=== PATIENT | male | born 1940 | race Caucasian/White ===

== ENCOUNTER 2020-04-07 10:44 | Outpatient (REF) | payer MEDICARE, OTHER, SELFPAY ==
--- NOTE | 2020-04-07 | US_ITS ---
EXAMINATION: US RETROPERITONEAL LIMITED (RENAL ONLY) CLINICAL INFORMATION: Renal stones. COMPARISON: Previous renal ultrasound most recent January 2019 TECHNIQUE: Grayscale and color imaging of the kidneys FINDINGS: RIGHT KIDNEY: 10.3 x 6.5 x 6.1 cm (SAG x AP x TRV). The kidney is normal in size, contour, and echogenicity. Renal cortical thickness is normal. There is a 2.3 x 2.3 x 2.4 cm slightly complex cyst in the midpole with single small thin septation. No calculi or mass. No hydronephrosis. LEFT KIDNEY: 10.3 x 5.8 x 6.5 cm (SAG x AP x TRV). The kidney is normal in size, contour, and echogenicity. Renal cortical thickness is normal. There are multiple cysts. The largest measures 2.4 x 2.7 x 2.4 cm in the lower pole. There are 2 left renal stones. The largest measures 5 x 7 x 8 mm in the lower pole. There is a smaller 3 mm stone in the midpole. There is no hydronephrosis or renal mass. US/US renal BI IMPRESSION: Left renal stones. Bilateral renal cysts.
== END 2020-04-07 10:45 | disposition home or self-care (01) ==
LOC: HO.HMGCX 10:44
PROVIDERS: Visit Provider Urology
DX: N20.0 Calculus of kidney (principal)
CPT/HCPCS: 76775

== ENCOUNTER → 2020-06-04 13:42 | Outpatient (BNVA) | payer MEDICARE, OTHER, SELFPAY | PROVIDERS: PCP Internal Medicine; Visit Provider Urology | DX: Z13.89 Encounter for screening for other disorder (principal) | CPT/HCPCS: Q3014 ==

== ENCOUNTER 2020-06-25 06:58 | Day surgery (SDC) | payer MEDICARE, OTHER, SELFPAY ==
--- NOTE | 2020-06-24 11:01 | HO.ANESPROP2 ---
Documented by User: Pippa Yecenia 06/24/20 11:03 HPI - Anesthesia Eval Consult details Narrative: 80yo M for L ESWL Last ESWL 06/2017 with [facility] Active Problems Active Problems: All Active Problems (Updated 06/04/20 @ 14:02 by Gómez Ca MD) Left renal stone (Acute) Impaired glucose tolerance (Acute) Anxiety (Acute) BPH (benign prostatic hyperplasia) (Acute) Hypercholesterolemia (Acute) GERD (gastroesophageal reflux disease) (Acute) Asthma (Acute) Past Medical History Medical History Asthma BPH (benign prostatic hyperplasia) Cataract, left eye Esophageal stricture GERD (gastroesophageal reflux disease) Glaucoma Hypercholesterolemia Left renal stone Sciatic nerve pain Vitamin D deficiency Family History Family History Father Stroke Mother No problems noted. Surgical History Surgical History History of blepharoplasty History of cholecystectomy History of inguinal hernia repair History of lithotripsy History of tonsillectomy Social History Social History Smoking Status: Never smoker Use of substances other than those prescribed or required for medical reasons: No Advance Directives: No Advance Directives Information Provided: Yes Recently lost weight without trying: No Meds Allergies Allergy/AdvReac Type Severity Reaction Status Date / Time Penicillins [PENICILLINS] Allergy Intermediate RASH Verified 06/25/20 07:43 Home Medications Medication Instructions Recorded Confirmed Last Taken Type albuterol sulfate 90 mcg/actuation 2 puff INHALATION Q4-6H PRN 04/23/20 06/25/20 06/25/20 06:00 History aerosol inhaler dorzolamide 22.3 mg-timolol 6.8 1 drp OPHTHALMIC (EYE) BID 04/23/20 06/19/20 Unknown History mg/mL eye drops latanoprost 0.005 % eye drops 1 drp OPHTHALMIC (EYE) QPM 04/23/20 06/19/20 Unknown History omeprazole 20 mg capsule,delayed 20 mg PO DAILY 04/23/20 06/19/20 Unknown History release fluticasone furoate [Arnuity 1 puff PO DAILY 06/19/20 06/19/20 Unknown History Ellipta] pyridoxine (vitamin B6) 1 tab PO DAILY 06/19/20 06/19/20 Unknown History Exam Exam Date and Time: June 24, 2020 1101 Assessment and Plan Assessment Anesthesia Assessment: Chart Reviewed Documented by User: Atiya Ravi 06/25/20 08:09 [facility] Past Medical History Medical History Asthma BPH (benign prostatic hyperplasia) Cataract, left eye Esophageal stricture GERD (gastroesophageal reflux disease) Glaucoma Hypercholesterolemia Left renal stone Sciatic nerve pain Vitamin D deficiency Family History Family History Father Stroke Mother No problems noted. Surgical History Surgical History History of blepharoplasty History of cholecystectomy History of inguinal hernia repair History of lithotripsy History of tonsillectomy Social History Social History Smoking Status: Never smoker Use of substances other than those prescribed or required for medical reasons: No Advance Directives: No Advance Directives Information Provided: Yes Recently lost weight without trying: No Meds Allergies Allergy/AdvReac Type Severity Reaction Status Date / Time Penicillins [PENICILLINS] Allergy Intermediate RASH Verified 06/25/20 07:43 Home Medications Medication Instructions Recorded Confirmed Last Taken Type albuterol sulfate 90 mcg/actuation 2 puff INHALATION Q4-6H PRN 04/23/20 06/25/20 06/25/20 06:00 History aerosol inhaler dorzolamide 22.3 mg-timolol 6.8 1 drp OPHTHALMIC (EYE) BID 04/23/20 06/19/20 Unknown History mg/mL eye drops latanoprost 0.005 % eye drops 1 drp OPHTHALMIC (EYE) QPM 04/23/20 06/19/20 Unknown History omeprazole 20 mg capsule,delayed 20 mg PO DAILY 04/23/20 06/19/20 Unknown History release fluticasone furoate [Arnuity 1 puff PO DAILY 06/19/20 06/19/20 Unknown History Ellipta] pyridoxine (vitamin B6) 1 tab PO DAILY 06/19/20 06/19/20 Unknown History Exam Airway Mallampati Class: II TM Dist: >3cm Neck ROM: Full Assessment and Plan Assessment Anesthesia Assessment: Anesthesia Plan Discussed and Chart Reviewed Final Anesthetic Review NPO: Yes ASA Class: II Final Preanesthetic Review: No Changes in Pt Med Stat, Meds/Allgs Chart Reviewed, Consent Obtained/Reviewed and Anes Risks/Benef Reviewed Patient Risk: Low Procedure Risk: Low Assessment/Block/Sedation in SS: Assess/Block/Sedation-SS Anesthetic Plan Anesthetic Plan: MAC: Disposition: Standard PACU
--- NOTE | ~2020-06-25 | XR_ITS ---
EXAMINATION: XR ABDOMEN KUB CLINICAL INDICATION: Nephrolithiasis COMPARISON: Ultrasound 04/07/2020 TECHNIQUE: AP view of the abdomen. FINDINGS: 0.7 cm calcification overlying the lower pole of the left kidney. No additional calcifications are seen. Nonobstructive bowel gas pattern. Mild to moderate colonic stool burden. Degenerative changes of the spine. XR/XR KUB IMPRESSION: 0.7 cm calcification overlying the lower pole of the left kidney.
[2020-06-25 07:26] VITALS: BMI 24.3
[2020-06-25 07:30] VITALS: BP 125/68; PULSE 82; RESP 16; TEMP 36.5; O2SAT 95
[2020-06-25] MEDS: Lactated Ringers 1,000 ML 100 ML IVCONT (07:44)
--- NOTE | 2020-06-25 09:27 | MHC.SHP ---
Pre-Procedural Eval Section A The patient is an INPATIENT: No Changes since office visit: No Cold of Flu in the past 2 weeks, No New Medical Problems, No Changes in Medication and No Patient answered all questions Section B Chief Complaint: Calculus of Kidney Allergies: Allergies Allergy/AdvReac Type Severity Reaction Status Date / Time Penicillins [PENICILLINS] Allergy Intermediate RASH Verified 06/25/20 07:43 Plan Diagnosis/Plan: Unchanged (Left ESWL) I have reviewed the history and physical and performed a pertinent physical examination on my patient. No changes have occurred unless specified.
--- NOTE | 2020-06-25 09:36 | W.PM.OPN ---
Operative Note Operative Note Date of Service: 06/25/20 Narrative: PreOperative Diagnosis: Left Renal stones Post Operative Diagnosis: Left Renal stones Procedure: Left ESWL Surgeon: Dr Góemz Ca Anesthesia: mac/sedation Indications for procedure: They understand ESWL may be a staged procedure and subsequent intervention may be required based on imaging after ESWL. They also understand there is a risk of bleeding, infection, damage to adjacent organs. Left 7mm lower pole stone with cyst Procedure: After informed consent was verified the patient was brought to the operating room and placed in a supine position. Anesthesia was performed per protocol. Safety pause time-out was performed. Imaging was in the room and laterality confirmed. ESWL was performed. The 1st 500 shocks were performed at 60 hertz. These were performed with increasing power. Once maximum power was reached the rate was increased to 180 hertz. A total of 2500 shocks were given. Fluoroscopy showed stone disintegration. They tolerated procedure well and was transferred to the recovery area upon completion.
[2020-06-25 10:05] VITALS: BP 108/61; PULSE 78; RESP 16; TEMP 36.6; O2SAT 97
[2020-06-25] MEDS: Phenazopyridine HCL 100 MG TABLET PO (10:19)
[2020-06-25 10:20] VITALS: BP 114/65; PULSE 82; RESP 18; O2SAT 97
== END 2020-06-25 13:00 | disposition home or self-care (01) ==
PROVIDERS: PCP Internal Medicine; Visit Provider Urology
PROC: (CPT 50590; principal; 2020-06-25 08:30)
DX: N20.0 Calculus of kidney (principal); N28.1 Cyst of kidney, acquired; N40.0 Benign prostatic hyperplasia without lower urinary tract symptoms; Z87.442 Personal history of urinary calculi; J45.909 Unspecified asthma, uncomplicated; Z79.899 Other long term (current) drug therapy; Z88.0 Allergy status to penicillin; Z90.49 Acquired absence of other specified parts of digestive tract
CPT/HCPCS: 50590; 74018; J1885; J2405; J3010

== ENCOUNTER 2020-06-30 09:57 | Outpatient (REF) | payer MEDICARE, OTHER, SELFPAY ==
--- NOTE | ~2020-06-30 | US_ITS ---
EXAMINATION: US RETROPERITONEAL LIMITED (RENAL ONLY) CLINICAL INFORMATION: Calculus of kidney. COMPARISON: X-ray abdomen KUB 06/25/2020. Renal ultrasound 04/07/2020 and 01/22/2019. CT abdomen and pelvis 10/04/2011. TECHNIQUE: Real-time imaging of the kidneys. FINDINGS: RIGHT KIDNEY: 11.8 x 6.3 x 6.1 cm (SAG x AP x TRV). The kidney is normal in size, contour, and echogenicity. Renal cortical thickness is normal. There is a 2.3 x 2.2 x 2.3 cm minimally complex cyst in the midpole with single thin septation. No renal calculi, mass or hydronephrosis. LEFT KIDNEY: 10.8 x 6.0 x 5.2 cm (SAG x AP x TRV). The kidney is normal in size, contour, and echogenicity. Renal cortical thickness is normal. There are 3 simple cysts in the mid and lower pole, largest measuring 2.8 x 2.3 x 2.7 cm. There are 3 left renal stones measuring 9 x 7 x 5 mm in the lower pole, 4 x 4 by 2 mm in the midpole and 3 mm in the upper pole. No renal mass or hydronephrosis. US/US renal BI IMPRESSION: Left renal stones. Bilateral renal cysts.
== END 2020-06-30 09:58 | disposition home or self-care (01) ==
LOC: HO.HMGCX 09:57
PROVIDERS: Visit Provider Urology
DX: N20.0 Calculus of kidney (principal)
CPT/HCPCS: 76775

== ENCOUNTER → 2020-07-18 09:45 | Outpatient (BNVA) | payer MEDICARE, OTHER, SELFPAY | PROVIDERS: PCP Internal Medicine; Visit Provider Urology | DX: N20.0 Calculus of kidney (principal) | CPT/HCPCS: Q3014 ==

== ENCOUNTER 2020-10-30 11:38 | Outpatient (REF) | payer MEDICARE, OTHER, SELFPAY ==
--- NOTE | ~2020-10-30 | XR_ITS ---
EXAMINATION: XR HIP, RIGHT CLINICAL INFORMATION: Right hip pain. COMPARISON: None TECHNIQUE: Two views of the right hip. FINDINGS: No acute fracture or dislocation. No significant joint space narrowing. Tiny acetabular marginal osteophytes with minimal subchondral cystic change. No abnormal soft tissue calcification. XR/XR hip RT min 2V IMPRESSION: Minimal right hip arthrosis.
[2020-10-30 12:35] LABS: MANUAL DIFF FLAG NO
[2020-10-30 12:43] LABS: Basophils Absolute Auto 0.1 X10*3/uL (0.0-0.2); Basophils Percent Auto 0.9 % (0-2); Eosinophils Absolute Auto 0.5 X10*3/uL (0.0-0.4); Eosinophils Percent Auto 6.2 % (0-4); Hematocrit 41.9 % (42-52); Hemoglobin 13.7 g/dl (14.0-18.0); Imm Gran Abs Auto 0.02 X10*3/uL (0.00-0.03); Imm Gran Pct Auto 0.3 % (0.0-0.4); Lymphocytes Absolute Auto 1.9 X10*3/uL (1.2-4.9); Lymphocytes Percent Auto 24.1 % (20-40); Mean Corpuscular HGB Conc 32.7 g/dl (31.0-36.0); Mean Corpuscular Hemoglobin 30.7 pg (27.0-33.0); Mean Corpuscular Volume 93.9 fL (80-98); Mean Platelet Volume 9.7 fL (9.4-12.4); Monocytes Absolute Auto 0.7 X10*3/uL (0.1-1.2); Monocytes Percent Auto 8.8 % (2-11); Neutrophils Absolute Auto 4.7 X10*3/uL (2.0-8.3); Neutrophils Percent Auto 59.7 % (45-73); Platelet Count 257 X10*3/uL (160-400); Red Blood Count 4.46 X10*6/uL (4.60-5.80); Red Cell Distribution Width 12.8 % (11.0-16.0); White Blood Count 7.8 X10*3/uL (4.8-10.8)
[2020-10-30 13:12] LABS: Alanine Aminotransferase 65 U/L (0-40); Albumin Level 4.1 g/dL (3.5-5.0); Alkaline Phosphatase 95 U/L (39-117); Anion Gap 11 (12-20); Aspartate Amino Transferase 59 U/L (5-37); Bilirubin Total 0.8 mg/dL (0.0-1.0); Blood Urea Nitrogen 18 mg/dL (9-16); Calcium 9.4 mg/dL (8.4-10.2); Carbon Dioxide 25 mmol/L (22-29); Chloride 111 mmol/L (96-108); Cholesterol 154 mg/dL; Estimated Glomerular Filt Rate > 60; Glucose Random 98 mg/dL (60-115); HDL Cholesterol 44 mg/dL; LDL Cholesterol Calculated 95 mg/dl; Potassium 3.9 mmol/L (3.3-5.1); Sodium 143 mmol/L (135-145); Triglycerides 77 mg/dL
[2020-10-30 13:33] LABS: Estimated Average Glucose 117 mg/dL; Hemoglobin A1c % 5.7 %
[2020-10-30 13:36] LABS: Free T4 (Free Thyroxine) 0.98 ng/dL (0.71-1.85); Thyroid Stimulating Hormone 1.67 uIU/mL (0.32-4.0)
[2020-10-30 15:43] LABS: Folate 5.1 ng/mL (> or = 4.0); Vitamin B12 392 pg/mL (200-900)
== END 2020-10-30 11:39 | disposition home or self-care (01) ==
LOC: HO.XRAY 11:38
PROVIDERS: Absent Provider Internal Medicine; PCP Internal Medicine; Visit Provider Nurse Practitioner Family
DX: E78.00 Pure hypercholesterolemia, unspecified (principal); F41.9 Anxiety disorder, unspecified; M25.551 Pain in right hip
CPT/HCPCS: 36415; 73502; 80053; 80061; 82607; 82746; 83036; 84439; 84443; 85025

== ENCOUNTER 2020-11-16 11:00 | Inpatient (IN) | payer MEDICARE, OTHER, SELFPAY ==
--- NOTE | ~2020-11-16 | MR_ITS ---
EXAMINATION: MR ABDOMEN WITHOUT CONTRAST CLINICAL INFORMATION: Obstructive jaundice. COMPARISON: Previous CT of the abdomen and pelvis and abdominal ultrasound 11/16/2020. TECHNIQUE: MR abdomen is performed without gadolinium contrast. 3-D MRCP sequences were also performed. FINDINGS: LUNG BASES: The visualized lung bases are unremarkable. LIVER, GALLBLADDER, AND BILIARY TREE: The liver is normal in size, shape and signal. No focal liver lesion is seen. There is intrahepatic and extrahepatic biliary duct dilatation. The common bile duct is dilated down to the head of the pancreas and measures up to 1.8 cm. There is a round filling defect seen in the distal common bile duct at the ampulla questionable for a distal common bile duct stone. This measures 5 mm, and is best seen MRCP image 12 series 9. The gallbladder has been removed. PANCREAS: Unremarkable. The main pancreatic duct is normal. SPLEEN: Unremarkable ADRENAL GLANDS: Unremarkable KIDNEYS AND URETERS: The kidneys are normal in size and shape. There are multiple bilateral renal cysts. The largest measures 2.5 cm in the lower pole of the left kidney. No hydronephrosis. No perinephric stranding. GASTROINTESTINAL TRACT: There is diverticulosis of the colon. There is an esophageal hernia. No bowel obstruction. No ascites or fluid collection. ABDOMINAL WALL: No significant hernia is appreciated. LYMPH NODES: No lymphadenopathy. VASCULAR: Unremarkable. OSSEOUS STRUCTURES: Marrow signal normal. There are degenerative changes of the spine and mild scoliosis. MR/MR MRCP IMPRESSION: Dilated intrahepatic and extrahepatic bile ducts. The common bile duct is dilated down to the ampulla and there is question of a 5 mm distal common bile duct. Bilateral renal cysts. Diverticulosis. Esophageal hernia.
--- NOTE | ~2020-11-16 | US_ITS ---
EXAMINATION: US ABDOMEN LIMITED CLINICAL INFORMATION: Elevated LFTs. COMPARISON: CT scan of same day TECHNIQUE: Real-time imaging of the right upper quadrant abdominal viscera. FINDINGS: PANCREAS: Unremarkable. No pancreatic mass or peripancreatic inflammatory change. LIVER: There is intrahepatic bile duct dilatation seen. No focal masses noted. GALLBLADDER: Status post cholecystectomy. COMMON BILE DUCT: Dilated to approximately 1.5 cm in diameter. RIGHT KIDNEY: Normal. No hydronephrosis. No renal calculi or focal solid parenchymal lesions. The kidney measures 11.3 cm in maximum dimension. There is a 2.3 cm mid pole cyst present. FREE FLUID: None. US/US abdomen limited IMPRESSION: Intrahepatic bile duct dilatation with dilated common bile duct.
--- NOTE | ~2020-11-16 | CT_ITS ---
EXAMINATION: CT ABDOMEN AND PELVIS WITHOUT CONTRAST CLINICAL INFORMATION: Kidney stones COMPARISON: October 04, 2011 TECHNIQUE: Multidetector volumetric imaging was performed from the superior aspect of the liver through the pubic symphysis. Sagittal and coronal reformatted images were obtained on the technologist's workstation. This CT examination was performed using dose optimization techniques as appropriate, variously including the following: *Automated exposure control *Adjustment of mA and/or kV according to patient size (this includes techniques or standardized protocols for targeted exams where dose is matched to indication/reason for exam; i.e. extremities or head) *Use of iterative reconstruction technique DLP: 377.01 mGy-cm FINDINGS: LUNG BASES: There is a 6 mm subpleural noncalcified nodule seen within the left lower lobe on image 51 of 649. This was present and is stable compared to study of October 04, 2011. No pleural or pericardial effusion. LIVER, GALLBLADDER, AND BILIARY TREE: There is intrahepatic bile duct dilatation present as well as dilatation of the common hepatic and common bile duct . The common hepatic duct measures greater than 2 cm in diameter with the common bile duct measuring 2 cm in diameter. No radiopaque filling defect is appreciated. Status post cholecystectomy. PANCREAS: No definite pancreatic mass is appreciated. No pancreatic ductal dilatation is seen. SPLEEN: Unremarkable. ADRENAL GLANDS: Unremarkable. KIDNEYS AND URETERS: Bilateral renal cysts are present. No hydronephrosis or hydroureter. No renal collecting system or ureteral calculi seen. There is a calcification seen involving the peripheral cortex lower pole of the left kidney which may be posttraumatic or post inflammatory. BLADDER: Unremarkable. Large prostate impression. GASTROINTESTINAL TRACT: No free air or free fluid is appreciated. There is a moderate size hiatal hernia seen. No dilated loops of large or small bowel. There is sigmoid diverticulosis without evidence of acute diverticulitis. The appendix appears unremarkable. No pericolonic inflammatory change. ABDOMINAL WALL: There is a fat-containing left inguinal hernia present. LYMPH NODES: No lymphadenopathy seen. VASCULAR: Aortoiliac calcified plaque is seen. There is ectasia of the right and left common iliac arteries to approximately 1.6 cm in diameter. PELVIC VISCERA: Enlarged prostate gland measuring approximately 5.4 x 5.9 x 5.9 cm in size. OSSEOUS STRUCTURES: No suspicious destructive bony lesions identified. There is multilevel degenerative disc disease and facet arthropathy and sacroiliac joint degenerative change. CT/CT abdomen pelvis wo con IMPRESSION: Intrahepatic and extrahepatic biliary ductal dilatation to the level of the ampulla of Vater without radiopaque filling defect. Possible stricture or malignancy not excluded. No evidence of obstructive uropathy. Bilateral renal cysts. Enlarged prostate gland.
--- NOTE | ~2020-11-16 | FL_ITS ---
EXAMINATION: Intraoperative fluoroscopy CLINICAL INFORMATION: ERCP COMPARISON: MRCP same day TECHNIQUE: Intraoperative fluoroscopy was provided for use by Dr. Duran. A total of 8 images were saved to PACS. A radiologist was not present during imaging. Today's dictation is only for administrative purposes to document intraoperative fluoroscopic usage. TOTAL FLUOROSCOPIC TIME: 4.1 minutes FL/FL guidance in OR FINDINGS~\^^ Intraoperative fluoroscopy provided for use by Dr. Duran. Please see operative note for detailed findings.
[2020-11-16 11:03] VITALS: BP 121/68; PULSE 83; RESP 18; TEMP 36.7; O2SAT 99; BMI 22.8
--- NOTE | 2020-11-16 11:18 | ED_ITS ---
HPI - Abdominal Pain General Chief Complaint: Abdominal Pain Stated Complaint: abd pain Time Seen by Provider: 11/16/20 11:14 Source: patient Mode of arrival: ambulatory Limitations: no limitations History of Present Illness HPI narrative: THIS IS AN 80 YEARS OLD MALE PRESENTED TO THE ED WITH CHIEF COMPLAINT OF ABDOMINAL PAIN NAUSEA VOMITING FOR ABOUT 4 DAYS, HE ALSO STATES HE MAY HAVE A UTI MD elicited complaint: abdominal pain Pertinent past history: none Onset (ago): day(s) (3) Pain Consistency: constant Location: diffuse Quality: cramping Radiation: none Migration to: no migration Associated symptoms: nausea and vomiting Related Data Home Medications Medication Instructions Recorded Confirmed dorzolamide 22.3 mg-timolol 6.8 1 drp OPHTHALMIC (EYE) BID 04/23/20 11/16/20 mg/mL eye drops latanoprost 0.005 % eye drops 1 drp OPHTHALMIC (EYE) QPM 04/23/20 11/16/20 omeprazole 20 mg capsule,delayed 20 mg PO DAILY 04/23/20 11/16/20 release pyridoxine (vitamin B6) 100 mg 1 tab PO DAILY 06/19/20 11/16/20 tablet fluticasone furoate 100 1 puff PO DAILY 11/16/20 11/16/20 mcg-vilanterol 25 mcg/dose inhalation powder (Breo Ellipta) Previous Rx's Medication Instructions Recorded simvastatin 40 mg tablet 40 mg PO BEDTIME #90 tab 03/07/20 tadalafil 10 mg tablet (Cialis) 10 mg PO DAILY PRN #30 tab 06/05/20 Allergies Allergy/AdvReac Type Severity Reaction Status Date / Time Penicillins [PENICILLINS] Allergy Intermediate RASH Verified 11/16/20 11:02 Review of Systems Review of Systems Yes all other systems are reviewed and are negative Constitutional: Reports no additional constitutional complaints Cardiovascular: Denies chest pain, Denies chest pain at rest and Denies chest pain with activity Respiratory: Reports no additional respiratory complaints Gastrointestinal: Reports nausea and Reports vomiting Physical Exam Vital Signs: Vital Signs: Last Vital Signs Temp 98.2 F 11/16/20 15:10 Pulse 84 11/16/20 15:10 Resp 16 11/16/20 15:10 BP 122/79 11/16/20 15:10 Pulse Ox 99 11/16/20 11:25 Body Mass Index 22.8 Const: General: cooperative, alert, awake and Physically active HENMT: Head: Yes normal to inspection Neck: Neck: Yes normal visual inspection, Yes full ROM and Yes no lymphadenopathy Thyroid: Thyroid normal Chest: Chest palpation & inspection: normal inspection of the chest Resp: Effort & Inspection: normal respiratory effort Auscultation: clear to auscultation bilaterally Cardio: Jugular venous distension: no JVD Rate: regular rate GI: Inspection: Yes normal to inspection Palpation (GI): Soft to palpation, not firm, nontender, no guarding and not rigid Skin: General skin exam: no rashes or lesions noted, elasticity normal and turgor normal Rashes: no rashes Extrem: General: Yes normal to inspection, Yes full ROM and Yes capillary refill normal Course Reevaluation(s) Reevaluation #1: Labs showed elevated LFT , ultrasound the CT showed dilated intra and extra hepatic bile duct. I spoke with GINA Powell will admit cover with AB,npo after mid night for possible ERCP MDM - Abdominal Pain Lab Data Result diagrams: 11/16/20 11:24 11/16/20 11:24 Labs: Lab Results 11/16/20 11/16/20 11/16/20 Range/Units 11:24 11:24 11:24 WBC 9.4 (4.8-10.8) X10*3/uL RBC 4.79 (4.60-5.80) X10*6/uL Hgb 14.8 (14.0-18.0) g/dl Hct 45.1 (42-52) % MCV 94.2 (80-98) fL MCH 30.9 (27.0-33.0) pg MCHC 32.8 (31.0-36.0) g/dl RDW 12.9 (11.0-16.0) % Plt Count 285 (160-400) X10*3/uL MPV 9.4 (9.4-12.4) fL Immature Gran % (Auto) 0.4 (0.0-0.4) % Neut % (Auto) 64.1 (45-73) % Lymph % (Auto) 16.6 L (20-40) % Jennings % (Auto) 14.2 H (2-11) % Eos % (Auto) 4.0 (0-4) % Baso % (Auto) 0.7 (0-2) % Lymph # (Auto) 1.6 (1.2-4.9) X10*3/uL Jennings # (Auto) 1.3 H (0.1-1.2) X10*3/uL Eos # (Auto) 0.4 (0.0-0.4) X10*3/uL Baso # (Auto) 0.1 (0.0-0.2) X10*3/uL Abs Immat Gran (auto) 0.04 H (0.00-0.03) X10*3/uL Absolute Neuts (auto) 6.0 (2.0-8.3) X10*3/uL Absolute Nucleated RBC 0.000 (0.0-0.012) X10*3/uL Nucleated RBC % (auto) 0.0 (0.0-0.2) /100WBC Sodium 138 (135-145) mmol/L Potassium 4.5 (3.3-5.1) mmol/L Chloride 104 (96-108) mmol/L Carbon Dioxide 23 (22-29) mmol/L Anion Gap 16 (12-20) BUN 17 H (9-16) mg/dL Creatinine 1.07 (0.5-1.4) mg/dL Estim Creat Clear Calc 54.7 Estimated GFR > 60 Random Glucose 109 (60-115) mg/dL Calcium 9.4 (8.4-10.2) mg/dL Total Bilirubin 3.4 H (0.0-1.0) mg/dL Direct Bilirubin 1.6 H (0.0-0.5) mg/dL AST 280 H (5-37) U/L ALT 432 H (0-40) U/L Alkaline Phosphatase 431 H D (39-117) U/L C-Reactive Protein 2.84 H (< or = 0.50) mg/dL Total Protein 7.5 (6.5-8.0) g/dL Albumin 3.9 (3.5-5.0) g/dL Lipase 43 (8-78) U/L Urine Color Cancelled Urine Appearance Cancelled Urine pH Cancelled Ur Specific [place] Cancelled Urine Protein Cancelled Urine Glucose (UA) Cancelled Urine Ketones Cancelled Urine Blood Cancelled Urine Nitrite Cancelled Ur Leukocyte Esterase Cancelled Urine RBC (0) /HPF Urine WBC (0-4) /HPF Ur Squamous Epith Cells /LPF Urine Bacteria /LPF Urine Mucus /LPF 11/16/20 Range/Units 11:24 WBC (4.8-10.8) X10*3/uL RBC (4.60-5.80) X10*6/uL Hgb (14.0-18.0) g/dl Hct (42-52) % MCV (80-98) fL MCH (27.0-33.0) pg MCHC (31.0-36.0) g/dl RDW (11.0-16.0) % Plt Count (160-400) X10*3/uL MPV (9.4-12.4) fL Immature Gran % (Auto) (0.0-0.4) % Neut % (Auto) (45-73) % Lymph % (Auto) (20-40) % [place] % (Auto) (2-11) % Eos % (Auto) (0-4) % Baso % (Auto) (0-2) % Lymph # (Auto) (1.2-4.9) X10*3/uL [place] # (Auto) (0.1-1.2) X10*3/uL Eos # (Auto) (0.0-0.4) X10*3/uL Baso # (Auto) (0.0-0.2) X10*3/uL Abs Immat Gran (auto) (0.00-0.03) X10*3/uL Absolute Neuts (auto) (2.0-8.3) X10*3/uL Absolute Nucleated RBC (0.0-0.012) X10*3/uL Nucleated RBC % (auto) (0.0-0.2) /100WBC Sodium (135-145) mmol/L Potassium (3.3-5.1) mmol/L Chloride (96-108) mmol/L Carbon Dioxide (22-29) mmol/L Anion Gap (12-20) BUN (9-16) mg/dL Creatinine (0.5-1.4) mg/dL Estim Creat Clear Calc Estimated GFR Random Glucose (60-115) mg/dL Calcium (8.4-10.2) mg/dL Total Bilirubin (0.0-1.0) mg/dL Direct Bilirubin (0.0-0.5) mg/dL AST (5-37) U/L ALT (0-40) U/L Alkaline Phosphatase (39-117) U/L C-Reactive Protein (< or = 0.50) mg/dL Total Protein (6.5-8.0) g/dL Albumin (3.5-5.0) g/dL Lipase (8-78) U/L Urine Color ORANGE Urine Appearance CLEAR Urine pH 5.5 Ur Specific [place] 1.025 Urine Protein 1+ H Urine Glucose (UA) 100 H Urine Ketones SEE NOTE Urine Blood TRACE Urine Nitrite SEE NOTE Ur Leukocyte Esterase NEG Urine RBC 0 (0) /HPF Urine WBC 0-2 (0-4) /HPF Ur Squamous Epith Cells TRACE /LPF Urine Bacteria NONE /LPF Urine Mucus 1+ /LPF Imaging Data CT scan - abdomen: Radiologist's impression: GASTROINTESTINAL TRACT: No free air or free fluid is appreciated. There is a moderate size hiatal hernia seen. No dilated loops of large or small bowel. There is sigmoid diverticulosis without evidence of acute diverticulitis. The appendix appears unremarkable. No pericolonic inflammatory change.? ABDOMINAL WALL: There is a fat-containing left inguinal hernia present. ? LYMPH NODES: No lymphadenopathy seen. VASCULAR: Aortoiliac calcified plaque is seen. There is ectasia of the right and left common iliac arteries to approximately 1.6 cm in diameter. PELVIC VISCERA: Enlarged prostate gland measuring approximately 5.4 x 5.9 x 5.9 cm in size.? OSSEOUS STRUCTURES: No suspicious destructive bony lesions identified. There is multilevel degenerative disc disease and facet arthropathy and sacroiliac joint degenerative change.? CT/CT abdomen pelvis wo con IMPRESSION: Intrahepatic and extrahepatic biliary ductal dilatation to the level of the ampulla of Vater without radiopaque filling defect. Possible stricture or malignancy not excluded. ? No evidence of obstructive uropathy. ? Bilateral renal cysts. ? Enlarged prostate gland. Discharge Plan Discharge Clinical Impression: Abdominal pain in male, Elevated LFTs Prescriptions: No Action simvastatin 40 mg tablet 40 mg PO BEDTIME Qty: 90 RF: 2 tadalafil [Cialis] 10 mg tablet 10 mg PO DAILY PRN (Reason: sexual activity) Qty: 30 RF: 5 pyridoxine (vitamin B6) 100 mg tablet 1 tab PO DAILY RF: 0 Breo Ellipta 100-25 mcg/dose blister with device 1 puff PO DAILY RF: 0 dorzolamide-timolol 22.3-6.8 mg/mL drops 1 drp ophthalmic (eye) BID RF: 0 latanoprost 0.005 % drops 1 drp ophthalmic (eye) QPM RF: 0 omeprazole 20 mg capsule,delayed release(DR/EC) 20 mg PO DAILY RF: 0 PMFSH Past Medical History Attestation statement: The following information was validated with the patient. Medical History Asthma BPH (benign prostatic hyperplasia) Cataract, left eye Esophageal stricture GERD (gastroesophageal reflux disease) Glaucoma Hypercholesterolemia Left renal stone Sciatic nerve pain Screening for diabetes mellitus Vitamin D deficiency Surgical History History of blepharoplasty History of cataract surgery History of cholecystectomy History of inguinal hernia repair History of lithotripsy History of tonsillectomy Family History Family History Father Stroke Mother No problems noted. Social History Social History Alcohol intake: current Alcohol intake frequency: does not drink Patient Tobacco Use Status: Never used Tobacco Use of substances other than those prescribed or required for medical reasons: No Advance Directives: Yes Advance Directives Information Provided: Yes Advance Directives on File: No
[2020-11-16 11:25] VITALS: BP 127/66; PULSE 79; RESP 16; O2SAT 99
[2020-11-16 11:28] LABS: MANUAL DIFF FLAG NO
[2020-11-16] MEDS: ondansetron HCL 4 MG/2 ML VIAL IVPUSH (11:28)
[2020-11-16] MEDS: 0.9 % Sodium Chloride 1,000 ML 999 ML IVCONT (11:28)
[2020-11-16 11:34] LABS: Basophils Absolute Auto 0.1 X10*3/uL (0.0-0.2); Basophils Percent Auto 0.7 % (0-2); Eosinophils Absolute Auto 0.4 X10*3/uL (0.0-0.4); Hematocrit 45.1 % (42-52); Hemoglobin 14.8 g/dl (14.0-18.0); Imm Gran Abs Auto 0.04 X10*3/uL (0.00-0.03); Imm Gran Pct Auto 0.4 % (0.0-0.4); Lymphocytes Absolute Auto 1.6 X10*3/uL (1.2-4.9); Lymphocytes Percent Auto 16.6 % (20-40); Mean Corpuscular HGB Conc 32.8 g/dl (31.0-36.0); Mean Corpuscular Hemoglobin 30.9 pg (27.0-33.0); Mean Corpuscular Volume 94.2 fL (80-98); Mean Platelet Volume 9.4 fL (9.4-12.4); Monocytes Absolute Auto 1.3 X10*3/uL (0.1-1.2); Monocytes Percent Auto 14.2 % (2-11); Neutrophils Percent Auto 64.1 % (45-73); Platelet Count 285 X10*3/uL (160-400); Red Blood Count 4.79 X10*6/uL (4.60-5.80); Red Cell Distribution Width 12.9 % (11.0-16.0); White Blood Count 9.4 X10*3/uL (4.8-10.8)
[2020-11-16 11:51] LABS: Alanine Aminotransferase 432 U/L (0-40); Albumin Level 3.9 g/dL (3.5-5.0); Alkaline Phosphatase 431 U/L (39-117); Anion Gap 16 (12-20); Aspartate Amino Transferase 280 U/L (5-37); Bilirubin Total 3.4 mg/dL (0.0-1.0); Blood Urea Nitrogen 17 mg/dL (9-16); Calcium 9.4 mg/dL (8.4-10.2); Carbon Dioxide 23 mmol/L (22-29); Chloride 104 mmol/L (96-108); Creatinine Clr Calc Pharmacy 54.7; Estimated Glomerular Filt Rate > 60; Glucose Random 109 mg/dL (60-115); Lipase 43 U/L (8-78); Potassium 4.5 mmol/L (3.3-5.1); Sodium 138 mmol/L (135-145); Total Protein 7.5 g/dL (6.5-8.0)
[2020-11-16 11:57] LABS: Appearance Urine CLEAR; Color Urine ORANGE; Glucose Urine UA 100 MG/DL (NEG); Leukocyte Esterase Urine NEG (NEG); PH 5.5 (5.0-8.0); Specific Gravity - Urine 1.025 (1.005-1.025); Urine Blood TRACE (NEG); Urine Protein 1+ MG/DL (NEG-TRACE)
[2020-11-16 11:58] LABS: UACC Culture Trigger NO
[2020-11-16 12:01] LABS: RBC Urine 0 /HPF (0); Squamous Epithelial Cell Urine TRACE /LPF; WBC Urine 0-2 /HPF (0-4)
[2020-11-16 12:02] LABS: Mucus Urine 1+ /LPF
[2020-11-16] MEDS: levoFLOXacin/D5W 500 MG/100 ML PIGGYBACK 100 MG IV (14:32)
[2020-11-16 15:10] VITALS: BP 122/79; PULSE 84; RESP 16; TEMP 36.8
[2020-11-16 15:32] LABS: Bilirubin Direct 1.6 mg/dL (0.0-0.5); C Reactive Protein 2.84 mg/dL (< or = 0.50)
--- NOTE | 2020-11-16 15:57 | PM.IMHP ---
History of Present Illness Date of Service: 11/16/20 Chief Complaint: abdominal pain, nausea, and vomiting Professor Hi is an 80 yo male with history of GERD and cholelithiasis status post cholecystectomy who presents with a 3-day history of right upper quadrant pain associated with nausea and 1 episode of nonbloody, nonbilious emesis. He hasn't eaten anything due to the nausea. He denies fever, chills, night sweats, or weight loss. No diarrhea or hematochezia. He presented to the ED with normal vital signs and normal WBC count. Transminases were elevated with ALT 432 and AST 280; total bilirubin was 3.4, of which 1.[address] scan showed intrahepatic and extrahepatic biliary ductal dilatation to the level of the ampulla of Vater without radiopaque filling defect, concerning for stricture or malignancy. Ultrasound showed Intrahepatic bile duct dilatation with dilated common bile duct to 1.5 cm. GI was consulted and ERCP is planned for tomorrow. The patient was given levofloxacin and metronidazole, plus a liter of normal saline. Review of Systems Review of Systems: Yes all other systems are reviewed and are negative [facility] Medical History Asthma BPH (benign prostatic hyperplasia) Cataract, left eye Esophageal stricture GERD (gastroesophageal reflux disease) Glaucoma Hypercholesterolemia Left renal stone Sciatic nerve pain Screening for diabetes mellitus Vitamin D deficiency Family History Father Stroke Mother No problems noted. Surgical History History of blepharoplasty History of cataract surgery History of cholecystectomy History of inguinal hernia repair History of lithotripsy History of tonsillectomy Social History Alcohol intake: current Alcohol intake frequency: does not drink Patient Tobacco Use Status: Never used Tobacco Use of substances other than those prescribed or required for medical reasons: No Advance Directives: Yes Advance Directives Information Provided: Yes Advance Directives on File: No Meds Allergies Allergy/AdvReac Type Severity Reaction Status Date / Time Penicillins [PENICILLINS] Allergy Intermediate RASH Verified 11/16/20 11:02 Active Medications: Current Medications Generic Name Dose Route Start Last Admin Trade Name Freq PRN Reason Stop Dose Admin Atorvastatin Calcium 20 mg 11/16/20 21:00 Atorvastatin Calcium 20 Mg Tablet PO BEDTIME [facility] Dorzolamide/Timolol 1 drop 11/16/20 21:00 Dorzolamide/Timolo 2.23%/0.68% 10 Ml Drbtl EYE-BOTH BID [facility] Fluticasone/Vilanterol 1 puff 11/17/20 08:00 Fluticasone/Vilanterol 100/25 Blst.W.Dev INHALE RDAILY [facility] Levofloxacin 750 mg in 150 mls @ 100 mls/hr 11/17/20 14:00 Levaquin IV Q24H [facility] Metronidazole 500 mg in 100 mls @ 100 mls/hr 11/17/20 23:00 Flagyl IV Q8H [facility] Latanoprost 1 drop 11/16/20 21:00 Latanoprost 0.005 % Ophth Anum 2.5 Ml Drops EYE-BOTH BEDTIME [facility] Pharmacy Consult 1 each 11/16/20 15:02 Consult Rx Perform Med Rec MISCELLANE ONCE PRN Consult order Pyridoxine HCl 100 mg 11/17/20 09:00 Pyridoxine Hcl (Vitamin B6) 50 Mg Tablet PO DAILY [facility] Home Medications Medication Instructions Recorded Confirmed Last Taken Type dorzolamide 22.3 mg-timolol 6.8 1 drp OPHTHALMIC (EYE) BID 04/23/20 11/16/20 Unknown History mg/mL eye drops latanoprost 0.005 % eye drops 1 drp OPHTHALMIC (EYE) QPM 04/23/20 11/16/20 Unknown History omeprazole 20 mg capsule,delayed 20 mg PO DAILY 04/23/20 11/16/20 Unknown History release pyridoxine (vitamin B6) 100 mg 1 tab PO DAILY 06/19/20 11/16/20 Unknown History tablet fluticasone furoate 100 1 puff PO DAILY 11/16/20 11/16/20 Unknown History mcg-vilanterol 25 mcg/dose inhalation powder (Breo Ellipta) Physical Exam Vital Signs and Narrative: Vital Signs: Last Vital Signs Temp 98.2 F 11/16/20 15:10 Pulse 84 11/16/20 15:10 Resp 16 11/16/20 15:10 BP 122/79 11/16/20 15:10 Pulse Ox 99 11/16/20 11:25 Body Mass Index 22.8 Gen: in no acute distress HEENT: sclera anicteric, moist mucus membranes Neck: supple without adenopathy Lungs: clear to auscultation bilaterally Heart: regular rate and rhythm, no murmurs Abd: soft, mild RUQ tenderness without rebound, negative Garcia sign, non-distended Ext: no edema Skin: warm/well-perfused, no jaundice Neuro: alert and oriented x3, no focal findings Psych: appropriate affect Results Labs CBC and Chem 7: 11/16/20 11:24 11/16/20 11:24 Labs: Laboratory Results - last 24 hr 11/16/20 11/16/20 11/16/20 11:24 11:24 11:24 MCV 94.2 MCH 30.9 MCHC 32.8 RDW 12.9 Plt Count 285 MPV 9.4 Immature Gran % (Auto) 0.4 Neut % (Auto) 64.1 Lymph % (Auto) 16.6 L Cooper % (Auto) 14.2 H Eos % (Auto) 4.0 Baso % (Auto) 0.7 Lymph # (Auto) 1.6 Cooper # (Auto) 1.3 H Eos # (Auto) 0.4 Baso # (Auto) 0.1 Abs Immat Gran (auto) 0.04 H Absolute Neuts (auto) 6.0 Absolute Nucleated RBC 0.000 Nucleated RBC % (auto) 0.0 Anion Gap 16 Estim Creat Clear Calc 54.7 Estimated GFR > 60 Random Glucose 109 Calcium 9.4 Total Bilirubin 3.4 H Direct Bilirubin 1.6 H AST 280 H ALT 432 H Alkaline Phosphatase 431 H D C-Reactive Protein 2.84 H Total Protein 7.5 Albumin 3.9 Lipase 43 Urine Color Cancelled Urine Appearance Cancelled Urine pH Cancelled Ur Specific Cord Cancelled Urine Protein Cancelled Urine Glucose (UA) Cancelled Urine Ketones Cancelled Urine Blood Cancelled Urine Nitrite Cancelled Ur Leukocyte Esterase Cancelled Urine RBC Urine WBC Ur Squamous Epith Cells Urine Bacteria Urine Mucus 11/16/20 11:24 MCV MCH MCHC RDW Plt Count MPV Immature Gran % (Auto) Neut % (Auto) Lymph % (Auto) Cooper % (Auto) Eos % (Auto) Baso % (Auto) Lymph # (Auto) Cooper # (Auto) Eos # (Auto) Baso # (Auto) Abs Immat Gran (auto) Absolute Neuts (auto) Absolute Nucleated RBC Nucleated RBC % (auto) Anion Gap Estim Creat Clear Calc Estimated GFR Random Glucose Calcium Total Bilirubin Direct Bilirubin AST ALT Alkaline Phosphatase C-Reactive Protein Total Protein Albumin Lipase Urine Color ORANGE Urine Appearance CLEAR Urine pH 5.5 Ur Specific Cord 1.025 Urine Protein 1+ H Urine Glucose (UA) 100 H Urine Ketones SEE NOTE Urine Blood TRACE Urine Nitrite SEE NOTE Ur Leukocyte Esterase NEG Urine RBC 0 Urine WBC 0-2 Ur Squamous Epith Cells TRACE Urine Bacteria NONE Urine Mucus 1+ ITS Impressions Abdomen/Pelvis CT 11/16/20 11:17 IMPRESSION: Intrahepatic and extrahepatic biliary ductal dilatation to the level of the ampulla of Vater without radiopaque filling defect. Possible stricture or malignancy not excluded. No evidence of obstructive uropathy. Bilateral renal cysts. Enlarged prostate gland. Abdomen Ultrasound 11/16/20 12:17 IMPRESSION: Intrahepatic bile duct dilatation with dilated common bile duct. Imaging Radiologist's Impressions: Impressions Abdomen/Pelvis CT 11/16/20 11:17 IMPRESSION: Intrahepatic and extrahepatic biliary ductal dilatation to the level of the ampulla of Vater without radiopaque filling defect. Possible stricture or malignancy not excluded. No evidence of obstructive uropathy. Bilateral renal cysts. Enlarged prostate gland. Abdomen Ultrasound 11/16/20 12:17 IMPRESSION: Intrahepatic bile duct dilatation with dilated common bile duct. Assessment and Plan (1) Cholestatic hepatitis: Status: Acute (2) Dilation of biliary tract: Status: Acute 80 yo male with history of GERD and cholelithiasis status post cholecystectomy presenting with acute nausea, vomiting, and RUQ pain and found to have mixed cholestatic/hepatocellular hepatitis and extrahepatic and intrahepatic biliary duct dilation concerning for stricture or malignancy # biliary duct dilation # cholestatic/hepatocellular hepatitis - admit to Med/Surg, give IV levofloxacin + metronidazole, consult GI, give IV fluids, keep NPO after midnight for ERCP # glaucoma - continue eye drops # asthma - continue ICS/LABA; add prn TAMRA # HLD - continue statin # GERD - continue PPI # VTE ppx - SCDs; hold heparin for ERCP # code - full Quality Stroke Does the patient have a stroke diagnosis?: No VTE Prior VTE?: No VTE Risk Level:: Medical - moderate - high VTE Device Contraindication: N/A - Device Ordered VTE Drug Contraindication: Treatment Not Indicated
[2020-11-16] MEDS: metroNIDAZOLE/NS 500 MG/100 ML PIGGYBACK 100 MG IV (16:01)
[2020-11-16] MEDS: 0.9 % Sodium Chloride Flush 3 ML SYRINGE IVFLUSH (16:02)
[2020-11-16] MEDS: Atorvastatin Calcium 20 MG TABLET PO (19:41)
[2020-11-16] MEDS: Acetaminophen 325 MG TABLET 650 MG PO (19:41)
--- NOTE | 2020-11-16 19:41 | PM.EVENT ---
Event Note Date of Service: 11/16/20 Event Note: GI-Chart reviewed-Patient well known to from previous office visits and procedures for a history of an esophageal stricture. Patient will be seen tomorrow, 11/17, for full consult. Imp: Obstructive jaundice. Diff dx: Choledocholithiasis vs. Biliary stricture due to neoplasm. I suspect CBD stones. Rec: Continue IV antibiotics, F/U labs in AM, MRCP in AM, ERCP to follow probably 11/17 afternoon with me or Dr. Ford. Thanks
[2020-11-16] MEDS: Dorzolamide/Timolo 2.23%/0.68% 10 ML DRBTL 1 DROP EYE-BOTH (19:42)
[2020-11-16] MEDS: Latanoprost 0.005 % Ophth Sol 2.5 ML DROPS 1 DROP EYE-BOTH (19:42)
[2020-11-16 19:44] LABS: COVID-19 Test Negative (Negative)
[2020-11-16 19:48] VITALS: BP 137/63; PULSE 96; RESP 18; TEMP 36.9; O2SAT 95
--- NOTE | 2020-11-16 19:49 | P.CNGI_ITS ---
History of Present Illness Data of Consult Service Date: 11/16/20 Primary Care Provider: Blanca Franklin MD [facility] Reason for consult: Obstructive Jaundice- Patient will be seen on 11/17-Full note to follow-Patient well known to me from previous office visits and upper endoscopies for a history of an esophageal stricture. He now presents with abdominal pain, elevated LFT's, and dilated bile ducts on imaging studies. [facility] Past Medical History Medical History Asthma BPH (benign prostatic hyperplasia) Cataract, left eye Esophageal stricture GERD (gastroesophageal reflux disease) Glaucoma Hypercholesterolemia Left renal stone Sciatic nerve pain Screening for diabetes mellitus Vitamin D deficiency Family History Family History Father Stroke Mother No problems noted. Surgical History Surgical History History of blepharoplasty History of cataract surgery History of cholecystectomy History of inguinal hernia repair History of lithotripsy History of tonsillectomy Social History Social History Alcohol intake: current Alcohol intake frequency: does not drink Patient Tobacco Use Status: Never used Tobacco Use of substances other than those prescribed or required for medical reasons: No Advance Directives: Yes Advance Directives Information Provided: Yes Advance Directives on File: No Meds Allergies Allergy/AdvReac Type Severity Reaction Status Date / Time Penicillins [PENICILLINS] Allergy Intermediate RASH Verified 11/16/20 11:02 Active Medications: Current Medications Generic Name Dose Route Start Last Admin Trade Name Freq PRN Reason Stop Dose Admin Acetaminophen 650 mg 11/16/20 15:55 11/16/20 19:41 Acetaminophen 325 Mg Tablet PO 650 mg Q6H PRN Administration Pain, Mild (Pain Scale 1-3) Albuterol Sulfate 2 puff 11/16/20 16:06 Albuterol Sulfate 90 Mcg 8 Gm Inhaler INHALE Q4H PRN shortness of breath/wheeze Atorvastatin Calcium 20 mg 11/16/20 21:00 11/16/20 19:41 Atorvastatin Calcium 20 Mg Tablet PO 20 mg BEDTIME [facility] Administration Dorzolamide/Timolol 1 drop 11/16/20 21:00 11/16/20 19:42 Dorzolamide/Timolo 2.23%/0.68% 10 Ml Drbtl EYE-BOTH 1 drop BID [facility] Administration Fluticasone/Vilanterol 1 puff 11/17/20 08:00 Fluticasone/Vilanterol 100/25 Blst.W.Dev INHALE RDAILY [facility] Levofloxacin 750 mg in 150 mls @ 100 mls/hr 11/17/20 14:00 Levaquin IV Q24H [facility] Metronidazole 500 mg in 100 mls @ 100 mls/hr 11/17/20 23:00 Flagyl IV Q8H [facility] Lactated Ringer's 1,000 mls @ 50 mls/hr 11/17/20 00:05 Lr IVCONT .Q20H [facility] Latanoprost 1 drop 11/16/20 21:00 11/16/20 19:42 Latanoprost 0.005 % Ophth Anum 2.5 Ml Drops EYE-BOTH 1 drop BEDTIME [facility] Administration Ondansetron HCl 4 mg 11/16/20 15:55 Ondansetron Hcl 4 Mg/2 Ml Vial IVPUSH Q8H PRN Nausea and Vomiting Pharmacy Consult 1 each 11/16/20 15:02 Consult Rx Perform Med Rec MISCELLANE ONCE PRN Consult order Pyridoxine HCl 100 mg 11/17/20 09:00 Pyridoxine Hcl (Vitamin B6) 50 Mg Tablet PO DAILY [facility] Sodium Chloride 3 ml 11/16/20 16:00 11/16/20 16:02 0.9 % Sodium Chloride Flush 3 Ml Syringe IVFLUSH 3 ml QSHIFT [facility] Administration Home Medications Medication Instructions Recorded Confirmed Last Taken Type dorzolamide 22.3 mg-timolol 6.8 1 drp OPHTHALMIC (EYE) BID 04/23/20 11/16/20 Unknown History mg/mL eye drops latanoprost 0.005 % eye drops 1 drp OPHTHALMIC (EYE) QPM 04/23/20 11/16/20 Unknown History omeprazole 20 mg capsule,delayed 20 mg PO DAILY 04/23/20 11/16/20 Unknown History release pyridoxine (vitamin B6) 100 mg 1 tab PO DAILY 06/19/20 11/16/20 Unknown History tablet fluticasone furoate 100 1 puff PO DAILY 11/16/20 11/16/20 Unknown History mcg-vilanterol 25 mcg/dose inhalation powder (Breo Ellipta) Physical Exam Vital Signs: Vital Signs: Last Vital Signs Temp 98.4 F 11/16/20 19:48 Pulse 96 11/16/20 19:48 Resp 18 11/16/20 19:48 BP 137/63 11/16/20 19:48 Pulse Ox 95 11/16/20 19:48 Body Mass Index 22.8 Results Labs CBC & Chem 7: 11/16/20 11:24 11/16/20 11:24 Labs: Short CBC 11/16/20 Range/Units 11:24 WBC 9.4 (4.8-10.8) X10*3/uL Hgb 14.8 (14.0-18.0) g/dl Hct 45.1 (42-52) % Plt Count 285 (160-400) X10*3/uL BMP 11/16/20 11:24 Sodium 138 Potassium 4.5 Chloride 104 Carbon Dioxide 23 BUN 17 H Creatinine 1.07 Calcium 9.4 Liver Function 11/16/20 Range/Units 11:24 Total Bilirubin 3.4 H (0.0-1.0) mg/dL Direct Bilirubin 1.6 H (0.0-0.5) mg/dL AST 280 H (5-37) U/L ALT 432 H (0-40) U/L Alkaline Phosphatase 431 H D (39-117) U/L Albumin 3.9 (3.5-5.0) g/dL Urine 11/16/20 11/16/20 Range/Units 11:24 11:24 Urine Color Cancelled ORANGE Urine Appearance Cancelled CLEAR Urine pH Cancelled 5.5 Ur Specific Potter Cancelled 1.025 Urine Protein Cancelled 1+ H Urine Glucose (UA) Cancelled 100 H Assessment and Plan (1) Dilation of biliary tract: Status: Acute (2) Abdominal pain in male: Status: Acute (3) Elevated LFTs: Status: Acute Imp: Biliary obstruction due to probable CBD stones. Biliary stricture due to neoplasm seems less likely. Rec: MRCP in AM and probable ERCP in afternoon on 11/[address] Ford. F/U labs and continue IV antibiotics. Will review with patient on 11/17. Procedures Date of Service Date of Service: 11/16/20
--- NOTE | 2020-11-16 19:49 | MHC.SHP ---
Pre-Procedural Eval Section A Date of Service: 11/17/20 The patient is an INPATIENT: Yes The History & Physical has been completed within 30 days and I have reviewed it.: Yes Section B Chief Complaint: biliary duct dilation Allergies: Allergies Allergy/AdvReac Type Severity Reaction Status Date / Time Penicillins [PENICILLINS] Allergy Intermediate RASH Verified 11/16/20 11:02 Plan I have reviewed the history and physical and performed a pertinent physical examination on my patient. No changes have occurred unless specified.
[2020-11-16] MEDS: Calcium Carbonate 750 MG TAB.CHEW PO (21:14)
[2020-11-16 23:50] VITALS: BP 106/59; PULSE 68; RESP 18; TEMP 36.8; O2SAT 96
[2020-11-17] VITALS (13 sets, daily range): BP systolic 105–140; BP diastolic 56–79; PULSE 70–94; RESP 14–20; TEMP 36.1–36.9; O2SAT 94–100
[2020-11-17 06:17] LABS: Hematocrit 39.7 % (42-52); Hemoglobin 12.7 g/dl (14.0-18.0); Mean Corpuscular Hemoglobin 30.2 pg (27.0-33.0); Mean Corpuscular Volume 94.3 fL (80-98); Mean Platelet Volume 9.7 fL (9.4-12.4); Platelet Count 250 X10*3/uL (160-400); Red Blood Count 4.21 X10*6/uL (4.60-5.80); White Blood Count 8.5 X10*3/uL (4.8-10.8)
[2020-11-17 06:22] LABS: INTERNATIONAL NORM RATIO 1.1 (0.9-1.1); Prothrombin Time 12.8 SEC (9.9-13.0)
[2020-11-17 06:44] LABS: Alanine Aminotransferase 366 U/L (0-40); Albumin Level 3.2 g/dL (3.5-5.0); Alkaline Phosphatase 375 U/L (39-117); Anion Gap 12 (12-20); Aspartate Amino Transferase 273 U/L (5-37); Bilirubin Total 3.7 mg/dL (0.0-1.0); Blood Urea Nitrogen 13 mg/dL (9-16); Calcium 8.9 mg/dL (8.4-10.2); Carbon Dioxide 26 mmol/L (22-29); Chloride 107 mmol/L (96-108); Creatinine Clr Calc Pharmacy 56.8; Estimated Glomerular Filt Rate > 60; Glucose Random 96 mg/dL (60-115); Potassium 4.3 mmol/L (3.3-5.1); Sodium 141 mmol/L (135-145); Total Protein 5.8 g/dL (6.5-8.0)
[2020-11-17 06:45] LABS: Alanine Aminotransferase 362 U/L (0-40); Albumin Level 3.2 g/dL (3.5-5.0); Alkaline Phosphatase 374 U/L (39-117); Aspartate Amino Transferase 269 U/L (5-37); Bilirubin Direct 2.3 mg/dL (0.0-0.5); Bilirubin Total 3.6 mg/dL (0.0-1.0); Total Protein 5.8 g/dL (6.5-8.0)
[2020-11-17] MEDS: Dorzolamide/Timolo 2.23%/0.68% 10 ML DRBTL 1 DROP EYE-BOTH ×2 (08:57→20:17)
[2020-11-17] MEDS: 0.9 % Sodium Chloride Flush 3 ML SYRINGE IVFLUSH ×2 (09:00→20:16)
--- NOTE | 2020-11-17 10:07 | MHC.CM.PN ---
met with pt who is independent pt lives with ,pts dgter will transport pt home as his does n ot drive
--- NOTE | 2020-11-17 12:55 | HO.PM.IMPN ---
Subjective Subjective Date of Service: 11/18/20 Interval History: f/u on abdominal pain, n/v post ERCP Review of Systems .ros Physical Exam Vital Signs: Vital Signs: Last Vital Signs Temp 97.5 F 11/17/20 12:01 Pulse 70 11/17/20 12:01 Resp 18 11/17/20 12:01 BP 119/62 11/17/20 12:01 Pulse Ox 97 11/17/20 12:01 Body Mass Index 22.8 General: AO X 3, no acute distress Resp: CTA bilateral CVS: S1,S2,RRR GI: +BS, NT, no distention Skin: No rash Neuro: motor grossly intact Psych: appropriate affect Objective Data Current Medications Generic Name Dose Route Start Last Admin Trade Name Freq PRN Reason Stop Dose Admin Acetaminophen 650 mg 11/16/20 15:55 11/16/20 19:41 Acetaminophen 325 Mg Tablet PO 650 mg Q6H PRN Administration Pain, Mild (Pain Scale 1-3) Albuterol Sulfate 2 puff 11/16/20 16:06 Albuterol Sulfate 90 Mcg 8 Gm Inhaler INHALE Q4H PRN shortness of breath/wheeze Atorvastatin Calcium 20 mg 11/16/20 21:00 11/16/20 19:41 Atorvastatin Calcium 20 Mg Tablet PO 20 mg BEDTIME KOSTA Administration Calcium Carbonate 750 mg 11/16/20 20:56 11/16/20 21:14 Calcium Carbonate 750 Mg Tab.Chew PO 750 mg Q4H PRN Administration heartburn Dorzolamide/Timolol 1 drop 11/16/20 21:00 11/17/20 08:57 Dorzolamide/Timolo 2.23%/0.68% 10 Ml Drbtl EYE-BOTH 1 drop BID KOSTA Administration Fluticasone/Vilanterol 1 puff 11/17/20 08:00 11/17/20 07:10 Fluticasone/Vilanterol 100/25 Blst.W.Dev INHALE Not Given RDAILY KOSTA Levofloxacin 750 mg in 150 mls @ 100 mls/hr 11/17/20 14:00 Levaquin IV Q24H KOSTA Metronidazole 500 mg in 100 mls @ 100 mls/hr 11/17/20 23:00 Flagyl IV Q8H KOSTA Lactated Ringer's 1,000 mls @ 50 mls/hr 11/17/20 00:05 08/30/21 00:44 Lr IVCONT Not Given .Q20H KOSTA Latanoprost 1 drop 11/16/20 21:00 11/16/20 19:42 Latanoprost 0.005 % Ophth Anum 2.5 Ml Drops EYE-BOTH 1 drop BEDTIME KOSTA Administration Ondansetron HCl 4 mg 11/16/20 15:55 Ondansetron Hcl 4 Mg/2 Ml Vial IVPUSH Q8H PRN Nausea and Vomiting Pharmacy Consult 1 each 11/16/20 15:02 Consult Rx Perform Med Rec MISCELLANE ONCE PRN Consult order Pyridoxine HCl 100 mg 11/17/20 09:00 11/17/20 09:13 Pyridoxine Hcl (Vitamin B6) 50 Mg Tablet PO Not Given DAILY KOSTA Sodium Chloride 3 ml 11/16/20 16:00 11/17/20 09:00 0.9 % Sodium Chloride Flush 3 Ml Syringe IVFLUSH 3 ml QSHIFT KOSTA Administration Labs CBC & Chem 7: 11/18/20 05:18 11/18/20 05:18 Labs: Laboratory Results - last 24 hr 11/16/20 11/16/20 11/17/20 11:24 19:13 05:14 MCV 94.3 MCH 30.2 MCHC 32.0 RDW 13.0 Plt Count 250 MPV 9.7 Absolute Nucleated RBC 0.000 Nucleated RBC % (auto) 0.0 PT INR Anion Gap Estim Creat Clear Calc Estimated GFR Random Glucose Calcium Total Bilirubin Direct Bilirubin 1.6 H AST ALT Alkaline Phosphatase C-Reactive Protein 2.84 H Total Protein Albumin COVID-19 (SHERI) Negative COVID-19 Clin Com See Note 11/17/20 11/17/20 11/17/20 05:14 05:14 05:14 MCV MCH MCHC RDW Plt Count MPV Absolute Nucleated RBC Nucleated RBC % (auto) PT 12.8 INR 1.1 Anion Gap 12 Estim Creat Clear Calc 56.8 Estimated GFR > 60 Random Glucose 96 Calcium 8.9 Total Bilirubin 3.7 H 3.6 H Direct Bilirubin 2.3 H AST 273 H 269 H ALT 366 H 362 H Alkaline Phosphatase 375 H 374 H C-Reactive Protein Total Protein 5.8 L D 5.8 L Albumin 3.2 L 3.2 L COVID-19 (SHERI) COVID-19 Clin Com Assessment and Plan (1) Dilation of biliary tract: Status: Acute Assessment and Plan: ? ? 80 yo male with history of GERD and cholelithiasis status post cholecystectomy presenting with acute nausea, vomiting, and RUQ pain and found to have mixed cholestatic/hepatocellular hepatitis and extrahepatic and intrahepatic biliary duct dilation concerning for stricture or malignancy # biliary duct dilation and obstructive jaundice # cholestatic/hepatocellular hepatitis - Continue levofloxacin + metronidazole, s/p ERCP see GI note # glaucoma - continue eye drops # asthma - continue ICS/LABA; add prn TAMRA # HLD--hold statin d/t high LFTS # GERD - continue PPI # VTE ppx - SCDs; hold heparin for ERCP, resume after # code - full Quality Stroke Does the patient have a stroke diagnosis?: No VTE Prior VTE?: No VTE Risk Level:: Medical - moderate - high VTE Device Contraindication: N/A - Device Ordered VTE Drug Contraindication: Treatment Not Indicated
--- NOTE | 2020-11-17 14:21 | HO.ANESPROP2 ---
HPI - Anesthesia Eval Consult details Narrative: 80 yr old male patient for ERCP PMFSH Active Problems Active Problems: All Active Problems (Updated 11/16/20 @ 16:03 by Erlin Springer MD) Dilation of biliary tract (Acute) Cholestatic hepatitis (Acute) Abdominal pain in male (Acute) Elevated LFTs (Acute) Adult general medical exam (Acute) Right hip pain (Acute) Screening for diabetes mellitus (Acute) Left renal stone (Acute) Impaired glucose tolerance (Acute) Anxiety (Acute) BPH (benign prostatic hyperplasia) (Acute) Hypercholesterolemia (Acute) GERD (gastroesophageal reflux disease) (Acute) Asthma (Acute) Past Medical History Medical History Asthma BPH (benign prostatic hyperplasia) Cataract, left eye Esophageal stricture GERD (gastroesophageal reflux disease) Glaucoma Hypercholesterolemia Left renal stone Sciatic nerve pain Screening for diabetes mellitus Vitamin D deficiency Family History Family History Father Stroke Mother No problems noted. Family history of problems with anesthesia: No Surgical History Surgical History History of blepharoplasty History of cataract surgery History of cholecystectomy History of inguinal hernia repair History of lithotripsy History of tonsillectomy History of Problems with Anesthesia: No Social History Social History Household Members: Spouse Housing: House Do you presently have visiting nurse or other home services: No Alcohol intake: current Alcohol intake frequency: does not drink Patient Tobacco Use Status: Never used Tobacco Advance Directives Date on File: 11/16/20 service: No Meds Allergies Allergy/AdvReac Type Severity Reaction Status Date / Time Penicillins [PENICILLINS] Allergy Intermediate RASH Verified 11/17/20 12:51 Active Medications: Current Medications Generic Name Dose Route Start Last Admin Trade Name Freq PRN Reason Stop Dose Admin Acetaminophen 650 mg 11/16/20 15:55 11/16/20 19:41 Acetaminophen 325 Mg Tablet PO 650 mg Q6H PRN Administration Pain, Mild (Pain Scale 1-3) Albuterol Sulfate 2 puff 11/16/20 16:06 Albuterol Sulfate 90 Mcg 8 Gm Inhaler INHALE Q4H PRN shortness of breath/wheeze Atorvastatin Calcium 20 mg 11/16/20 21:00 11/16/20 19:41 Atorvastatin Calcium 20 Mg Tablet PO 20 mg BEDTIME KOSTA Administration Calcium Carbonate 750 mg 11/16/20 20:56 11/16/20 21:14 Calcium Carbonate 750 Mg Tab.Chew PO 750 mg Q4H PRN Administration heartburn Dorzolamide/Timolol 1 drop 11/16/20 21:00 11/17/20 08:57 Dorzolamide/Timolo 2.23%/0.68% 10 Ml Drbtl EYE-BOTH 1 drop BID KOSTA Administration Fluticasone/Vilanterol 1 puff 11/17/20 08:00 11/17/20 07:10 Fluticasone/Vilanterol 100/25 Blst.W.Dev INHALE Not Given RDAILY KOSTA Levofloxacin 750 mg in 150 mls @ 100 mls/hr 11/17/20 14:00 Levaquin IV Q24H KOSTA Metronidazole 500 mg in 100 mls @ 100 mls/hr 11/17/20 23:00 Flagyl IV Q8H KOSTA Lactated Ringer's 1,000 mls @ 50 mls/hr 11/17/20 00:05 11/17/20 00:44 Lr IVCONT Not Given .Q20H KOSTA Latanoprost 1 drop 11/16/20 21:00 11/16/20 19:42 Latanoprost 0.005 % Ophth Anum 2.5 Ml Drops EYE-BOTH 1 drop BEDTIME KOSTA Administration Ondansetron HCl 4 mg 11/16/20 15:55 Ondansetron Hcl 4 Mg/2 Ml Vial IVPUSH Q8H PRN Nausea and Vomiting Pharmacy Consult 1 each 11/16/20 15:02 Consult Rx Perform Med Rec MISCELLANE ONCE PRN Consult order Pyridoxine HCl 100 mg 11/17/20 09:00 11/17/20 09:13 Pyridoxine Hcl (Vitamin B6) 50 Mg Tablet PO Not Given DAILY KOSTA Sodium Chloride 3 ml 11/16/20 16:00 11/17/20 09:00 0.9 % Sodium Chloride Flush 3 Ml Syringe IVFLUSH 3 ml QSHIFT KOSTA Administration Home Medications Medication Instructions Recorded Confirmed Last Taken Type dorzolamide 22.3 mg-timolol 6.8 1 drp OPHTHALMIC (EYE) BID 04/23/20 11/16/20 Unknown History mg/mL eye drops latanoprost 0.005 % eye drops 1 drp OPHTHALMIC (EYE) QPM 04/23/20 11/16/20 Unknown History omeprazole 20 mg capsule,delayed 20 mg PO DAILY 04/23/20 11/16/20 Unknown History release pyridoxine (vitamin B6) 100 mg 1 tab PO DAILY 06/19/20 11/16/20 Unknown History tablet fluticasone furoate 100 1 puff PO DAILY 11/16/20 11/16/20 Unknown History mcg-vilanterol 25 mcg/dose inhalation powder (Breo Ellipta) Exam Exam Date and Time: November 17, 2020 1421 Height,Weight and Vital Signs: Height 5 ft 9 in Weight 70.307 kg Last Vital Signs Temp 96.9 F 11/17/20 12:54 Pulse 70 11/17/20 12:54 Resp 18 11/17/20 12:54 BP 126/74 11/17/20 12:54 Pulse Ox 98 11/17/20 12:54 Pertinent Lab Results Pertinent Lab Results: Laboratory Tests 11/16/20 11/16/20 11/16/20 11:24 11:24 11:24 WBC 9.4 RBC 4.79 Hgb 14.8 Hct 45.1 MCV 94.2 MCH 30.9 MCHC 32.8 RDW 12.9 Plt Count 285 MPV 9.4 Immature Gran % (Auto) 0.4 Neut % (Auto) 64.1 Lymph % (Auto) 16.6 L [place] % (Auto) 14.2 H Eos % (Auto) 4.0 Baso % (Auto) 0.7 Lymph # (Auto) 1.6 [place] # (Auto) 1.3 H Eos # (Auto) 0.4 Baso # (Auto) 0.1 Abs Immat Gran (auto) 0.04 H Absolute Neuts (auto) 6.0 Absolute Nucleated RBC 0.000 Nucleated RBC % (auto) 0.0 PT INR Sodium 138 Potassium 4.5 Chloride 104 Carbon Dioxide 23 Anion Gap 16 BUN 17 H Creatinine 1.07 Estim Creat Clear Calc 54.7 Estimated GFR > 60 Random Glucose 109 Calcium 9.4 Total Bilirubin 3.4 H Direct Bilirubin 1.6 H AST 280 H ALT 432 H Alkaline Phosphatase 431 H D C-Reactive Protein 2.84 H Total Protein 7.5 Albumin 3.9 Lipase 43 Urine Color Cancelled Urine Appearance Cancelled Urine pH Cancelled Ur Specific [place] Cancelled Urine Protein Cancelled Urine Glucose (UA) Cancelled Urine Ketones Cancelled Urine Blood Cancelled Urine Nitrite Cancelled Ur Leukocyte Esterase Cancelled Urine RBC Urine WBC Ur Squamous Epith Cells Urine Bacteria Urine Mucus COVID-19 (SHERI) COVID-19 Clin Com 11/16/20 11/16/20 11/17/20 11:24 19:13 05:14 WBC 8.5 RBC 4.21 L Hgb 12.7 L Hct 39.7 L MCV 94.3 MCH 30.2 MCHC 32.0 RDW 13.0 Plt Count 250 MPV 9.7 Immature Gran % (Auto) Neut % (Auto) Lymph % (Auto) [place] % (Auto) Eos % (Auto) Baso % (Auto) Lymph # (Auto) [place] # (Auto) Eos # (Auto) Baso # (Auto) Abs Immat Gran (auto) Absolute Neuts (auto) Absolute Nucleated RBC 0.000 Nucleated RBC % (auto) 0.0 PT INR Sodium Potassium Chloride Carbon Dioxide Anion Gap BUN Creatinine Estim Creat Clear Calc Estimated GFR Random Glucose Calcium Total Bilirubin Direct Bilirubin AST ALT Alkaline Phosphatase C-Reactive Protein Total Protein Albumin Lipase Urine Color ORANGE Urine Appearance CLEAR Urine pH 5.5 Ur Specific [place] 1.025 Urine Protein 1+ H Urine Glucose (UA) 100 H Urine Ketones SEE NOTE Urine Blood TRACE Urine Nitrite SEE NOTE Ur Leukocyte Esterase NEG Urine RBC 0 Urine WBC 0-2 Ur Squamous Epith Cells TRACE Urine Bacteria NONE Urine Mucus 1+ COVID-19 (SHERI) Negative COVID-19 Clin Com See Note 11/17/20 11/17/20 11/17/20 05:14 05:14 05:14 WBC RBC Hgb Hct MCV MCH MCHC RDW Plt Count MPV Immature Gran % (Auto) Neut % (Auto) Lymph % (Auto) [place] % (Auto) Eos % (Auto) Baso % (Auto) Lymph # (Auto) [place] # (Auto) Eos # (Auto) Baso # (Auto) Abs Immat Gran (auto) Absolute Neuts (auto) Absolute Nucleated RBC Nucleated RBC % (auto) PT 12.8 INR 1.1 Sodium 141 Potassium 4.3 Chloride 107 Carbon Dioxide 26 Anion Gap 12 BUN 13 Creatinine 1.03 Estim Creat Clear Calc 56.8 Estimated GFR > 60 Random Glucose 96 Calcium 8.9 Total Bilirubin 3.7 H 3.6 H Direct Bilirubin 2.3 H AST 273 H 269 H ALT 366 H 362 H Alkaline Phosphatase 375 H 374 H C-Reactive Protein Total Protein 5.8 L D 5.8 L Albumin 3.2 L 3.2 L Lipase Urine Color Urine Appearance Urine pH Ur Specific [place] Urine Protein Urine Glucose (UA) Urine Ketones Urine Blood Urine Nitrite Ur Leukocyte Esterase Urine RBC Urine WBC Ur Squamous Epith Cells Urine Bacteria Urine Mucus COVID-19 (SHERI) COVID-19 Clin Com Airway Mallampati Class: II TM Dist: >3cm Neck ROM: Full Heart: RRR Lungs: CTAB Assessment and Plan Assessment Anesthesia Assessment: Anesthesia Plan Discussed and Chart Reviewed Final Anesthetic Review Family History of Problems with Anesthesia: No History of Problems with Anesthesia: No NPO: Yes ASA Class: II Final Preanesthetic Review: No Changes in Pt Med Stat, Meds/Allgs Chart Reviewed, Consent Obtained/Reviewed and Anes Risks/Benef Reviewed Patient Risk: Low Procedure Risk: Low Assessment/Block/Sedation in SS: Assess/Block/Sedation-SS Anesthetic Plan Anesthetic Plan: GA Disposition: Standard PACU
[2020-11-17] MEDS: levoFLOXacin/D5W 750 MG/150 ML PIGGYBACK 100 MG IV (16:00)
--- NOTE | 2020-11-17 16:06 | P.BOP_ITS ---
Brief Operative Note Date of Service: 11/17/20 Pre-op diagnosis: Obstructive jaundice Post-op diagnosis: other (Same. no sign of biliary stricture nor CBD stone at this time) Procedure: ERCP with sphincterotomy Surgeon: Enoch Duran Anesthesia: MAC Was an [employer] used for this Procedure?: No Estimated blood loss (mL): 3.0 Pathology: none sent Condition: stable Disposition: PACU
--- NOTE | 2020-11-17 16:07 | PM.EVENT ---
Event Note Date of Service: 11/17/20 Event Note: [id number] note dictated Findings: 1. Somewhat bulging major papilla, but no mass nor ulceration 2. Selective cholangiograms revealed dilated intrahepatic bile ducts and a dilated extrahepatic bile duct, but no definitive filling defects nor biliary stricture. 3. Performed an approx 8mm sphincterotomy without immediate complication. There was good drainage of bile and contrast noted, but no purulence 4. Bile duct swept with a 15mm balloon several times which pulled easily into the duodenum. Occlusion cholangiograms with the balloon fully inflated were negative for any filling defects. There was excellent drainage of dye and bile with decompression of the bile duct noted. I did not visualize any stone coming into the duodenum nor any sign of filling defects or strictures. 5. Pancreas was not injected nor cannulated Imp: Obstructive jaundice, s/p sphincterotomy. I suspect he passed a small stone Rec: Observe, clear liqs, F/U labs in AM. If things look stable in AM then his diet can be advanced, antibiotics stopped, and hopefully discharge later in the day if he remains stable. I left a message for his on the VM. Thanks
[2020-11-17] MEDS: ondansetron HCL 4 MG/2 ML VIAL IVPUSH (16:11)
[2020-11-17] MEDS: Atorvastatin Calcium 20 MG TABLET PO (20:16)
[2020-11-17] MEDS: Latanoprost 0.005 % Ophth Sol 2.5 ML DROPS 1 DROP EYE-BOTH (20:17)
[2020-11-17] MEDS: Lactated Ringers 1,000 ML 100 ML IVCONT (20:17)
--- NOTE | 2020-11-17 20:23 | OP_ITS ---
SURGEON: Enoch Duran MD INDICATIONS: The patient presents for evaluation of obstructive jaundice based on laboratories and imaging studies. Full consent has been obtained from him for this, including risks of bleeding, perforation, cholangitis, and pancreatitis. PREOPERATIVE DIAGNOSIS: Obstructive jaundice. POSTOPERATIVE DIAGNOSIS: Obstructive jaundice. PROCEDURE PERFORMED: ERCP with sphincterotomy. ESTIMATED BLOOD LOSS: COMPLICATIONS: ANESTHESIA: Monitored anesthesia care, glucagon 0.5 mg IV x 2 doses. ASSISTANTS: SPECIMENS: DESCRIPTION OF PROCEDURE: The patient was placed in the semi-prone position. The [employer] EXALT duodenoscope was passed in the posterior oropharynx and upper esophagus. The scope entered into the stomach and was advanced to the pylorus. The duodenum was cannulated to the descending portion. The region of the major papilla was visualized. The papilla appeared to be somewhat bulging, but without any sign of mass nor ulceration. Using a [employer] triple-lumen sphincterotome, a selective cannulation of the biliary tree was obtained with a straight guidewire. A selective cholangiogram was at that point revealed good filling of the intrahepatic and extrahepatic bile ducts. The entire biliary tract was quite dilated, but I did not visualize any definitive filling defects nor any strictures. Given the clinical history, I did opt to perform an approximately 8 to 10 mm sphincterotomy over the guidewire without any immediate complication. There was excellent drainage of bile and dye noted, but no purulence. Followup imaging revealed good drainage of the biliary tree and decompression of the bile ducts. I then used a 15 mm balloon catheter to sweep the bile duct several times, with the a balloon pulling easily into the duodenum. However, no stones were visualized. Followup cholangiograms with the balloon inflated and deflated revealed good imaging and again no sign of any filling defects nor strictures. With the balloon deflated, there was excellent drainage of bile and dye into the duodenum. Again, the balloon pulled easily into the duodenum in the fully inflated position. At that point with good drainage accomplished and no other abnormalities noted in the bile duct, the procedure was terminated. Of note, the pancreas was not injected nor cannulated. He tolerated the procedure well and was returned to recovery area in stable condition. IMPRESSION: Obstructive jaundice, status post sphincterotomy with good drainage of biliary tract. I suspect he may have very well passed a small stone as a cause of his presentation. PLAN: The patient will be observed overnight. His diet will be gradually advanced. He will have followup laboratories tomorrow. If the laboratories are improving and he is feeling well, he can have his diet advanced and the antibiotics stopped. Orders have been placed that he should not receive any aspirin, NSAIDs, nor anticoagulants for 7 days. MD APRIL Prado/ALVIN / [id number] MTDD
[2020-11-17] MEDS: Calcium Carbonate 750 MG TAB.CHEW PO (20:58)
[2020-11-17] MEDS: metroNIDAZOLE/NS 500 MG/100 ML PIGGYBACK 100 MG IV (22:53)
[2020-11-18] MEDS: Lactated Ringers 1,000 ML 100 ML IVCONT ×2 (00:15→08:36)
[2020-11-18 06:12] LABS: Basophils Absolute Auto 0.1 X10*3/uL (0.0-0.2); Basophils Percent Auto 0.6 % (0-2); Hemoglobin 12.3 g/dl (14.0-18.0); Mean Platelet Volume 9.6 fL (9.4-12.4); PLT CLUMP 1; Red Cell Distribution Width 13.2 % (11.0-16.0); SCAN SMEAR FLAG 1
[2020-11-18 06:14] LABS: Eosinophils Absolute Auto 0.5 X10*3/uL (0.0-0.4); Eosinophils Percent Auto 5.9 % (0-4); Hematocrit 37.8 % (42-52); Imm Gran Abs Auto 0.04 X10*3/uL (0.00-0.03); Imm Gran Pct Auto 0.5 % (0.0-0.4); Lymphocytes Percent Auto 23.6 % (20-40); Mean Corpuscular HGB Conc 32.5 g/dl (31.0-36.0); Mean Corpuscular Hemoglobin 30.8 pg (27.0-33.0); Mean Corpuscular Volume 94.5 fL (80-98); Monocytes Absolute Auto 1.3 X10*3/uL (0.1-1.2); Monocytes Percent Auto 14.8 % (2-11); Neutrophils Absolute Auto 4.6 X10*3/uL (2.0-8.3); Neutrophils Percent Auto 54.6 % (45-73); Platelet Count 231 X10*3/uL (160-400)
[2020-11-18 06:25] LABS: MANUAL DIFF FLAG NO; White Blood Count 8.4 X10*3/uL (4.8-10.8)
[2020-11-18 06:32] LABS: Alanine Aminotransferase 275 U/L (0-40); Albumin Level 3.1 g/dL (3.5-5.0); Alkaline Phosphatase 324 U/L (39-117); Anion Gap 10 (12-20); Aspartate Amino Transferase 139 U/L (5-37); Bilirubin Direct 0.9 mg/dL (0.0-0.5); Bilirubin Total 1.9 mg/dL (0.0-1.0); Blood Urea Nitrogen 12 mg/dL (9-16); Calcium 8.3 mg/dL (8.4-10.2); Carbon Dioxide 27 mmol/L (22-29); Chloride 107 mmol/L (96-108); Creatinine Clr Calc Pharmacy 64.3; Estimated Glomerular Filt Rate > 60; Glucose Fasting 81 mg/dL (60-99); Potassium 4.1 mmol/L (3.3-5.1); Sodium 140 mmol/L (135-145); Total Protein 5.7 g/dL (6.5-8.0)
[2020-11-18 07:39] VITALS: BP 130/71; PULSE 78; RESP 18; TEMP 36.9; O2SAT 97
[2020-11-18] MEDS: Omeprazole 20 MG CAPSULE.DR PO (08:37)
[2020-11-18] MEDS: metroNIDAZOLE/NS 500 MG/100 ML PIGGYBACK 100 MG IV (08:37)
[2020-11-18] MEDS: Pyridoxine HCl (Vitamin B6) 50 MG TABLET 100 MG PO (08:37)
[2020-11-18] MEDS: Dorzolamide/Timolo 2.23%/0.68% 10 ML DRBTL 1 DROP EYE-BOTH (08:37)
[2020-11-18 11:29] VITALS: BP 122/64; PULSE 66; RESP 18; TEMP 36.4; O2SAT 96
--- NOTE | 2020-11-18 12:00 | MHC.CM.PN ---
pt dcd home no skilled servceis ordered by
--- NOTE | 2020-11-18 12:09 | CONS_ITS ---
DATE OF SERVICE: 11/17/2020 REASON FOR CONSULTATION: Abdominal pain, elevated LFTs, and abnormal x-rays of biliary tract. HISTORY OF PRESENT ILLNESS: This has been obtained from the patient and the medical record. The patient is an 80-year-old male, well known to me from a previous history of reflux and esophageal strictures, for which he has undergone periodic balloon dilations. The most recent endoscopy was in 2018, which revealed a hiatal hernia and a mild stricture which was dilated. Since that time, he has been using omeprazole with good relief and has not had any further dysphagia. He is status post a previous cholecyst[place] [address] Noyola. This was done laparoscopically. He was fine up until about 2 to 3 days ago when he began having some right upper quadrant abdominal pain. He did have some vomiting, but there was no sign of bleeding. He did not notice any definitive jaundice. He denies any fevers or chills. Due to worsening pain, he came to the ER and was admitted. Since admission, he has actually been feeling better. He reports that currently he is not having any pain. He has been afebrile on IV antibiotics. He has no previous history of liver disease. He does not use any significant amounts of alcohol. MEDICATIONS: At home included eye drops, Breo, omeprazole 20 mg daily, vitamins, simvastatin, and tadalafil 10 mg daily. Medications here in the hospital include IV Flagyl, IV Levaquin, atorvastatin, albuterol inhaler p.r.n., eyedrops, Zofran p.r.n., vitamin B6. PAST MEDICAL HISTORY: Hyperlipidemia. Glaucoma. Gastroesophageal reflux with history of esophageal stricture. He denies any history of GA, diabetes, stroke. He does have history of kidney stone. History of asthma. PAST SURGICAL HISTORY: Surgeries include cholecystectomy, right inguinal hernia, and cataract. SOCIAL HISTORY: He is . He does not smoke or use any significant amounts of alcohol. FAMILY HISTORY: Noncontributory. REVIEW OF SYSTEMS: CONSTITUTIONAL: Up until 2 to 3 days ago, he was feeling well with good energy and good appetite. SKIN: No rash. No pruritus. CARDIAC: No chest pain. PULMONARY: No cough. No hemoptysis. GASTROINTESTINAL: As above. PHYSICAL EXAMINATION: GENERAL: The patient is a pleasant, alert, comfortable-appearing male. SKIN: Warm and dry. Nonjaundiced. No definite scleral icterus. NECK: Supple. CARDIAC: Normal S1, S2. ABDOMEN: Soft, nondistended, and nontender without palpable mass. LABORATORY DATA: Admission labs: White count 9.4, hemoglobin 14.8, platelets 285,000. PT 12.8 with INR of 1.1. Normal chemistries, BUN, and creatinine. Total bilirubin is 3.4, direct bilirubin 1.6, AST 280, ALT 432, alkaline phosphatase 431. On October 30, 2020, his LFTs were completely normal other than minimal elevations of the liver enzymes. His ultrasound and CAT scan of the abdomen have revealed dilated intrahepatic and extrahepatic bile ducts, but without any definite stones nor mass. His MRCP from today shows similar findings of the bile ducts, but with a questionable stone in the distal most portion of the bile duct. There is no definite mass nor biliary stricture. IMPRESSION: Given the patient's presentation, this seems most consistent with choledocholithiasis. At this point, he will undergo ERCP for further evaluation and treatment. I did review this in detail with him including potential risks of bleeding, cholangitis, pancreatitis, and perforation. He will stay on IV antibiotics and have followup laboratories tomorrow. This has been reviewed with him in detail. He is comfortable with this plan. Thank you for the consultation. MD APRIL Prado/ALVIN / [id number]
--- NOTE | 2020-11-18 12:16 | PM.DS ---
DS: Providers Provider Date of Service: 11/18/20 Date of admission: 11/16/20 16:28 Primary care physician: Blanca Franklin MD Consults: 11/16/20 14:51 Consult to Gastroenterology Routine Consulting Provider: Haleigh Powell Reason for consultation: obstructive jaundice ?biliary stricture needs ERCP DS: Diagnosis Discharge Diagnosis (1) Dilation of biliary tract: Status: Resolved DS: Summary Hospital Course Hospital Course: Chief Complaint: abdominal pain, nausea, and vomiting Professor Hi is an 80 yo male with history of GERD and cholelithiasis status post cholecystectomy who presents with a 3-day history of right upper quadrant pain associated with nausea and 1 episode of nonbloody, nonbilious emesis.? He hasn't eaten anything due to the nausea.? He denies fever, chills, night sweats, or weight loss.? No diarrhea or hematochezia.? He presented to the ED with normal vital signs and normal WBC count.? Transminases were elevated with ALT 432 and AST 280; total bilirubin was 3.4, of which 1.6 was direct. ? CT scan showed intrahepatic and extrahepatic biliary ductal dilatation to the level of the ampulla of Vater without radiopaque filling defect, concerning for stricture or malignancy.? Ultrasound showed Intrahepatic bile duct dilatation with dilated common bile duct to 1.5 cm.? GI was consulted and ERCP is planned for tomorrow.? The patient was given levofloxacin and metronidazole, plus a liter of normal saline. Hospital course: Patient underwent ERCP with Dr. Duran with the following observation and recommendation: Event Note: [id number] note dictated Findings: 1. Somewhat bulging major papilla, but no mass nor ulceration 2. Selective cholangiograms revealed dilated intrahepatic bile ducts and a dilated extrahepatic bile duct, but no definitive filling defects nor biliary stricture. 3. Performed an approx 8mm sphincterotomy without immediate complication. There was good drainage of bile and contrast noted, but no purulence 4. Bile duct swept with a 15mm balloon several times which pulled easily into the duodenum. Occlusion cholangiograms with the balloon fully inflated were negative for any filling defects. There was excellent drainage of dye and bile with decompression of the bile duct noted. I did not visualize any stone coming into the duodenum nor any sign of filling defects or strictures. 5. Pancreas was not injected nor cannulated Imp: Obstructive jaundice, s/p sphincterotomy. I suspect he passed a small stone Rec: Observe, clear liqs, F/U labs in AM. If things look stable in AM then his diet can be advanced, antibiotics stopped, and hopefully discharge later in the day if he remains stable. I left a message for his on the VM. Thanks.. The next day, LFTs and Bili was trending down. Abdominal pain resolved, nausea and vomitting resolved and tolerating regular diet and therefore being discharge to home. He feels very comfortable going home. Time Spent with Patient Time attestation: Total time spent providing and/or coordinating discharge services: Discharge coordination time: Greater than 30 minutes Quality: Stroke Does the patient have a stroke diagnosis?: No Physical Exam Vital Signs: Vital Signs: Last Vital Signs Temp 97.6 F 11/18/20 11:29 Pulse 66 11/18/20 11:29 Resp 18 11/18/20 11:29 BP 122/64 11/18/20 11:29 Pulse Ox 96 11/18/20 11:29 Body Mass Index 22.8 DS: Data Data Completed and Pending Labs on day of discharge: Laboratory Results - last 24 hr 11/18/20 11/18/20 05:18 05:18 WBC 8.4 RBC 4.00 L Hgb 12.3 L Hct 37.8 L MCV 94.5 MCH 30.8 MCHC 32.5 RDW 13.2 Plt Count 231 MPV 9.6 Immature Gran % (Auto) 0.5 H Neut % (Auto) 54.6 Lymph % (Auto) 23.6 [place] % (Auto) 14.8 H Eos % (Auto) 5.9 H Baso % (Auto) 0.6 Lymph # (Auto) 2.0 [place] # (Auto) 1.3 H Eos # (Auto) 0.5 H Baso # (Auto) 0.1 Abs Immat Gran (auto) 0.04 H Absolute Neuts (auto) 4.6 Absolute Nucleated RBC 0.000 Nucleated RBC % (auto) 0.0 Sodium 140 Potassium 4.1 Chloride 107 Carbon Dioxide 27 Anion Gap 10 L BUN 12 Creatinine 0.91 Estim Creat Clear Calc 64.3 Estimated GFR > 60 Fasting Glucose 81 Calcium 8.3 L D Total Bilirubin 1.9 H Direct Bilirubin 0.9 H AST 139 H ALT 275 H Alkaline Phosphatase 324 H Total Protein 5.7 L Albumin 3.1 L Preliminary micro results at discharge 11/16/20 14:28 Blood Culture - Preliminary Blood - Venous No growth after 24 hours. 11/16/20 14:28 Blood Culture - Preliminary Blood - Venous No growth after 24 hours. Discharge Plan Discharge Anticipated Discharge Date/Time: 11/18/20 11:48 Patient Disposition: Home, Self-Care Discharge Diagnosis: Choledocholithiasis Referrals: Po,Blanca Melgar MD [Primary Care Provider] - 1 Week Discharge Medications: Continued simvastatin 40 mg tablet 40 mg PO BEDTIME Qty: 90 RF: 2 tadalafil [Cialis] 10 mg tablet 10 mg PO DAILY PRN (Reason: sexual activity) Qty: 30 RF: 5 Breo Ellipta 100-25 mcg/dose blister with device 1 puff PO DAILY RF: 0 dorzolamide-timolol 22.3-6.8 mg/mL drops 1 drp ophthalmic (eye) BID RF: 0 latanoprost 0.005 % drops 1 drp ophthalmic (eye) QPM RF: 0 omeprazole 20 mg capsule,delayed release(DR/EC) 20 mg PO DAILY RF: 0 No Action pyridoxine (vitamin B6) 100 mg tablet 100 mg PO DAILY Qty: 90 RF: 2 Discharge Orders: Discharge Order (Routine); Ordered 11/18/20 Ordered By: Salvador Gibbs Diet: advance to usual diet Activity on Discharge: As tolerated Stand Alone Forms: Patient Portal Discharge page Care Plan Goals: full reovery from gallstone pain Health Concerns: gallstone, elevated LFTs Plan of Treatment: Follow up with your doctor in a week Assessment: as above Discharge Date/Time: 11/18/20 14:51
--- NOTE | 2020-11-18 14:44 | HO.POSTANES ---
Post Anesthesia Evaluation Post Anesthesia Evaluation Vital Signs: Vital Signs Temp Pulse Resp BP Pulse Ox 11/18/20 11:29 97.6 F 66 18 122/64 96 11/18/20 07:39 98.4 F 78 18 130/71 97 Anesthesia: General Endotracheal-GETA Mental Status: Awake Pain Control: Satisfactory Nausea/Vomiting: None Hydration: Adequate Anesthesia-Related Issues: No Anes. Related Issues
== END 2020-11-18 14:51 | disposition home or self-care (01) | DRG 446 ==
LOC: HO.ED 11:29 → HO.EDOVER 16:56 → HO.IMC 17:43
PROVIDERS: Internal Medicine; Admitting Provider Family Medicine; Emergency Provider Emergency Medicine; PCP Internal Medicine; Visit Provider Internal Medicine
PROC: 0F798DZ Dilation of Common Bile Duct with Intraluminal Device, Via Natural or Artificial Opening Endoscopic (ICD-10-PCS; CPT 43260; principal; 2020-11-17 13:20)
DX: K83.1 Obstruction of bile duct (principal); K21.9 Gastro-esophageal reflux disease without esophagitis; E78.5 Hyperlipidemia, unspecified; H40.9 Unspecified glaucoma; J45.909 Unspecified asthma, uncomplicated; Z20.822 Contact with and (suspected) exposure to COVID-19; Z79.899 Other long term (current) drug therapy
CPT/HCPCS: 36415; 74176; 74181; 76705; 80048; 80053; 80076; 81001; 82248; 83690; 85025; 85027; 85610; 86140; 87040; 87635; 96361; 96365; 96375; 99285; J1610; J1956; J2370; J2405; J2550; J3010; Q9967

== ENCOUNTER 2020-12-01 11:09 | Outpatient (REF) | payer MEDICARE, OTHER, SELFPAY ==
[2020-12-01 14:07] LABS: Alanine Aminotransferase 32 U/L (0-40); Albumin Level 3.8 g/dL (3.5-5.0); Alkaline Phosphatase 127 U/L (39-117); Aspartate Amino Transferase 26 U/L (5-37); Bilirubin Direct 0.4 mg/dL (0.0-0.5); Bilirubin Total 0.8 mg/dL (0.0-1.0); Total Protein 6.5 g/dL (6.5-8.0)
== END 2020-12-01 11:10 | disposition home or self-care (01) ==
LOC: HO.LAB 11:09
PROVIDERS: PCP Internal Medicine; Visit Provider Internal Medicine
DX: R79.89 Other specified abnormal findings of blood chemistry (principal)
CPT/HCPCS: 36415; 80076

== ENCOUNTER 2021-01-01 14:00 | Outpatient (RCR) | payer MEDICARE, OTHER, SELFPAY | END 2021-02-02 16:58 | disposition home or self-care (01) | LOC: HO.PTCHIC 14:00 | PROVIDERS: PCP Internal Medicine; Visit Provider Nurse Practitioner Family | DX: M25.551 Pain in right hip (principal) | CPT/HCPCS: 97110; 97140; 97162 ==

== ENCOUNTER 2021-05-25 13:18 | Emergency (ER) | payer MEDICARE, OTHER, SELFPAY ==
--- NOTE | 2021-05-25 | ECG_ITS ---
Test Reason : CP Blood Pressure : / mmHG Vent. Rate : 096 BPM Atrial Rate : 096 BPM P-R Int : 138 ms QRS Dur : 076 ms QT Int : 340 ms P-R-T Axes : 068 039 053 degrees QTc Int : 429 ms Poor data quality, interpretation may be adversely affected Normal sinus rhythm Normal ECG When compared with ECG of 20-APR-2017 10:43, No significant change was found Referred By: Generic ED Physician Electronically Signed By:
--- NOTE | ~2021-05-25 | CT_ITS ---
EXAMINATION: CT ABDOMEN AND PELVIS WITHOUT CONTRAST CLINICAL INFORMATION: Abdominal pain COMPARISON: CT abdomen pelvis 11/16/2020 TECHNIQUE: Multidetector volumetric imaging was performed from the superior aspect of the liver through the pubic symphysis. Sagittal and coronal reformatted images were obtained on the technologist's workstation. This CT examination was performed using dose optimization techniques as appropriate, variously including the following: *Automated exposure control *Adjustment of mA and/or kV according to patient size (this includes techniques or standardized protocols for targeted exams where dose is matched to indication/reason for exam; i.e. extremities or head) *Use of iterative reconstruction technique DLP: 454 mGy-cm FINDINGS: LUNG BASES: Scarring is present at the lung bases. LIVER, GALLBLADDER, AND BILIARY TREE: The liver is normal in size, shape, and attenuation. No focal hepatic lesion or more biliary ductal dilatation is present. The previously seen intrahepatic biliary ductal dilatation has resolved. Status post cholecystectomy. The common bile duct measures 1.8 cm in diameter, previously 2.3 cm. PANCREAS: Unremarkable. SPLEEN: Unremarkable. ADRENAL GLANDS: Unremarkable. KIDNEYS AND URETERS: The kidneys are normal in size, shape, and attenuation. Bilateral Bosniak class I renal cysts are present. These need no further imaging or follow-up. There is a large calcification in the lower pole the left kidney with loss of cortex and scarring. A 3 mm nonobstructing left mid pole renal calculus is present. No hydronephrosis, hydroureter, or other calculi seen. No perinephric stranding. BLADDER: Empty and poorly evaluated GASTROINTESTINAL TRACT: A moderate-sized hiatal hernia is present. The small and large bowel are unremarkable. The appendix is unremarkable. ABDOMINAL WALL: No significant hernia is appreciated. Small left inguinal hernia containing only fat. LYMPH NODES: No retroperitoneal lymphadenopathy. VASCULAR: Calcific plaque present in the aorta and iliofemoral vessels which are ectatic but nonaneurysmal. PELVIC VISCERA: The prostate is enlarged measuring between 100 to 125 mL. Seminal vesicles are normal OSSEOUS STRUCTURES: Unremarkable. CT/CT abdomen pelvis wo con IMPRESSION: 1. A cause for the abdominal pain is not seen. 2. The common bile duct has decreased in size since the prior study and there is been improvement in intrahepatic biliary ductal dilatation. 3. Other incidental findings described above Fleischner guidelines were followed.
--- NOTE | ~2021-05-25 | XR_ITS ---
EXAMINATION: XR CHEST CLINICAL INFORMATION: Chest pain COMPARISON: 12/09/2015 TECHNIQUE: 2 views of the chest were obtained. FINDINGS: The cardiomediastinal silhouette is stable. The lungs are well expanded. Minor scarring at the bases. No consolidation or effusion. No pneumothorax. Degenerative changes in the spine. XR/XR chest 2V IMPRESSION: No acute cardiopulmonary findings.
[2021-05-25 13:35] VITALS: BP 129/54; PULSE 96; RESP 19; TEMP 36.6; O2SAT 98; BMI 24.2
[2021-05-25 13:57] LABS: MANUAL DIFF FLAG NO
[2021-05-25 14:00] LABS: Basophils Absolute Auto 0.1 X10*3/uL (0.0-0.2); Basophils Percent Auto 0.4 % (0-2); Eosinophils Absolute Auto 0.1 X10*3/uL (0.0-0.4); Eosinophils Percent Auto 0.4 % (0-4); Hematocrit 41.5 % (42.0-52.0); Hemoglobin 13.7 g/dl (14.0-18.0); Imm Gran Abs Auto 0.05 X10*3/uL (0.00-0.03); Imm Gran Pct Auto 0.4 % (0.0-0.4); Lymphocytes Absolute Auto 1.1 X10*3/uL (1.2-4.9); Lymphocytes Percent Auto 8.1 % (20-40); Mean Corpuscular Hemoglobin 30.2 pg (27.0-33.0); Mean Corpuscular Volume 91.6 fL (80.0-98.0); Mean Platelet Volume 9.2 fL (9.4-12.4); Monocytes Absolute Auto 1.4 X10*3/uL (0.1-1.2); Monocytes Percent Auto 10.2 % (2-11); Neutrophils Absolute Auto 10.9 x10*3/uL (2.0-8.3); Neutrophils Percent Auto 80.5 % (45-73); Platelet Count 222 X10*3/uL (160-400); Red Blood Count 4.53 X10*6/uL (4.60-5.80); Red Cell Distribution Width 12.5 % (11.0-16.0); White Blood Count 13.5 X10*3/uL (4.8-10.8)
[2021-05-25 14:04] LABS: Appearance Urine HAZY; Color Urine ORANGE; Glucose Urine UA NEG (NEG); Leukocyte Esterase Urine NEG (NEG); Nitrite Urine NEG (NEG); Urine Blood NEG (NEG); Urine Ketones 15 MG/DL (NEG); Urine Protein TRACE MG/DL (NEG-TRACE)
[2021-05-25 14:15] LABS: Anion Gap 12 (12-20); Blood Urea Nitrogen 20 mg/dL (9-16); Calcium 9.6 mg/dL (8.4-10.2); Carbon Dioxide 25 mmol/L (22-29); Chloride 106 mmol/L (96-108); Creatinine Clr Calc Pharmacy 45.6; Estimated Glomerular Filt Rate 54; Glucose Random 108 mg/dL (60-115); Potassium 4.2 mmol/L (3.3-5.1); Sodium 139 mmol/L (135-145)
[2021-05-25 14:22] LABS: Troponin-I High Sensitivity < 3.5 ng/L (<3.5-35.0)
--- NOTE | 2021-05-25 19:56 | ED_ITS ---
HPI - General Adult General Chief complaint: General Medical Stated complaint: Kidney stone/chest tightness Source: patient Mode of arrival: ambulatory Limitations: no limitations History of Present Illness HPI narrative: 81-year-old male presents with 2 days of left-sided flank pain that radiates to his left groin and left lower abdominal quadrant. Also reports some chest pressure that started after the flank pain. Onset (ago): day(s) (2) Location: chest, abdomen and pelvis Severity: moderate Severity scale (1-10): 6 Quality: aching and constant Pain Consistency: constant Relieving factors: none Exacerbating factors: movement Associated symptoms: denies other symptoms Treatments prior to arrival: none Related Data Home Medications Medication Instructions Recorded Confirmed dorzolamide 22.3 mg-timolol 6.8 1 drp OPHTHALMIC (EYE) BID 04/23/20 04/22/21 mg/mL eye drops latanoprost 0.005 % eye drops 1 drp OPHTHALMIC (EYE) QPM 04/23/20 04/22/21 omeprazole 20 mg capsule,delayed 20 mg PO DAILY 04/23/20 04/22/21 release fluticasone furoate 100 1 puff PO DAILY 11/16/20 04/22/21 mcg-vilanterol 25 mcg/dose inhalation powder (Breo Ellipta) Previous Rx's Medication Instructions Recorded tadalafil 10 mg tablet (Cialis) 10 mg PO DAILY PRN #30 tab 06/05/20 pyridoxine (vitamin B6) 100 mg 100 mg PO DAILY #90 tab 11/25/20 tablet simvastatin 40 mg tablet 40 mg PO BEDTIME #90 tab 01/28/21 oxycodone 5 mg tablet 5 mg PO Q6H PRN #10 tab 05/25/21 tamsulosin 0.4 mg capsule (Flomax) 0.4 mg PO DAILY #30 cap 05/25/21 Allergies Allergy/AdvReac Type Severity Reaction Status Date / Time Penicillins [PENICILLINS] Allergy Intermediate RASH Verified 04/22/21 09:30 Review of Systems Review of Systems: Constitutional: No Fever, No Chills ENT/Mouth: No sore throat Eyes: No Eye Pain, No Swelling, No Redness Cardiovascular: Positive Chest pressure, No SOB Respiratory: No Cough, No Sputum, No Wheezing Gastrointestinal: positive Nausea, no Vomiting, No Diarrhea, positive abdominal pain Genitourinary: No Dysuria, no urinary frequency, no Hematuria, positive Flank Pain, no hesitancy Musculoskeletal: No joint pain, No Myalgias Skin: No Skin Lesions, No rash Neuro: No Weakness, No Numbness, No Headache Psych: No Anxiety/Panic, No Depression Heme/Lymph: No Bruising, No Lymphadenopathy Endocrine: No Polyuria, No Polydipsia Yes all other systems are reviewed and are negative [facility] Past Medical History Attestation statement: The following information was validated with the patient. Source: old records reviewed Medical History Asthma BPH (benign prostatic hyperplasia) Cataract, left eye Esophageal stricture GERD (gastroesophageal reflux disease) Glaucoma Hypercholesterolemia Left renal stone Sciatic nerve pain Screening for diabetes mellitus Vitamin D deficiency Surgical History History of blepharoplasty History of cataract surgery History of cholecystectomy History of inguinal hernia repair History of lithotripsy History of tonsillectomy Family History Family History Father Stroke Mother No problems noted. Social History Social History Household Members: Spouse Housing: House Do you presently have visiting nurse or other home services: No Alcohol intake: current Alcohol intake frequency: does not drink Patient Tobacco Use Status: Never used Tobacco Second Hand Smoke Exposure: No Advance Directives: Yes Advance Directives Information Provided: Yes Advance Directives on File: No Advance Directives Date on File: 11/16/20 service: No Physical Exam ED Vital Signs: Vital Signs - 24 hr 05/25/21 13:35 05/25/21 20:25 05/25/21 20:27 Temperature 98 F 98.6 F Pulse Rate 96 79 Respiratory Rate 19 16 16 Blood Pressure 129/54 L 130/62 Pulse Oximetry 98 05/25/21 20:47 Temperature Pulse Rate 80 Respiratory Rate 16 Blood Pressure 123/68 Pulse Oximetry 98 BMI result Body Mass Index 24.2 Appearance: Alert. Oriented X3. Mild distress. Eyes: Pupils equal, round and reactive to light. Sclera nonicteric. EOMI. ENT: Pharynx normal. Moist mucous membranes. Neck: Normal inspection. Neck supple. CVS: Normal heart rate and rhythm. Pulses normal. Respiratory: No respiratory distress. Breath sounds normal. Abdomen: Soft and tender to the left upper and lower quadrants. Positive left- sided CVA tenderness. Skin: Skin warm and dry. Normal skin color. Normal skin turgor. Extremities: No lower extremity edema. Gait well-balanced well coordinated. Neuro: No motor deficit. No sensory deficit. Cranial nerves 2-12. Course Course Course Narrative: 81-year-old male presents with 2 days of left-sided flank pain that radiates around to the left groin and lower quadrant. Also presents with chest pressure which has resolved. Has a history of chronically elevated LFTs with prior chol ecystectomy, history of renal stones with ESWL procedure in the past, history of BPH, hypercholesterolemia. Labs drawn while patient was in the emergency department waiting room, which indicates an elevated white count of 13.5, H&H 13.7/41.5 which is consistent with his prior values, BUN is 20 which is elevated for his levels, bilirubin 1.5, consistent with prior values, AST 249 and ALT 186 with alk-phos of 146. Patient does have a history of chronically elevated LFTs and these values are within his normal limits. Urinalysis indicates an orange colored urine without nitrites or leukocyte esterases. Based on patient's prior history kidney stones, left-sided CVA tenderness, will order CT of abdomen and pelvis to rule out hydro, pyelo, and acute abdomen. Will provide pain management and fluid resuscitation with 1 L as patient does have an elevated BUN. Patient does not report any melena or rectal bleeding at this time. EKG is normal sinus no indication of ST depression or elevation, no indication of ischemia. Troponin is 0. Low likelihood of ACS at this time. CT scan of abdomen pelvis shows a 3 mm kidney stone. Will provide prescription for Flomax and oxycodone for pain management. Patient is an established patient with Dr. Ca, will refer to Urology. Patient verbalized understanding of and agrees to plan of care discharge home. Verbalized understanding of signs and symptoms indicating need for emergent intervention Medical Decision Making Differential Diagnosis Differential Diagnosis: Nephrolithiasis, pyelonephritis, colitis, ACS Medical Records Medical records reviewed: Yes I reviewed the patient's medical records. Lab Data Lab results reviewed: Yes I reviewed the patient's lab results. Result diagrams: 05/25/21 13:48 05/25/21 13:48 Labs: Lab Results 05/25/21 05/25/21 05/25/21 Range/Units 13:48 13:48 13:48 WBC 13.5 H (4.8-10.8) X10*3/uL RBC 4.53 L (4.60-5.80) X10*6/uL Hgb 13.7 L (14.0-18.0) g/dl Hct 41.5 L (42.0-52.0) % MCV 91.6 (80.0-98.0) fL MCH 30.2 (27.0-33.0) pg MCHC 33.0 (31.0-36.0) g/dl RDW 12.5 (11.0-16.0) % Plt Count 222 (160-400) X10*3/uL MPV 9.2 L (9.4-12.4) fL Immature Gran % (Auto) 0.4 (0.0-0.4) % Neut % (Auto) 80.5 H (45-73) % Lymph % (Auto) 8.1 L (20-40) % [place] % (Auto) 10.2 (2-11) % Eos % (Auto) 0.4 (0-4) % Baso % (Auto) 0.4 (0-2) % Lymph # (Auto) 1.1 L (1.2-4.9) X10*3/uL [place] # (Auto) 1.4 H (0.1-1.2) X10*3/uL Eos # (Auto) 0.1 (0.0-0.4) X10*3/uL Baso # (Auto) 0.1 (0.0-0.2) X10*3/uL Abs Immat Gran (auto) 0.05 H (0.00-0.03) X10*3/uL Absolute Neuts (auto) 10.9 H (2.0-8.3) x10*3/uL Absolute Nucleated RBC 0.000 (0.0-0.012) X10*3/uL Nucleated RBC % (auto) 0.0 (0.0-0.2) /100WBC Sodium 139 (135-145) mmol/L Potassium 4.2 (3.3-5.1) mmol/L Chloride 106 (96-108) mmol/L Carbon Dioxide 25 (22-29) mmol/L Anion Gap 12 (12-20) BUN 20 H (9-16) mg/dL Creatinine 1.27 (0.5-1.4) mg/dL Estim Creat Clear Calc 45.6 Estimated GFR 54 Random Glucose 108 (60-115) mg/dL Calcium 9.6 D (8.4-10.2) mg/dL Total Bilirubin 1.5 H (0.0-1.0) mg/dL Direct Bilirubin 0.6 H (0.0-0.5) mg/dL AST 249 H (5-37) U/L ALT 186 H (0-40) U/L Alkaline Phosphatase 146 H (39-117) U/L Troponin I High Sens < 3.5 (<3.5-35.0) ng/L Total Protein 7.1 (6.5-8.0) g/dL Albumin 4.0 (3.5-5.0) g/dL Lipase 46 (8-78) U/L Urine Color Urine Appearance Urine pH (5.0-8.0) Ur Specific [place] (1.005-1.025) Urine Protein (NEG-TRACE) MG/DL Urine Glucose (UA) (NEG) MG/DL Urine Ketones (NEG) MG/DL Urine Blood (NEG) Urine Nitrite (NEG) Ur Leukocyte Esterase (NEG) 05/25/21 Range/Units 13:48 WBC (4.8-10.8) X10*3/uL RBC (4.60-5.80) X10*6/uL Hgb (14.0-18.0) g/dl Hct (42.0-52.0) % MCV (80.0-98.0) fL MCH (27.0-33.0) pg MCHC (31.0-36.0) g/dl RDW (11.0-16.0) % Plt Count (160-400) X10*3/uL MPV (9.4-12.4) fL Immature Gran % (Auto) (0.0-0.4) % Neut % (Auto) (45-73) % Lymph % (Auto) (20-40) % [place] % (Auto) (2-11) % Eos % (Auto) (0-4) % Baso % (Auto) (0-2) % Lymph # (Auto) (1.2-4.9) X10*3/uL [place] # (Auto) (0.1-1.2) X10*3/uL Eos # (Auto) (0.0-0.4) X10*3/uL Baso # (Auto) (0.0-0.2) X10*3/uL Abs Immat Gran (auto) (0.00-0.03) X10*3/uL Absolute Neuts (auto) (2.0-8.3) x10*3/uL Absolute Nucleated RBC (0.0-0.012) X10*3/uL Nucleated RBC % (auto) (0.0-0.2) /100WBC Sodium (135-145) mmol/L Potassium (3.3-5.1) mmol/L Chloride (96-108) mmol/L Carbon Dioxide (22-29) mmol/L Anion Gap (12-20) BUN (9-16) mg/dL Creatinine (0.5-1.4) mg/dL Estim Creat Clear Calc Estimated GFR Random Glucose (60-115) mg/dL Calcium (8.4-10.2) mg/dL Total Bilirubin (0.0-1.0) mg/dL Direct Bilirubin (0.0-0.5) mg/dL AST (5-37) U/L ALT (0-40) U/L Alkaline Phosphatase (39-117) U/L Troponin I High Sens (<3.5-35.0) ng/L Total Protein (6.5-8.0) g/dL Albumin (3.5-5.0) g/dL Lipase (8-78) U/L Urine Color ORANGE A Urine Appearance HAZY Urine pH 7.0 (5.0-8.0) Ur Specific [place] 1.010 (1.005-1.025) Urine Protein TRACE (NEG-TRACE) MG/DL Urine Glucose (UA) NEG (NEG) MG/DL Urine Ketones 15 (NEG) MG/DL Urine Blood NEG (NEG) Urine Nitrite NEG (NEG) Ur Leukocyte Esterase NEG (NEG) Imaging Data CT scan - abdomen: Attestation: I personally reviewed and interpreted this imaging study as follows: Radiologist's impression: FINDINGS: LUNG BASES: Scarring is present at the lung bases.? LIVER, GALLBLADDER, AND BILIARY TREE: The liver is normal in size, shape, and attenuation. No focal hepatic lesion or more biliary ductal dilatation is present. The previously seen intrahepatic biliary ductal dilatation has resolved. Status post cholecystectomy. The common bile duct measures 1.8 cm in diameter, previously 2.3 cm. PANCREAS: Unremarkable.? SPLEEN: Unremarkable.? ADRENAL GLANDS: Unremarkable.? KIDNEYS AND URETERS: The kidneys are normal in size, shape, and attenuation. Bilateral Bosniak class I renal cysts are present. These need no further imaging or follow-up. There is a large calcification in the lower pole the left kidney with loss of cortex and scarring. A 3 mm nonobstructing left mid pole renal calculus is present. No hydronephrosis, hydroureter, or other calculi seen. No perinephric stranding. ? BLADDER: Empty and poorly evaluated? GASTROINTESTINAL TRACT: A moderate-sized hiatal hernia is present. The small and large bowel are unremarkable. The appendix is unremarkable.? ABDOMINAL WALL: No significant hernia is appreciated. Small left inguinal hernia containing only fat. LYMPH NODES: No retroperitoneal lymphadenopathy. VASCULAR: Calcific plaque present in the aorta and iliofemoral vessels which are ectatic but nonaneurysmal. PELVIC VISCERA: The prostate is enlarged measuring between 100 to 125 mL. Seminal vesicles are normal? OSSEOUS STRUCTURES: Unremarkable.? CT/CT abdomen pelvis wo con IMPRESSION: 1.? A cause for the abdominal pain is not seen. 2.? The common bile duct has decreased in size since the prior study and there is been improvement in intrahepatic biliary ductal dilatation. 3.? Other incidental findings described above ? Fleischner guidelines were followed. Chest x-ray: Attestation: I personally reviewed and interpreted this imaging study as follows: Radiologist's impression: EXAMINATION: XR CHEST CLINICAL INFORMATION: Chest pain COMPARISON: 12/09/2015 TECHNIQUE: 2 views of the chest were obtained. FINDINGS: The cardiomediastinal silhouette is stable. The lungs are well expanded. Minor scarring at the bases. No consolidation or effusion. No pneumothorax. Degenerative changes in the spine. XR/XR chest 2V IMPRESSION: No acute cardiopulmonary findings. ECG Data Attestation: I personally reviewed and interpreted this ECG as follows: Prior ECG tracings: available for review Interpretation: Vent. rate 95 BPM ID interval 136 ms QRS duration 78 ms QT/QTc 338/424 ms P-R-T axes 67 39 52 Normal sinus rhythm Normal ECG When compared with ECG of 13:27, No significant change was found 25-MAY-2021 13:28:22 Discharge Plan Discharge Clinical Impression: Left renal stone Patient Disposition: Home, Self-Care Instructions: Kidney Stones (ED) Additional Instructions: You were evaluated for left-sided flank and abdominal pain. CT scan of the abdomen and pelvis indicates a 3 mm nonobstructing left-sided kidney stone. Please take Flomax daily. Drink plenty of fluids. I prescribed oxycodone for pain management. This medication is a narcotic and has high risk for addiction and abuse. Do not drive or operate machinery while taking this medication. This medication can cause drowsiness, increased risk for falls, delay reaction time, and cause constipation. Please use MiraLax and or Colace to help soften stools while taking this medication. Please follow-up with Urology, Dr. Ca. Thank you for choosing this emergency department for evaluation. Please follow-up with primary care physician as needed. Return to the emergency department for any new, concerning, or worsening symptoms. Prescriptions: New tamsulosin [Flomax] 0.4 mg capsule 0.4 mg PO DAILY Qty: 30 0RF oxycodone 5 mg tablet 5 mg PO Q6H PRN (Reason: pain) Qty: 10 0RF Rx Instructions: Left kidney stone No Action tadalafil [Cialis] 10 mg tablet 10 mg PO DAILY PRN (Reason: sexual activity) Qty: 30 5RF Rx Instructions: administer approximately 30min before sexual activity; do not use more than 1 dose per 24hrs pyridoxine (vitamin B6) 100 mg tablet 100 mg PO DAILY Qty: 90 2RF simvastatin 40 mg tablet 40 mg PO BEDTIME Qty: 90 3RF Breo Ellipta 100-25 mcg/dose blister with device 1 puff PO DAILY 0RF dorzolamide-timolol 22.3-6.8 mg/mL drops 1 drp ophthalmic (eye) BID 0RF latanoprost 0.005 % drops 1 drp ophthalmic (eye) QPM 0RF omeprazole 20 mg capsule,delayed release(DR/EC) 20 mg PO DAILY 0RF Referrals: Gómez aC MD [Physician] - 2 days (Left renal stone) Interventions: ED Discharge Assessment Last Done: 05/25/21 22:11 Discharge Date/Time: 05/25/21 22:13
[2021-05-25 20:22] LABS: Alanine Aminotransferase 186 U/L (0-40); Alkaline Phosphatase 146 U/L (39-117); Aspartate Amino Transferase 249 U/L (5-37); Bilirubin Direct 0.6 mg/dL (0.0-0.5); Bilirubin Total 1.5 mg/dL (0.0-1.0); Lipase 46 U/L (8-78); Total Protein 7.1 g/dL (6.5-8.0)
[2021-05-25] MEDS: ondansetron HCL 4 MG/2 ML VIAL IVPUSH (20:22)
[2021-05-25] MEDS: 0.9 % Sodium Chloride 1,000 ML 999 ML IVCONT (20:24)
[2021-05-25 20:25] VITALS: RESP 16
[2021-05-25] MEDS: Morphine Sulfate 2 MG/ML CARTRIDGE IVPUSH (20:25)
[2021-05-25 20:27] VITALS: BP 130/62; PULSE 79; RESP 16; TEMP 37
[2021-05-25 20:47] VITALS: BP 123/68; PULSE 80; RESP 16; O2SAT 98
[2021-05-25] MEDS: Tamsulosin HCL 0.4 MG CAPSULE PO (22:07)
== END 2021-05-25 22:13 | disposition home or self-care (01) ==
PROVIDERS: Nurse Practitioner Family; Emergency Provider Internal Medicine; PCP Internal Medicine
DX: N20.0 Calculus of kidney (principal); R10.9 Unspecified abdominal pain; Z90.49 Acquired absence of other specified parts of digestive tract
CPT/HCPCS: 36415; 71046; 74176; 80048; 80076; 81003; 83690; 84484; 85025; 93005; 96361; 96374; 96375; 99284; J2270; J2405

== ENCOUNTER 2021-06-04 16:35 | Outpatient (REF) | payer MEDICARE, OTHER, SELFPAY ==
[2021-06-04 16:52] LABS: MANUAL DIFF FLAG NO
[2021-06-04 17:22] LABS: Basophils Absolute Auto 0.1 X10*3/uL (0.0-0.2); Basophils Percent Auto 0.7 % (0-2); Eosinophils Absolute Auto 0.3 X10*3/uL (0.0-0.4); Eosinophils Percent Auto 4.6 % (0-4); Hematocrit 41.6 % (42.0-52.0); Hemoglobin 12.9 g/dl (14.0-18.0); Imm Gran Abs Auto 0.02 X10*3/uL (0.00-0.03); Imm Gran Pct Auto 0.3 % (0.0-0.4); Lymphocytes Absolute Auto 1.9 X10*3/uL (1.2-4.9); Lymphocytes Percent Auto 28.6 % (20-40); Mean Corpuscular Hemoglobin 29.9 pg (27.0-33.0); Mean Corpuscular Volume 96.5 fL (80.0-98.0); Mean Platelet Volume 9.6 fL (9.4-12.4); Monocytes Absolute Auto 1.1 X10*3/uL (0.1-1.2); Monocytes Percent Auto 16.6 % (2-11); Neutrophils Absolute Auto 3.3 x10*3/uL (2.0-8.3); Neutrophils Percent Auto 49.2 % (45-73); Platelet Count 267 X10*3/uL (160-400); Red Blood Count 4.31 X10*6/uL (4.60-5.80); Red Cell Distribution Width 12.8 % (11.0-16.0); White Blood Count 6.8 X10*3/uL (4.8-10.8)
[2021-06-04 17:33] LABS: Appearance Urine CLEAR; Color Urine DK YELLOW; Glucose Urine UA NEG (NEG); Leukocyte Esterase Urine NEG (NEG); Nitrite Urine NEG (NEG); PH 5.5 (5.0-8.0); Specific Gravity - Urine 1.025 (1.005-1.025); Urine Blood TRACE (NEG); Urine Ketones NEG (NEG); Urine Protein NEG (NEG-TRACE)
[2021-06-04 17:34] LABS: INTERNATIONAL NORM RATIO 1.1 (0.9-1.1); Prothrombin Time 12.1 SEC (9.9-13.0)
[2021-06-04 17:42] LABS: Mucus Urine 4+ /LPF; Squamous Epithelial Cell Urine TRACE /LPF; WBC Urine 0 /HPF (0-4)
[2021-06-04 17:47] LABS: Alanine Aminotransferase 278 U/L (0-40); Albumin Level 3.8 g/dL (3.5-5.0); Alkaline Phosphatase 277 U/L (39-117); Anion Gap 13 (12-20); Aspartate Amino Transferase 216 U/L (5-37); Bilirubin Total 1.8 mg/dL (0.0-1.0); Blood Urea Nitrogen 12 mg/dL (9-16); C Reactive Protein 3.86 mg/dL (< or = 0.50); Calcium 9.2 mg/dL (8.4-10.2); Carbon Dioxide 27 mmol/L (22-29); Chloride 105 mmol/L (96-108); Estimated Glomerular Filt Rate > 60; Glucose Random 113 mg/dL (60-115); Lipase 38 U/L (8-78); Potassium 3.7 mmol/L (3.3-5.1); Sodium 141 mmol/L (135-145); Total Protein 6.9 g/dL (6.5-8.0)
[2021-06-04 17:54] LABS: Erythrocyte Sedimentation Rate 31 MM/HR (0-15)
[2021-06-04 18:03] LABS: Amylase 52 U/L (28-100)
== END 2021-06-04 16:36 | disposition home or self-care (01) ==
LOC: HO.LAB 16:35
PROVIDERS: PCP Internal Medicine; Visit Provider Internal Medicine
DX: R10.11 Right upper quadrant pain (principal); R79.89 Other specified abnormal findings of blood chemistry
CPT/HCPCS: 36415; 80048; 80076; 81001; 82150; 83690; 85025; 85610; 85652; 86140

== ENCOUNTER 2021-06-04 22:18 | Inpatient (IN) | payer MEDICARE, OTHER, SELFPAY ==
--- NOTE | ~2021-06-04 | FL_ITS ---
EXAMINATION: XR FLUOROSCOPY WITH IMAGES CLINICAL INFORMATION: Common bile duct COMPARISON: 11/17/2020 TECHNIQUE: Fluoroscopy performed by Dr. Enoch Duran. Fluoroscopy time: 498.6 seconds Images: 11 FINDINGS: Endoscope noted with wire cannulization of the common bile duct. There is retrograde injection of contrast showing a dilated duct. Dilated intrahepatic ducts also noted. Evidence of balloon sweeps. FL/FL guidance in OR IMPRESSION: Fluoroscopic guidance for ERCP with biliary ductal dilatation noted. Please refer to procedural report for further information.
--- NOTE | ~2021-06-04 | CT_ITS ---
EXAMINATION: CT ABDOMEN AND PELVIS WITH CONTRAST CLINICAL INFORMATION: Right upper quadrant pain COMPARISON: 05/25/2021 TECHNIQUE: Multidetector volumetric images were obtained from the superior aspect of the liver through the pubic symphysis following administration 85 mL of Omnipaque 350 intravenous contrast. Sagittal and coronal reformatted images were obtained on the technologist's workstation. Oral contrast: No This CT examination was performed using dose optimization techniques as appropriate, variously including the following: *Automated exposure control *Adjustment of mA and/or kV according to patient size (this includes techniques or standardized protocols for targeted exams where dose is matched to indication/reason for exam; i.e. extremities or head) *Use of iterative reconstruction technique DLP: 483 mGy-cm FINDINGS: LUNG BASES: Bibasilar atelectasis. The visualized cardiac structures are unremarkable. LIVER, GALLBLADDER, AND BILIARY TREE: The liver is normal in size, shape, and attenuation. No focal hepatic lesion. There is diffuse intrahepatic and extrahepatic biliary ductal dilatation. Common bile duct measures up to 1.8 cm. There is somewhat heterogeneous internal attenuation within the common duct which could represent sludge or stones.. Cholecystectomy. PANCREAS: Unremarkable. SPLEEN: Unremarkable. ADRENAL GLANDS: Unremarkable. KIDNEYS AND URETERS: The kidneys are normal in size, shape, and attenuation. No hydronephrosis, hydroureter, or calculi seen. No perinephric stranding. Multiple bilateral simple renal cysts for which no follow-up is recommended. Cortical thinning at the lower pole of the left kidney with a calcification present. This is unchanged. BLADDER: Partially distended with circumferential wall thickening. No focal abnormality. GASTROINTESTINAL TRACT: Moderate hiatal hernia. Normal caliber small bowel. No obstruction. Colonic diverticulosis without diverticulitis. ABDOMINAL WALL: Fat-containing left inguinal hernia. LYMPH NODES: Normal. VASCULAR: Normal caliber aorta with moderate atherosclerotic calcification. PELVIC VISCERA: Enlarged prostate which measures 5.8 cm transverse. Encroachment upon the bladder. OSSEOUS STRUCTURES: No acute or suspicious osseous abnormality. Degenerative changes throughout the spine. Mild degenerative changes of the hips. CT/CT abdomen pelvis w con IMPRESSION: Intrahepatic and extrahepatic biliary ductal dilatation. Heterogeneous internal attenuation within the common bile duct could represent stones or sludge. Significant prostatomegaly. Likely bladder outlet obstruction resulting in wall thickening. Fleischner guidelines were followed.
--- NOTE | ~2021-06-04 | CT_ITS ---
EXAMINATION: CT ANGIOGRAM OF THE CHEST WITH AND WITHOUT CONTRAST (CT PULMONARY ANGIOGRAM FOR PE) CLINICAL INFORMATION: Chest pain COMPARISON: 05/25/2021 radiograph TECHNIQUE: Prior to contrast administration, noncontrast localization images were obtained. Subsequently, multidetector volumetric imaging was performed from the thoracic inlet to below the diaphragms following the administration of 65 mL Omnipaque 350 intravenous contrast. No contrast reaction reported Sagittal, coronal, and MIP oblique sagittal reformatted images were obtained on the CT workstation, uploaded to PACS, and reviewed. This CT examination was performed using dose optimization techniques as appropriate, variously including the following: *Automated exposure control *Adjustment of mA and/or kV according to patient size (this includes techniques or standardized protocols for targeted exams where dose is matched to indication/reason for exam; i.e. extremities or head) *Use of iterative reconstruction technique Total exam dose-length product 261 mGy-cm FINDINGS: QUALITY OF STUDY/CONTRAST BOLUS: Satisfactory. PULMONARY ARTERIES: No central or segmental pulmonary emboli. THORACIC AORTA: No aneurysm or dissection. LUNG: The central airways are patent. Bandlike atelectasis in the lower lobes. Scattered groundglass opacities. No dense consolidation. PLEURA: No pleural effusion or pneumothorax. MEDIASTINUM: Normal heart size. No pericardial effusion. No hilar or mediastinal lymphadenopathy. No evidence of septal bowing or right heart strain. CHEST WALL/AXILLA: No axillary or internal mammary lymphadenopathy. OSSEOUS STRUCTURES: No acute or suspicious osseous abnormality. Degenerative change throughout the spine. DISH. UPPER ABDOMEN: Moderate hiatal hernia. Pneumobilia. Cholecystectomy. No reflux of contrast into the hepatic veins to suggest elevated right heart pressures. CT/CT angio chest PE protocol IMPRESSION: No pulmonary embolism. Subsegmental atelectasis in the lungs. Associated groundglass opacification is nonspecific but may also be atelectatic in nature. VTE: negative
[2021-06-05] VITALS (16 sets, daily range): BP systolic 97–154; BP diastolic 50–76; PULSE 70–124; RESP 16–25; TEMP 36.5–37.6; O2SAT 92–99; BMI 25.0
--- NOTE | 2021-06-05 | ECG_ITS ---
Test Reason : CHEST PAIN Blood Pressure : / mmHG Vent. Rate : 100 BPM Atrial Rate : 100 BPM P-R Int : 146 ms QRS Dur : 078 ms QT Int : 332 ms P-R-T Axes : 077 036 052 degrees QTc Int : 428 ms Sinus rhythm with Premature atrial complexes Otherwise normal ECG When compared with ECG of 25-MAY-2021 13:28, Premature atrial complexes are now Present Referred By: Generic ED Physician Electronically Signed By:MAGED ORTEGA
[2021-06-05 02:11] LABS: MANUAL DIFF FLAG NO
[2021-06-05 02:12] LABS: Basophils Percent Auto 0.4 % (0-2); Eosinophils Absolute Auto 0.1 X10*3/uL (0.0-0.4); Eosinophils Percent Auto 1.2 % (0-4); Hematocrit 40.1 % (42.0-52.0); Imm Gran Abs Auto 0.03 X10*3/uL (0.00-0.03); Imm Gran Pct Auto 0.3 % (0.0-0.4); Lymphocytes Absolute Auto 1.1 X10*3/uL (1.2-4.9); Lymphocytes Percent Auto 10.8 % (20-40); Mean Corpuscular HGB Conc 32.4 g/dl (31.0-36.0); Mean Corpuscular Hemoglobin 30.7 pg (27.0-33.0); Mean Corpuscular Volume 94.6 fL (80.0-98.0); Mean Platelet Volume 9.2 fL (9.4-12.4); Monocytes Absolute Auto 1.2 X10*3/uL (0.1-1.2); Monocytes Percent Auto 11.5 % (2-11); Neutrophils Absolute Auto 7.8 x10*3/uL (2.0-8.3); Neutrophils Percent Auto 75.8 % (45-73); Platelet Count 234 X10*3/uL (160-400); Red Blood Count 4.24 X10*6/uL (4.60-5.80); Red Cell Distribution Width 12.6 % (11.0-16.0); White Blood Count 10.2 X10*3/uL (4.8-10.8)
--- NOTE | 2021-06-05 02:21 | PC.NURSE ---
Pt resting on stretcher in NAD, breathing with ease on RA, VSS. Pt aaox4, endorses RUQ abd pain, offers no additional complaints/concerns at this time. Pt labs, EKG obtained. labs sent for processing. Pt awaiting lab results, ultrasound. Pt aware and agreeable to plan. Pt stretcher low locked, rails raised, call flowers within reach. Pt NSR on athletic monitor.
[2021-06-05 02:22] LABS: Lactic Acid 0.7 mmol/L (0.5-2.0)
[2021-06-05 02:27] LABS: COVID-19 Test Negative (Negative)
[2021-06-05 02:35] LABS: Alanine Aminotransferase 317 U/L (0-40); Albumin Level 3.7 g/dL (3.5-5.0); Alkaline Phosphatase 303 U/L (39-117); Anion Gap 14 (12-20); Aspartate Amino Transferase 257 U/L (5-37); Bilirubin Total 2.7 mg/dL (0.0-1.0); Blood Urea Nitrogen 15 mg/dL (9-16); Calcium 9.2 mg/dL (8.4-10.2); Carbon Dioxide 23 mmol/L (22-29); Chloride 104 mmol/L (96-108); Creatinine Clr Calc Pharmacy 49.1; Estimated Glomerular Filt Rate > 60; Glucose Random 114 mg/dL (60-115); Lipase 37 U/L (8-78); Magnesium 2.1 mg/dL (1.6-2.6); Potassium 4.3 mmol/L (3.3-5.1); Sodium 137 mmol/L (135-145); Total Protein 7.1 g/dL (6.5-8.0)
--- NOTE | 2021-06-05 03:44 | ED.ABDPAIN ---
HPI - Abdominal Pain General Chief Complaint: Abdominal Pain Stated Complaint: Dr cortez for gallstone in chest Time Seen by Provider: 06/05/21 01:46 Source: patient Mode of arrival: ambulatory History of Present Illness HPI narrative: 81-year-old male presents with often on right upper quadrant abdominal discomfort that has been ongoing for couple of weeks with intermittent associated nausea but states that over the past 3 days it has ?really settled in? and now he states he has had intermittent episodes of vomiting as well as associated chills but denies any food contamination or diarrhea. In addition, patient denies any unintentional weight loss and states that he is status post cholecystectomy. Related Data Home Medications Medication Instructions Recorded Confirmed dorzolamide 22.3 mg-timolol 6.8 1 drp OPHTHALMIC (EYE) BID 04/23/20 06/05/21 mg/mL eye drops fluticasone furoate 100 1 puff PO DAILY 11/16/20 04/22/21 mcg-vilanterol 25 mcg/dose inhalation powder (Breo Ellipta) latanoprost 0.005 % eye drops 1 drp OPHTHALMIC (EYE) BEDTIME 06/05/21 06/05/21 omeprazole 20 mg capsule,delayed 1 cap PO DAILY 06/05/21 06/05/21 release pyridoxine (vitamin B6) 100 mg 1 tab PO DAILY 06/05/21 06/05/21 tablet simvastatin 40 mg tablet 1 tab PO BEDTIME 06/05/21 06/05/21 tadalafil 10 mg tablet 1 tab PO DIRECTED PRN 06/05/21 06/05/21 tamsulosin 0.4 mg capsule 1 cap PO DAILY 06/05/21 06/05/21 Allergies Allergy/AdvReac Type Severity Reaction Status Date / Time Penicillins [PENICILLINS] Allergy Intermediate RASH Verified 06/05/21 01:14 Review of Systems Review of Systems Pertinent positives and negatives as stated in HPI 10 point review of systems is otherwise negative. [facility] Past Medical History Source: nursing notes reviewed Medical History Asthma BPH (benign prostatic hyperplasia) Cataract, left eye Esophageal stricture GERD (gastroesophageal reflux disease) Glaucoma Hypercholesterolemia Left renal stone Sciatic nerve pain Screening for diabetes mellitus Vitamin D deficiency Surgical History History of blepharoplasty History of cataract surgery History of cholecystectomy History of inguinal hernia repair History of lithotripsy History of tonsillectomy Family History Family History Father Stroke Mother No problems noted. Social History Social History Household Members: Spouse Housing: House Do you presently have visiting nurse or other home services: No Alcohol intake: current Alcohol intake frequency: does not drink Patient Tobacco Use Status: Never used Tobacco Second Hand Smoke Exposure: No Advance Directives: Yes Advance Directives Information Provided: Yes Advance Directives on File: No Advance Directives Date on File: 11/16/20 service: No Physical Exam ED Vital Signs: Vital Signs - 24 hr 06/05/21 01:08 06/05/21 02:04 06/05/21 04:08 Temperature 99.6 F Pulse Rate 99 101 H 97 Respiratory Rate 18 25 H 19 Blood Pressure 119/69 108/55 L 137/72 Pulse Oximetry 94 94 96 BMI result Body Mass Index 25.0 VITAL SIGNS: Reviewed. GENERAL: Well developed, well nourished, in no acute distress. HEAD: Normocephalic/atraumatic EYES: PERRLA, EOMI EARS: Ext canals without abnormality OROPHARYNX: no oral lesions noted, posterior pharynx clear LUNGS: Normal breath sounds. No adventitious sounds or accessory muscle use. SpO2<94> CARDIOVASCULAR: Regular rate and rhythm without noted murmurs ABDOMEN: Soft, mid abdominal discomfort, no rebound, non-distended with bowel sounds. MUSCULOSKELETAL: No tenderness, deformities, or effusions noted on gross inspection. EXTREMITIES: No cyanosis, clubbing or edema. SKIN: Inspection of the skin reveals no rashes NEUROLOGIC: Alert and oriented x 4. Strength and sensation to light touch were grossly intact x 4. Course Course Course Narrative: 81-year-old male with history and clinical presentation most consistent with choledocholithiasis or less likely mass. Review of all investigations most consistent with choledocholithiasis, I discussed the case with the inpatient hospitalist who accepts admission and also discussed the case with Gastroenterology who will see the patient the morning and recommends antibiotics though patient does not have a leukocytosis. 0505: I suspect infection and patient given antibiotics. MDM - Abdominal Pain Lab Data Result diagrams: 06/05/21 02:05 06/05/21 02:05 Labs: Lab Results 06/05/21 06/05/21 06/05/21 Range/Units 01:58 02:05 02:05 WBC 10.2 (4.8-10.8) X10*3/uL RBC 4.24 L (4.60-5.80) X10*6/uL Hgb 13.0 L (14.0-18.0) g/dl Hct 40.1 L (42.0-52.0) % MCV 94.6 (80.0-98.0) fL MCH 30.7 (27.0-33.0) pg MCHC 32.4 (31.0-36.0) g/dl RDW 12.6 (11.0-16.0) % Plt Count 234 (160-400) X10*3/uL MPV 9.2 L (9.4-12.4) fL Immature Gran % (Auto) 0.3 (0.0-0.4) % Neut % (Auto) 75.8 H (45-73) % Lymph % (Auto) 10.8 L (20-40) % [place] % (Auto) 11.5 H (2-11) % Eos % (Auto) 1.2 (0-4) % Baso % (Auto) 0.4 (0-2) % Lymph # (Auto) 1.1 L (1.2-4.9) X10*3/uL [place] # (Auto) 1.2 (0.1-1.2) X10*3/uL Eos # (Auto) 0.1 (0.0-0.4) X10*3/uL Baso # (Auto) 0.0 (0.0-0.2) X10*3/uL Abs Immat Gran (auto) 0.03 (0.00-0.03) X10*3/uL Absolute Neuts (auto) 7.8 (2.0-8.3) x10*3/uL Absolute Nucleated RBC 0.000 (0.0-0.012) X10*3/uL Nucleated RBC % (auto) 0.0 (0.0-0.2) /100WBC Sodium 137 (135-145) mmol/L Potassium 4.3 (3.3-5.1) mmol/L Chloride 104 (96-108) mmol/L Carbon Dioxide 23 (22-29) mmol/L Anion Gap 14 (12-20) BUN 15 (9-16) mg/dL Creatinine 1.14 (0.5-1.4) mg/dL Estim Creat Clear Calc 49.1 Estimated GFR > 60 Random Glucose 114 (60-115) mg/dL Lactic Acid (0.5-2.0) mmol/L Calcium 9.2 (8.4-10.2) mg/dL Magnesium 2.1 (1.6-2.6) mg/dL Total Bilirubin 2.7 H (0.0-1.0) mg/dL AST 257 H (5-37) U/L ALT 317 H (0-40) U/L Alkaline Phosphatase 303 H (39-117) U/L Total Protein 7.1 (6.5-8.0) g/dL Albumin 3.7 (3.5-5.0) g/dL Lipase 37 (8-78) U/L Urine Color Urine Appearance Urine pH (5.0-8.0) Ur Specific [place] (1.005-1.025) Urine Protein (NEG-TRACE) MG/DL Urine Glucose (UA) (NEG) MG/DL Urine Ketones (NEG) MG/DL Urine Blood (NEG) Urine Nitrite (NEG) Ur Leukocyte Esterase (NEG) Urine RBC (0) /HPF Urine WBC (0-4) /HPF Ur Squamous Epith Cells /LPF Urine Bacteria /LPF Urine Mucus /LPF COVID-19 (SHERI) Negative (Negative) COVID-19 Clin Com See Note 06/05/21 06/05/21 Range/Units 02:05 04:16 WBC (4.8-10.8) X10*3/uL RBC (4.60-5.80) X10*6/uL Hgb (14.0-18.0) g/dl Hct (42.0-52.0) % MCV (80.0-98.0) fL MCH (27.0-33.0) pg MCHC (31.0-36.0) g/dl RDW (11.0-16.0) % Plt Count (160-400) X10*3/uL MPV (9.4-12.4) fL Immature Gran % (Auto) (0.0-0.4) % Neut % (Auto) (45-73) % Lymph % (Auto) (20-40) % [place] % (Auto) (2-11) % Eos % (Auto) (0-4) % Baso % (Auto) (0-2) % Lymph # (Auto) (1.2-4.9) X10*3/uL [place] # (Auto) (0.1-1.2) X10*3/uL Eos # (Auto) (0.0-0.4) X10*3/uL Baso # (Auto) (0.0-0.2) X10*3/uL Abs Immat Gran (auto) (0.00-0.03) X10*3/uL Absolute Neuts (auto) (2.0-8.3) x10*3/uL Absolute Nucleated RBC (0.0-0.012) X10*3/uL Nucleated RBC % (auto) (0.0-0.2) /100WBC Sodium (135-145) mmol/L Potassium (3.3-5.1) mmol/L Chloride (96-108) mmol/L Carbon Dioxide (22-29) mmol/L Anion Gap (12-20) BUN (9-16) mg/dL Creatinine (0.5-1.4) mg/dL Estim Creat Clear Calc Estimated GFR Random Glucose (60-115) mg/dL Lactic Acid 0.7 (0.5-2.0) mmol/L Calcium (8.4-10.2) mg/dL Magnesium (1.6-2.6) mg/dL Total Bilirubin (0.0-1.0) mg/dL AST (5-37) U/L ALT (0-40) U/L Alkaline Phosphatase (39-117) U/L Total Protein (6.5-8.0) g/dL Albumin (3.5-5.0) g/dL Lipase (8-78) U/L Urine Color YELLOW Urine Appearance CLEAR Urine pH 6.5 (5.0-8.0) Ur Specific [place] 1.015 (1.005-1.025) Urine Protein NEG (NEG-TRACE) MG/DL Urine Glucose (UA) NEG (NEG) MG/DL Urine Ketones 15 (NEG) MG/DL Urine Blood TRACE (NEG) Urine Nitrite NEG (NEG) Ur Leukocyte Esterase NEG (NEG) Urine RBC 0-2 (0) /HPF Urine WBC 0 (0-4) /HPF Ur Squamous Epith Cells TRACE /LPF Urine Bacteria NONE /LPF Urine Mucus TRACE /LPF COVID-19 (SHERI) (Negative) COVID-19 Clin Com ECG Data Attestation: I personally reviewed and interpreted this ECG as follows: Prior ECG tracings: available for review Interpretation: Sinus rhythm with PACs, HR -100, no STEMI, SC/QRS/QTC are within normal limits. Discharge Plan Discharge Clinical Impression: Choledocholithiasis Patient Disposition: Admitted As Inpatient Prescriptions: No Action Breo Ellipta 100-25 mcg/dose blister with device 1 puff PO DAILY 0RF latanoprost 0.005 % drops 1 drp ophthalmic (eye) BEDTIME 0RF Rx Instructions: both eyes simvastatin 40 mg tablet 1 tab PO BEDTIME 0RF tamsulosin 0.4 mg capsule 1 cap PO DAILY 0RF omeprazole 20 mg capsule,delayed release(DR/EC) 1 cap PO DAILY 0RF pyridoxine (vitamin B6) 100 mg tablet 1 tab PO DAILY 0RF tadalafil 10 mg tablet 1 tab PO DIRECTED PRN (Reason: Sexual Activity) 0RF dorzolamide-timolol 22.3-6.8 mg/mL drops 1 drp ophthalmic (eye) BID 0RF
[2021-06-05] MEDS: iohexoL 350 MG/ML 100 ML INFUS..BTL 85 ML IV (04:04)
[2021-06-05] MEDS: 0.9 % Sodium Chloride 1,000 ML 999 ML IV (04:12)
[2021-06-05] MEDS: HYDROmorphone HCl 0.5 MG/0.5 ML SYRINGE IVPUSH (04:12)
[2021-06-05] MEDS: ondansetron HCL 4 MG/2 ML VIAL IVPUSH ×2 (04:12→18:02)
[2021-06-05 04:35] LABS: Appearance Urine CLEAR; Color Urine YELLOW; Glucose Urine UA NEG (NEG); Leukocyte Esterase Urine NEG (NEG); Nitrite Urine NEG (NEG); PH 6.5 (5.0-8.0); Specific Gravity - Urine 1.015 (1.005-1.025); UACC Culture Trigger NO; Urine Blood TRACE (NEG); Urine Ketones 15 MG/DL (NEG); Urine Protein NEG (NEG-TRACE)
[2021-06-05 04:43] LABS: Mucus Urine TRACE /LPF; RBC Urine 0-2 /HPF (0); Squamous Epithelial Cell Urine TRACE /LPF; WBC Urine 0 /HPF (0-4)
[2021-06-05] MEDS: cefTRIAXone sodium 1 GM in 0.9 % Sodium Chloride 50 ML IV (05:07)
--- NOTE | 2021-06-05 05:37 | PM.IMHP ---
History of Present Illness Date of Service: 06/05/21 Chief Complaint: abdominal pain 81-year-old male with a past medical history of hyperlipidemia, anxiety, history of kidney stones, BPH, GERD, asthma, history of cholecystectomy presented to the hospital today with a chief complaint of abdominal pain. Patient reports that he has been having abdominal pain for the last 10 days, located on the right upper quadrant, associated nausea and vomiting; denies any diarrhea. Denies any blood in the vomitus. Denies any fever chills cough. Denies any urinary symptoms. Reports he has been having chills and subjective fevers and noted to have low-grade temperature 9.5 F at home. Denies any chest pain palpitations lightheadedness or dizziness. Review of all other systems is negative except mentioned above ER course: Per ER team patient noted to have right upper quadrant tenderness; CT scan showed choledocholithiasis with dilated extrahepatic biliary duct; discussed with Dr. Juarez from Gastroenterology who mentioned to admit to the [facility] and will be evaluated in the morning. Patient was also given empiric Antibiotics -ceftriaxone which patient tolerated well. [facility] Medical History Asthma BPH (benign prostatic hyperplasia) Cataract, left eye Esophageal stricture GERD (gastroesophageal reflux disease) Glaucoma Hypercholesterolemia Left renal stone Sciatic nerve pain Screening for diabetes mellitus Vitamin D deficiency Family History Father Stroke Mother No problems noted. Surgical History History of blepharoplasty History of cataract surgery History of cholecystectomy History of inguinal hernia repair History of lithotripsy History of tonsillectomy Social History Household Members: Spouse Housing: House Do you presently have visiting nurse or other home services: No Alcohol intake: current Alcohol intake frequency: does not drink Patient Tobacco Use Status: Never used Tobacco Second Hand Smoke Exposure: No Advance Directives Date on File: 11/16/20 service: No Current occupational status: retired Meds Allergies Allergy/AdvReac Type Severity Reaction Status Date / Time Penicillins [PENICILLINS] Allergy Intermediate RASH Verified 06/05/21 01:14 Active Medications: Current Medications Dorzolamide/Timolol (Dorzolamide/Timolo 2.23%/0.68% 10 Ml Drbtl) 1 drop EYE-BOTH BID [place] Metronidazole (Flagyl) 500 mg in 100 mls @ 100 mls/hr IV ONCE ONE Stop: 06/05/21 06:04 Ceftriaxone Sodium 1 gm/ (Sodium Chloride) 50 mls @ 100 mls/hr IV Q24H [place] Metronidazole (Flagyl) 500 mg in 100 mls @ 100 mls/hr IV Q8H [place] Latanoprost (Latanoprost 0.005 % Ophth Anum 2.5 Ml Drops) 1 drop EYE-BOTH BEDTIME [place] Non-Formulary Medication (Pyridoxine (Vitamin B6)) 1 tab PO DAILY [place] Non-Formulary Medication (Simvastatin) 1 tab PO BEDTIME [place] Omeprazole (Omeprazole 20 Mg Capsule.Dr) 20 mg PO DAILY [place] Tamsulosin HCl (Tamsulosin Hcl 0.4 Mg Capsule) 0.4 mg PO DAILY [facility] Home Medications Medication Instructions Recorded Confirmed Last Taken Type dorzolamide 22.3 mg-timolol 6.8 1 drp OPHTHALMIC (EYE) BID 04/23/20 06/05/21 Unknown History mg/mL eye drops fluticasone furoate 100 1 puff PO DAILY 11/16/20 06/05/21 Unknown History mcg-vilanterol 25 mcg/dose inhalation powder (Breo Ellipta) latanoprost 0.005 % eye drops 1 drp OPHTHALMIC (EYE) BEDTIME 06/05/21 06/05/21 Unknown History omeprazole 20 mg capsule,delayed 1 cap PO DAILY 06/05/21 06/05/21 Unknown History release pyridoxine (vitamin B6) 100 mg 1 tab PO DAILY 06/05/21 06/05/21 Unknown History tablet simvastatin 40 mg tablet 1 tab PO BEDTIME 06/05/21 06/05/21 Unknown History tadalafil 10 mg tablet 1 tab PO DIRECTED PRN 06/05/21 06/05/21 Unknown History Physical Exam Vital Signs and Narrative: Vital Signs: Last Vital Signs Temp 99.6 F 06/05/21 01:08 Pulse 97 06/05/21 04:08 Resp 19 06/05/21 04:08 BP 137/72 06/05/21 04:08 Pulse Ox 96 06/05/21 04:08 BMI result Body Mass Index 25.0 Gen: Appears be in no acute distress HEENT: NCAT, Moist mucosa. Pulmonary: Vesicular breath sounds, fair air entry CVS: Normal S1-S2 Abdomen: BS+, Soft, mildly tender in the right upper quadrant, no guarding no rigidity Extremities: Warm well perfused Neuro: Alert and awake. Results Labs CBC and Chem 7: 06/07/21 01:41 06/07/21 01:41 Labs: Laboratory Results - last 24 hr 06/05/21 06/05/21 06/05/21 01:58 02:05 02:05 MCV 94.6 MCH 30.7 MCHC 32.4 RDW 12.6 Plt Count 234 MPV 9.2 L Immature Gran % (Auto) 0.3 Neut % (Auto) 75.8 H Lymph % (Auto) 10.8 L [place] % (Auto) 11.5 H Eos % (Auto) 1.2 Baso % (Auto) 0.4 Lymph # (Auto) 1.1 L [place] # (Auto) 1.2 Eos # (Auto) 0.1 Baso # (Auto) 0.0 Abs Immat Gran (auto) 0.03 Absolute Neuts (auto) 7.8 Absolute Nucleated RBC 0.000 Nucleated RBC % (auto) 0.0 Anion Gap 14 Estim Creat Clear Calc 49.1 Estimated GFR > 60 Random Glucose 114 Lactic Acid Calcium 9.2 Magnesium 2.1 Total Bilirubin 2.7 H AST 257 H ALT 317 H Alkaline Phosphatase 303 H Total Protein 7.1 Albumin 3.7 Lipase 37 Urine Color Urine Appearance Urine pH Ur Specific [place] Urine Protein Urine Glucose (UA) Urine Ketones Urine Blood Urine Nitrite Ur Leukocyte Esterase Urine RBC Urine WBC Ur Squamous Epith Cells Urine Bacteria Urine Mucus COVID-19 (SHERI) Negative COVID-19 Clin Com See Note 06/05/21 06/05/21 02:05 04:16 MCV MCH MCHC RDW Plt Count MPV Immature Gran % (Auto) Neut % (Auto) Lymph % (Auto) [place] % (Auto) Eos % (Auto) Baso % (Auto) Lymph # (Auto) [place] # (Auto) Eos # (Auto) Baso # (Auto) Abs Immat Gran (auto) Absolute Neuts (auto) Absolute Nucleated RBC Nucleated RBC % (auto) Anion Gap Estim Creat Clear Calc Estimated GFR Random Glucose Lactic Acid 0.7 Calcium Magnesium Total Bilirubin AST ALT Alkaline Phosphatase Total Protein Albumin Lipase Urine Color YELLOW Urine Appearance CLEAR Urine pH 6.5 Ur Specific [place] 1.015 Urine Protein NEG Urine Glucose (UA) NEG Urine Ketones 15 Urine Blood TRACE Urine Nitrite NEG Ur Leukocyte Esterase NEG Urine RBC 0-2 Urine WBC 0 Ur Squamous Epith Cells TRACE Urine Bacteria NONE Urine Mucus TRACE COVID-19 (SHERI) COVID-19 Clin Com Imaging Radiologist's Impressions: Impressions Abdomen/Pelvis CT 06/05/21 04:00 IMPRESSION: Intrahepatic and extrahepatic biliary ductal dilatation. Heterogeneous internal attenuation within the common bile duct could represent stones or sludge. Significant prostatomegaly. Likely bladder outlet obstruction resulting in wall thickening. Fleischner guidelines were followed. Assessment and Plan (1) Choledocholithiasis: Status: Acute Plan 81-year-old male with a past medical history of hyperlipidemia, anxiety, history of kidney stones, BPH, GERD, asthma, history of cholecystectomy presented to the hospital today with a chief complaint of abdominal pain. Noted to have choledocholithiasis and CBD dilated. Admitted to the hospital for further management. Choledocholithiasis/ dilated CBD: CBD measuring 1.[address] scan. Also noted to have dilated intra and extrahepatic biliary ducts Patient reports subjective chills and fevers- currently afebrile and no leukocytosis. Patient was empirically given antibiotics and blood cultures were sent. will continue antibiotics for now- to be discontinued once cultures are negative. Gastroenterology was notified Pain control Transaminitis: Likely in setting of biliary obstruction. Trend liver enzymes. Will also obtain acute hepatitis panel. The liver is normal in size,shape, and attenuation. No focal hepatic lesion. History of glaucoma: Continue home eye drops History of hyperlipidemia: Will hold statin diet: NPO for now. Gentle IV fluids. DVT prophylaxis: Lovenox Code status: Full code Quality Stroke Does the patient have a stroke diagnosis?: No VTE Prior VTE?: No VTE Risk Level:: Medical - moderate - high VTE Device Contraindication: Treatment Not Indicated VTE Drug Contraindication: N/A - Med Ordered
[2021-06-05] MEDS: metroNIDAZOLE/NS 500 MG/100 ML PIGGYBACK 100 MG IV ×3 (06:08→22:14)
[2021-06-05 07:31] LABS: Alanine Aminotransferase 299 U/L (0-40); Albumin Level 3.2 g/dL (3.5-5.0); Alkaline Phosphatase 267 U/L (39-117); Aspartate Amino Transferase 256 U/L (5-37); Bilirubin Direct 2.3 mg/dL (0.0-0.5); Bilirubin Total 3.3 mg/dL (0.0-1.0)
--- NOTE | 2021-06-05 07:39 | PHA.MEDREC ---
Pharmacy Consult ? Medication Reconciliation Pharmacy has reviewed the medication reconciliation completed by Elysia. Patient reports he no longer takes tamsulosin. I also confirmed he use the Breo Inhaler. Ava Ac, KatieD
[2021-06-05 08:05] LABS: HBc Num1 0.09 S/CO (0.00-0.79); Hepatitis A Antibody IgM 0.17 Index (0-0.79); Hepatitis B Core Antibody Nonreactive (Nonreactive); ~HepC Num1 0.11 S/CO (0.00-0.79); ~Hepatitis A Antibody IgM Nonreactive (Nonreactive); ~Hepatitis B Surface Antibody NONREACTIVE (Nonreactive); ~Hepatitis C Antibody Nonreactive (Nonreactive)
[2021-06-05 08:21] LABS: HBsAGNum1 0.16 S/CO (0.00-0.99); Hepatitis B Surface Antigen Negative (Negative)
--- NOTE | 2021-06-05 08:55 | MHC.SHP ---
Pre-Procedural Eval Section A Date of Service: 06/05/21 The patient is an INPATIENT: Yes The History & Physical has been completed within 30 days and I have reviewed it.: Yes Section B Chief Complaint: choledocholithiasis Allergies: Allergies Allergy/AdvReac Type Severity Reaction Status Date / Time Penicillins [PENICILLINS] Allergy Intermediate RASH Verified 06/05/21 01:14 Plan I have reviewed the history and physical and performed a pertinent physical examination on my patient. No changes have occurred unless specified.
--- NOTE | 2021-06-05 08:55 | PM.EVENT ---
Event Note Date of Service: 06/05/21 Event Note: GI Consult-Full note dictated Imp: Recurrent CBD stones/sludge with associated abdominal pain, elevated LFT's with jaundice, and CT scan suggestive of CBD stones/sludge. His abdominal exam is presently benign and he does not appear toxic. Rec: ERCP later today. Full consent obtained for this, including risks of bleeding, perforation, cholangitis, and pancreatitis. Continue antibiotics, keep NPO, hold Lovenox. D/W patient in detail and he is comfortable with this plan. Thanks
[2021-06-05] MEDS: Dextrose 5 % and 0.45 % NaCl 1,000 ML 50 ML IVCONT ×2 (09:06→19:21)
[2021-06-05] MEDS: Pyridoxine HCl (Vitamin B6) 50 MG TABLET 100 MG PO (09:06)
[2021-06-05] MEDS: 0.9 % Sodium Chloride Flush 3 ML SYRINGE IVFLUSH (09:06)
[2021-06-05] MEDS: HYDROmorphone HCl 1 MG/ML SYRINGE 0.5 MG IVPUSH (09:11)
[2021-06-05] MEDS: Dorzolamide/Timolo 2.23%/0.68% 10 ML DRBTL 1 DROP EYE-BOTH ×2 (09:21→22:17)
--- NOTE | 2021-06-05 10:03 | CONS_ITS ---
DATE OF SERVICE: 06/05/2021 REASON FOR CONSULTATION: Abdominal pain, elevated LFTs, and abnormal CT scan of bile duct. HISTORY OF PRESENT ILLNESS: The patient is an 81-year-old male well known to me with a history of choledocholithiasis. I last saw him in October when he was admitted here with some abdominal pain, elevated LFTs, and MRCP suggestive of a questionable small stone in the very distal bile duct. He underwent an ERCP at that time revealing a dilated biliary tree, but without any definitive filling defects. A sphincterotomy was performed, but no definitive stones were seen nor withdrawn. There was good drainage of the bile duct noted at that time. His LFTs normalized as an outpatient with a normal liver profile on December 01, 2020. He had been doing well since then other than problems with left-sided kidney stones. He describes some fairly chronic left-sided pain. However, over the past 5 or 6 days, he has noticed the return of some right upper quadrant and epigastric discomfort similar to his presentation last October. He has not noticed any jaundice. He has had some chills and possibly a low-grade temperature. He has had some nausea and anorexia. He denies any vomiting. He denies any signs of melena nor hematochezia. He called me yesterday in the office and laboratories were obtained revealing elevated LFTs, and he was instructed to go to the ER. In the ER overnight, he has had no fever. Vital signs appeared to be stable. He did receive some pain medication and does feel somewhat better. Other than the past 5 or 6 days, he denies any other particular GI problems. He denies any dysphagia. He denies any heartburn. His bowel movements have been regular without any signs of bleeding. MEDICATIONS: At home include Breo, eyedrops, omeprazole, simvastatin. Medications here in the hospital include IV ceftriaxone, IV Flagyl, eyedrops, Dilaudid p.r.n., melatonin p.r.n. omeprazole, Zofran p.r.n., vitamin B6, Senokot p.r.n. PAST MEDICAL HISTORY: Choledocholithiasis as above. He is status post cholecystectomy. Hyperlipidemia. Glaucoma. Esophageal stricture with his last upper endoscopy in 2017 with the finding of a mild distal esophageal stricture, which was dilated up to a 20 mm balloon. He has had right inguinal hernia surgery. He had a negative colonoscopy in 2009. There is no reported history of [place], diabetes, stroke, nor kidney disease. He does have some asthma. Kidney stones as above. SOCIAL HISTORY: He is . He does not smoke nor use any significant amount of alcohol. FAMILY HISTORY: Noncontributory. REVIEW OF SYSTEMS: CONSTITUTIONAL: Up until the past 5 or 6 days, he was feeling fairly well with good appetite. SKIN: No rash. No pruritus. CARDIAC: No chest pain. PULMONARY: No cough. No hemoptysis. GI: As above. PHYSICAL EXAMINATION: Again the patient is a pleasant alert, comfortable male in no distress. SKIN: Warm and dry. Anicteric sclerae. NECK: Supple. CARDIAC: Normal S1, S2. ABDOMEN: Soft, nondistended. Normal bowel sounds. There is some mild epigastric and right upper quadrant tenderness without mass rebound or guarding. LABORATORIES: Normal electrolytes BUN 15, creatinine 1.1. His total bilirubin today is 3.3 compared to 2.7 yesterday. AST 256, ALT 299, alkaline phosphatase 267, albumin 3.2. PT 12.1 with INR 1.1. White blood cell count is 10.2, hemoglobin 13.0, platelets 234,000. He did have a CT scan described being dilated intrahepatic and extrahepatic bile ducts with a suspicion for some sludge and/or stones in the common bile duct. IMPRESSION: Given the patient's presentation of abdominal pain, elevated LFTs, and abnormal CT scan, it appears that he is having ongoing issues with biliary stones and/or sludge. As such, he will undergo repeat ERCP later today. At the present time, his abdominal exam was benign and he does not appear septic. Full consent was obtained for the ERCP, including risks of bleeding, perforation, cholangitis, and pancreatitis. He will continue his antibiotics. This has all been discussed in detail with the patient and he is comfortable with this plan. Thank you for the consultation. MD APRIL Prado/ALVIN / [phone]
[2021-06-05] MEDS: Fluticasone/Vilanterol 100/25 BLST.W.DEV 1 PUFF INHALE (10:10)
--- NOTE | 2021-06-05 11:04 | MHC.CM.PN ---
PT REPORTS HE LIVES AT HOME WITH HIS AND IS INDEPENDENT WITH CARE HE DENIES USING DME OR HAVING HOME SERVICES PT REPORTS HE DOES HAVE THE NUMBERS FOR SOME PRIVATE PAY AGENCIES FOR WHEN HE IS READY FOR HOME CARE PT REPORTS HE HAS A HCP NAMING HIS HIS AGENT AND HIS PCP IS [facility] PT REPORTS BEING VACCINATED AGAINST COVID-19 IMM DELIVERED, COPY SENT TO [facility] CURRENT DC PLAN IS HOME WITH NO SERVICES SON TO TRANSPORT
--- NOTE | 2021-06-05 12:51 | HO.PM.IMPN ---
Subjective Subjective Date of Service: 06/05/21 Interval History: cc: abd interval history:improved with iv pain meds Cardiovascular Cardiovascular: Reports no additional cardiovascular complaints Respiratory Respiratory: Reports no additional respiratory complaints Physical Exam Vital Signs: Vital Signs: Last Vital Signs Temp 99.6 F 06/05/21 01:08 Pulse 86 06/05/21 10:10 Resp 20 06/05/21 10:10 BP 107/53 L 06/05/21 10:10 Pulse Ox 92 06/05/21 10:10 BMI result Body Mass Index 25.0 General: AO X 3, no acute distress Resp: CTA bilateral, no accessory muscles used CVS: S1,S2,RRR GI: soft, non tender, non distended Neuro: motor grossly intact, alert Psych: appropriate affect, appropriate insight Objective Data Active Medications Acetaminophen (Acetaminophen 325 Mg Tablet) 650 mg PO Q6H PRN PRN Reason: Pain, Mild (Pain Scale 1-3) Dorzolamide/Timolol (Dorzolamide/Timolo 2.23%/0.68% 10 Ml Drbtl) 1 drop EYE-BOTH BID [facility] Last Admin: 06/05/21 09:21 Dose: 1 drop Documented by: ADRI Fluticasone/Vilanterol (Fluticasone/Vilanterol 100/25 Blst.W.Dev) 1 puff INHALE RDAILY [facility] Last Admin: 06/05/21 10:10 Dose: 1 puff Documented by: ADRI Hydromorphone HCl (Hydromorphone Hcl 1 Mg/Ml Syringe) 0.5 mg IVPUSH Q4H PRN; Protocol PRN Reason: Pain, Severe (Pain Scale 7-10) Last Admin: 06/05/21 09:11 Dose: 0.5 mg Documented by: ADRI Ceftriaxone Sodium 1 gm/ (Sodium Chloride) 50 mls @ 100 mls/hr IV Q24H [facility] Metronidazole (Flagyl) 500 mg in 100 mls @ 100 mls/hr IV Q8H [facility] Dextrose/Sodium Chloride (D51/2ns) 1,000 mls @ 50 mls/hr IVCONT .Q20H [facility] Last Admin: 06/05/21 09:06 Dose: 50 mls/hr Documented by: ADRI Latanoprost (Latanoprost 0.005 % Ophth Anum 2.5 Ml Drops) 1 drop EYE-BOTH BEDTIME [facility] Melatonin (Melatonin 3 Mg Tablet) 6 mg PO BEDTIME PRN PRN Reason: Insomnia Omeprazole (Omeprazole 20 Mg Capsule.Dr) 20 mg PO DAILY@0630 [facility] Last Admin: 06/05/21 06:10 Dose: Not Given Documented by: GERTRUDIS Non-Admin Reason: NPO Pyridoxine HCl (Pyridoxine Hcl (Vitamin B6) 50 Mg Tablet) 100 mg PO DAILY [facility] Last Admin: 06/05/21 09:06 Dose: 100 mg Documented by: ADRI Senna (Sennosides 8.6 Mg Tablet) 17.2 mg PO BEDTIME PRN PRN Reason: Constipation Sodium Chloride (0.9 % Sodium Chloride Flush 3 Ml Syringe) 3 ml IVFLUSH QSHIFT [facility] Last Admin: 06/05/21 09:06 Dose: 3 ml Documented by: ADRI Labs CBC & Chem 7: 06/05/21 02:05 06/05/21 02:05 Labs: Laboratory Results - last 24 hr 06/05/21 06/05/21 06/05/21 01:58 02:05 02:05 MCV 94.6 MCH 30.7 MCHC 32.4 RDW 12.6 Plt Count 234 MPV 9.2 L Immature Gran % (Auto) 0.3 Neut % (Auto) 75.8 H Lymph % (Auto) 10.8 L [place] % (Auto) 11.5 H Eos % (Auto) 1.2 Baso % (Auto) 0.4 Lymph # (Auto) 1.1 L [place] # (Auto) 1.2 Eos # (Auto) 0.1 Baso # (Auto) 0.0 Abs Immat Gran (auto) 0.03 Absolute Neuts (auto) 7.8 Absolute Nucleated RBC 0.000 Nucleated RBC % (auto) 0.0 Anion Gap 14 Estim Creat Clear Calc 49.1 Estimated GFR > 60 Random Glucose 114 Lactic Acid Calcium 9.2 Magnesium 2.1 Total Bilirubin 2.7 H Direct Bilirubin AST 257 H ALT 317 H Alkaline Phosphatase 303 H Total Protein 7.1 Albumin 3.7 Lipase 37 Urine Color Urine Appearance Urine pH Ur Specific [place] Urine Protein Urine Glucose (UA) Urine Ketones Urine Blood Urine Nitrite Ur Leukocyte Esterase Urine RBC Urine WBC Ur Squamous Epith Cells Urine Bacteria Urine Mucus COVID-19 (SHERI) Negative COVID-19 Clin Com See Note Hepatitis A IgM Ab Hep Bs Antigen Hep Bs Antibody Hep B Core Total Ab Hepatitis C Ab (EIA) 06/05/21 06/05/21 06/05/21 02:05 04:16 06:37 MCV MCH MCHC RDW Plt Count MPV Immature Gran % (Auto) Neut % (Auto) Lymph % (Auto) [place] % (Auto) Eos % (Auto) Baso % (Auto) Lymph # (Auto) [place] # (Auto) Eos # (Auto) Baso # (Auto) Abs Immat Gran (auto) Absolute Neuts (auto) Absolute Nucleated RBC Nucleated RBC % (auto) Anion Gap Estim Creat Clear Calc Estimated GFR Random Glucose Lactic Acid 0.7 Calcium Magnesium Total Bilirubin Direct Bilirubin AST ALT Alkaline Phosphatase Total Protein Albumin Lipase Urine Color YELLOW Urine Appearance CLEAR Urine pH 6.5 Ur Specific [place] 1.015 Urine Protein NEG Urine Glucose (UA) NEG Urine Ketones 15 Urine Blood TRACE Urine Nitrite NEG Ur Leukocyte Esterase NEG Urine RBC 0-2 Urine WBC 0 Ur Squamous Epith Cells TRACE Urine Bacteria NONE Urine Mucus TRACE COVID-19 (SHERI) COVID-19 Clin Com Hepatitis A IgM Ab Nonreactive Hep Bs Antigen Negative Hep Bs Antibody NONREACTIVE Hep B Core Total Ab Nonreactive Hepatitis C Ab (EIA) Nonreactive 06/05/21 06:37 MCV MCH MCHC RDW Plt Count MPV Immature Gran % (Auto) Neut % (Auto) Lymph % (Auto) [place] % (Auto) Eos % (Auto) Baso % (Auto) Lymph # (Auto) [place] # (Auto) Eos # (Auto) Baso # (Auto) Abs Immat Gran (auto) Absolute Neuts (auto) Absolute Nucleated RBC Nucleated RBC % (auto) Anion Gap Estim Creat Clear Calc Estimated GFR Random Glucose Lactic Acid Calcium Magnesium Total Bilirubin 3.3 H Direct Bilirubin 2.3 H AST 256 H ALT 299 H Alkaline Phosphatase 267 H Total Protein 6.0 L Albumin 3.2 L Lipase Urine Color Urine Appearance Urine pH Ur Specific [place] Urine Protein Urine Glucose (UA) Urine Ketones Urine Blood Urine Nitrite Ur Leukocyte Esterase Urine RBC Urine WBC Ur Squamous Epith Cells Urine Bacteria Urine Mucus COVID-19 (SHERI) COVID-19 Clin Com Hepatitis A IgM Ab Hep Bs Antigen Hep Bs Antibody Hep B Core Total Ab Hepatitis C Ab (EIA) Assessment and Plan (1) Dilation of biliary tract: Status: Resolved Plan 81M presented with abd pain Choledocholithiasis NPO, empiric antibiotics Plan for ERCP today Monitor LFTs History of glaucoma Continue ophthalmic drops Hyperlipidemia Statin on hold Mild intermittent asthma Stable, continue inhalers reason for continued hospitalization: biliary obstruction requiring ERCP and IV pain meds Quality Stroke Does the patient have a stroke diagnosis?: No VTE Prior VTE?: No VTE Risk Level:: Medical - moderate - high VTE Device Contraindication: Treatment Not Indicated VTE Drug Contraindication: N/A - Med Ordered
--- NOTE | 2021-06-05 14:38 | PC.NURSE ---
report given to YAMILKA Johnson. pt will be transported to room 374. pt aware of plan.
[2021-06-05] MEDS: Acetaminophen 325 MG TABLET 650 MG PO (15:11)
--- NOTE | 2021-06-05 16:21 | HO.ANESPROP2 ---
[facility] Active Problems Active Problems: All Active Problems (Updated 06/05/21 @ 05:09 by Jesi Bolden MD) Choledocholithiasis (Acute) Generalized anxiety disorder (Acute) Biliary obstruction (Acute) Elevated LFTs (Acute) Adult general medical exam (Acute) Right hip pain (Acute) Screening for diabetes mellitus (Acute) Left renal stone (Acute) Impaired glucose tolerance (Acute) Anxiety (Acute) BPH (benign prostatic hyperplasia) (Acute) Hypercholesterolemia (Acute) GERD (gastroesophageal reflux disease) (Acute) Asthma (Acute) Past Medical History Medical History Asthma BPH (benign prostatic hyperplasia) Cataract, left eye Esophageal stricture GERD (gastroesophageal reflux disease) Glaucoma Hypercholesterolemia Left renal stone Sciatic nerve pain Screening for diabetes mellitus Vitamin D deficiency Family History Family History Father Stroke Mother No problems noted. Family history of problems with anesthesia: No Surgical History Surgical History History of blepharoplasty History of cataract surgery History of cholecystectomy History of inguinal hernia repair History of lithotripsy History of tonsillectomy History of Problems with Anesthesia: No Social History Social History Household Members: Spouse Housing: House Do you presently have visiting nurse or other home services: No Alcohol intake: current Alcohol intake frequency: does not drink Patient Tobacco Use Status: Never used Tobacco Second Hand Smoke Exposure: No Advance Directives Date on File: 11/16/20 service: No Current occupational status: retired Meds Allergies Allergy/AdvReac Type Severity Reaction Status Date / Time Penicillins [PENICILLINS] Allergy Intermediate RASH Verified 06/05/21 01:14 Active Medications: Current Medications Acetaminophen (Acetaminophen 325 Mg Tablet) 650 mg PO Q6H PRN PRN Reason: Pain, Mild (Pain Scale 1-3) Last Admin: 06/05/21 15:11 Dose: 650 mg Documented by: Dorzolamide/Timolol (Dorzolamide/Timolo 2.23%/0.68% 10 Ml Drbtl) 1 drop EYE-BOTH BID [facility] Last Admin: 06/05/21 09:21 Dose: 1 drop Documented by: Fluticasone/Vilanterol (Fluticasone/Vilanterol 100/25 Blst.W.Dev) 1 puff INHALE RDAILY [facility] Last Admin: 06/05/21 10:10 Dose: 1 puff Documented by: Hydromorphone HCl (Hydromorphone Hcl 1 Mg/Ml Syringe) 0.5 mg IVPUSH Q4H PRN; Protocol PRN Reason: Pain, Severe (Pain Scale 7-10) Last Admin: 06/05/21 09:11 Dose: 0.5 mg Documented by: Ceftriaxone Sodium 1 gm/ (Sodium Chloride) 50 mls @ 100 mls/hr IV Q24H [facility] Metronidazole (Flagyl) 500 mg in 100 mls @ 100 mls/hr IV Q8H [facility] Last Admin: 06/05/21 15:12 Dose: 100 mls/hr Documented by: Dextrose/Sodium Chloride (D51/2ns) 1,000 mls @ 50 mls/hr IVCONT .Q20H [facility] Last Admin: 06/05/21 09:06 Dose: 50 mls/hr Documented by: Latanoprost (Latanoprost 0.005 % Ophth Anum 2.5 Ml Drops) 1 drop EYE-BOTH BEDTIME [facility] Melatonin (Melatonin 3 Mg Tablet) 6 mg PO BEDTIME PRN PRN Reason: Insomnia Omeprazole (Omeprazole 20 Mg Capsule.Dr) 20 mg PO DAILY@0630 [facility] Last Admin: 06/05/21 06:10 Dose: Not Given Documented by: Pyridoxine HCl (Pyridoxine Hcl (Vitamin B6) 50 Mg Tablet) 100 mg PO DAILY [facility] Last Admin: 06/05/21 09:06 Dose: 100 mg Documented by: Senna (Sennosides 8.6 Mg Tablet) 17.2 mg PO BEDTIME PRN PRN Reason: Constipation Sodium Chloride (0.9 % Sodium Chloride Flush 3 Ml Syringe) 3 ml IVFLUSH QSHIFT [facility] Last Admin: 06/05/21 15:29 Dose: Not Given Documented by: Home Medications Medication Instructions Recorded Confirmed Last Taken Type dorzolamide 22.3 mg-timolol 6.8 1 drp OPHTHALMIC (EYE) BID 04/23/20 06/05/21 Unknown History mg/mL eye drops fluticasone furoate 100 1 puff PO DAILY 11/16/20 06/05/21 Unknown History mcg-vilanterol 25 mcg/dose inhalation powder (Breo Ellipta) latanoprost 0.005 % eye drops 1 drp OPHTHALMIC (EYE) BEDTIME 06/05/21 06/05/21 Unknown History omeprazole 20 mg capsule,delayed 1 cap PO DAILY 06/05/21 06/05/21 Unknown History release pyridoxine (vitamin B6) 100 mg 1 tab PO DAILY 06/05/21 06/05/21 Unknown History tablet simvastatin 40 mg tablet 1 tab PO BEDTIME 06/05/21 06/05/21 Unknown History tadalafil 10 mg tablet 1 tab PO DIRECTED PRN 06/05/21 06/05/21 Unknown History Exam Exam Date and Time: June 05, 2021 162 Height,Weight and Vital Signs: Height 5 ft 8 in Weight 74.5 kg Last Vital Signs Temp 98.6 F 06/05/21 16:07 Pulse 79 06/05/21 16:07 Resp 16 06/05/21 16:07 BP 142/72 H 06/05/21 16:07 Pulse Ox 95 06/05/21 16:07 Pertinent Lab Results Pertinent Lab Results: Laboratory Tests 06/05/21 06/05/21 06/05/21 01:58 02:05 02:05 WBC 10.2 RBC 4.24 L Hgb 13.0 L Hct 40.1 L MCV 94.6 MCH 30.7 MCHC 32.4 RDW 12.6 Plt Count 234 MPV 9.2 L Immature Gran % (Auto) 0.3 Neut % (Auto) 75.8 H Lymph % (Auto) 10.8 L [place] % (Auto) 11.5 H Eos % (Auto) 1.2 Baso % (Auto) 0.4 Lymph # (Auto) 1.1 L [place] # (Auto) 1.2 Eos # (Auto) 0.1 Baso # (Auto) 0.0 Abs Immat Gran (auto) 0.03 Absolute Neuts (auto) 7.8 Absolute Nucleated RBC 0.000 Nucleated RBC % (auto) 0.0 Sodium 137 Potassium 4.3 Chloride 104 Carbon Dioxide 23 Anion Gap 14 BUN 15 Creatinine 1.14 Estim Creat Clear Calc 49.1 Estimated GFR > 60 Random Glucose 114 Lactic Acid Calcium 9.2 Magnesium 2.1 Total Bilirubin 2.7 H Direct Bilirubin AST 257 H ALT 317 H Alkaline Phosphatase 303 H Total Protein 7.1 Albumin 3.7 Lipase 37 Urine Color Urine Appearance Urine pH Ur Specific [place] Urine Protein Urine Glucose (UA) Urine Ketones Urine Blood Urine Nitrite Ur Leukocyte Esterase Urine RBC Urine WBC Ur Squamous Epith Cells Urine Bacteria Urine Mucus COVID-19 (SHERI) Negative COVID-19 Clin Com See Note Hepatitis A IgM Ab Hep Bs Antigen Hep Bs Antibody Hep B Core Total Ab Hepatitis C Ab (EIA) 06/05/21 06/05/21 06/05/21 02:05 04:16 06:37 WBC RBC Hgb Hct MCV MCH MCHC RDW Plt Count MPV Immature Gran % (Auto) Neut % (Auto) Lymph % (Auto) [place] % (Auto) Eos % (Auto) Baso % (Auto) Lymph # (Auto) [place] # (Auto) Eos # (Auto) Baso # (Auto) Abs Immat Gran (auto) Absolute Neuts (auto) Absolute Nucleated RBC Nucleated RBC % (auto) Sodium Potassium Chloride Carbon Dioxide Anion Gap BUN Creatinine Estim Creat Clear Calc Estimated GFR Random Glucose Lactic Acid 0.7 Calcium Magnesium Total Bilirubin Direct Bilirubin AST ALT Alkaline Phosphatase Total Protein Albumin Lipase Urine Color YELLOW Urine Appearance CLEAR Urine pH 6.5 Ur Specific [place] 1.015 Urine Protein NEG Urine Glucose (UA) NEG Urine Ketones 15 Urine Blood TRACE Urine Nitrite NEG Ur Leukocyte Esterase NEG Urine RBC 0-2 Urine WBC 0 Ur Squamous Epith Cells TRACE Urine Bacteria NONE Urine Mucus TRACE COVID-19 (SHERI) COVID-19 Clin Com Hepatitis A IgM Ab Nonreactive Hep Bs Antigen Negative Hep Bs Antibody NONREACTIVE Hep B Core Total Ab Nonreactive Hepatitis C Ab (EIA) Nonreactive 06/05/21 06:37 WBC RBC Hgb Hct MCV MCH MCHC RDW Plt Count MPV Immature Gran % (Auto) Neut % (Auto) Lymph % (Auto) [place] % (Auto) Eos % (Auto) Baso % (Auto) Lymph # (Auto) [place] # (Auto) Eos # (Auto) Baso # (Auto) Abs Immat Gran (auto) Absolute Neuts (auto) Absolute Nucleated RBC Nucleated RBC % (auto) Sodium Potassium Chloride Carbon Dioxide Anion Gap BUN Creatinine Estim Creat Clear Calc Estimated GFR Random Glucose Lactic Acid Calcium Magnesium Total Bilirubin 3.3 H Direct Bilirubin 2.3 H AST 256 H ALT 299 H Alkaline Phosphatase 267 H Total Protein 6.0 L Albumin 3.2 L Lipase Urine Color Urine Appearance Urine pH Ur Specific [place] Urine Protein Urine Glucose (UA) Urine Ketones Urine Blood Urine Nitrite Ur Leukocyte Esterase Urine RBC Urine WBC Ur Squamous Epith Cells Urine Bacteria Urine Mucus COVID-19 (SHERI) COVID-19 Clin Com Hepatitis A IgM Ab Hep Bs Antigen Hep Bs Antibody Hep B Core Total Ab Hepatitis C Ab (EIA) Airway Mallampati Class: II TM Dist: >3cm Neck ROM: Full Assessment and Plan Assessment Anesthesia Assessment: Anesthesia Plan Discussed and Chart Reviewed Final Anesthetic Review Family History of Problems with Anesthesia: No History of Problems with Anesthesia: No NPO: Yes ASA Class: II Final Preanesthetic Review: No Changes in Pt Med Stat, Meds/Allgs Chart Reviewed, Consent Obtained/Reviewed and Anes Risks/Benef Reviewed Patient Risk: Intermediate Procedure Risk: Intermediate Anesthetic Plan Anesthetic Plan: GA Disposition: Standard PACU
--- NOTE | 2021-06-05 18:05 | P.BOP_ITS ---
Brief Operative Note Date of Service: 06/05/21 Pre-op diagnosis: Choledocholithiasis Post-op diagnosis: other (Choledocholithiasis) Procedure: ERCP with sphincterotomy and removal of CBD stones/sludge Surgeon: Enoch Duran Anesthesia: GETA Was an Bioprocessing Manufacturing Technician used for this Procedure?: No Estimated blood loss (mL): 2.0 Pathology: none sent Condition: stable Disposition: PACU
--- NOTE | 2021-06-05 18:06 | P.EN_ITS ---
Event Note Date of Service: 06/05/21 Event Note: [id number] note dictated 1. Major papilla c/w previous sphincterotomy, although tissue was somewhat friable and inflamed 2. Selective cholangiogams with sphincterotome revealed a dilated extrahepatic bile duct with 2 distal filling defects; intrahepatic ducts filled well and appeared just minimally dilated 3. Extended spincterotomy approx 6mm without immediate complication 4. Bile duct swept numerous times with 12mm and 15mm balloons, as well as a 4- wire basket--this resulted in fragmentation of the stones and removal of multiple stone fragments/sludge 5. Final cholangiograms with the balloon catheter appeared free of any filling defects---the 12 and 15mm Balloons pulled easily into the duodenum. Good drainage of bile and dye noted; there was no purulence 6. Pancreas was not injected Imp: Choledocholithiasis Rec: Observe overnight with NPO and antibiotics; F/U labs in AM; advance diet to clear liqs in AM if stable, and then as tolerated; no ASA/NSAIDs/Anticoagulants x 1 week.Can D/C antibiotics over the weekend if cultures remain negative and he remains stable.Dr. Powell covering over the weekend if problems or questions. Thanks.
--- NOTE | 2021-06-05 21:31 | OP_ITS ---
SURGEON: Enoch Duran MD INDICATIONS: The patient presents for evaluation of abdominal pain, elevated LFTs, and abnormal CT scan. Full consent was obtained from him for this, including risks of bleeding, perforation, cholangitis, and pancreatitis. PREOPERATIVE DIAGNOSIS: Choledocholithiasis. POSTOPERATIVE DIAGNOSIS: Choledocholithiasis. PROCEDURE PERFORMED: Endoscopic retrograde cholangiopancreatography with sphincterotomy and removal of common bile duct stones. ESTIMATED BLOOD LOSS: COMPLICATIONS: ANESTHESIA: ASSISTANTS: SPECIMENS: DESCRIPTION OF PROCEDURE: The patient was placed in the semi-prone position. The [employer] video duodenoscope was passed in the posterior oropharynx and upper esophagus. The scope entered into the stomach. The scope was advanced to the pylorus and the duodenum was cannulated to the descending portion. The region of the major papilla was visualized. This appeared consistent with his known previous sphincterotomy from last summer. However, the area was somewhat friable and there was still some minimal evidence of some inflammatory changes. There was no mass. I obtained a selective cannulation of the biliary tree with a triple-lumen sphincterotome over a guidewire without difficulty. Selective cholangiograms revealed good filling of the intrahepatic and extrahepatic bile ducts. The intrahepatic and extrahepatic bile ducts did appear dilated. There appeared to be 2 filling defects in the distal extrahepatic bile duct. I did extend the sphincterotomy by 5 or 6 mm without any immediate complication. I then used a combination of a balloon catheter between 12 and 15 mm in diameter, and a 4 wire basket to sweep the duct numerous times. The 2 filling defects were fragmented with both the basket and the balloons. I then proceeded to remove multiple stone fragments and sludge from the bile duct with both the basket and the 12 and 15 mm balloons. Multiple stone fragments were noted coming into the duodenum. There was no purulence. The final cholangiograms with the balloon catheter both inflated and deflated revealed good filling of both the intrahepatic and extrahepatic bile ducts, but without any further filling defects. The bile ducts appeared to be decompressed and there was good drainage of dye and bile into the duodenum. The pancreas was not injected. At that point, with good drainage of bile and dye noted and no further filling defects in the bile duct noted, the procedure was terminated and the scope was withdrawn from the patient. He tolerated the procedure well and was returned to the recovery area in stable condition. IMPRESSION: Choledocholithiasis, status post sphincterotomy and bile duct stone removal. PLAN: The patient will be observed. He will be kept on antibiotics overnight. If stable, his diet will be advanced in the morning. He will have followup laboratories tomorrow as well. Orders have been placed that he should not receive any aspirin, NSAIDs, nor any other type of blood thinners for at least 1 week. This has been discussed with his . MD APRIL Prado/ALVIN / [id number] MTDD
[2021-06-05] MEDS: Latanoprost 0.005 % Ophth Sol 2.5 ML DROPS 1 DROP EYE-BOTH (22:15)
[2021-06-06] VITALS (8 sets, daily range): BP systolic 103–119; BP diastolic 53–61; PULSE 64–83; RESP 16–18; TEMP 36.3–36.9; O2SAT 95–98
[2021-06-06] MEDS: cefTRIAXone sodium 1 GM in 0.9 % Sodium Chloride 50 ML IV (05:38)
[2021-06-06] MEDS: Omeprazole 20 MG CAPSULE.DR PO (05:42)
[2021-06-06] MEDS: metroNIDAZOLE/NS 500 MG/100 ML PIGGYBACK 100 MG IV ×3 (05:48→22:32)
[2021-06-06 05:55] LABS: Basophils Percent Auto 0.1 % (0-2); Hematocrit 37.5 % (42.0-52.0); Hemoglobin 11.7 g/dl (14.0-18.0); Imm Gran Abs Auto 0.12 X10*3/uL (0.00-0.03); Imm Gran Pct Auto 0.6 % (0.0-0.4); Lymphocytes Absolute Auto 1.2 X10*3/uL (1.2-4.9); Lymphocytes Percent Auto 5.9 % (20-40); MANUAL DIFF FLAG SCAN; Mean Corpuscular HGB Conc 31.2 g/dl (31.0-36.0); Mean Corpuscular Hemoglobin 30.2 pg (27.0-33.0); Mean Corpuscular Volume 96.6 fL (80.0-98.0); Mean Platelet Volume 9.9 fL (9.4-12.4); Monocytes Absolute Auto 1.6 X10*3/uL (0.1-1.2); Neutrophils Absolute Auto 17.2 x10*3/uL (2.0-8.3); Neutrophils Percent Auto 85.4 % (45-73); Platelet Count 218 X10*3/uL (160-400); Red Blood Count 3.88 X10*6/uL (4.60-5.80); Red Cell Distribution Width 13.2 % (11.0-16.0); SCAN SMEAR FLAG 1; White Blood Count 20.2 X10*3/uL (4.8-10.8)
[2021-06-06 06:18] LABS: Alanine Aminotransferase 238 U/L (0-40); Alanine Aminotransferase 240 U/L (0-40); Alkaline Phosphatase 239 U/L (39-117); Alkaline Phosphatase 240 U/L (39-117); Anion Gap 13 (12-20); Aspartate Amino Transferase 136 U/L (5-37); Aspartate Amino Transferase 138 U/L (5-37); Bilirubin Total 1.7 mg/dL (0.0-1.0); Bilirubin Total 1.8 mg/dL (0.0-1.0); Blood Urea Nitrogen 16 mg/dL (9-16); Calcium 8.8 mg/dL (8.4-10.2); Carbon Dioxide 24 mmol/L (22-29); Chloride 109 mmol/L (96-108); Creatinine Clr Calc Pharmacy 51.4; Estimated Glomerular Filt Rate > 60; Glucose Fasting 128 mg/dL (60-99); Potassium 4.5 mmol/L (3.3-5.1); Sodium 141 mmol/L (135-145); Total Protein 5.7 g/dL (6.5-8.0)
[2021-06-06 06:25] LABS: SLIDE REVIEW VERIFIED
[2021-06-06] MEDS: Fluticasone/Vilanterol 100/25 BLST.W.DEV 1 PUFF INHALE (08:14)
--- NOTE | 2021-06-06 08:34 | HO.POSTANES ---
Post Anesthesia Evaluation Post Anesthesia Evaluation Vital Signs: Vital Signs Temp Pulse Resp BP Pulse Ox 06/06/21 08:12 78 16 06/06/21 07:48 98.3 F 64 18 103/53 L 98 06/06/21 02:30 98.2 F 75 18 110/55 L 98 06/05/21 22:30 98.9 F 70 18 110/61 98 Anesthesia: General Endotracheal-GETA Mental Status: Awake Nausea/Vomiting: None Hydration: Adequate Anesthesia-Related Issues: No Anes. Related Issues
[2021-06-06] MEDS: Dorzolamide/Timolo 2.23%/0.68% 10 ML DRBTL 1 DROP EYE-BOTH ×2 (09:37→19:59)
[2021-06-06] MEDS: Pyridoxine HCl (Vitamin B6) 50 MG TABLET 100 MG PO (09:37)
--- NOTE | 2021-06-06 13:39 | P.PNIM_ITS ---
Subjective Subjective Date of Service: 06/06/21 Interval History: cc: abd pain interval history: not tolerating liquids Cardiovascular Cardiovascular: Reports no additional cardiovascular complaints Respiratory Respiratory: Reports no additional respiratory complaints Physical Exam Vital Signs: Vital Signs: Last Vital Signs Temp 98.4 F 06/06/21 11:00 Pulse 72 06/06/21 11:00 Resp 18 06/06/21 11:00 BP 105/55 L 06/06/21 11:00 Pulse Ox 96 06/06/21 11:00 BMI result Body Mass Index 25.0 General: AO X 3, no acute distress Resp: CTA bilateral, no accessory muscles used CVS: S1,S2,RRR GI: soft, mildly tender, midlly distended Neuro: motor grossly intact, alert Psych: appropriate affect, appropriate insight Objective Data Active Medications Acetaminophen (Acetaminophen 325 Mg Tablet) 650 mg PO Q6H PRN PRN Reason: Pain, Mild (Pain Scale 1-3) Last Admin: 06/05/21 15:11 Dose: 650 mg Documented by: HARIKA Dorzolamide/Timolol (Dorzolamide/Timolo 2.23%/0.68% 10 Ml Drbtl) 1 drop EYE- BOTH BID [facility] Last Admin: 06/06/21 09:37 Dose: 1 drop Documented by: SPENCER Fluticasone/Vilanterol (Fluticasone/Vilanterol 100/25 Blst.W.Dev) 1 puff INHALE RDAILY [facility] Last Admin: 06/06/21 08:14 Dose: 1 puff Documented by: SIMEON Hydromorphone HCl (Hydromorphone Hcl 1 Mg/Ml Syringe) 0.5 mg IVPUSH Q4H PRN; Protocol PRN Reason: Pain, Severe (Pain Scale 7-10) Last Admin: 06/05/21 09:11 Dose: 0.5 mg Documented by: ADRI Ceftriaxone Sodium 1 gm/ (Sodium Chloride) 50 mls @ 100 mls/hr IV Q24H [facility] Last Infusion: 06/06/21 06:27 Dose: 100 mls/hr Documented by: CHELSIE Metronidazole (Flagyl) 500 mg in 100 mls @ 100 mls/hr IV Q8H [facility] Last Infusion: 06/06/21 06:52 Dose: 100 mls/hr Documented by: CHELSIE Latanoprost (Latanoprost 0.005 % Ophth Anum 2.5 Ml Drops) 1 drop EYE-BOTH BEDTIME [facility] Last Admin: 06/05/21 22:15 Dose: 1 drop Documented by: CHELSIE Medication (No Anticoagulants) 1 each MISCELLANE DAILY [facility] Stop: 06/13/21 12:03 Medication (No Nsaids) 1 each MISCELLANE DAILY [facility] Stop: 06/13/21 12:00 Medication (No Anticoagulant-Heparin Sq Ok) 1 each MISCELLANE DAILY [facility] Stop: 06/13/21 12:00 Medication (No Anticoagulant/Antiplatelet) 1 each MISCELLANE DAILY [facility] Stop: 06/13/21 12:00 Melatonin (Melatonin 3 Mg Tablet) 6 mg PO BEDTIME PRN PRN Reason: Insomnia Omeprazole (Omeprazole 20 Mg Capsule.Dr) 20 mg PO DAILY@0630 [facility] Last Admin: 06/06/21 05:42 Dose: 20 mg Documented by: CHELSIE Oxycodone HCl (Oxycodone Hcl Immed Release 5 Mg Tablet) 10 mg PO ONCE PRN PRN Reason: Pain, Severe (Pain Scale 7-10) Pyridoxine HCl (Pyridoxine Hcl (Vitamin B6) 50 Mg Tablet) 100 mg PO DAILY [facility] Last Admin: 06/06/21 09:37 Dose: 100 mg Documented by: SPENCER Senna (Sennosides 8.6 Mg Tablet) 17.2 mg PO BEDTIME PRN PRN Reason: Constipation Sodium Chloride (0.9 % Sodium Chloride Flush 3 Ml Syringe) 3 ml IVFLUSH QSHIFT [facility] Last Admin: 06/06/21 09:38 Dose: Not Given Documented by: SPENCER Non-Admin Reason: IV Running Labs CBC & Chem 7: 06/06/21 05:35 06/06/21 05:35 Labs: Laboratory Results - last 24 hr 06/06/21 06/06/21 06/06/21 05:35 05:35 05:35 MCV 96.6 MCH 30.2 MCHC 31.2 RDW 13.2 Plt Count 218 MPV 9.9 Immature Gran % (Auto) 0.6 H Neut % (Auto) 85.4 H Lymph % (Auto) 5.9 L [place] % (Auto) 8.0 Eos % (Auto) 0.0 Baso % (Auto) 0.1 Lymph # (Auto) 1.2 [place] # (Auto) 1.6 H Eos # (Auto) 0.0 Baso # (Auto) 0.0 Abs Immat Gran (auto) 0.12 H Absolute Neuts (auto) 17.2 H Absolute Nucleated RBC 0.000 Nucleated RBC % (auto) 0.0 Smear Tech's Comments VERIFIED Anion Gap Cancelled 13 Estim Creat Clear Calc Cancelled 51.4 Estimated GFR Cancelled > 60 Random Glucose Cancelled Fasting Glucose 128 H D Calcium Cancelled 8.8 Total Bilirubin 1.7 H Direct Bilirubin 1.0 H AST 136 H ALT 238 H Alkaline Phosphatase 239 H Total Protein 5.7 L Albumin 3.0 L 06/06/21 05:35 MCV MCH MCHC RDW Plt Count MPV Immature Gran % (Auto) Neut % (Auto) Lymph % (Auto) [place] % (Auto) Eos % (Auto) Baso % (Auto) Lymph # (Auto) [place] # (Auto) Eos # (Auto) Baso # (Auto) Abs Immat Gran (auto) Absolute Neuts (auto) Absolute Nucleated RBC Nucleated RBC % (auto) Smear Tech's Comments Anion Gap Estim Creat Clear Calc Estimated GFR Random Glucose Fasting Glucose Calcium Total Bilirubin 1.8 H Direct Bilirubin 1.0 H AST 138 H ALT 240 H Alkaline Phosphatase 240 H Total Protein 5.7 L Albumin 3.0 L Microbiology Microbiology Results: Microbiology 06/05/21 01:57 Blood Culture - Preliminary Blood - Venous Prelim: GNR Gram Stain only 06/05/21 02:05 Blood Culture - Preliminary Blood - Venous No growth after 24 hours. Assessment and Plan (1) Dilation of biliary tract: Status: Resolved Plan 81M presented with abd pain Choledocholithiasis with GNR bacteremia s/p ERCP 06/05/21 with sphinterotomy not tolerating clears continue rocpehin, flagyl, follow up cultures, IVF, monitor lfts History of glaucoma Continue ophthalmic drops Hyperlipidemia Statin on hold Mild intermittent asthma Stable, continue inhalers reason for continued hospitalization: not tolerating diet, awaiting culture r esults to transition to po Quality Stroke Does the patient have a stroke diagnosis?: No VTE Prior VTE?: No VTE Risk Level:: Medical - moderate - high VTE Device Contraindication: Treatment Not Indicated VTE Drug Contraindication: N/A - Med Ordered
[2021-06-06] MEDS: Lactated Ringers 1,000 ML 80 ML IVCONT (14:48)
[2021-06-06] MEDS: HYDROmorphone HCl 1 MG/ML SYRINGE 0.5 MG IVPUSH (16:09)
[2021-06-06] MEDS: Latanoprost 0.005 % Ophth Sol 2.5 ML DROPS 1 DROP EYE-BOTH (19:59)
[2021-06-07] VITALS (10 sets, daily range): BP systolic 92–140; BP diastolic 59–77; PULSE 73–142; RESP 16–20; TEMP 36.2–37.1; O2SAT 92–98; BMI 25.9
--- NOTE | 2021-06-07 | ECG_ITS ---
Test Reason : afib Blood Pressure : / mmHG Vent. Rate : 136 BPM Atrial Rate : 000 BPM P-R Int : 000 ms QRS Dur : 086 ms QT Int : 314 ms P-R-T Axes : 000 040 009 degrees QTc Int : 472 ms Atrial fibrillation with rapid ventricular response Abnormal ECG When compared with ECG of 05-JUN-2021 01:40, Atrial fibrillation has replaced Sinus rhythm Referred By: Mika Bailon Electronically Signed By:Mickey Jones
[2021-06-07] MEDS: Nitroglycerin 0.4 MG TAB.SUBL SUBLINGUAL ×2 (01:10→01:25)
[2021-06-07] MEDS: 0.9 % Sodium Chloride 1,000 ML 100 ML IVCONT (01:20)
[2021-06-07] MEDS: Morphine Sulfate 2 MG/ML CARTRIDGE IVPUSH (01:20)
--- NOTE | 2021-06-07 01:49 | P.EN_ITS ---
Event Note Date of Service: 06/07/21 Event Note: ESTHETICIAN/SPA COORDINATOR notes: Chest pain: Patient reports chest pain is sharp in nature located in the center of the chest, mildly radiates to the left shoulder; associated nausea and lightheadedness; no diaphoresis. Constant in nature. Patient was given sublingual nitroglycerin with slight improvement in the chest pain; followed by patient received 2 mg IV morphine; in patient still has persisted chest pain followed by patient was given and the sublingual nitroglycerin. Initially patient will pressure is 138/84; after above medications blood pressure dropped to 60s over 40s. At that time patient's refer pulses are palpable, had good capillary refill. no blood pressure likely secondary to rectal was not/morphine. Patient was placed in Trendelenburg position; given normal saline bolus; Blood pressure improved to 129/63; pulse 124; saturating 98%; Patient had couple EKG is done which showed new onset AFib with RVR with heart rate in 150s which gradually improving to 130s. Also notified ICU attending on-call. Recommended to continue above management and fluids. Once blood pressure stabilizes will give the patient on metoprolol c/w NS@100cc per hr CT Angio chest New onset AFib with RVR: Likely postprocedural. Will also obtain TSH, echocardiogram Cardiology consult Metoprolol IV p.r.n. with holding parameters for blood pressure. Choledocholithiasis: Patient is status post ERCP with sphincterotomy on 06/05/2021. Patient already on IV antibiotics- ceftriaxone and Flagyl. Will obtain lactate and repeat blood cultures.
[2021-06-07 01:50] LABS: Hematocrit 35.5 % (42.0-52.0); Hemoglobin 11.5 g/dl (14.0-18.0); Mean Corpuscular HGB Conc 32.4 g/dl (31.0-36.0); Mean Corpuscular Hemoglobin 31.2 pg (27.0-33.0); Mean Corpuscular Volume 96.2 fL (80.0-98.0); Mean Platelet Volume 9.8 fL (9.4-12.4); Platelet Count 245 X10*3/uL (160-400); Red Blood Count 3.69 X10*6/uL (4.60-5.80); Red Cell Distribution Width 13.2 % (11.0-16.0); White Blood Count 13.4 X10*3/uL (4.8-10.8)
[2021-06-07 02:02] LABS: Lactic Acid 1.5 mmol/L (0.5-2.0)
[2021-06-07 02:05] LABS: Basophils Absolute Auto 0.1 X10*3/uL (0.0-0.2); Basophils Percent Auto 0.4 % (0-2); Eosinophils Absolute Auto 0.3 X10*3/uL (0.0-0.4); Eosinophils Percent Auto 2.5 % (0-4); Imm Gran Abs Auto 0.05 X10*3/uL (0.00-0.03); Imm Gran Pct Auto 0.4 % (0.0-0.4); Lymphocytes Absolute Auto 3.7 X10*3/uL (1.2-4.9); Lymphocytes Percent Auto 27.1 % (20-40); MANUAL DIFF FLAG SCAN; Neutrophils Absolute Auto 7.4 x10*3/uL (2.0-8.3); Neutrophils Percent Auto 54.6 % (45-73); SCAN SMEAR FLAG 1
[2021-06-07 02:05] LABS: Magnesium 1.9 mg/dL (1.6-2.6)
[2021-06-07 02:07] LABS: Alanine Aminotransferase 176 U/L (0-40); Alkaline Phosphatase 204 U/L (39-117); Anion Gap 14 (12-20); Aspartate Amino Transferase 68 U/L (5-37); Bilirubin Direct 0.6 mg/dL (0.0-0.5); Bilirubin Total 1.2 mg/dL (0.0-1.0); Blood Urea Nitrogen 18 mg/dL (9-16); Calcium 8.7 mg/dL (8.4-10.2); Carbon Dioxide 22 mmol/L (22-29); Chloride 108 mmol/L (96-108); Creatinine Clr Calc Pharmacy 51.8; Estimated Glomerular Filt Rate > 60; Glucose Fasting 104 mg/dL (60-99); Potassium 3.9 mmol/L (3.3-5.1); Sodium 140 mmol/L (135-145); Total Protein 5.6 g/dL (6.5-8.0)
[2021-06-07 02:10] LABS: Troponin-I High Sensitivity < 3.5 ng/L (<3.5-35.0)
[2021-06-07] MEDS: HYDROmorphone HCl 1 MG/ML SYRINGE 0.5 MG IVPUSH (02:23)
--- NOTE | 2021-06-07 02:27 | PC.NURSE ---
Addendum entered by Amira Simms RN 06/07/21 07:49: [place] [facility] [place] Pt is A&O X4, BP 92/59, HR 142 (Afib), pt reports being dizzy, no palpitations, no c/o pain and is nauseous and vomiting. Zofran administered and patient resting in bed. Patient's rhythm converted at 0408 from Afib, HR 150s to SR, HR 70s. Pt transported to ED for chest CT to R/O PE. Pt vitals repeated at 0615; BP 102/60, HR 73, T 97.2, RR 18, sats 93% on room air. Pt resting in bed, reports no pain and no more nausea or vomiting. Pt remains in sinus rhythm at this time, HR 60-70s. Original Note: 1 am pt c/o chest pain substernal 8/10 pain is different this time is upper chest not in abdomen . HR 105, bp 135/77 and 98 % on 2 l RR WAS CALLED AND dr ZAMBRANO ORDERED NITRO SUBLINGUAL X1 given at 110 not much improvement AND 2 MG OF morphine iv given at 110 not much improvement HR NOW 130-144, BP . EKG DONE and bolus of NS 1000 ml given BP AFTER BOLUS 92/59 hr 139 . AT 0220 DILAUDID GIVEN FOR PAIN AND NOW PAIN IS 4/10 still HR 130S PT PLACE TO TELEMETRY LABS DRAWN. [place] [facility] [place]
[2021-06-07 02:37] LABS: SLIDE REVIEW VERIFIED
[2021-06-07 03:02] LABS: Anion Gap 15 (12-20); Blood Urea Nitrogen 19 mg/dL (9-16); Calcium 8.7 mg/dL (8.4-10.2); Carbon Dioxide 22 mmol/L (22-29); Chloride 108 mmol/L (96-108); Creatinine Clr Calc Pharmacy 50.4; Estimated Glomerular Filt Rate > 60; Glucose Random 104 mg/dL (60-115); Potassium 3.8 mmol/L (3.3-5.1); Sodium 141 mmol/L (135-145)
[2021-06-07] MEDS: Lactated Ringers 1,000 ML 80 ML IVCONT ×2 (04:06→18:37)
[2021-06-07] MEDS: ondansetron HCL 4 MG/2 ML VIAL IVPUSH (04:18)
[2021-06-07] MEDS: iohexoL 350 MG/ML 100 ML INFUS..BTL 65 ML IV (05:03)
[2021-06-07] MEDS: cefTRIAXone sodium 1 GM in 0.9 % Sodium Chloride 50 ML IV (05:16)
[2021-06-07] MEDS: metroNIDAZOLE/NS 500 MG/100 ML PIGGYBACK 100 MG IV ×3 (06:12→21:36)
[2021-06-07] MEDS: Omeprazole 20 MG CAPSULE.DR PO (06:13)
[2021-06-07 07:43] LABS: Troponin-I High Sensitivity 154.4 ng/L (<3.5-35.0)
[2021-06-07] MEDS: Dorzolamide/Timolo 2.23%/0.68% 10 ML DRBTL 1 DROP EYE-BOTH ×2 (10:27→21:41)
[2021-06-07] MEDS: Pyridoxine HCl (Vitamin B6) 50 MG TABLET 100 MG PO (10:27)
--- NOTE | 2021-06-07 11:24 | P.PNIM_ITS ---
Subjective Subjective Date of Service: 06/07/21 Interval History: cc: sandeep forrester interval history:continues to have pain, had afib last night, converted now to nsr, feeling unwell, no appetite Cardiovascular Cardiovascular: Reports no additional cardiovascular complaints Respiratory Respiratory: Reports no additional respiratory complaints Physical Exam Vital Signs: Vital Signs: Last Vital Signs Temp 97.9 F 06/07/21 10:00 Pulse 73 06/07/21 10:00 Resp 16 06/07/21 10:00 BP 110/60 06/07/21 10:00 Pulse Ox 95 06/07/21 10:00 Oxygen Flow Rate 4 06/07/21 06:40 BMI result Body Mass Index 25.0 General: AO X 3, no acute distress Resp:? CTA bilateral, no accessory muscles used CVS: S1,S2,RRR GI: soft, mildly tender, midlly distended Neuro:? motor grossly intact, alert Psych: appropriate affect, appropriate insight? Objective Data Active Medications Acetaminophen (Acetaminophen 325 Mg Tablet) 650 mg PO Q6H PRN PRN Reason: Pain, Mild (Pain Scale 1-3) Last Admin: 06/05/21 15:11 Dose: 650 mg Documented by: HARIKA Aspirin (Aspirin 81 Mg Tab.Chew) 81 mg PO DAILY [facility] Dorzolamide/Timolol (Dorzolamide/Timolo 2.23%/0.68% 10 Ml Drbtl) 1 drop EYE- BOTH BID [facility] Last Admin: 06/07/21 10:27 Dose: 1 drop Documented by: SPENCER Fluticasone/Vilanterol (Fluticasone/Vilanterol 100/25 Blst.W.Dev) 1 puff INHALE RDAILY [facility] Last Admin: 06/07/21 08:56 Dose: Not Given Documented by: RICHELLE Non-Admin Reason: Med Not Available Heparin Sodium (Porcine) (Heparin Sodium,Porcine 5,000 Unit/Ml Vial) 3,000 unit 40 unit/kg (3000 unit) IVPUSH PROTOCOL BOLUS PRN; Protocol PRN Reason: 40 unit/kg - Heparin Protocol Heparin Sodium (Porcine) (Heparin Sodium,Porcine 5,000 Unit/Ml Vial) 6,000 unit 80 unit/kg (6000 unit) IVPUSH PROTOCOL BOLUS PRN; Protocol PRN Reason: 80 unit/kg - Heparin Protocol Hydromorphone HCl (Hydromorphone Hcl 1 Mg/Ml Syringe) 0.5 mg IVPUSH Q4H PRN; Protocol PRN Reason: Pain, Severe (Pain Scale 7-10) Last Admin: 06/07/21 02:23 Dose: 0.5 mg Documented by: CHELSIE Ceftriaxone Sodium 1 gm/ (Sodium Chloride) 50 mls @ 100 mls/hr IV Q24H [facility] Last Infusion: 06/07/21 06:05 Dose: 0 mls/hr Documented by: GREGORIO Metronidazole (Flagyl) 500 mg in 100 mls @ 100 mls/hr IV Q8H [facility] Last Infusion: 06/07/21 07:42 Dose: 0 mls/hr Documented by: GREGORIO Lactated Ringer's (Lr) 1,000 mls @ 80 mls/hr IVCONT .[id number] [facility] Last Admin: 06/07/21 04:06 Dose: 80 mls/hr Documented by: GREGORIO Heparin Sodium/Sodium Chloride () 25,000 unit in 250 mls @ 0 mls/hr IVCONT .Q0M [facility]; Protocol Latanoprost (Latanoprost 0.005 % Ophth Anum 2.5 Ml Drops) 1 drop EYE-BOTH BEDTIME [facility] Last Admin: 06/06/21 19:59 Dose: 1 drop Documented by: CHELSIE Medication (No Anticoagulants) 1 each MISCELLANE DAILY [facility] Stop: 06/13/21 12:03 Medication (No Nsaids) 1 each MISCELLANE DAILY [facility] Stop: 06/13/21 12:00 Medication (No Anticoagulant-Heparin Sq Ok) 1 each MISCELLANE DAILY [facility] Stop: 06/13/21 12:00 Medication (No Anticoagulant/Antiplatelet) 1 each MISCELLANE DAILY [facility] Stop: 06/13/21 12:00 Melatonin (Melatonin 3 Mg Tablet) 6 mg PO BEDTIME PRN PRN Reason: Insomnia Metoprolol Tartrate (Metoprolol Tartrate 5 Mg/5 Ml Vial) 5 mg IVPUSH Q6H PRN PRN Reason: HR>125 Metoprolol Tartrate (Metoprolol Tartrate 12.5 Mg Halftab) 12.5 mg PO BID [facility]; Protocol Nitroglycerin (Nitroglycerin 0.4 Mg Tab.Subl) 0.4 mg SUBLINGUAL Q5MX3 PRN PRN Reason: Chest Pain Last Admin: 06/07/21 01:25 Dose: 0.4 mg Documented by: CHELSIE Omeprazole (Omeprazole 20 Mg Capsule.Dr) 20 mg PO DAILY@0630 [facility] Last Admin: 06/07/21 06:13 Dose: 20 mg Documented by: GREGORIO Ondansetron HCl (Ondansetron Hcl 4 Mg/2 Ml Vial) 4 mg IVPUSH Q8H PRN PRN Reason: Nausea and Vomiting Last Admin: 06/07/21 04:18 Dose: 4 mg Documented by: GREGORIO Oxycodone HCl (Oxycodone Hcl Immed Release 5 Mg Tablet) 10 mg PO ONCE PRN PRN Reason: Pain, Severe (Pain Scale 7-10) Pyridoxine HCl (Pyridoxine Hcl (Vitamin B6) 50 Mg Tablet) 100 mg PO DAILY [facility] Last Admin: 06/07/21 10:27 Dose: 100 mg Documented by: SPENCER Senna (Sennosides 8.6 Mg Tablet) 17.2 mg PO BEDTIME PRN PRN Reason: Constipation Sodium Chloride (0.9 % Sodium Chloride Flush 3 Ml Syringe) 3 ml IVFLUSH QSHIFT [facility] Last Admin: 06/07/21 09:22 Dose: Not Given Documented by: SPENCER Non-Admin Reason: IV Running Labs CBC & Chem 7: 06/07/21 01:41 06/07/21 01:41 Labs: Laboratory Results - last 24 hr 06/07/21 06/07/21 06/07/21 01:40 01:40 01:41 MCV 96.2 MCH 31.2 MCHC 32.4 RDW 13.2 Plt Count 245 MPV 9.8 Immature Gran % (Auto) 0.4 Neut % (Auto) 54.6 Lymph % (Auto) 27.1 [place] % (Auto) 15.0 H Eos % (Auto) 2.5 Baso % (Auto) 0.4 Lymph # (Auto) 3.7 [place] # (Auto) 2.0 H Eos # (Auto) 0.3 Baso # (Auto) 0.1 Abs Immat Gran (auto) 0.05 H Absolute Neuts (auto) 7.4 Absolute Nucleated RBC 0.000 Nucleated RBC % (auto) 0.0 Smear Tech's Comments VERIFIED Anion Gap 15 Estim Creat Clear Calc 50.4 Estimated GFR > 60 Random Glucose 104 Fasting Glucose Lactic Acid 1.5 Calcium 8.7 Magnesium 1.9 Total Bilirubin Direct Bilirubin AST ALT Alkaline Phosphatase Total Protein Albumin TSH 1.50 06/07/21 01:41 MCV MCH MCHC RDW Plt Count MPV Immature Gran % (Auto) Neut % (Auto) Lymph % (Auto) [place] % (Auto) Eos % (Auto) Baso % (Auto) Lymph # (Auto) [place] # (Auto) Eos # (Auto) Baso # (Auto) Abs Immat Gran (auto) Absolute Neuts (auto) Absolute Nucleated RBC Nucleated RBC % (auto) Smear Tech's Comments Anion Gap 14 Estim Creat Clear Calc 51.8 Estimated GFR > 60 Random Glucose Fasting Glucose 104 H Lactic Acid Calcium 8.7 Magnesium Total Bilirubin 1.2 H Direct Bilirubin 0.6 H AST 68 H ALT 176 H Alkaline Phosphatase 204 H Total Protein 5.6 L Albumin 3.0 L TSH Microbiology Microbiology Results: Microbiology 06/05/21 01:57 Blood Culture - Preliminary Blood - Venous Gram negative adams 06/05/21 02:05 Blood Culture - Preliminary Blood - Venous No growth after 48 hours. Assessment and Plan (1) Dilation of biliary tract: Status: Resolved Plan 81M presented with abd pain, now complicated by episode of afib with rvr and nstemi new onset atrial fibrillation with rvr now in NSR check echo lopressor cardio following NSTEMI cardio appreciated 48hrs iv heparin, asa (discussed with ana GI) follow up echo Choledocholithiasis with GNR bacteremia s/p ERCP 06/05/21 with sphinterotomy not tolerating clears - likely post ERCP acute pancreatitis continue Rocephin, flagyl, follow up cultures, IVF, monitor lfts History of glaucoma Continue ophthalmic drops Hyperlipidemia Statin on hold Mild intermittent asthma Stable, continue inhalers reason for continued hospitalization: iv heparin for nstemi, not tolerating diet, awaiting culture results to transition to po Quality Stroke Does the patient have a stroke diagnosis?: No VTE Prior VTE?: No VTE Risk Level:: Medical - moderate - high VTE Device Contraindication: Treatment Not Indicated VTE Drug Contraindication: N/A - Med Ordered
--- NOTE | 2021-06-07 11:34 | P.CONCA_ITS ---
History of Present Illness History of Present Illness Date of Service: 06/07/21 Chief complaint: choledocholithiasis Narrative: This is a cardiology consultation regarding atrial fibrillation as well as elevated troponins. He initially came for abdominal pain. Then it seems that he was found to have gallstones which led to GI evaluation. He underwent ERCP. Last night, it seems that he had of atrial fibrillation with rapid rate. He had a nonspecific chest discomfort at that time but no clear palpitations. It seems that last for about 3 hours to 4 hours or so but difficult to say as there is no telemetry prior to the onset and hence not sure when started. However patient believes the symptoms started only around midnight or so and hence probably just a few hours. Any case he is now back to normal sinus rhythm. He does not have any clear cardiac symptoms as well. Troponins were slightly high. In the past, no coronary disease myocardial infarction or any cardiac issues at all. He is fairly functional without any limitations at baseline. Review of Systems Review of Systems: Yes all other systems are reviewed and are negative Constitutional: Constitutional: Reports as per HPI Eyes: Eyes: Reports as per HPI ENT: Reports as per HPI Cardiovascular: Cardiovascular: Reports as per HPI, Denies acrocyanosis, Denies cool extremities, Denies chest pain, Denies leg edema, Denies lightheadedness, Denies palpitations and Denies dyspnea Respiratory: Respiratory: Reports as per HPI, Reports no additional respiratory complaints and Denies dyspnea Gastrointestinal: Gastrointestinal: Reports as per HPI and Reports no additional gastrointestinal complaints Genitourinary: Genitourinary: Reports no additional male genitourinary complaints and Reports as per HPI Musculoskeletal: Musculoskeletal: Reports no additional musculoskeletal complaints and Reports as per HPI Integumentary/Breasts: Skin/Breast: Reports system reviewed and no additional complaints, except as docu Neurologic: Reports system reviewed and no additional complaints, except as documented and Reports as per HPI Psychiatric: Psychiatric: Reports no additional psychiatric complaints and Reports as per HPI Endocrine: Endocrine: Reports no additional endocrine complaints, Reports as per HPI and Denies palpitations Hematologic/Lymphatic: Hematologic/Lymphatic: Reports no additional hematologic/lymphatic complaints and Reports as per HPI Allergic/Immunologic: Allergic/Immunologic: Reports no additional allergic/ immunologic complaints and Reports as per HPI [facility] Past Medical History Medical History Asthma BPH (benign prostatic hyperplasia) Cataract, left eye Esophageal stricture GERD (gastroesophageal reflux disease) Glaucoma Hypercholesterolemia Left renal stone Sciatic nerve pain Screening for diabetes mellitus Vitamin D deficiency Family History Family History Father Stroke Mother No problems noted. Surgical History Surgical History History of blepharoplasty History of cataract surgery History of cholecystectomy History of inguinal hernia repair History of lithotripsy History of tonsillectomy Social History Social History Household Members: Spouse Housing: House Do you presently have visiting nurse or other home services: No Alcohol intake: current Alcohol intake frequency: does not drink Patient Tobacco Use Status: Never used Tobacco Second Hand Smoke Exposure: No Advance Directives Date on File: 11/16/20 service: No Current occupational status: retired Meds Allergies Allergy/AdvReac Type Severity Reaction Status Date / Time Penicillins [PENICILLINS] Allergy Intermediate RASH Verified 06/05/21 01:14 Active Medications: Current Medications Acetaminophen (Acetaminophen 325 Mg Tablet) 650 mg PO Q6H PRN PRN Reason: Pain, Mild (Pain Scale 1-3) Last Admin: 06/05/21 15:11 Dose: 650 mg Documented by: Aspirin (Aspirin 81 Mg Tab.Chew) 81 mg PO DAILY [facility] Dorzolamide/Timolol (Dorzolamide/Timolo 2.23%/0.68% 10 Ml Drbtl) 1 drop EYE- BOTH BID [facility] Last Admin: 06/07/21 10:27 Dose: 1 drop Documented by: Fluticasone/Vilanterol (Fluticasone/Vilanterol 100/25 Blst.W.Dev) 1 puff INHALE RDAILY [facility] Last Admin: 06/07/21 08:56 Dose: Not Given Documented by: Heparin Sodium (Porcine) (Heparin Sodium,Porcine 5,000 Unit/Ml Vial) 3,000 unit 40 unit/kg (3000 unit) IVPUSH PROTOCOL BOLUS PRN; Protocol PRN Reason: 40 unit/kg - Heparin Protocol Heparin Sodium (Porcine) (Heparin Sodium,Porcine 5,000 Unit/Ml Vial) 6,000 unit 80 unit/kg (6000 unit) IVPUSH PROTOCOL BOLUS PRN; Protocol PRN Reason: 80 unit/kg - Heparin Protocol Hydromorphone HCl (Hydromorphone Hcl 1 Mg/Ml Syringe) 0.5 mg IVPUSH Q4H PRN; P rotocol PRN Reason: Pain, Severe (Pain Scale 7-10) Last Admin: 06/07/21 02:23 Dose: 0.5 mg Documented by: Ceftriaxone Sodium 1 gm/ (Sodium Chloride) 50 mls @ 100 mls/hr IV Q24H [facility] Last Infusion: 06/07/21 06:05 Dose: Infused Documented by: Metronidazole (Flagyl) 500 mg in 100 mls @ 100 mls/hr IV Q8H [facility] Last Infusion: 06/07/21 07:42 Dose: Infused Documented by: Lactated Ringer's (Lr) 1,000 mls @ 80 mls/hr IVCONT .[id number] [facility] Last Admin: 06/07/21 04:06 Dose: 80 mls/hr Documented by: Heparin Sodium/Sodium Chloride () 25,000 unit in 250 mls @ 0 mls/hr IVCONT .Q0M [facility]; Protocol Latanoprost (Latanoprost 0.005 % Ophth Anum 2.5 Ml Drops) 1 drop EYE-BOTH BEDTIME [facility] Last Admin: 06/06/21 19:59 Dose: 1 drop Documented by: Medication (No Anticoagulants) 1 each MISCELLANE DAILY [facility] Stop: 06/13/21 12:03 Medication (No Nsaids) 1 each MISCELLANE DAILY [facility] Stop: 06/13/21 12:00 Medication (No Anticoagulant-Heparin Sq Ok) 1 each MISCELLANE DAILY [facility] Stop: 06/13/21 12:00 Medication (No Anticoagulant/Antiplatelet) 1 each MISCELLANE DAILY [facility] Stop: 06/13/21 12:00 Melatonin (Melatonin 3 Mg Tablet) 6 mg PO BEDTIME PRN PRN Reason: Insomnia Metoprolol Tartrate (Metoprolol Tartrate 5 Mg/5 Ml Vial) 5 mg IVPUSH Q6H PRN PRN Reason: HR>125 Metoprolol Tartrate (Metoprolol Tartrate 12.5 Mg Halftab) 12.5 mg PO BID [facility]; Protocol Nitroglycerin (Nitroglycerin 0.4 Mg Tab.Subl) 0.4 mg SUBLINGUAL Q5MX3 PRN PRN Reason: Chest Pain Last Admin: 06/07/21 01:25 Dose: 0.4 mg Documented by: Omeprazole (Omeprazole 20 Mg Capsule.Dr) 20 mg PO DAILY@0630 [facility] Last Admin: 06/07/21 06:13 Dose: 20 mg Documented by: Ondansetron HCl (Ondansetron Hcl 4 Mg/2 Ml Vial) 4 mg IVPUSH Q8H PRN PRN Reason: Nausea and Vomiting Last Admin: 06/07/21 04:18 Dose: 4 mg Documented by: Oxycodone HCl (Oxycodone Hcl Immed Release 5 Mg Tablet) 10 mg PO ONCE PRN PRN Reason: Pain, Severe (Pain Scale 7-10) Pyridoxine HCl (Pyridoxine Hcl (Vitamin B6) 50 Mg Tablet) 100 mg PO DAILY [facility] Last Admin: 06/07/21 10:27 Dose: 100 mg Documented by: Senna (Sennosides 8.6 Mg Tablet) 17.2 mg PO BEDTIME PRN PRN Reason: Constipation Sodium Chloride (0.9 % Sodium Chloride Flush 3 Ml Syringe) 3 ml IVFLUSH QSHIFT [facility] Last Admin: 06/07/21 09:22 Dose: Not Given Documented by: Home Medications Medication Instructions Recorded Confirmed Last Taken Type dorzolamide 22.3 mg-timolol 6.8 1 drp OPHTHALMIC (EYE) BID 04/23/20 06/05/21 Unknown History mg/mL eye drops fluticasone furoate 100 1 puff PO DAILY 11/16/20 06/05/21 Unknown History mcg-vilanterol 25 mcg/dose inhalation powder (Breo Ellipta) latanoprost 0.005 % eye drops 1 drp OPHTHALMIC (EYE) BEDTIME 06/05/21 06/05/21 Unknown History omeprazole 20 mg capsule,delayed 1 cap PO DAILY 06/05/21 06/05/21 Unknown History release pyridoxine (vitamin B6) 100 mg 1 tab PO DAILY 06/05/21 06/05/21 Unknown History tablet simvastatin 40 mg tablet 1 tab PO BEDTIME 06/05/21 06/05/21 Unknown History tadalafil 10 mg tablet 1 tab PO DIRECTED PRN 06/05/21 06/05/21 Unknown History Physical Exam Vital Signs: Vital Signs: Last Vital Signs Temp 97.9 F 06/07/21 10:00 Pulse 73 06/07/21 10:00 Resp 16 06/07/21 10:00 BP 110/60 06/07/21 10:00 Pulse Ox 95 06/07/21 10:00 Oxygen Flow Rate 4 06/07/21 06:40 BMI result Body Mass Index 25.0 Const: General: comfortable HENMT: Other: Unremarkable Neck: Neck: Yes normal visual inspection Chest: Chest palpation & inspection: normal inspection of the chest Resp: Auscultation: clear to auscultation bilaterally Cardio: Palpation: normal PMI Heart sounds: S1 normal heart sound present, S2 normal heart sound present, no gallops, no murmurs and no rubs GI: Palpation (GI): Soft to palpation Back/Spine/Pelvis: Other: unremarkable Skin: General skin exam: no rashes or lesions noted Neuro: Cognition (Neuro): normal cognition Extrem: General: Yes normal to inspection Psych: Appearance: grossly normal Objective Labs and Meds Result diagrams: 06/07/21 01:41 06/07/21 01:41 Lab results: Laboratory Results - last 24 hr 06/07/21 06/07/21 06/07/21 01:40 01:40 01:40 WBC RBC Hgb Hct MCV MCH MCHC RDW Plt Count MPV Immature Gran % (Auto) Neut % (Auto) Lymph % (Auto) Terrell % (Auto) Eos % (Auto) Baso % (Auto) Lymph # (Auto) Terrell # (Auto) Eos # (Auto) Baso # (Auto) Abs Immat Gran (auto) Absolute Neuts (auto) Absolute Nucleated RBC Nucleated RBC % (auto) Smear Tech's Comments Sodium 141 Potassium 3.8 Chloride 108 Carbon Dioxide 22 Anion Gap 15 BUN 19 H Creatinine 1.11 Estim Creat Clear Calc 50.4 Estimated GFR > 60 Random Glucose 104 Fasting Glucose Lactic Acid 1.5 Calcium 8.7 Magnesium 1.9 Total Bilirubin Direct Bilirubin AST ALT Alkaline Phosphatase Troponin I High Sens < 3.5 Total Protein Albumin TSH 1.50 06/07/21 06/07/21 06/07/21 01:41 01:41 06:30 WBC 13.4 H RBC 3.69 L Hgb 11.5 L Hct 35.5 L MCV 96.2 MCH 31.2 MCHC 32.4 RDW 13.2 Plt Count 245 MPV 9.8 Immature Gran % (Auto) 0.4 Neut % (Auto) 54.6 Lymph % (Auto) 27.1 Terrell % (Auto) 15.0 H Eos % (Auto) 2.5 Baso % (Auto) 0.4 Lymph # (Auto) 3.7 Terrell # (Auto) 2.0 H Eos # (Auto) 0.3 Baso # (Auto) 0.1 Abs Immat Gran (auto) 0.05 H Absolute Neuts (auto) 7.4 Absolute Nucleated RBC 0.000 Nucleated RBC % (auto) 0.0 Smear Tech's Comments VERIFIED Sodium 140 Potassium 3.9 Chloride 108 Carbon Dioxide 22 Anion Gap 14 BUN 18 H Creatinine 1.08 Estim Creat Clear Calc 51.8 Estimated GFR > 60 Random Glucose Fasting Glucose 104 H Lactic Acid Calcium 8.7 Magnesium Total Bilirubin 1.2 H Direct Bilirubin 0.6 H AST 68 H ALT 176 H Alkaline Phosphatase 204 H Troponin I High Sens 154.4 H* D Total Protein 5.6 L Albumin 3.0 L TSH ECG Interpretation: EKG from overnight shows sinus rhythm with PACs at 100/Min. Telemetry strip fr om time of atrial fibrillation shows a rate of 159/Min. Currently in sinus rhythm. Imaging Radiologist's impression: Impressions Chest CTA 06/07/21 05:10 IMPRESSION: No pulmonary embolism. Subsegmental atelectasis in the lungs. Associated groundglass opacification is nonspecific but may also be atelectatic in nature. VTE: negative Assessment and Plan (1) Atrial fibrillation with rapid ventricular response: Status: Acute (2) NSTEMI (non-ST elevated myocardial infarction): Status: Acute Plan Atrial fibrillation with rapid rate likely precipitated by GI issues. Now back to normal sinus rhythm. Demand related NSTEMI from atrial fibrillation with rapid rate. Keep on beta-blockers. Otherwise, if agreeable from GI standpoint use IV heparin for 48 hours and aspirin. May hold statins due to abnormal LFTs. Echocardiogram tomorrow. Will follow up with you. May not need long-term anticoagulation, as the atrial fibrillation is provoked by GI issues and he had only for few hours or so. Procedures Date of Service Date of Service: 06/07/21
[2021-06-07 11:43] LABS: Lipase 23 U/L (8-78)
[2021-06-07 12:46] LABS: Hematocrit 35.1 % (42.0-52.0); Hemoglobin 10.9 g/dl (14.0-18.0); Mean Corpuscular HGB Conc 31.1 g/dl (31.0-36.0); Mean Corpuscular Hemoglobin 30.2 pg (27.0-33.0); Mean Corpuscular Volume 97.2 fL (80.0-98.0); Platelet Count 243 X10*3/uL (160-400); Red Blood Count 3.61 X10*6/uL (4.60-5.80); Red Cell Distribution Width 13.4 % (11.0-16.0); White Blood Count 10.3 X10*3/uL (4.8-10.8)
[2021-06-07 12:52] LABS: INTERNATIONAL NORM RATIO 1.1 (0.9-1.1); Prothrombin Time 12.2 SEC (9.9-13.0)
[2021-06-07 12:54] LABS: PTT Heparin Drip 31.8 SEC (53-77.9)
[2021-06-07 13:32] LABS: Troponin-I High Sensitivity 393.1 ng/L (<3.5-35.0)
[2021-06-07] MEDS: Heparin Sodium,Porcine/1/2NS 25,000 UNIT/250 ML IV.SOLN 10.81 UNIT IVCONT (14:37)
[2021-06-07 20:47] LABS: PTT Heparin Drip 52.9 SEC (53-77.9)
[2021-06-07] MEDS: Heparin Sodium,Porcine 5,000 UNIT/ML VIAL 3100 UNIT IVPUSH (21:36)
[2021-06-07] MEDS: Metoprolol Tartrate 12.5 MG HALFTAB PO (21:36)
[2021-06-07] MEDS: 0.9 % Sodium Chloride Flush 3 ML SYRINGE IVFLUSH (21:37)
[2021-06-07] MEDS: Latanoprost 0.005 % Ophth Sol 2.5 ML DROPS 1 DROP EYE-BOTH (21:41)
[2021-06-08] VITALS (8 sets, daily range): BP systolic 118–154; BP diastolic 67–78; PULSE 69–80; RESP 16–20; TEMP 36.1–37.1; O2SAT 95–96
[2021-06-08 03:48] LABS: Hematocrit 34.8 % (42.0-52.0); Hemoglobin 11.1 g/dl (14.0-18.0); Mean Corpuscular HGB Conc 31.9 g/dl (31.0-36.0); Mean Corpuscular Hemoglobin 30.6 pg (27.0-33.0); Mean Corpuscular Volume 95.9 fL (80.0-98.0); Mean Platelet Volume 9.7 fL (9.4-12.4); Platelet Count 249 X10*3/uL (160-400); Red Blood Count 3.63 X10*6/uL (4.60-5.80); Red Cell Distribution Width 13.1 % (11.0-16.0); White Blood Count 9.3 X10*3/uL (4.8-10.8)
[2021-06-08 03:53] LABS: INTERNATIONAL NORM RATIO 1.1 (0.9-1.1); Prothrombin Time 12.7 SEC (9.9-13.0)
[2021-06-08 04:06] LABS: PTT Heparin Drip 106.4 SEC (53-77.9)
[2021-06-08 04:21] LABS: Alanine Aminotransferase 127 U/L (0-40); Alkaline Phosphatase 179 U/L (39-117); Anion Gap 16 (12-20); Aspartate Amino Transferase 43 U/L (5-37); Bilirubin Direct 0.5 mg/dL (0.0-0.5); Blood Urea Nitrogen 13 mg/dL (9-16); Calcium 8.5 mg/dL (8.4-10.2); Carbon Dioxide 20 mmol/L (22-29); Chloride 108 mmol/L (96-108); Creatinine Clr Calc Pharmacy 62.2; Estimated Glomerular Filt Rate > 60; Glucose Fasting 87 mg/dL (60-99); Lipase 45 U/L (8-78); Potassium 3.7 mmol/L (3.3-5.1); Sodium 140 mmol/L (135-145); Total Protein 5.7 g/dL (6.5-8.0)
[2021-06-08] MEDS: cefTRIAXone sodium 1 GM in 0.9 % Sodium Chloride 50 ML IV (05:50)
[2021-06-08] MEDS: Lactated Ringers 1,000 ML 80 ML IVCONT ×2 (05:58→21:49)
[2021-06-08] MEDS: Omeprazole 20 MG CAPSULE.DR PO (06:39)
[2021-06-08] MEDS: metroNIDAZOLE/NS 500 MG/100 ML PIGGYBACK 100 MG IV ×3 (06:39→21:41)
--- NOTE | 2021-06-08 07:30 | CA_ITS ---
Transthoracic Echocardiogram Patient (Last, First, Middle): Sammy Hi J Gender: Male Date of : 1940 Age: 81 Procedure Date: 06/08/2021 Procedure Type: Transthoracic Echocardiogram Location: [facility] [place] Height: 172.72 cm Weight: 77.11 kg BSA: 1.91 m2 Heart Rate: bpm BP: 154 / 78 mmHg Cripple Worker: HELEN Referring MD: Mika Bailon MD Symptoms: New onset AFib Study Quality: Fair Conclusions: - Normal left ventricular size, thickness, systolic function, and wall motion. The visually estimated ejection fraction is between 60-65%. - E/E prime ratio is >15, consistent with elevated filling pressures. - Mildly increased right ventricular cavity size. There is normal right ventricular systolic function. Findings Left Ventricle Normal left ventricular size, thickness, systolic function, and wall motion. The visually estimated ejection fraction is between 60-65%. Abnormal diastolic function is noted. Spectral Doppler is indicative of a pseudonormal filling pattern. E/E prime ratio is >15, consistent with elevated filling pressures. Right Ventricle Mildly increased right ventricular cavity size. There is normal right ventricular systolic function. Atria Both atria are normal in size. Aortic Valve There is a normal trileaflet aortic valve. There is mild calcification of the aortic valve. There is mild thickening of the aortic valve. There is no aortic valve stenosis. There is no aortic valve regurgitation. Mitral Valve The mitral valve appears normal. There is trace mitral valve regurgitation. There is no mitral valve stenosis. Pulmonic Valve The pulmonic valve is likely normal. Tricuspid Valve Normal tricuspid valve structure. There is trace tricuspid valve regurgitation. Moderately elevated right atrial pressure. There is no evidence of pulmonary hypertension. Great Vessels All visible segments of the aorta are normal in size. The pulmonary artery was not well visualized. Venous The inferior vena cava is dilated and collapses greater than 50% with inspiration. Pericardium/Pleural There is no evidence of pericardial effusion. Measurements 2D Linear Measurements IVSd: 1.06 0.6-0.9/0.6-1.0 cm LVIDd: 3.65 3.9-5.3/4.2-5.9 cm LVIDd Index: 1.91 2.4-3.2/2.2-3.1 cm/m2 LVIDs: 2.24 2.0-3.6 cm LVPWd: 0.94 0.7-1.1 cm LA Diam: 3.00 2.7-3.8/3.0-4.0 cm LAIDs Index: 1.57 1.5-2.3 cm/m2 LV Mass: 136.51 67-162/88-224 g LV Mass Index: 71.47 43-95/49-115 g/m2 LVOT Diam: 2.00 3.0+(-)1.3 cm Mitral Valve MV Pk E: 1.17 MV PK A: 0.96 MV Decel Time: 186.00 E/A: 1.20 E'Lateral: 7.62 E'Medial: 7.51 E/E' Med: 15.60 E/E' Lat: 15.40 PHT: 55.00 MVA PHT: 4.00 Decel Haskell: 6.26 Aortic Valve AoV Pk Alex: 1.54 AoV Mn Alex: 1.10 AoV VTI: 0.32 AoV Pk Grad: 9.00 Aov Mn Grad: 5.00 JOSH Cont.VTI: 2.56 LVOT LVOT Pk Alex: 1.40 LVOT Mn Alex: 0.90 LVOT VTI: 0.26 LVOT Pk Grad: 8.00 LVOT Mn Grad: 4.00 LVOT Diam: 2.00 LVOT Area: 3.14 Diastolic Function MV Pk E: 1.17 MV Pk A: 0.96 E/A: 1.20 E'Medial: 7.51 E/E' Med: 15.60 E' Laterial: 7.62 E/E' Lat: 15.40 Right Ventricle TAPSE (mm): 27.30 TVS' Alex: 19.80 Tricuspid Valve TR Pk Alex: 2.06 TR Pk Grad: 17.00 RA Press: 15.00 RVSP: 32.00 Great Vessels Aorta Sinus of Valsalva: 3.54 2.0-3.[address] [place]: 3.38 1.7-3.4 cm Ao Asc: 3.30 2.1-3.4 cm Ao Arch: 3.10 Updated in Other Vendor System with Status of Final Mickey Jones MD electronically signed on 06/08/2021 9:47:20 PM with status of Final
[2021-06-08] MEDS: Fluticasone/Vilanterol 100/25 BLST.W.DEV 1 PUFF INHALE (07:44)
--- NOTE | 2021-06-08 09:35 | PC.NURSE ---
Kwasi Dale RN and myself documented heparin gtt changes at 05:15 AM when previous RN changed gtt from on hold to running at 13 u/kg/hr. This RN confirmed heparin gtt was running at 13 u/kg/hr at shift change 07:00. Next ptt HD was in orders for 06/08/21 11:15.
[2021-06-08] MEDS: Aspirin 81 MG TAB.CHEW PO (10:05)
[2021-06-08] MEDS: Metoprolol Tartrate 12.5 MG HALFTAB PO ×2 (10:05→21:41)
[2021-06-08] MEDS: 0.9 % Sodium Chloride Flush 3 ML SYRINGE IVFLUSH ×3 (10:05→21:41)
[2021-06-08] MEDS: Pyridoxine HCl (Vitamin B6) 50 MG TABLET 100 MG PO (10:05)
[2021-06-08] MEDS: Dorzolamide/Timolo 2.23%/0.68% 10 ML DRBTL 1 DROP EYE-BOTH ×2 (10:07→21:42)
--- NOTE | 2021-06-08 11:32 | P.PNCA_ITS ---
Subjective Subjective Date of Service: 06/08/21 <RAI Horvath - Last Filed: 06/08/21 11:48> 06/08/21 <Mickey Jones MD - Last Filed: 06/08/21 14:43> Principal diagnosis: afib, NSTEMI, gallstones <RAI Horvath - Last Filed: 06/08/21 11:48> Interval history: Cardiology follow up for afib, NSTEMI. Seen at 1015. Today he is observed walking around in room. Reports he is feeling better today. No heart palpitations, chest pains, sob. No dizziness, presyncope, PND, orthopnea or edema. Some vague right upper quadrant discomfort. No appetite. Had echo completed this am. <RAI Horvath - Last Filed: 06/08/21 11:48> Review of Systems Review of Systems as above <RAI Horvath - Last Filed: 06/08/21 11:48> Yes all other systems are reviewed and are negative <RAI Horvath - Last Filed: 06/08/21 11:48> Physical Exam Vital Signs: Last Vital Signs Temp 98.7 F 06/08/21 07:00 Pulse 76 06/08/21 07:47 Resp 18 06/08/21 07:47 BP 137/73 06/08/21 07:00 Pulse Ox 96 06/08/21 07:00 Oxygen Flow Rate 4 06/07/21 06:40 BMI result Body Mass Index 25.9 <RAI Horvath - Last Filed: 06/08/21 11:48> Const General: cooperative, healthy appearing, no acute distress, alert and awake <RAI Horvath - Last Filed: 06/08/21 11:48> Orientation/consciousness: patient oriented x3 <RAI Horvath Last Filed: 06/08/21 11:48> Neck Neck: Yes normal visual inspection and Yes no JVD <RAI Horvath - Last Filed: 06/08/21 11:48> Resp Effort & Inspection: normal respiratory effort, able to speak in complete sentences and not labored <JAIDA HorvathC - Last Filed: 06/08/21 11:48> Auscultation: clear to auscultation bilaterally, no crackles, no rales, no rhonchi and no wheezes <Bee De NPC - Last Filed: 06/08/21 11:48> Cardio Rate: regular rate <Bee De NPC - Last Filed: 06/08/21 11:48> Rhythm: regular rhythm <[facility] - Last Filed: 06/08/21 11:48> Heart sounds: S1 normal heart sound present and S2 normal heart sound present <[facility] - Last Filed: 06/08/21 11:48> Peripheral pulses: Peripheral pulses 2+ throughout <[facility] - Last Filed: 06/08/21 11:48> GI Inspection: Yes normal to inspection <Bee DeREESEC - Last Filed: 06/08/21 11:48> Neuro General: patient oriented x3 <[facility] - Last Filed: 06/08/21 11:48> Extrem General: Yes normal to inspection and No edema <Bee De [employer] - Last Filed: 06/08/21 11:48> Objective Labs and Meds Result diagrams: : 06/08/21 03:34 06/08/21 03:34 <[facility] - Last Filed: 06/08/21 11:48> Lab results: Laboratory Results - last 24 hr 06/07/21 06/07/21 06/07/21 01:40 12:20 12:20 WBC 10.3 RBC 3.61 L Hgb 10.9 L Hct 35.1 L MCV 97.2 MCH 30.2 MCHC 31.1 RDW 13.4 Plt Count 243 MPV 10.0 Absolute Nucleated RBC 0.000 Nucleated RBC % (auto) 0.0 PT INR aPTT Heparin Protocol Sodium Potassium Chloride Carbon Dioxide Anion Gap BUN Creatinine Estim Creat Clear Calc Estimated GFR Fasting Glucose Calcium Total Bilirubin Direct Bilirubin AST ALT Alkaline Phosphatase Troponin I High Sens 393.1 H* D Total Protein Albumin Lipase 23 06/07/21 06/07/21 06/08/21 12:20 20:21 03:34 WBC 9.3 RBC 3.63 L Hgb 11.1 L Hct 34.8 L MCV 95.9 MCH 30.6 MCHC 31.9 RDW 13.1 Plt Count 249 MPV 9.7 Absolute Nucleated RBC 0.000 Nucleated RBC % (auto) 0.0 PT 12.2 INR 1.1 aPTT Heparin Protocol 31.8 L 52.9 L D Sodium Potassium Chloride Carbon Dioxide Anion Gap BUN Creatinine Estim Creat Clear Calc Estimated GFR Fasting Glucose Calcium Total Bilirubin Direct Bilirubin AST ALT Alkaline Phosphatase Troponin I High Sens Total Protein Albumin Lipase 06/08/21 06/08/21 06/08/21 03:34 03:34 03:34 WBC RBC Hgb Hct MCV MCH MCHC RDW Plt Count MPV Absolute Nucleated RBC Nucleated RBC % (auto) PT Cancelled INR Cancelled aPTT Heparin Protocol Sodium 140 Potassium 3.7 Chloride 108 Carbon Dioxide 20 L Anion Gap 16 BUN 13 Creatinine 0.90 Estim Creat Clear Calc 62.2 Estimated GFR > 60 Fasting Glucose 87 Calcium 8.5 Total Bilirubin 1.0 Direct Bilirubin 0.5 AST 43 H ALT 127 H Alkaline Phosphatase 179 H Troponin I High Sens Total Protein 5.7 L Albumin 3.0 L Lipase 45 Cancelled 06/08/21 03:34 WBC RBC Hgb Hct MCV MCH MCHC RDW Plt Count MPV Absolute Nucleated RBC Nucleated RBC % (auto) PT 12.7 INR 1.1 aPTT Heparin Protocol 106.4 H D Sodium Potassium Chloride Carbon Dioxide Anion Gap BUN Creatinine Estim Creat Clear Calc Estimated GFR Fasting Glucose Calcium Total Bilirubin Direct Bilirubin AST ALT Alkaline Phosphatase Troponin I High Sens Total Protein Albumin Lipase <RAI Horvath - Last Filed: 06/08/21 11:48> Progress Note: A&P Assessment and plan (1) Atrial fibrillation with rapid ventricular response: Status: Acute <RAI Horvath - Last Filed: 06/08/21 11:48> Assessment and Plan: Episode of afib, RVR, lasting 2.5 hours. Converted with rate slowing agents. Symptoms of palpitation and mid chest discomfort reported to me. He was started on Metoprolol for rate control. Tele has shows SR, rates mostly 80s since that time. No recurrent CP. He was admitted with gallstones, abdominal pain. Unknown at present if this is isolated event. Continue Metoprolol. Ongoing Tele monitoring while inpt. Echo completed, report pending. CHADSVASc score 3 ( age, DM) If he has recurrent afib, then group home anticoagulation will be indicated. Currently on heparin drip. Medical conditions being managed by hospitalist and GI. <RAI Horvath - Last Filed: 06/08/21 11:48> (2) NSTEMI (non-ST elevated myocardial infarction): Status: Acute <RAI Horvath - Last Filed: 06/08/21 11:48> Assessment and Plan: Chest discomfort reported as above. EKG at that time does not look ischemic. Troponin elevated up to 393. Could be secondary NSTEMI related to demand from afib RVR. Uncertain at this time. He is being anticoagulated with heparin drip for 48 hrs. Aspirin started. On Metoprolol. Statin held due to elevated LFTs. Echo result pending. No recurrent CP reported. No cardiac hx. <RAI Horvath - Last Filed: 06/08/21 11:48> (3) Choledocholithiasis: Status: Acute <RAI Horvath - Last Filed: 06/08/21 11:48> Assessment and Plan: Being followed by GI <RAI Horvath - Last Filed: 06/08/21 11:48> Fall Risk Details Current Medications: Current Medications Acetaminophen (Acetaminophen 325 Mg Tablet) 650 mg PO Q6H PRN PRN Reason: Pain, Mild (Pain Scale 1-3) Last Admin: 06/05/21 15:11 Dose: 650 mg Documented by: Aspirin (Aspirin 81 Mg Tab.Chew) 81 mg PO DAILY [facility] Last Admin: 06/08/21 10:05 Dose: 81 mg Documented by: Dorzolamide/Timolol (Dorzolamide/Timolo 2.23%/0.68% 10 Ml Drbtl) 1 drop EYE- BOTH BID [facility] Last Admin: 06/08/21 10:07 Dose: 1 drop Documented by: Fluticasone/Vilanterol (Fluticasone/Vilanterol 100/25 Blst.W.Dev) 1 puff INHALE RDAILY [facility] Last Admin: 06/08/21 07:44 Dose: 1 puff Documented by: Heparin Sodium (Porcine) (Heparin Sodium,Porcine 5,000 Unit/Ml Vial) 3,100 unit 40 unit/kg (3100 unit) IVPUSH PROTOCOL BOLUS PRN; Protocol PRN Reason: 40 unit/kg - Heparin Protocol Last Admin: 06/07/21 21:36 Dose: 3,100 unit Documented by: Heparin Sodium (Porcine) (Heparin Sodium,Porcine 5,000 Unit/Ml Vial) 6,200 unit 80 unit/kg (6200 unit) IVPUSH PROTOCOL BOLUS PRN; Protocol PRN Reason: 80 unit/kg - Heparin Protocol Hydromorphone HCl (Hydromorphone Hcl 1 Mg/Ml Syringe) 0.5 mg IVPUSH Q4H PRN; Protocol PRN Reason: Pain, Severe (Pain Scale 7-10) Last Admin: 06/07/21 02:23 Dose: 0.5 mg Documented by: Ceftriaxone Sodium 1 gm/ (Sodium Chloride) 50 mls @ 100 mls/hr IV Q24H [facility] Last Infusion: 06/08/21 06:39 Dose: Infused Documented by: Metronidazole (Flagyl) 500 mg in 100 mls @ 100 mls/hr IV Q8H [facility] Last Infusion: 06/08/21 08:43 Dose: Infused Documented by: Lactated Ringer's (Lr) 1,000 mls @ 80 mls/hr IVCONT .[id number] [facility] Last Admin: 06/08/21 05:58 Dose: 80 mls/hr Documented by: Heparin Sodium/Sodium Chloride () 25,000 unit in 250 mls @ 0 mls/hr IVCONT .Q0M [facility]; Protocol Last Titration: 06/08/21 05:15 Dose: 13 units/kg/hr, 10.04 mls/hr Documented by: Latanoprost (Latanoprost 0.005 % Ophth Anum 2.5 Ml Drops) 1 drop EYE-BOTH BEDTIME [facility] Last Admin: 06/07/21 21:41 Dose: 1 drop Documented by: Medication (No Anticoagulants) 1 each MISCELLANE DAILY [facility] Stop: 06/13/21 12:03 Medication (No Nsaids) 1 each MISCELLANE DAILY [facility] Stop: 06/13/21 12:00 Medication (No Anticoagulant-Heparin Sq Ok) 1 each MISCELLANE DAILY [facility] Stop: 06/13/21 12:00 Medication (No Anticoagulant/Antiplatelet) 1 each MISCELLANE DAILY [facility] Stop: 06/13/21 12:00 Melatonin (Melatonin 3 Mg Tablet) 6 mg PO BEDTIME PRN PRN Reason: Insomnia Metoprolol Tartrate (Metoprolol Tartrate 5 Mg/5 Ml Vial) 5 mg IVPUSH Q6H PRN PRN Reason: HR>125 Metoprolol Tartrate (Metoprolol Tartrate 12.5 Mg Halftab) 12.5 mg PO BID [facility]; Protocol Last Admin: 06/08/21 10:05 Dose: 12.5 mg Documented by: Nitroglycerin (Nitroglycerin 0.4 Mg Tab.Subl) 0.4 mg SUBLINGUAL Q5MX3 PRN PRN Reason: Chest Pain Last Admin: 06/07/21 01:25 Dose: 0.4 mg Documented by: Omeprazole (Omeprazole 20 Mg Capsule.Dr) 20 mg PO DAILY@0630 [facility] Last Admin: 06/08/21 06:39 Dose: 20 mg Documented by: Ondansetron HCl (Ondansetron Hcl 4 Mg/2 Ml Vial) 4 mg IVPUSH Q8H PRN PRN Reason: Nausea and Vomiting Last Admin: 06/07/21 04:18 Dose: 4 mg Documented by: Oxycodone HCl (Oxycodone Hcl Immed Release 5 Mg Tablet) 10 mg PO ONCE PRN PRN Reason: Pain, Severe (Pain Scale 7-10) Pyridoxine HCl (Pyridoxine Hcl (Vitamin B6) 50 Mg Tablet) 100 mg PO DAILY [facility] Last Admin: 06/08/21 10:05 Dose: 100 mg Documented by: Senna (Sennosides 8.6 Mg Tablet) 17.2 mg PO BEDTIME PRN PRN Reason: Constipation Sodium Chloride (0.9 % Sodium Chloride Flush 3 Ml Syringe) 3 ml IVFLUSH QSHIFT [facility] Last Admin: 06/08/21 10:05 Dose: 3 ml Documented by: <RAI Horvath - Last Filed: 06/08/21 11:48> Time Spent With Patient Time: Total time spent is greater than 50% in coordination of care (as documented) at patient's floor/unit and/or counseling patient: <RAI Horvath - Last Filed: 06/08/21 11:48> Time with patient: 15 - 24 minutes <RAI Horvath - Last Filed: 06/08/21 11:48> Progress Note: Quality Stroke Does the patient have a stroke diagnosis?: No <RAI Horvath - Last Filed: 06/08/21 11:48> Procedures Date of Service Date of Service: 06/08/21 <RAI Horvath - Last Filed: 06/08/21 11:48>
[2021-06-08 11:46] LABS: PTT Heparin Drip 58.1 SEC (53-77.9)
--- NOTE | 2021-06-08 11:50 | P.PNIM_ITS ---
Subjective Subjective Date of Service: 06/08/21 Interval History: cc: abd pain interval history: still no appetite Cardiovascular Cardiovascular: Reports no additional cardiovascular complaints Respiratory Respiratory: Reports no additional respiratory complaints Physical Exam Vital Signs: Vital Signs: Last Vital Signs Temp 98.7 F 06/08/21 07:00 Pulse 76 06/08/21 07:47 Resp 18 06/08/21 07:47 BP 137/73 06/08/21 07:00 Pulse Ox 96 06/08/21 07:00 Oxygen Flow Rate 4 06/07/21 06:40 BMI result Body Mass Index 25.9 General: AO X 3, no acute distress Resp:? CTA bilateral, no accessory muscles used CVS: S1,S2,RRR GI: soft, mildly tender, midlly distended Neuro:? motor grossly intact, alert Psych: appropriate affect, appropriate insight? Objective Data Active Medications Acetaminophen (Acetaminophen 325 Mg Tablet) 650 mg PO Q6H PRN PRN Reason: Pain, Mild (Pain Scale 1-3) Last Admin: 06/05/21 15:11 Dose: 650 mg Documented by: HARIKA Aspirin (Aspirin 81 Mg Tab.Chew) 81 mg PO DAILY [facility] Last Admin: 06/08/21 10:05 Dose: 81 mg Documented by: MISTY Dorzolamide/Timolol (Dorzolamide/Timolo 2.23%/0.68% 10 Ml Drbtl) 1 drop EYE- BOTH BID [facility] Last Admin: 06/08/21 10:07 Dose: 1 drop Documented by: MISTY Fluticasone/Vilanterol (Fluticasone/Vilanterol 100/25 Blst.W.Dev) 1 puff INHALE RDAILY [facility] Last Admin: 06/08/21 07:44 Dose: 1 puff Documented by: RICHELLE Heparin Sodium (Porcine) (Heparin Sodium,Porcine 5,000 Unit/Ml Vial) 3,100 unit 40 unit/kg (3100 unit) IVPUSH PROTOCOL BOLUS PRN; Protocol PRN Reason: 40 unit/kg - Heparin Protocol Last Admin: 06/07/21 21:36 Dose: 3,100 unit Documented by: JULIA Heparin Sodium (Porcine) (Heparin Sodium,Porcine 5,000 Unit/Ml Vial) 6,200 unit 80 unit/kg (6200 unit) IVPUSH PROTOCOL BOLUS PRN; Protocol PRN Reason: 80 unit/kg - Heparin Protocol Hydromorphone HCl (Hydromorphone Hcl 1 Mg/Ml Syringe) 0.5 mg IVPUSH Q4H PRN; Protocol PRN Reason: Pain, Severe (Pain Scale 7-10) Last Admin: 06/07/21 02:23 Dose: 0.5 mg Documented by: CHELSIE Ceftriaxone Sodium 1 gm/ (Sodium Chloride) 50 mls @ 100 mls/hr IV Q24H [facility] Last Infusion: 06/08/21 06:39 Dose: 0 mls/hr Documented by: JULIA Metronidazole (Flagyl) 500 mg in 100 mls @ 100 mls/hr IV Q8H [facility] Last Infusion: 06/08/21 08:43 Dose: 0 mls/hr Documented by: MISTY Lactated Ringer's (Lr) 1,000 mls @ 80 mls/hr IVCONT .[id number] [facility] Last Admin: 06/08/21 05:58 Dose: 80 mls/hr Documented by: JULIA Heparin Sodium/Sodium Chloride () 25,000 unit in 250 mls @ 0 mls/hr IVCONT .Q0M [facility]; Protocol Last Titration: 06/08/21 05:15 Dose: 13 units/kg/hr, 10.04 mls/hr Documented by: MISTY Cosigned by: STEPHANIE Latanoprost (Latanoprost 0.005 % Ophth Anum 2.5 Ml Drops) 1 drop EYE-BOTH BEDTIME [facility] Last Admin: 06/07/21 21:41 Dose: 1 drop Documented by: JULIA Medication (No Anticoagulants) 1 each MISCELLANE DAILY [facility] Stop: 06/13/21 12:03 Medication (No Nsaids) 1 each MISCELLANE DAILY [facility] Stop: 06/13/21 12:00 Medication (No Anticoagulant-Heparin Sq Ok) 1 each MISCELLANE DAILY [facility] Stop: 06/13/21 12:00 Medication (No Anticoagulant/Antiplatelet) 1 each MISCELLANE DAILY [facility] Stop: 06/13/21 12:00 Melatonin (Melatonin 3 Mg Tablet) 6 mg PO BEDTIME PRN PRN Reason: Insomnia Metoprolol Tartrate (Metoprolol Tartrate 5 Mg/5 Ml Vial) 5 mg IVPUSH Q6H PRN PRN Reason: HR>125 Metoprolol Tartrate (Metoprolol Tartrate 12.5 Mg Halftab) 12.5 mg PO BID [facility]; Protocol Last Admin: 06/08/21 10:05 Dose: 12.5 mg Documented by: MISTY Nitroglycerin (Nitroglycerin 0.4 Mg Tab.Subl) 0.4 mg SUBLINGUAL Q5MX3 PRN PRN Reason: Chest Pain Last Admin: 06/07/21 01:25 Dose: 0.4 mg Documented by: CHELSIE Omeprazole (Omeprazole 20 Mg Capsule.Dr) 20 mg PO DAILY@0630 [facility] Last Admin: 06/08/21 06:39 Dose: 20 mg Documented by: JULIA Ondansetron HCl (Ondansetron Hcl 4 Mg/2 Ml Vial) 4 mg IVPUSH Q8H PRN PRN Reason: Nausea and Vomiting Last Admin: 06/07/21 04:18 Dose: 4 mg Documented by: GREGORIO Oxycodone HCl (Oxycodone Hcl Immed Release 5 Mg Tablet) 10 mg PO ONCE PRN PRN Reason: Pain, Severe (Pain Scale 7-10) Pyridoxine HCl (Pyridoxine Hcl (Vitamin B6) 50 Mg Tablet) 100 mg PO DAILY [facility] Last Admin: 06/08/21 10:05 Dose: 100 mg Documented by: MISTY Senna (Sennosides 8.6 Mg Tablet) 17.2 mg PO BEDTIME PRN PRN Reason: Constipation Sodium Chloride (0.9 % Sodium Chloride Flush 3 Ml Syringe) 3 ml IVFLUSH QSHIFT [facility] Last Admin: 06/08/21 10:05 Dose: 3 ml Documented by: MISTY Labs CBC & Chem 7: 06/08/21 03:34 06/08/21 03:34 Labs: Laboratory Results - last 24 hr 06/07/21 06/07/21 06/07/21 12:20 12:20 20:21 MCV 97.2 MCH 30.2 MCHC 31.1 RDW 13.4 Plt Count 243 MPV 10.0 Absolute Nucleated RBC 0.000 Nucleated RBC % (auto) 0.0 PT 12.2 INR 1.1 aPTT Heparin Protocol 31.8 L 52.9 L D Anion Gap Estim Creat Clear Calc Estimated GFR Fasting Glucose Calcium Total Bilirubin Direct Bilirubin AST ALT Alkaline Phosphatase Total Protein Albumin Lipase 06/08/21 06/08/21 06/08/21 03:34 03:34 03:34 MCV 95.9 MCH 30.6 MCHC 31.9 RDW 13.1 Plt Count 249 MPV 9.7 Absolute Nucleated RBC 0.000 Nucleated RBC % (auto) 0.0 PT Cancelled INR Cancelled aPTT Heparin Protocol Anion Gap 16 Estim Creat Clear Calc 62.2 Estimated GFR > 60 Fasting Glucose 87 Calcium 8.5 Total Bilirubin 1.0 Direct Bilirubin 0.5 AST 43 H ALT 127 H Alkaline Phosphatase 179 H Total Protein 5.7 L Albumin 3.0 L Lipase 45 06/08/21 06/08/21 06/08/21 03:34 03:34 11:15 MCV MCH MCHC RDW Plt Count MPV Absolute Nucleated RBC Nucleated RBC % (auto) PT 12.7 INR 1.1 aPTT Heparin Protocol 106.4 H D 58.1 D Anion Gap Estim Creat Clear Calc Estimated GFR Fasting Glucose Calcium Total Bilirubin Direct Bilirubin AST ALT Alkaline Phosphatase Total Protein Albumin Lipase Cancelled Microbiology Microbiology Results: Microbiology 06/05/21 01:57 Blood Culture - Final Blood - Venous Escherichia coli 06/07/21 02:35 Blood Culture - Preliminary Blood - Venous No growth after 24 hours. 06/07/21 02:35 Blood Culture - Preliminary Blood - Venous No growth after 24 hours. Assessment and Plan (1) Dilation of biliary tract: Status: Resolved Plan 81M presented with abd pain, now complicated by episode of afib with rvr and nstemi new onset atrial fibrillation with rvr now in NSR follo up echo lopressor cardio following NSTEMI cardio appreciated 48hrs iv heparin, asa (discussed with oncall GI) follow up echo Choledocholithiasis with ecoli bacteremia s/p ERCP 06/05/21 with sphinterotomy not tolerating clears - post ERCP acute pancreatitis continue Rocephin, flagyl, IVF, monitor lfts History of glaucoma Continue ophthalmic drops Hyperlipidemia Statin on hold Mild intermittent asthma Stable, continue inhalers reason for continued hospitalization: iv heparin for nstemi, not tolerating diet, Quality Stroke Does the patient have a stroke diagnosis?: No VTE Prior VTE?: No VTE Risk Level:: Medical - moderate - high VTE Device Contraindication: Treatment Not Indicated VTE Drug Contraindication: N/A - Med Ordered
[2021-06-08] MEDS: Heparin Sodium,Porcine/1/2NS 25,000 UNIT/250 ML IV.SOLN 10.04 UNIT IVCONT (14:19)
--- NOTE | 2021-06-08 14:37 | MHC.CM.PN ---
Male 81 DX Choledocholithiasis DP home no services. [facility] will assist with transportation.
[2021-06-08] MEDS: HYDROmorphone HCl 1 MG/ML SYRINGE 0.5 MG IVPUSH (16:45)
[2021-06-08 18:23] LABS: Partial Thromboplastin Time 60.3 SEC (24.1-38.0)
--- NOTE | 2021-06-08 18:50 | PM.GIPN ---
Subjective Subjective Date of Service: 06/08/21 Interval History: Course noted re: post-ERCP abdominal pain, as well as cardiac issues. He is presently feeling much better. The mid-abdominal discomfort is better. He had a brown BM today and is passing flatus. He is tolerating liquids. Denies any SOB,CP, N/V, sx, or bleeding. He does have some left-sided discomfort but reports that is chronic and thinks it's from some issue with kidney stones on the left side. Critical Care Time (minutes): 0 Physical Exam Vital Signs: Vital Signs: Last Vital Signs Temp 97.3 F 06/08/21 15:42 Pulse 69 06/08/21 15:42 Resp 18 06/08/21 15:42 BP 149/78 H 06/08/21 15:42 Pulse Ox 96 06/08/21 15:42 Oxygen Flow Rate 4 06/07/21 06:40 BMI result Body Mass Index 25.9 Const: General: cooperative, healthy appearing, comfortable, no acute distress, well developed, alert and awake Eyes: Other: Anicteric GI: Other: Abd-Soft, +BS, Nondistended, NT except for some minimal tenderness on left side, no rebound/guarding Objective Data Labs CBC & Chem 7: 06/08/21 03:34 06/08/21 03:34 Labs: Laboratory Results - last 24 hr 06/07/21 06/08/21 06/08/21 20:21 03:34 03:34 WBC 9.3 RBC 3.63 L Hgb 11.1 L Hct 34.8 L MCV 95.9 MCH 30.6 MCHC 31.9 RDW 13.1 Plt Count 249 MPV 9.7 Absolute Nucleated RBC 0.000 Nucleated RBC % (auto) 0.0 PT Cancelled INR Cancelled APTT aPTT Heparin Protocol 52.9 L D Sodium Potassium Chloride Carbon Dioxide Anion Gap BUN Creatinine Estim Creat Clear Calc Estimated GFR Fasting Glucose Calcium Total Bilirubin Direct Bilirubin AST ALT Alkaline Phosphatase Total Protein Albumin Lipase 06/08/21 06/08/21 06/08/21 03:34 03:34 03:34 WBC RBC Hgb Hct MCV MCH MCHC RDW Plt Count MPV Absolute Nucleated RBC Nucleated RBC % (auto) PT 12.7 INR 1.1 APTT aPTT Heparin Protocol 106.4 H D Sodium 140 Potassium 3.7 Chloride 108 Carbon Dioxide 20 L Anion Gap 16 BUN 13 Creatinine 0.90 Estim Creat Clear Calc 62.2 Estimated GFR > 60 Fasting Glucose 87 Calcium 8.5 Total Bilirubin 1.0 Direct Bilirubin 0.5 AST 43 H ALT 127 H Alkaline Phosphatase 179 H Total Protein 5.7 L Albumin 3.0 L Lipase 45 Cancelled 06/08/21 06/08/21 11:15 17:17 WBC RBC Hgb Hct MCV MCH MCHC RDW Plt Count MPV Absolute Nucleated RBC Nucleated RBC % (auto) PT INR APTT 60.3 H* aPTT Heparin Protocol 58.1 D Sodium Potassium Chloride Carbon Dioxide Anion Gap BUN Creatinine Estim Creat Clear Calc Estimated GFR Fasting Glucose Calcium Total Bilirubin Direct Bilirubin AST ALT Alkaline Phosphatase Total Protein Albumin Lipase Microbiology Microbiology Results: Microbiology 06/05/21 01:57 Blood - Venous Blood Culture - Final Escherichia coli 06/07/21 02:35 Blood - Venous Blood Culture - Preliminary No growth after 24 hours. 06/07/21 02:35 Blood - Venous Blood Culture - Preliminary No growth after 24 hours. 06/05/21 02:05 Blood - Venous Blood Culture - Preliminary No growth after 48 hours. Procedures Date of Service Date of Service: 06/08/21 Progress Note: A&P Assessment and plan (1) Choledocholithiasis: Status: Acute (2) Abdominal pain following cholangiogram: Status: Acute Assessment and Plan: Imp: Overall patient seems to be improving. The initial symptoms related to the choledocholithiasis seem improved after the ERCP, as do his labs. He remains on antibiotics for the associated E.coli sepsis from the CBD stones and biliary obstruction. His abdominal pain after the ERCP seems much improved. This may have been some post-ERCP pancreatitis, although the pancreas appeared normal on the CT scan on 06/06 and the lipase was normal today. Rec: Will try to advance diet for tomorrow. F/U labs. Can probably change to po antibiotics in the next 1-2 days. Continue PPI. Observe. D/W all of the above with the patient in detail and he is comfortable with this plan. Thanks (3) Cholangitis due to bile duct calculus with obstruction: Status: Acute Fall Risk Details Current Medications: Current Medications Acetaminophen (Acetaminophen 325 Mg Tablet) 650 mg PO Q6H PRN PRN Reason: Pain, Mild (Pain Scale 1-3) Last Admin: 06/05/21 15:11 Dose: 650 mg Documented by: Aspirin (Aspirin 81 Mg Tab.Chew) 81 mg PO DAILY [facility] Last Admin: 06/08/21 10:05 Dose: 81 mg Documented by: Dorzolamide/Timolol (Dorzolamide/Timolo 2.23%/0.68% 10 Ml Drbtl) 1 drop EYE-BOTH BID [facility] Last Admin: 06/08/21 10:07 Dose: 1 drop Documented by: Fluticasone/Vilanterol (Fluticasone/Vilanterol 100/25 Blst.W.Dev) 1 puff INHALE RDAILY [facility] Last Admin: 06/08/21 07:44 Dose: 1 puff Documented by: Heparin Sodium (Porcine) (Heparin Sodium,Porcine 5,000 Unit/Ml Vial) 3,100 unit 40 unit/kg (3100 unit) IVPUSH PROTOCOL BOLUS PRN; Protocol PRN Reason: 40 unit/kg - Heparin Protocol Last Admin: 06/07/21 21:36 Dose: 3,100 unit Documented by: Heparin Sodium (Porcine) (Heparin Sodium,Porcine 5,000 Unit/Ml Vial) 6,200 unit 80 unit/kg (6200 unit) IVPUSH PROTOCOL BOLUS PRN; Protocol PRN Reason: 80 unit/kg - Heparin Protocol Hydromorphone HCl (Hydromorphone Hcl 1 Mg/Ml Syringe) 0.5 mg IVPUSH Q4H PRN; Protocol PRN Reason: Pain, Severe (Pain Scale 7-10) Last Admin: 06/08/21 16:45 Dose: 0.5 mg Documented by: Ceftriaxone Sodium 1 gm/ (Sodium Chloride) 50 mls @ 100 mls/hr IV Q24H [facility] Last Infusion: 06/08/21 06:39 Dose: Infused Documented by: Metronidazole (Flagyl) 500 mg in 100 mls @ 100 mls/hr IV Q8H [facility] Last Infusion: 06/08/21 15:35 Dose: Infused Documented by: Lactated Ringer's (Lr) 1,000 mls @ 80 mls/hr IVCONT .[id number] [facility] Last Admin: 06/08/21 17:57 Dose: Not Given Documented by: Heparin Sodium/Sodium Chloride () 25,000 unit in 250 mls @ 0 mls/hr IVCONT .Q0M [facility]; Protocol Last Admin: 06/08/21 14:19 Dose: 13 units/kg/hr, 10.04 mls/hr Documented by: Latanoprost (Latanoprost 0.005 % Ophth Anum 2.5 Ml Drops) 1 drop EYE-BOTH BEDTIME [facility] Last Admin: 06/07/21 21:41 Dose: 1 drop Documented by: Medication (No Anticoagulants) 1 each MISCELLANE DAILY [facility] Stop: 06/13/21 12:03 Medication (No Nsaids) 1 each MISCELLANE DAILY [facility] Stop: 06/13/21 12:00 Medication (No Anticoagulant-Heparin Sq Ok) 1 each MISCELLANE DAILY [facility] Stop: 06/13/21 12:00 Medication (No Anticoagulant/Antiplatelet) 1 each MISCELLANE DAILY [facility] Stop: 06/13/21 12:00 Melatonin (Melatonin 3 Mg Tablet) 6 mg PO BEDTIME PRN PRN Reason: Insomnia Metoprolol Tartrate (Metoprolol Tartrate 5 Mg/5 Ml Vial) 5 mg IVPUSH Q6H PRN PRN Reason: HR>125 Metoprolol Tartrate (Metoprolol Tartrate 12.5 Mg Halftab) 12.5 mg PO BID [facility]; Protocol Last Admin: 06/08/21 10:05 Dose: 12.5 mg Documented by: Nitroglycerin (Nitroglycerin 0.4 Mg Tab.Subl) 0.4 mg SUBLINGUAL Q5MX3 PRN PRN Reason: Chest Pain Last Admin: 06/07/21 01:25 Dose: 0.4 mg Documented by: Omeprazole (Omeprazole 20 Mg Capsule.Dr) 20 mg PO DAILY@0630 [facility] Last Admin: 06/08/21 06:39 Dose: 20 mg Documented by: Ondansetron HCl (Ondansetron Hcl 4 Mg/2 Ml Vial) 4 mg IVPUSH Q8H PRN PRN Reason: Nausea and Vomiting Last Admin: 06/07/21 04:18 Dose: 4 mg Documented by: Oxycodone HCl (Oxycodone Hcl Immed Release 5 Mg Tablet) 10 mg PO ONCE PRN PRN Reason: Pain, Severe (Pain Scale 7-10) Pyridoxine HCl (Pyridoxine Hcl (Vitamin B6) 50 Mg Tablet) 100 mg PO DAILY [facility] Last Admin: 06/08/21 10:05 Dose: 100 mg Documented by: Senna (Sennosides 8.6 Mg Tablet) 17.2 mg PO BEDTIME PRN PRN Reason: Constipation Sodium Chloride (0.9 % Sodium Chloride Flush 3 Ml Syringe) 3 ml IVFLUSH QSHIFT [facility] Last Admin: 06/08/21 16:52 Dose: 3 ml Documented by: Time Spent With Patient Time: Total time spent is greater than 50% in coordination of care (as documented) at patient's floor/unit and/or counseling patient: Time with patient: 25 - 35 minutes Quality Stroke Does the patient have a stroke diagnosis?: No VTE Prior VTE?: No VTE Risk Level:: Medical - moderate - high VTE Device Contraindication: Treatment Not Indicated VTE Drug Contraindication: N/A - Med Ordered
--- NOTE | 2021-06-08 20:22 | PC.NURSE ---
17:17 APTT result 60.3. RN contacted chemistry to confirm that 60.3 result can be used for titrating heparin gtt. Laboratory confirmed that this measurement is correct and can be applied to heparin gtt protocol and reference range. Heparin gtt no rate change and running at 13 u/kg/hr. next PTT-HD 06/09/20 06:00 after two previous no rate changes. Next shift RN aware.
[2021-06-08] MEDS: Latanoprost 0.005 % Ophth Sol 2.5 ML DROPS 1 DROP EYE-BOTH (21:41)
[2021-06-09 03:00] VITALS: BP 141/76; PULSE 71; RESP 18; TEMP 36.3; O2SAT 96
[2021-06-09] MEDS: cefTRIAXone sodium 1 GM in 0.9 % Sodium Chloride 50 ML IV (05:51)
[2021-06-09] MEDS: Omeprazole 20 MG CAPSULE.DR PO (05:51)
[2021-06-09] MEDS: metroNIDAZOLE/NS 500 MG/100 ML PIGGYBACK 100 MG IV ×2 (05:51→14:00)
[2021-06-09 06:05] VITALS: RESP 18
[2021-06-09] MEDS: HYDROmorphone HCl 1 MG/ML SYRINGE 0.5 MG IVPUSH (06:05)
[2021-06-09 06:15] LABS: Hematocrit 36.2 % (42.0-52.0); Hemoglobin 11.7 g/dl (14.0-18.0); Mean Corpuscular HGB Conc 32.3 g/dl (31.0-36.0); Mean Corpuscular Hemoglobin 30.4 pg (27.0-33.0); Mean Platelet Volume 9.8 fL (9.4-12.4); Platelet Count 275 X10*3/uL (160-400); Red Blood Count 3.85 X10*6/uL (4.60-5.80); Red Cell Distribution Width 12.7 % (11.0-16.0); White Blood Count 7.1 X10*3/uL (4.8-10.8)
[2021-06-09 06:24] LABS: PTT Heparin Drip 62.6 SEC (53-77.9)
[2021-06-09 06:42] LABS: Alanine Aminotransferase 105 U/L (0-40); Alkaline Phosphatase 164 U/L (39-117); Anion Gap 14 (12-20); Aspartate Amino Transferase 44 U/L (5-37); Bilirubin Direct 0.5 mg/dL (0.0-0.5); Bilirubin Total 0.8 mg/dL (0.0-1.0); Blood Urea Nitrogen 9 mg/dL (9-16); Calcium 8.6 mg/dL (8.4-10.2); Carbon Dioxide 22 mmol/L (22-29); Chloride 107 mmol/L (96-108); Creatinine Clr Calc Pharmacy 66.7; Estimated Glomerular Filt Rate > 60; Glucose Fasting 82 mg/dL (60-99); Potassium 3.4 mmol/L (3.3-5.1); Sodium 140 mmol/L (135-145); Total Protein 5.5 g/dL (6.5-8.0)
[2021-06-09 07:00] VITALS: BP 137/67; PULSE 72; RESP 18; TEMP 36.7; O2SAT 94
[2021-06-09] MEDS: Fluticasone/Vilanterol 100/25 BLST.W.DEV 1 PUFF INHALE (07:28)
[2021-06-09 07:29] VITALS: PULSE 78; RESP 18; O2SAT 95
[2021-06-09] MEDS: Metoprolol Tartrate 12.5 MG HALFTAB PO (08:17)
[2021-06-09] MEDS: Pyridoxine HCl (Vitamin B6) 50 MG TABLET 100 MG PO (08:18)
[2021-06-09] MEDS: Aspirin 81 MG TAB.CHEW PO (08:18)
[2021-06-09] MEDS: 0.9 % Sodium Chloride Flush 3 ML SYRINGE IVFLUSH (08:18)
[2021-06-09] MEDS: Dorzolamide/Timolo 2.23%/0.68% 10 ML DRBTL 1 DROP EYE-BOTH (08:19)
[2021-06-09 11:00] VITALS: BP 121/67; PULSE 60; RESP 17; TEMP 36.2; O2SAT 95
[2021-06-09] MEDS: ondansetron HCL 4 MG/2 ML VIAL IVPUSH (11:24)
--- NOTE | 2021-06-09 12:42 | P.PNCA_ITS ---
Subjective Subjective Date of Service: 06/09/21 Principal diagnosis: afib, NSTEMI, gallstones Interval history: Cardiology follow up of afib, NSTEMI. Seen at 1115. Today he reports that he ate eggs and muffin for breakfast and now feels nausea. No vomiting. Mild left upper quadrant ache. No chest pains, sob, palpitation, dizziness. Moving around room without difficulty. Continues on heparin drip. Review of Systems Review of Systems as above Yes all other systems are reviewed and are negative Physical Exam Vital Signs: Last Vital Signs Temp 97.2 F 06/09/21 11:00 Pulse 60 06/09/21 11:00 Resp 17 06/09/21 11:00 BP 121/67 06/09/21 11:00 Pulse Ox 95 06/09/21 11:00 Oxygen Flow Rate 4 06/07/21 06:40 BMI result Body Mass Index 25.9 Const General: cooperative, no acute distress, alert and awake Orientation/consciousness: patient oriented x3 Neck Neck: Yes normal visual inspection and Yes no JVD Resp Effort & Inspection: normal respiratory effort, able to speak in complete sentences and not labored Auscultation: clear to auscultation bilaterally, no crackles, no rales, no rhon chi and no wheezes Cardio Rate: regular rate Rhythm: regular rhythm Heart sounds: S1 normal heart sound present and S2 normal heart sound present Peripheral pulses: Peripheral pulses 2+ throughout Neuro General: patient oriented x3 Extrem General: Yes normal to inspection and No edema Objective Labs and Meds Result diagrams: 06/09/21 05:54 06/09/21 05:54 Lab results: Laboratory Results - last 24 hr 06/08/21 06/09/21 06/09/21 17:17 05:54 05:54 WBC 7.1 RBC 3.85 L Hgb 11.7 L Hct 36.2 L MCV 94.0 MCH 30.4 MCHC 32.3 RDW 12.7 Plt Count 275 MPV 9.8 Absolute Nucleated RBC 0.000 Nucleated RBC % (auto) 0.0 APTT 60.3 H* aPTT Heparin Protocol Sodium 140 Potassium 3.4 Chloride 107 Carbon Dioxide 22 Anion Gap 14 BUN 9 Creatinine 0.84 Estim Creat Clear Calc 66.7 Estimated GFR > 60 Fasting Glucose 82 Calcium 8.6 Total Bilirubin 0.8 Direct Bilirubin 0.5 AST 44 H ALT 105 H Alkaline Phosphatase 164 H Total Protein 5.5 L Albumin 3.0 L 06/09/21 05:54 WBC RBC Hgb Hct MCV MCH MCHC RDW Plt Count MPV Absolute Nucleated RBC Nucleated RBC % (auto) APTT aPTT Heparin Protocol 62.6 Sodium Potassium Chloride Carbon Dioxide Anion Gap BUN Creatinine Estim Creat Clear Calc Estimated GFR Fasting Glucose Calcium Total Bilirubin Direct Bilirubin AST ALT Alkaline Phosphatase Total Protein Albumin Progress Note: A&P Assessment and plan (1) Atrial fibrillation with rapid ventricular response: Status: Acute Assessment and Plan: Episode of afib, RVR, lasting 2.5 hours early am hours 06/07/21. Converted with rate slowing agents. Symptoms of palpitation and mid chest discomfort at that time, reported to me. He was started on Metoprolol for rate control. Tele has shows SR, rates mostly 80s since that time. No recurrent PAF seen. No recurrent CP. Unknown at present if this is isolated event in the setting of his GI issues. Ongoing Tele monitoring while inpt. We will plan for outpt holter monitor. Continue metoprolol. CHADSVASc score 3 ( age, DM)? If he has any recurrent afib, then salvage determiner anticoagulation will be indicated. Currently on heparin drip for NSTEMI. (2) NSTEMI (non-ST elevated myocardial infarction): Status: Acute Assessment and Plan: Chest discomfort reported as above.? EKG at that time does not look ischemic. Troponin elevated up to 393. Could be secondary NSTEMI related to demand from afib RVR. Uncertain at this time. No recurrent episodes of CP reported. No cardiac hx. He is being anticoagulated with heparin drip for [address] arted. On Metoprolol. Statin held due to elevated LFTs. Echo done yesterday shows EF 60-65%, no regional WMA, mild increase in RV size. Due to other medical issues - will plan for outpt nuclear stress test. Fall Risk Details Current Medications: Current Medications Acetaminophen (Acetaminophen 325 Mg Tablet) 650 mg PO Q6H PRN PRN Reason: Pain, Mild (Pain Scale 1-3) Last Admin: 06/05/21 15:11 Dose: 650 mg Documented by: Aspirin (Aspirin 81 Mg Tab.Chew) 81 mg PO DAILY [facility] Last Admin: 06/09/21 08:18 Dose: 81 mg Documented by: Dorzolamide/Timolol (Dorzolamide/Timolo 2.23%/0.68% 10 Ml Drbtl) 1 drop EYE- BOTH BID [facility] Last Admin: 06/09/21 08:19 Dose: 1 drop Documented by: Fluticasone/Vilanterol (Fluticasone/Vilanterol 100/25 Blst.W.Dev) 1 puff INHALE RDAILY [facility] Last Admin: 06/09/21 07:28 Dose: 1 puff Documented by: Heparin Sodium (Porcine) (Heparin Sodium,Porcine 5,000 Unit/Ml Vial) 3,100 unit 40 unit/kg (3100 unit) IVPUSH PROTOCOL BOLUS PRN; Protocol PRN Reason: 40 unit/kg - Heparin Protocol Last Admin: 06/07/21 21:36 Dose: 3,100 unit Documented by: Heparin Sodium (Porcine) (Heparin Sodium,Porcine 5,000 Unit/Ml Vial) 6,200 unit 80 unit/kg (6200 unit) IVPUSH PROTOCOL BOLUS PRN; Protocol PRN Reason: 80 unit/kg - Heparin Protocol Hydromorphone HCl (Hydromorphone Hcl 1 Mg/Ml Syringe) 0.5 mg IVPUSH Q4H PRN; Protocol PRN Reason: Pain, Severe (Pain Scale 7-10) Last Admin: 06/09/21 06:05 Dose: 0.5 mg Documented by: Ceftriaxone Sodium 1 gm/ (Sodium Chloride) 50 mls @ 100 mls/hr IV Q24H [facility] Last Infusion: 06/09/21 06:38 Dose: Infused Documented by: Metronidazole (Flagyl) 500 mg in 100 mls @ 100 mls/hr IV Q8H [facility] Last Infusion: 06/09/21 06:53 Dose: Infused Documented by: Lactated Ringer's (Lr) 1,000 mls @ 80 mls/hr IVCONT .[id number] [facility] Last Infusion: 06/09/21 10:08 Dose: Infused Documented by: Heparin Sodium/Sodium Chloride () 25,000 unit in 250 mls @ 0 mls/hr IVCONT .Q0M [facility]; Protocol Last Titration: 06/09/21 08:07 Dose: Infused Documented by: Latanoprost (Latanoprost 0.005 % Ophth Anum 2.5 Ml Drops) 1 drop EYE-BOTH BEDTIME [facility] Last Admin: 06/08/21 21:41 Dose: 1 drop Documented by: Medication (No Anticoagulants) 1 each MISCELLANE DAILY [facility] Stop: 06/13/21 12:03 Medication (No Nsaids) 1 each MISCELLANE DAILY [facility] Stop: 06/13/21 12:00 Medication (No Anticoagulant-Heparin Sq Ok) 1 each MISCELLANE DAILY [facility] Stop: 06/13/21 12:00 Medication (No Anticoagulant/Antiplatelet) 1 each MISCELLANE DAILY [facility] Stop: 06/13/21 12:00 Melatonin (Melatonin 3 Mg Tablet) 6 mg PO BEDTIME PRN PRN Reason: Insomnia Metoprolol Tartrate (Metoprolol Tartrate 5 Mg/5 Ml Vial) 5 mg IVPUSH Q6H PRN PRN Reason: HR>125 Metoprolol Tartrate (Metoprolol Tartrate 12.5 Mg Halftab) 12.5 mg PO BID [facility]; Protocol Last Admin: 06/09/21 08:17 Dose: 12.5 mg Documented by: Nitroglycerin (Nitroglycerin 0.4 Mg Tab.Subl) 0.4 mg SUBLINGUAL Q5MX3 PRN PRN Reason: Chest Pain Last Admin: 06/07/21 01:25 Dose: 0.4 mg Documented by: Omeprazole (Omeprazole 20 Mg Capsule.Dr) 20 mg PO DAILY@0630 [facility] Last Admin: 06/09/21 05:51 Dose: 20 mg Documented by: Ondansetron HCl (Ondansetron Hcl 4 Mg/2 Ml Vial) 4 mg IVPUSH Q8H PRN PRN Reason: Nausea and Vomiting Last Admin: 06/09/21 11:24 Dose: 4 mg Documented by: Oxycodone HCl (Oxycodone Hcl Immed Release 5 Mg Tablet) 10 mg PO ONCE PRN PRN Reason: Pain, Severe (Pain Scale 7-10) Pyridoxine HCl (Pyridoxine Hcl (Vitamin B6) 50 Mg Tablet) 100 mg PO DAILY [facility] Last Admin: 06/09/21 08:18 Dose: 100 mg Documented by: Senna (Sennosides 8.6 Mg Tablet) 17.2 mg PO BEDTIME PRN PRN Reason: Constipation Sodium Chloride (0.9 % Sodium Chloride Flush 3 Ml Syringe) 3 ml IVFLUSH QSHIFT [facility] Last Admin: 06/09/21 08:18 Dose: 3 ml Documented by: Time Spent With Patient Time: Total time spent is greater than 50% in coordination of care (as documented) at patient's floor/unit and/or counseling patient: Time with patient: 15 - 24 minutes Progress Note: Quality Stroke Does the patient have a stroke diagnosis?: No Procedures Date of Service Date of Service: 06/09/21
--- NOTE | 2021-06-09 14:24 | P.DS_ITS ---
DS: Providers Provider Date of Service: 06/09/21 Date of admission: 06/05/21 05:35 Primary care physician: lBanca Franklin MD Consults: 06/05/21 05:33 Consult to Gastroenterology Routine Consulting Provider: Enoch Duran Reason for consultation: choledocholithiasis 06/07/21 01:52 Consult to Cardiology Routine Consulting Provider: Merritt Cazares Reason for consultation: chest pain/new onset AFib with RVR DS: Diagnosis Discharge Diagnosis (1) Atrial fibrillation with rapid ventricular response: Status: Acute (2) NSTEMI (non-ST elevated myocardial infarction): Status: Acute DS: Summary Hospital Course Hospital Course: from initial hpi: Chief Complaint:? abdominal pain ?81-year-old male with a past medical history of? hyperlipidemia, anxiety, history of kidney stones, BPH, GERD, asthma, history of cholecystectomy presented to the hospital today with a chief complaint of abdominal pain.? Patient reports that he has been having abdominal pain for the last 10 days, located on the right upper quadrant, associated nausea and vomiting; denies any diarrhea.? Denies any blood in the vomitus.? Denies any fever chills cough.? Denies any uri nary symptoms.? Reports he has been having chills and subjective fevers and noted to have low- grade temperature 9.5 F at home.? Denies any chest pain palpitations lightheadedness or dizziness.? Review of all other systems is negative except mentioned above ER course: Per ER team patient noted to have right upper quadrant tenderness; CT scan showed choledocholithiasis with dilated extrahepatic biliary duct; discussed with Dr. Juarez from Gastroenterology who mentioned to admit to the [facility] and will be evaluated in the morning.? Patient was also given empiric ? Antibiotics -ceftriaxone which patient tolerated w hospital course: Patient was admitted for choledocholithiasis complicated by acute cholangitis with E coli bacteremia. He was treated with ceftriaxone and Flagyl, he will be discharged on 7 more days of oral Ceftin. He underwent ERCP on 06/05/21 with sphincterotomy. Diet was slowly advanced and at time of discharge patient is tolerating solids. Bilirubinemia has resolved. Course was complicated by isolated episode of atrial fibrillation with rapid ventricular response. Patient was started on metoprolol, he converted to normal sinus rhythm and atrial fibrillation did not recur. Course was also complicated by NSTEMI with a peak high sensitive troponin of 393. He was treated with 48 hours of IV heparin, statin, aspirin, echo had no focal wall motion abnormalities. Did have some abnormal diastolic function in some mildly increased right ventricular size. seen by cardiology who felt this was likely a type II OR. he will follow up with them outpatient. His mild determine asthma remained stable, he was continued on his abdominal drops for his glaucoma, 1st hyperlipidemia statin was initially held, has been restarted now that his LFTs of improved. Time Spent with Patient Time attestation: Total time spent providing and/or coordinating discharge services: Discharge coordination time: Greater than 30 minutes Quality: Stroke Does the patient have a stroke diagnosis?: No Physical Exam Vital Signs: Vital Signs: Last Vital Signs Temp 97.2 F 06/09/21 11:00 Pulse 60 06/09/21 11:00 Resp 17 06/09/21 11:00 BP 121/67 06/09/21 11:00 Pulse Ox 95 06/09/21 11:00 Oxygen Flow Rate 4 06/07/21 06:40 BMI result Body Mass Index 25.9 General: AO X 3, no acute distress Resp: CTA bilateral, no accessory muscles used CVS: S1,S2,RRR GI: soft, non tender, non distended Neuro: motor grossly intact, alert Psych: appropriate affect, appropriate insight DS: Data Data Completed and Pending Completed studies during hospitalization [Text1]: Procedures Dilation of Common Bile Duct with Intraluminal Device, Via Natural or Artificial Opening Endoscopic (11/16/20) Labs on day of discharge: Laboratory Results - last 24 hr 06/08/21 06/09/21 06/09/21 17:17 05:54 05:54 WBC 7.1 RBC 3.85 L Hgb 11.7 L Hct 36.2 L MCV 94.0 MCH 30.4 MCHC 32.3 RDW 12.7 Plt Count 275 MPV 9.8 Absolute Nucleated RBC 0.000 Nucleated RBC % (auto) 0.0 APTT 60.3 H* aPTT Heparin Protocol Sodium 140 Potassium 3.4 Chloride 107 Carbon Dioxide 22 Anion Gap 14 BUN 9 Creatinine 0.84 Estim Creat Clear Calc 66.7 Estimated GFR > 60 Fasting Glucose 82 Calcium 8.6 Total Bilirubin 0.8 Direct Bilirubin 0.5 AST 44 H ALT 105 H Alkaline Phosphatase 164 H Total Protein 5.5 L Albumin 3.0 L 06/09/21 05:54 WBC RBC Hgb Hct MCV MCH MCHC RDW Plt Count MPV Absolute Nucleated RBC Nucleated RBC % (auto) APTT aPTT Heparin Protocol 62.6 Sodium Potassium Chloride Carbon Dioxide Anion Gap BUN Creatinine Estim Creat Clear Calc Estimated GFR Fasting Glucose Calcium Total Bilirubin Direct Bilirubin AST ALT Alkaline Phosphatase Total Protein Albumin Preliminary micro results at discharge 06/07/21 02:35 Blood Culture - Preliminary Blood - Venous No growth after 48 hours. 06/07/21 02:35 Blood Culture - Preliminary Blood - Venous No growth after 48 hours. 06/05/21 02:05 Blood Culture - Preliminary Blood - Venous No growth after 48 hours. Discharge Plan Discharge Patient Disposition: Home, Self-Care Discharge Diagnosis: cholangitis, nstemi, afib Referrals: Po,Blanca Melgar MD [Primary Care Provider] - 1 Week Discharge Medications: New cefuroxime axetil 500 mg tablet 500 mg PO BID Qty: 14 0RF aspirin 81 mg Tablet,Chewable 81 mg PO DAILY Qty: 30 0RF metoprolol succinate [Toprol XL] 25 mg tablet extended release 24 hr 25 mg PO DAILY Qty: 30 0RF Continued Breo Ellipta 100-25 mcg/dose blister with device 1 puff PO DAILY 0RF latanoprost 0.005 % drops 1 drp ophthalmic (eye) BEDTIME 0RF Rx Instructions: both eyes simvastatin 40 mg tablet 1 tab PO BEDTIME 0RF omeprazole 20 mg capsule,delayed release(DR/EC) 1 cap PO DAILY 0RF pyridoxine (vitamin B6) 100 mg tablet 1 tab PO DAILY 0RF tadalafil 10 mg tablet 1 tab PO DIRECTED PRN (Reason: Sexual Activity) 0RF dorzolamide-timolol 22.3-6.8 mg/mL drops 1 drp ophthalmic (eye) BID 0RF Discharge Orders: Discharge Order (Routine); Ordered 06/09/21 Ordered By: Noel Cummings Diet: advance to usual diet Activity on Discharge: As tolerated Stand Alone Forms: Patient Portal Discharge page Care Plan Goals: recovery Health Concerns: nstemi, cholangitis Plan of Treatment: 1 more week antibiotics, follow up gi, start metoprolol, asa, follow up with cardiology Assessment: see above
--- NOTE | 2021-06-09 14:53 | MHC.CM.PN ---
IMM 06/09/21 Male s/p ERCP is discharged to home today. No services ordered, or required. Family providing transport to home.
--- NOTE | 2021-06-09 15:23 | PC.NURSE ---
This morning around 7am it was documented incorrectly on Heparin drip by previous nurse accidentally. The pharmacist noticed the descrepcy
--- NOTE | 2021-06-09 15:27 | PC.NURSE ---
This morning around 6:50 the nurse documented the Heparin drip incorrectly on accident. It was noticed by the pharmacist who informed me. No changes needed to be made because it was in the Therapeutic range. This nurse documented the correct dosage.
== END 2021-06-09 15:45 | disposition home or self-care (01) | DRG 444 ==
LOC: HO.ED 06-05 05:09 → HO.EDOVER 06-05 05:45 → HO.S3 06-05 13:17 → HO.IMC 06-07 03:12
PROVIDERS: Internal Medicine; Physician Assistant; Admitting Provider Hospitalist; Emergency Provider Student in an Organized Health Care Education/Training Program; PCP Internal Medicine; Visit Provider Internal Medicine
PROC: 0FC98ZZ Extirpation of Matter from Common Bile Duct, Via Natural or Artificial Opening Endoscopic (ICD-10-PCS; CPT 43260; principal; 2021-06-05 15:50)
DX: K80.32 Calculus of bile duct with acute cholangitis without obstruction (principal); I21.4 Non-ST elevation (NSTEMI) myocardial infarction; R78.81 Bacteremia; N40.0 Benign prostatic hyperplasia without lower urinary tract symptoms; K21.9 Gastro-esophageal reflux disease without esophagitis; E78.5 Hyperlipidemia, unspecified; I48.91 Unspecified atrial fibrillation; H40.9 Unspecified glaucoma; J45.20 Mild intermittent asthma, uncomplicated; B96.20 Unspecified Escherichia coli [E. coli] as the cause of diseases classified elsewhere; F41.9 Anxiety disorder, unspecified; Z87.442 Personal history of urinary calculi; Z20.822 Contact with and (suspected) exposure to COVID-19; Z88.0 Allergy status to penicillin; Z79.82 Long term (current) use of aspirin; Z79.899 Other long term (current) drug therapy
CPT/HCPCS: 36415; 71275; 74177; 80048; 80053; 80076; 81001; 82150; 83605; 83690; 83735; 84443; 84484; 85025; 85027; 85610; 85652; 85730; 86140; 86704; 86706; 86709; 86803; 87040; 87077; 87186; 87205; 87340; 87635; 93005; 93306; 99285; J0696; J1100; J1170; J1610; J2270; J2370; J2405; J2550; J3010; Q9967

== ENCOUNTER 2021-06-19 16:55 | Outpatient (REF) | payer MEDICARE, OTHER, SELFPAY ==
[2021-06-19 18:12] LABS: Alanine Aminotransferase 38 U/L (0-40); Albumin Level 3.9 g/dL (3.5-5.0); Alkaline Phosphatase 118 U/L (39-117); Aspartate Amino Transferase 27 U/L (5-37); Bilirubin Direct 0.3 mg/dL (0.0-0.5); Bilirubin Total 0.5 mg/dL (0.0-1.0); Total Protein 7.1 g/dL (6.5-8.0)
== END 2021-06-19 16:56 | disposition home or self-care (01) ==
LOC: HO.LAB 16:55
PROVIDERS: Absent Provider Nurse Practitioner Family; PCP Internal Medicine; Visit Provider Internal Medicine
DX: R79.89 Other specified abnormal findings of blood chemistry (principal)
CPT/HCPCS: 36415; 80076

== ENCOUNTER → 2021-06-24 09:03 | Outpatient (REF) | payer MEDICARE, OTHER, SELFPAY ==
--- NOTE | ~2021-06-24 | NM_ITS ---
Lexiscan Myocardial perfusion study Indication: NSTEMI, assess for coronary disease and ischemia Technique: The patient was brought in for a Lexiscan perfusion study on 06/24/2021 and was injected 0.4 mg of Lexiscan intravenously. Within a minute of this injection 25 mCi of sestamibi was given intravenously. Images were obtained using the SPECT gamma camera interlaced with the gating device. Images were obtained in supine position. Resting perfusion study was performed on 07/05/2021. Patient was administered 25 mCi of sestamibi intravenously at rest. Images were then obtained in supine position. Total DLP 75mGy-cm. Images were processed with the software and compared side to side in short axis, horizontal long axis and vertical long axis views. Findings: Raw acquisition was reviewed. The stress perfusion study showed diminished tracer uptake along the inferior wall. There is significant improvement with CT attenuation correction suggestive of diaphragmatic attenuation artifact. The gated study shows normal LV systolic function with calculated LVEF of 68%. LV cavity is normal in size. The gated study shows suggestion of reduced contractility in the inferior wall. Resting study shows diminished tracer uptake in the inferior wall that seems worse than stress acquisition. Improvement with CT attenuation correction the distal of diaphragmatic attenuation artifact. Gating at rest reveals reduced contractility in the inferior wall with LVEF 74%. The findings are consistent with fixed inferior wall defect probably from diaphragmatic attenuation artifact. No reversible defects. NM/NM cardiolite stress test Impression: 1. Myocardial perfusion imaging study shows no evidence of ischemia. Fixed inferior wall defect suspected to be from diaphragmatic attenuation artifact. 2. Gated LVEF is 68% during stress and 74% during rest. 3. Transient ischemic dilatation not present. EKG component of the test reported separately.
--- NOTE | 2021-06-24 09:06 | CA_ITS ---
Acquisition Time: 2021-06-24 09:20:58 Total Exercise Time: 00:02:00 Test Indications: NSTEMI Medications: Protocol: LEXISCAN Max HR: 109 BPM 78% of Pred: 139 BPM Max BP: 140/086 mmHG Max Work Load: 1.0 METS Pharmacological stress test with Lexiscan injection, while sitting and kicking his legs, without anginal symptoms, without arrythmia, with normotensive response to injection, with nondiagnostic EKG for ischemia. In recovery he did report having sob and a pressure in upper chest that was treated with Aminophylline 75mg IVP to reverse Lesxiscan with resolution of symptoms. Nuclear images pending. Test reviewed with Dr Lopez Referred By: Bee De Overread By: BEE DE
== END ==
LOC: HO.CARD 09:03
PROVIDERS: PCP Internal Medicine; Visit Provider Nurse Practitioner Family
DX: I21.4 Non-ST elevation (NSTEMI) myocardial infarction (principal); I48.91 Unspecified atrial fibrillation
CPT/HCPCS: 78452; 93017; A9500; J2785

== ENCOUNTER → 2021-06-25 13:59 | Outpatient (REF) | payer MEDICARE, OTHER, SELFPAY ==
--- NOTE | 2021-06-25 | HM_ITS ---
TEST PERFORMED: Cardiac event monitoring. REQUESTING PHYSICIAN: Bee De N.P. ENROLLMENT PERIOD: 06/25/2021 to 07/25/2021: 30 days. INDICATION: Atrial fibrillation. FINDINGS: In the above monitoring period, underlying rhythm was sinus. Rate ranged from 65 to 115 beats per minute. No evidence of atrial fibrillation noted. Otherwise essentially unremarkable. CONCLUSION: A 30-day event monitoring showing no atrial fibrillation or any other arrhythmia of significance. Merritt Cazares MD HS/MODL / [id number]
== END ==
LOC: HO.CARD 13:59
PROVIDERS: PCP Internal Medicine; Visit Provider Nurse Practitioner Family
DX: I48.91 Unspecified atrial fibrillation (principal)
CPT/HCPCS: 93270

== ENCOUNTER → 2021-06-30 14:32 | Outpatient (BNVA) | payer MEDICARE, OTHER, SELFPAY | PROVIDERS: PCP Internal Medicine; Referring Provider Internal Medicine; Visit Provider Internal Medicine | DX: I48.0 Paroxysmal atrial fibrillation (principal); Z79.82 Long term (current) use of aspirin | CPT/HCPCS: 93005; 99212 ==

== ENCOUNTER 2021-07-16 11:06 | Inpatient (IN) | payer MEDICARE, OTHER, SELFPAY ==
[2021-07-16] VITALS (8 sets, daily range): BP systolic 100–147; BP diastolic 51–80; PULSE 72–110; RESP 12–20; TEMP 36.8–39.3; O2SAT 94–98; BMI 24.0
--- NOTE | ~2021-07-16 | XR_ITS ---
EXAMINATION: XR CHEST CLINICAL INFORMATION: Fevers COMPARISON: June 07, 2021 and May 25, 2021 TECHNIQUE: AP portable view of the chest was obtained. FINDINGS: No significant abnormality is noted involving the heart, lungs, mediastinum, bony thorax or soft tissues. XR/XR chest 1V IMPRESSION: No acute disease.
--- NOTE | ~2021-07-16 | FL_ITS ---
EXAMINATION: XR FLUOROSCOPY WITH IMAGES CLINICAL INFORMATION: Abdominal pain. Dilated CBD. COMPARISON: MRI abdomen from 07/16/2021 TECHNIQUE: Fluoroscopy performed by Dr. Ford. Fluoroscopy time: 327.8 seconds Dose: 103.01 mGy Images: 6 FL/FL guidance in OR FINDINGS AND IMPRESSION: This report is provided to document use of fluoroscopy during performance of ERCP. The images demonstrate placement of an endoscope, retrograde injection of iodinated contrast into the dilated common duct and performance of balloon sweeps followed by common duct stent placement.
--- NOTE | ~2021-07-16 | MR_ITS ---
EXAMINATION: MR ABDOMEN WITHOUT CONTRAST CLINICAL INFORMATION: Abdominal pain. Fevers. Recent choledocholithiasis. COMPARISON: CT dated 06/05/2021 and 05/25/2021. MRCP dated 11/17/2020 CT abdomen/pelvis dated 10/03/2020 TECHNIQUE: MR abdomen is performed without gadolinium contrast. In addition, heavily T2-weighted sequences or purposes of MR cholangiopancreatography were also performed. FINDINGS: LUNG BASES: The visualized lung bases are unremarkable. LIVER, GALLBLADDER, AND BILIARY TREE: Liver normal in size, contour and morphology. There is severe intrahepatic biliary duct dilatation appearing similar to the prior examination. Common bile duct measures up to 1.9 cm in diameter within the pancreatic head, abruptly cutting off just proximal to the ampulla. There may be a small stone within the distal dependent common bile duct, versus luminal irregularity from evagination of the investing pancreas. No filling defects are identified within the intrahepatic biliary tree. Cholecystectomy. PANCREAS: Normal. SPLEEN: Normal. ADRENAL GLANDS: Normal. KIDNEYS AND URETERS: The kidneys are normal in size and shape. Bilateral benign renal cysts redemonstrated. These require no further follow-up. No hydronephrosis. No perinephric stranding. GASTROINTESTINAL TRACT: Moderate hiatal hernia. No bowel obstruction. No ascites or fluid collection. ABDOMINAL WALL: No significant hernia is appreciated. LYMPH NODES: No lymphadenopathy. VASCULAR: Unremarkable. OSSEOUS STRUCTURES: Marrow signal normal. MR/MR MRCP IMPRESSION: Again seen is severe intrahepatic biliary duct dilatation with dilatation of the common bile duct to 1.9 cm, abruptly terminating within the pancreatic head near the ampulla. The pancreatic duct is not dilated. 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 Recommend ERCP with brushings/biopsy as clinically indicated. If negative for malignancy, the patient may benefit from biliary stent placement.
--- NOTE | 2021-07-16 11:46 | PC.NURSE ---
pt a&ox3, febrile @ 102.7, shelter monitor applied - sinus tach. 95% on 1L, per EMS post fentanyl O2 sat dropped to 85% on room air. new afib - wearing monitor from [employer]. abd pain (epigastric), nausea, vomiting, chills starting at 0800 this am. denies pain at this time - 100mcg of fentanyl and 4mg zofran given by EMS. unable to keep any food/liquid down today, constipation for 3d. gall stone removal ~ 1 m ago. 18G IV left AC placed by EMS. pending ED provider.
--- NOTE | 2021-07-16 11:47 | ECG_ITS ---
Test Reason : abd pain Blood Pressure : / mmHG Vent. Rate : 105 BPM Atrial Rate : 105 BPM P-R Int : 140 ms QRS Dur : 082 ms QT Int : 332 ms P-R-T Axes : 060 026 042 degrees QTc Int : 438 ms Sinus tachycardia Otherwise normal ECG When compared with ECG of 07-JUN-2021 01:24, Sinus rhythm has replaced Atrial fibrillation Referred By: Sofia Nicholson Electronically Signed By:MAGED ORTEGA
[2021-07-16] MEDS: 0.9 % Sodium Chloride 1,000 ML 999 ML IVCONT (12:00)
[2021-07-16] MEDS: 0.9 % Sodium Chloride 1,000 ML 999 ML IV (12:01)
--- NOTE | 2021-07-16 12:08 | ED_ITS ---
HPI - Abdominal Pain General Chief Complaint: Abdominal Pain Stated Complaint: ABD PAIN,RECENT: KIDNEY STONE AND GB SURGERY Time Seen by Provider: 07/16/21 11:30 Source: patient and old records reviewed Mode of arrival: EMS Limitations: no limitations History of Present Illness HPI narrative: given zofran and fentanyl by EMS prior to arrival MD elicited complaint: abdominal pain (fevers chills nausea vomiting) Pertinent past history: other (recent treatment for choledocholithiasis with e coli bacteremia) Onset (ago): day(s) (stated started early this AM) Pain Consistency: constant Location: epigastric and RUQ Severity: moderate Quality: aching Radiation: none Migration to: no migration Exacerbating factors: movement Relieving factors: nothing Context: recent antibiotic use, recent surgery/procedure and history of similar episodes Associated symptoms: nausea, vomiting, fever and chills Related Data Home Medications Medication Instructions Recorded Confirmed dorzolamide 22.3 mg-timolol 6.8 1 drp OPHTHALMIC (EYE) BID 04/23/20 07/16/21 mg/mL eye drops fluticasone furoate 100 1 puff PO DAILY 11/16/20 07/16/21 mcg-vilanterol 25 mcg/dose inhalation powder (Breo Ellipta) latanoprost 0.005 % eye drops 1 drp OPHTHALMIC (EYE) BEDTIME 06/05/21 07/16/21 omeprazole 20 mg capsule,delayed 1 cap PO DAILY 06/05/21 07/16/21 release pyridoxine (vitamin B6) 100 mg 1 tab PO DAILY 06/05/21 07/16/21 tablet simvastatin 40 mg tablet 40 mg PO BEDTIME 06/30/21 07/16/21 Allergies Allergy/AdvReac Type Severity Reaction Status Date / Time Penicillins [PENICILLINS] Allergy Intermediate RASH Verified 07/16/21 11:25 Review of Systems Review of Systems Constitutional : No Weight loss, pos Fever, pos Chills ENT/Mouth : No sore throat, No Rhinorrhea Eyes: No Swelling, No Redness Cardiovascular : No Chest Pain, No SOB, NoEdema Respiratory : No Cough, No Sputum, No Wheezing Gastrointestinal : Positive Nausea, Positive Vomiting, no Diarrhea, positive abdominal Pain, No Hematochezia, No Melena Genitourinary : No Dysuria, No Urinary Frequency, No Hematuria, No Urgency Musculoskeletal : No joint pain, No Myalgias, No Joint Swelling Skin : No Skin Lesions, No rash Neuro : pos Weakness, No Numbness, No Dizziness, No Headache Psych : No Anxiety/Panic, No Depression Heme/Lymph: No Bruising, No Lymphadenopathy Endocrine : No Polyuria, No Polydipsia All other systems reviewed and are negative. [facility] Past Medical History Attestation statement: The following information was validated with the patient. Medical History Afib Asthma BPH (benign prostatic hyperplasia) Cataract, left eye Esophageal stricture GERD (gastroesophageal reflux disease) Glaucoma Hypercholesterolemia Left renal stone PAF (paroxysmal atrial fibrillation) Sciatic nerve pain Screening for diabetes mellitus Vitamin D deficiency Surgical History History of blepharoplasty History of cataract surgery History of cholecystectomy History of inguinal hernia repair History of lithotripsy History of tonsillectomy Family History Family History Father Stroke Mother No problems noted. Social History Social History Household Members: Spouse Housing: House Do you presently have visiting nurse or other home services: No Alcohol intake: current Alcohol intake frequency: holidays/special occasions only Alcohol type: wine Patient Tobacco Use Status: Never used Tobacco e-Cigarette/Vaping Use: Never Used Second Hand Smoke Exposure: No Use of substances other than those prescribed or required for medical reasons: No Advance Directives: Yes Advance Directives on File: Yes Advance Directives Date on File: 11/16/20 service: No Current occupational status: retired Current occupational exposures/hazards: No Cognitive needs: No Hearing needs: No Vision needs: Yes Physical Exam ED Vital Signs: Vital Signs - 24 hr 07/16/21 11:25 07/16/21 11:44 07/16/21 12:00 Temperature 102.7 F H 102.7 F H Pulse Rate 110 H 103 H 86 Respiratory Rate 19 20 18 Blood Pressure 102/51 L 107/54 L 107/54 L Pulse Oximetry 94 95 98 07/16/21 14:44 Temperature 98.7 F Pulse Rate 87 Respiratory Rate 18 Blood Pressure 100/58 L Pulse Oximetry 97 BMI result Body Mass Index 24.0 Appearance: Alert. Oriented X3. No acute distress. Eyes: Pupils equal, round and reactive to light. ENT: Pharynx normal. Neck: Normal inspection. Neck supple. CVS: tachycardic heart rate and rhythm. Pulses normal. Respiratory: No respiratory distress. Breath sounds normal. Abdomen: Soft and mild epigastric ttp no rebound or guarding Skin: Skin warm and dry. pale skin color. Normal skin turgor. Extremities: No lower extremity edema. No calf ttp Neuro: Oriented X 3. No motor deficit. No sensory deficit. Course Course Course Narrative: Dr. Duran aware recommends MRCP instead - will order test, MRI requested. Dr. Duran has seen patient - plan for admit, patient improved. MDM - Abdominal Pain MDM Narrative Medical decision making narrative: 81 yo male with hx of anxiety, NSTEMI, PAF, GERD, HLD, bacteremia, recent choledocholithiasis with acute cholangitis and e. coli bacteremia here with c/o chills nausea fevers and upper abdominal pain he notes he feels the same as he did with his recent illness. At this time will need labs, IVF x 2L, CT scan for recurrent infection/stone, CXR, COVID/flu swab, UA and empiric ceftriaxone. Likely admit. Lab Data Result diagrams: 07/16/21 12:09 07/16/21 12:09 Labs: Lab Results 07/16/21 07/16/21 07/16/21 Range/Units 12:09 12:09 12:09 WBC 13.3 H (4.8-10.8) X10*3/uL RBC 4.27 L (4.60-5.80) X10*6/uL Hgb 12.8 L (14.0-18.0) g/dl Hct 39.4 L (42.0-52.0) % MCV 92.3 (80.0-98.0) fL MCH 30.0 (27.0-33.0) pg MCHC 32.5 (31.0-36.0) g/dl RDW 13.0 (11.0-16.0) % Plt Count 204 D (160-400) X10*3/uL MPV 9.1 L (9.4-12.4) fL Immature Gran % (Auto) 0.4 (0.0-0.4) % Neut % (Auto) 85.8 H (45-73) % Lymph % (Auto) 5.2 L (20-40) % [place] % (Auto) 7.9 (2-11) % Eos % (Auto) 0.5 (0-4) % Baso % (Auto) 0.2 (0-2) % Lymph # (Auto) 0.7 L (1.2-4.9) X10*3/uL [place] # (Auto) 1.1 (0.1-1.2) X10*3/uL Eos # (Auto) 0.1 (0.0-0.4) X10*3/uL Baso # (Auto) 0.0 (0.0-0.2) X10*3/uL Abs Immat Gran (auto) 0.05 H (0.00-0.03) X10*3/uL Absolute Neuts (auto) 11.4 H (2.0-8.3) x10*3/uL Absolute Nucleated RBC 0.000 (0.0-0.012) X10*3/uL Nucleated RBC % (auto) 0.0 (0.0-0.2) /100WBC PT (9.9-13.0) SEC INR (0.9-1.1) Sodium 141 (135-145) mmol/L Potassium 3.7 (3.3-5.1) mmol/L Chloride 108 (96-108) mmol/L Carbon Dioxide 26 (22-29) mmol/L Anion Gap 11 L (12-20) BUN 19 H D (9-16) mg/dL Creatinine 1.06 (0.5-1.4) mg/dL Estim Creat Clear Calc 54.6 Estimated GFR > 60 Random Glucose 120 H (60-115) mg/dL Lactic Acid (0.5-2.0) mmol/L Calcium 9.4 D (8.4-10.2) mg/dL Magnesium 1.7 (1.6-2.6) mg/dL Total Bilirubin 2.8 H (0.0-1.0) mg/dL Direct Bilirubin 1.7 H (0.0-0.5) mg/dL AST 276 H (5-37) U/L ALT 296 H (0-40) U/L Alkaline Phosphatase 293 H D (39-117) U/L Total Protein 6.9 (6.5-8.0) g/dL Albumin 3.7 (3.5-5.0) g/dL Lipase 41 (8-78) U/L COVID-19 (SHERI) (Negative) COVID-19 Clin Com Influenza Type A (TERRY) Negative (Negative) Influenza Type B (TERRY) Negative (Negative) Influenza A & B Note See Note 07/16/21 07/16/21 07/16/21 Range/Units 12:09 12:09 12:29 WBC (4.8-10.8) X10*3/uL RBC (4.60-5.80) X10*6/uL Hgb (14.0-18.0) g/dl Hct (42.0-52.0) % MCV (80.0-98.0) fL MCH (27.0-33.0) pg MCHC (31.0-36.0) g/dl RDW (11.0-16.0) % Plt Count (160-400) X10*3/uL MPV (9.4-12.4) fL Immature Gran % (Auto) (0.0-0.4) % Neut % (Auto) (45-73) % Lymph % (Auto) (20-40) % [place] % (Auto) (2-11) % Eos % (Auto) (0-4) % Baso % (Auto) (0-2) % Lymph # (Auto) (1.2-4.9) X10*3/uL [place] # (Auto) (0.1-1.2) X10*3/uL Eos # (Auto) (0.0-0.4) X10*3/uL Baso # (Auto) (0.0-0.2) X10*3/uL Abs Immat Gran (auto) (0.00-0.03) X10*3/uL Absolute Neuts (auto) (2.0-8.3) x10*3/uL Absolute Nucleated RBC (0.0-0.012) X10*3/uL Nucleated RBC % (auto) (0.0-0.2) /100WBC PT 12.9 (9.9-13.0) SEC INR 1.1 (0.9-1.1) Sodium (135-145) mmol/L Potassium (3.3-5.1) mmol/L Chloride (96-108) mmol/L Carbon Dioxide (22-29) mmol/L Anion Gap (12-20) BUN (9-16) mg/dL Creatinine (0.5-1.4) mg/dL Estim Creat Clear Calc Estimated GFR Random Glucose (60-115) mg/dL Lactic Acid 1.4 (0.5-2.0) mmol/L Calcium (8.4-10.2) mg/dL Magnesium (1.6-2.6) mg/dL Total Bilirubin (0.0-1.0) mg/dL Direct Bilirubin (0.0-0.5) mg/dL AST (5-37) U/L ALT (0-40) U/L Alkaline Phosphatase (39-117) U/L Total Protein (6.5-8.0) g/dL Albumin (3.5-5.0) g/dL Lipase (8-78) U/L COVID-19 (SHERI) Negative (Negative) COVID-19 Clin Com See Note Influenza Type A (TERRY) (Negative) Influenza Type B (TERRY) (Negative) Influenza A & B Note ECG Data Attestation: I personally reviewed and interpreted this ECG as follows: ECG interpretation date: 07/16/21 ECG interpretation time: 12:24 Interpretation: Rate: 105 Rhythm: sinus tachycardia [place]: normal Normal P waves. Normal ARACELI. Normal QRS complex. ST T wave : normal no BAKARI qTC: normal prior studies: no acute ischemia The study has been interpreted contemporaneously by me. . Critical Care Time Critical Care Time Critical Care Time: Yes Total Critical Care Time: 45 Attestation: 2L of IVF, medical consult, review of records, admission I attest to this time spent taking care of the patient Discharge Plan Discharge Clinical Impression: Fever, Leukocytosis, Elevated liver enzymes, Hyperbilirubinemia, Abdominal pain, Choledocholithiasis Patient Disposition: Admitted As Inpatient
[2021-07-16] MEDS: cefTRIAXone sodium 1 GM in 0.9 % Sodium Chloride 50 ML IV (12:14)
[2021-07-16 12:15] LABS: MANUAL DIFF FLAG NO
[2021-07-16] MEDS: Acetaminophen Oral Liquid 650 MG/20.3 ML SOLUTION PO (12:15)
--- NOTE | 2021-07-16 12:17 | PC.NURSE ---
IVF started, medicated per provider order. labs/cultures drawn by tech. no new orders at this time.
[2021-07-16 12:21] LABS: Basophils Percent Auto 0.2 % (0-2); Eosinophils Absolute Auto 0.1 X10*3/uL (0.0-0.4); Eosinophils Percent Auto 0.5 % (0-4); Hematocrit 39.4 % (42.0-52.0); Hemoglobin 12.8 g/dl (14.0-18.0); Imm Gran Abs Auto 0.05 X10*3/uL (0.00-0.03); Imm Gran Pct Auto 0.4 % (0.0-0.4); Lymphocytes Absolute Auto 0.7 X10*3/uL (1.2-4.9); Lymphocytes Percent Auto 5.2 % (20-40); Mean Corpuscular HGB Conc 32.5 g/dl (31.0-36.0); Mean Corpuscular Volume 92.3 fL (80.0-98.0); Mean Platelet Volume 9.1 fL (9.4-12.4); Monocytes Absolute Auto 1.1 X10*3/uL (0.1-1.2); Monocytes Percent Auto 7.9 % (2-11); Neutrophils Absolute Auto 11.4 x10*3/uL (2.0-8.3); Neutrophils Percent Auto 85.8 % (45-73); Platelet Count 204 X10*3/uL (160-400); Red Blood Count 4.27 X10*6/uL (4.60-5.80); White Blood Count 13.3 X10*3/uL (4.8-10.8)
[2021-07-16 12:23] LABS: INTERNATIONAL NORM RATIO 1.1 (0.9-1.1); Prothrombin Time 12.9 SEC (9.9-13.0)
[2021-07-16 12:36] LABS: COVID-19 Test Negative (Negative); IDNOW Serial# 16C4AD1C
[2021-07-16 12:39] LABS: IDNOW Serial# 08D9AD1C; Influenza A Negative (Negative); Influenza B2 Negative (Negative)
[2021-07-16 12:40] LABS: Alanine Aminotransferase 296 U/L (0-40); Albumin Level 3.7 g/dL (3.5-5.0); Alkaline Phosphatase 293 U/L (39-117); Anion Gap 11 (12-20); Aspartate Amino Transferase 276 U/L (5-37); Bilirubin Direct 1.7 mg/dL (0.0-0.5); Bilirubin Total 2.8 mg/dL (0.0-1.0); Blood Urea Nitrogen 19 mg/dL (9-16); Calcium 9.4 mg/dL (8.4-10.2); Carbon Dioxide 26 mmol/L (22-29); Chloride 108 mmol/L (96-108); Creatinine Clr Calc Pharmacy 54.6; Estimated Glomerular Filt Rate > 60; Glucose Random 120 mg/dL (60-115); Lipase 41 U/L (8-78); Magnesium 1.7 mg/dL (1.6-2.6); Potassium 3.7 mmol/L (3.3-5.1); Sodium 141 mmol/L (135-145); Total Protein 6.9 g/dL (6.5-8.0)
[2021-07-16 12:54] LABS: Lactic Acid 1.4 mmol/L (0.5-2.0)
--- NOTE | 2021-07-16 13:52 | PC.NURSE ---
MRI documentation completed and faxed.
--- NOTE | 2021-07-16 14:06 | PC.NURSE ---
pt tranported to mri
--- NOTE | 2021-07-16 14:22 | PHA.MEDREC ---
Pharmacy Consult ? Medication Reconciliation Pharmacy has completed the medication reconciliation. No remarkable issues. Cate Corral, KatieD
--- NOTE | 2021-07-16 15:21 | MHC.SHP ---
Pre-Procedural Eval Section A Date of Service: 07/16/21 The patient is an INPATIENT: Yes Changes since office visit: No Cold of Flu in the past 2 weeks, No New Medical Problems, No Changes in Medication and No Patient answered all questions The History & Physical has been completed within 30 days and I have reviewed it.: Yes Section B Chief Complaint: ABD PAIN,RECENT: KIDNEY STONE AND GB SURGERY Allergies: Allergies Allergy/AdvReac Type Severity Reaction Status Date / Time Penicillins [PENICILLINS] Allergy Intermediate RASH Verified 07/16/21 11:25 Plan I have reviewed the history and physical and performed a pertinent physical examination on my patient. No changes have occurred unless specified.
[2021-07-16] MEDS: 0.9 % Sodium Chloride 1,000 ML 100 ML IVCONT (15:22)
--- NOTE | 2021-07-16 15:22 | PM.EVENT ---
Event Note Date of Service: 07/16/21 Event Note: GI Consult-Full note dictated-Hx via patient and EMR--MRCP and labs reviewed. Imp: Recurrent cholangitis and choledocholithiasis. Presently appears comfortable and stable. Abdominal exam is benign and VSS. Rec: IV antibiotics, supportive care, NPO, and F/U labs in AM. Will plan for ERCP on 07/17 with either myself or Dr. Ford. Full consent obtained from the patient and his son, including risks of bleeding, perforation, cholangitis, and pancreatitis. D/W patient and son in detail. They are comfortable with this plan. Thanks
--- NOTE | 2021-07-16 15:26 | PC.NURSE ---
IVF running at 100ml/hr per provider order.
--- NOTE | 2021-07-16 16:06 | PM.IMHP ---
History of Present Illness Date of Service: 07/16/21 Chief Complaint: Abdominal quinn 81 yo male with hx of anxiety, NSTEMI, PAF not on anticoagulation, GERD, HLD,choledocholithiasis with acute cholangitis and e. coli bacteremia h back in May here with abdominal pain, nauseas and chills and feve reminescent of last episode. WBC is 13 , MRC is done result not available for me to review. Dr. Duran has evaluated him and is planning ERCP tomorrow. He is clinically not septic Review of Systems Review of Systems: Gen: subsjective fever Resp: no sob, no cough CV: no chest, no FINE, no leg edema GI: Abdominal pain, nausea Neuro: No confusion Yes all other systems are reviewed and are negative [facility] Medical History Afib Asthma BPH (benign prostatic hyperplasia) Cataract, left eye Esophageal stricture GERD (gastroesophageal reflux disease) Glaucoma Hypercholesterolemia Left renal stone PAF (paroxysmal atrial fibrillation) Sciatic nerve pain Screening for diabetes mellitus Vitamin D deficiency Family History Father Stroke Mother No problems noted. Surgical History History of blepharoplasty History of cataract surgery History of cholecystectomy History of inguinal hernia repair History of lithotripsy History of tonsillectomy Social History Household Members: Spouse Housing: House Do you presently have visiting nurse or other home services: No Alcohol intake: current Alcohol intake frequency: holidays/special occasions only Alcohol type: wine Patient Tobacco Use Status: Never used Tobacco e-Cigarette/Vaping Use: Never Used Second Hand Smoke Exposure: No Use of substances other than those prescribed or required for medical reasons: No Advance Directives: Yes Advance Directives on File: Yes Advance Directives Date on File: 11/16/20 service: No Current occupational status: retired Current occupational exposures/hazards: No Cognitive needs: No Hearing needs: No Vision needs: Yes Meds Allergies Allergy/AdvReac Type Severity Reaction Status Date / Time Penicillins [PENICILLINS] Allergy Intermediate RASH Verified 07/16/21 11:25 Active Medications: Current Medications Sodium Chloride (Ns) 1,000 mls @ 100 mls/hr IVCONT .Q10H KOSTA Last Admin: 07/16/21 15:22 Dose: 100 mls/hr Documented by: Pharmacy Consult (Consult Rx Perform Med Rec) 1 each MISCELLANE ONCE PRN PRN Reason: Consult order Home Medications Medication Instructions Recorded Confirmed Last Taken Type dorzolamide 22.3 mg-timolol 6.8 1 drp OPHTHALMIC (EYE) BID 04/23/20 07/16/21 07/16/21 History mg/mL eye drops fluticasone furoate 100 1 puff PO DAILY 11/16/20 07/16/21 07/16/21 History mcg-vilanterol 25 mcg/dose inhalation powder (Breo Ellipta) latanoprost 0.005 % eye drops 1 drp OPHTHALMIC (EYE) BEDTIME 06/05/21 07/16/21 07/15/21 History omeprazole 20 mg capsule,delayed 1 cap PO DAILY 06/05/21 07/16/21 07/16/21 History release pyridoxine (vitamin B6) 100 mg 1 tab PO DAILY 06/05/21 07/16/21 07/16/21 History tablet simvastatin 40 mg tablet 40 mg PO BEDTIME 06/30/21 07/16/21 07/15/21 History Physical Exam Vital Signs and Narrative: Vital Signs: Last Vital Signs Temp 98.2 F 07/16/21 15:58 Pulse 79 07/16/21 15:58 Resp 20 07/16/21 15:58 BP 103/54 L 07/16/21 15:58 Pulse Ox 96 07/16/21 15:58 Oxygen Flow Rate 1 07/16/21 11:25 BMI result Body Mass Index 24.0 Const: Other: Constitutional: Alert, in no distress, Mental Status: Oriented to person, place and time. Eyes: Pupils are equal, round and reactive to light. Ear, Nose and Throat: Oropharynx clear, mucous membranes moist. Trachea midline. Respiratory: Clear to auscultation. No wheezing, rales or rhonchi. Cardiovascular: S1 S2 regular. No murmurs, rubs or gallops. Gastrointestinal: Abdomen soft, non-tender, non-distended. Normal bowel sounds.? Neurologic: Cranial nerves II-XII grossly intact. No focal neurological deficits. Moves all extremities spontaneously.? Skin: No rashes or lesions.? Musculoskeletal: No cyanosis or clubbing. Psychiatric: Normal mood and affect? Results Labs CBC and Chem 7: 07/16/21 12:09 07/16/21 12:09 Imaging Radiologist's Impressions: Impressions Chest X-Ray 07/16/21 12:32 IMPRESSION: No acute disease. Assessment and Plan (1) Biliary obstruction: Status: Acute Plan 81 yo male with hx of anxiety, NSTEMI, PAF not on anticoagulation, GERD, HLD,choledocholithiasis with acute cholangitis and e. coli bacteremia h back in May here with abdominal pain, nauseas and chills and feve reminescent of last episode. Plan for ERCP tomorrow Plan: Cholecholithiasis/recent cholangitis with gram negative adams bacteremia -Empric Ceftriaxone -ERCP tomorrow Continue all other home medication DVT prophylaxis lovnenox, heparin until after tomorrow plan discussed with patient and Saty will span at least 2 midnights due high suspcion for cholangitis and need for IV antibiotics and GI procedure Quality Stroke Does the patient have a stroke diagnosis?: No VTE Prior VTE?: No VTE Risk Level:: Medical - moderate - high VTE Device Contraindication: N/A - Device Ordered VTE Drug Contraindication: Treatment Not Indicated
[2021-07-16] MEDS: Morphine Sulfate 4 MG/ML CARTRIDGE 2 MG IVPUSH ×2 (18:47→23:13)
--- NOTE | 2021-07-16 18:48 | PC.NURSE ---
pt a&ox3, vss, O2 continues to drop in mid 80s on room air, 94-97 on 2L O2. pt c/o increasing pain 10/28. medicated w prn morphine per provider order.
[2021-07-16 19:17] LABS: Appearance Urine CLEAR; Color Urine YELLOW; Glucose Urine UA NEG (NEG); Leukocyte Esterase Urine NEG (NEG); Nitrite Urine NEG (NEG); Specific Gravity - Urine 1.015 (1.005-1.025); Urine Blood NEG (NEG); Urine Ketones NEG (NEG); Urine Protein NEG (NEG-TRACE)
--- NOTE | 2021-07-16 20:37 | PC.NURSE ---
attempted to call report x2, nurse told tech she would call ed back
[2021-07-17] VITALS (15 sets, daily range): BP systolic 95–122; BP diastolic 44–64; PULSE 54–82; RESP 16–20; TEMP 36.2–37.1; O2SAT 92–100
[2021-07-17] MEDS: 0.9 % Sodium Chloride 1,000 ML 100 ML IVCONT ×2 (01:14→20:10)
--- NOTE | 2021-07-17 02:51 | PC.NURSE ---
Assumed care at 2057, pt came per stretcher from the main ED, alert and oriented, endorsing only minimal upper abdl pain, NPO post MN instructed for possible ERCP lisbeth, VSS, SR in the 70s, also noed with his ownholter monitor from home, later c/o increasing upper abdl pain, prn morphine given with good effect. At 236 lab calledfor critical blood culture result of gram negative rods, result relayed to Dr. Bailon.
--- NOTE | 2021-07-17 02:58 | CONS_ITS ---
DATE OF SERVICE: 07/16/2021 REASON FOR CONSULTATION: Abdominal pain, elevated LFTs, and choledocholithiasis. HISTORY OF PRESENT ILLNESS: This has been obtained from the patient and the medical record. The patient is an 81-year-old male well known to me with a history of choledocholithiasis and previous cholangitis. I last saw him in mid-May when he was admitted with symptoms including abdominal pain and jaundice. He had a similar episode in October 2020, at which time he was having abdominal pain and elevated LFTs. In October 2020, his imaging studies revealed dilated intrahepatic and extrahepatic bile ducts, as well as a questionable stone in the distal portion of the bile duct. At that time, he underwent an ERCP with sphincterotomy, although no definitive stone was seen in the bile duct nor removed. However, he did well thereafter up until coming in the hospital mid May of this year. When he was admitted here last month, he did have a component of cholangitis with positive blood cultures for E coli. His ERCP last month revealed at least 2 common bile duct stones, which were removed after sphincterotomy. The stones were fragmented with a basket and multiple pieces were pulled into the duodenum. He did well thereafter from a GI standpoint without any recurrent abdominal pain and his LFTs normalized as an outpatient. His hospital course in May was associated with some atrial fibrillation and a [id number] ME. He was seen by Cardiology for that and has been followed by Dr. Cazares as an outpatient. From a GI standpoint, the patient had been well up until about 10 days ago. At that time, he noticed the transient development of some upper abdominal pain after eating but that eventually passed spontaneously. He did not notice any jaundice, fevers, nor chills. He was well again up until today when he developed recurrent abdominal pain and nausea, but this time was associated with some subjective feeling of fevers and chills. He came to the ER for evaluation, and was found to have elevated LFTs. He reports that he presently feels better after some pain medication and a dose of IV antibiotics. MEDICATIONS: At home include Breo, eyedrops, omeprazole, vitamin B6, and simvastatin. When he was discharged last month, he was also sent home on low-dose aspirin and metoprolol. PAST MEDICAL HISTORY: Choledocholithiasis with component of cholangitis as described above, Esophageal stricture, status post balloon dilations. Atrial fibrillation as above, hyperlipidemia. He is status post previous cholecystectomy, hernia surgery, negative colonoscopy in 2010, asthma. There is no reported history of diabetes, stroke, nor kidney disease. Atrial fibrillation with non-ST ME as above. SOCIAL HISTORY: He is . He does not smoke nor use any significant amounts of alcohol. FAMILY HISTORY: Negative for liver disease or GI malignancy. REVIEW OF SYSTEMS: CONSTITUTIONAL: Up until today, had been feeling well with good energy and good appetite. SKIN: No rash. No pruritus. CARDIAC: No chest pain. PULMONARY: No coughing or hemoptysis. GI: As above. PHYSICAL EXAMINATION: GENERAL: The patient is a pleasant, alert, comfortable-appearing male. SKIN: Warm and dry. Minimally icteric sclerae. Moist mucous membranes. NECK: Supple. CHEST: Clear. CARDIAC: Normal S1, S2. ABDOMEN: Soft, nondistended. Normal bowel sounds. Does have some mild epigastric tenderness, but without mass, rebound, or guarding. EXTREMITIES: Without edema. LABORATORY DATA: I did review his MRI and MRCP, which showed definite dilatation of the extrahepatic bile duct and at least 1 distal filling defect. White blood cell count 13.3, hemoglobin 12.8, platelets 204,000, PT 12.9 with INR 1.1. Normal electrolytes. BUN 19, creatinine 1.1, total bilirubin 2.8, AST 276, ALT 296, alkaline phosphatase 293, direct bilirubin 1.7. His liver profile was normal on June 19. Lipase 41. Blood cultures have been done and are pending. IMPRESSION: The patient is an 81-year-old male presenting with recurrent signs and symptoms of choledocholithiasis and cholangitis. Given his history, I certainly suspect he has at least a single common duct stone or stone fragment remaining in the bile duct. At this point, he appears comfortable and does not appear toxic, and his abdominal exam seems benign as well. As such, he will remain on IV antibiotics, be kept n.p.o., and undergo repeat ERCP tomorrow. I did review with him that it would be done either by myself or Dr. Ford depending upon the schedule. Full consent has been obtained for this, including risks of bleeding, perforation, cholangitis, and pancreatitis. In the meantime, he will continue on IV antibiotics and have follow up laboratories tomorrow. This has been discussed with him and his son in detail and they are comfortable with the plan. Thank you for the consultation. MD APRIL Prado/ALVIN / [id number] MTDRomel
[2021-07-17 06:29] LABS: MANUAL DIFF FLAG NO
[2021-07-17 06:34] LABS: Basophils Percent Auto 0.4 % (0-2); Eosinophils Absolute Auto 0.2 X10*3/uL (0.0-0.4); Eosinophils Percent Auto 1.8 % (0-4); Hematocrit 34.6 % (42.0-52.0); Hemoglobin 11.2 g/dl (14.0-18.0); Imm Gran Abs Auto 0.04 X10*3/uL (0.00-0.03); Imm Gran Pct Auto 0.4 % (0.0-0.4); Lymphocytes Percent Auto 22.2 % (20-40); Mean Corpuscular HGB Conc 32.4 g/dl (31.0-36.0); Mean Corpuscular Hemoglobin 30.9 pg (27.0-33.0); Mean Corpuscular Volume 95.3 fL (80.0-98.0); Mean Platelet Volume 9.6 fL (9.4-12.4); Monocytes Absolute Auto 1.2 X10*3/uL (0.1-1.2); Monocytes Percent Auto 13.2 % (2-11); Neutrophils Absolute Auto 5.6 x10*3/uL (2.0-8.3); Platelet Count 190 X10*3/uL (160-400); Red Blood Count 3.63 X10*6/uL (4.60-5.80); Red Cell Distribution Width 13.3 % (11.0-16.0)
[2021-07-17 07:27] LABS: Alanine Aminotransferase 208 U/L (0-40); Albumin Level 2.9 g/dL (3.5-5.0); Alkaline Phosphatase 225 U/L (39-117); Anion Gap 9 (12-20); Aspartate Amino Transferase 154 U/L (5-37); Bilirubin Direct 2.2 mg/dL (0.0-0.5); Bilirubin Total 3.3 mg/dL (0.0-1.0); Blood Urea Nitrogen 15 mg/dL (9-16); Calcium 8.6 mg/dL (8.4-10.2); Carbon Dioxide 24 mmol/L (22-29); Chloride 112 mmol/L (96-108); Creatinine Clr Calc Pharmacy 68.1; Estimated Glomerular Filt Rate > 60; Glucose Fasting 86 mg/dL (60-99); Potassium 3.8 mmol/L (3.3-5.1); Sodium 141 mmol/L (135-145); Total Protein 5.4 g/dL (6.5-8.0)
--- NOTE | 2021-07-17 09:11 | HO.PM.IMPN ---
Subjective Subjective Date of Service: 07/17/21 Interval History: F/u on cholechodolithiasis interval history: feels better, no abdominal pain no fever, Blood culture is positive for gram negative adams Review of Systems no fever, no abd pain Physical Exam Vital Signs: Vital Signs: Last Vital Signs Temp 97.2 F 07/17/21 08:00 Pulse 79 07/17/21 08:00 Resp 18 07/17/21 08:00 BP 106/61 07/17/21 08:00 Pulse Ox 93 07/17/21 08:00 Oxygen Flow Rate 1 07/16/21 11:25 BMI result Body Mass Index 24.0 Const: Other: General: AO X 3, no acute distress Resp: CTA bilateral CVS: S1,S2,RRR GI: +BS, NT, no distention Skin: No rash Neuro: motor grossly intact Psych: appropriate affect Objective Data Active Medications Sodium Chloride (Ns) 1,000 mls @ 100 mls/hr IVCONT .Q10H [facility] Last Admin: 07/17/21 01:14 Dose: 100 mls/hr Documented by: PERRY Ceftriaxone Sodium 1 gm/ (Sodium Chloride) 50 mls @ 100 mls/hr IV Q24H [facility] Morphine Sulfate (Morphine Sulfate 4 Mg/Ml Cartridge) 2 mg IVPUSH Q4H PRN; Protocol PRN Reason: Pain, Severe (Pain Scale 7-10) Last Admin: 07/16/21 23:13 Dose: 2 mg Documented by: PERRY Pharmacy Consult (Consult Rx Perform Med Rec) 1 each MISCELLANE ONCE PRN PRN Reason: Consult order Sodium Chloride (0.9 % Sodium Chloride Flush 3 Ml Syringe) 3 ml IVFLUSH QSHIFT [facility] Last Admin: 07/17/21 08:12 Dose: Not Given Documented by: TIFFANI Non-Admin Reason: Med Not Available Labs CBC & Chem 7: 07/17/21 06:14 07/17/21 06:14 Labs: Laboratory Results - last 24 hr 07/16/21 07/16/21 07/16/21 12:09 12:09 12:09 MCV 92.3 MCH 30.0 MCHC 32.5 RDW 13.0 Plt Count 204 D MPV 9.1 L Immature Gran % (Auto) 0.4 Neut % (Auto) 85.8 H Lymph % (Auto) 5.2 L [place] % (Auto) 7.9 Eos % (Auto) 0.5 Baso % (Auto) 0.2 Lymph # (Auto) 0.7 L [place] # (Auto) 1.1 Eos # (Auto) 0.1 Baso # (Auto) 0.0 Abs Immat Gran (auto) 0.05 H Absolute Neuts (auto) 11.4 H Absolute Nucleated RBC 0.000 Nucleated RBC % (auto) 0.0 PT INR Anion Gap 11 L Estim Creat Clear Calc 54.6 Estimated GFR > 60 Random Glucose 120 H Fasting Glucose Lactic Acid Calcium 9.4 D Magnesium 1.7 Total Bilirubin 2.8 H Direct Bilirubin 1.7 H AST 276 H ALT 296 H Alkaline Phosphatase 293 H D Total Protein 6.9 Albumin 3.7 Lipase 41 Urine Color Urine Appearance Urine pH Ur Specific [place] Urine Protein Urine Glucose (UA) Urine Ketones Urine Blood Urine Nitrite Ur Leukocyte Esterase COVID-19 (SHERI) COVID-19 [employer] Com Influenza Type A (TERRY) Negative Influenza Type B (TERRY) Negative Influenza A & B Note See Note 07/16/21 07/16/21 07/16/21 12:09 12:09 12:29 MCV MCH MCHC RDW Plt Count MPV Immature Gran % (Auto) Neut % (Auto) Lymph % (Auto) [place] % (Auto) Eos % (Auto) Baso % (Auto) Lymph # (Auto) [place] # (Auto) Eos # (Auto) Baso # (Auto) Abs Immat Gran (auto) Absolute Neuts (auto) Absolute Nucleated RBC Nucleated RBC % (auto) PT 12.9 INR 1.1 Anion Gap Estim Creat Clear Calc Estimated GFR Random Glucose Fasting Glucose Lactic Acid 1.4 Calcium Magnesium Total Bilirubin Direct Bilirubin AST ALT Alkaline Phosphatase Total Protein Albumin Lipase Urine Color Urine Appearance Urine pH Ur Specific [place] Urine Protein Urine Glucose (UA) Urine Ketones Urine Blood Urine Nitrite Ur Leukocyte Esterase COVID-19 (SHERI) Negative COVID-19 [employer] Com See Note Influenza Type A (TERRY) Influenza Type B (TERRY) Influenza A & B Note 07/16/21 07/17/21 07/17/21 18:46 06:14 06:14 MCV 95.3 MCH 30.9 MCHC 32.4 RDW 13.3 Plt Count 190 MPV 9.6 Immature Gran % (Auto) 0.4 Neut % (Auto) 62.0 Lymph % (Auto) 22.2 [place] % (Auto) 13.2 H Eos % (Auto) 1.8 Baso % (Auto) 0.4 Lymph # (Auto) 2.0 [place] # (Auto) 1.2 Eos # (Auto) 0.2 Baso # (Auto) 0.0 Abs Immat Gran (auto) 0.04 H Absolute Neuts (auto) 5.6 Absolute Nucleated RBC 0.000 Nucleated RBC % (auto) 0.0 PT INR Anion Gap 9 L Estim Creat Clear Calc 68.1 Estimated GFR > 60 Random Glucose Fasting Glucose 86 Lactic Acid Calcium 8.6 D Magnesium Total Bilirubin 3.3 H Direct Bilirubin 2.2 H AST 154 H ALT 208 H Alkaline Phosphatase 225 H D Total Protein 5.4 L D Albumin 2.9 L D Lipase Urine Color YELLOW Urine Appearance CLEAR Urine pH 6.0 Ur Specific [place] 1.015 Urine Protein NEG Urine Glucose (UA) NEG Urine Ketones NEG Urine Blood NEG Urine Nitrite NEG Ur Leukocyte Esterase NEG COVID-19 (SHERI) COVID-19 Clin Com Influenza Type A (TERRY) Influenza Type B (TERRY) Influenza A & B Note Microbiology Microbiology Results: Microbiology 07/16/21 12:09 Blood Culture - Preliminary Blood - Venous Prelim: GNR Gram Stain only Assessment and Plan (1) Choledocholithiasis: Status: Acute Plan 81 yo male with hx of anxiety, NSTEMI, PAF not on anticoagulation, GERD, HLD,choledocholithiasis with acute cholangitis and e. coli bacteremia h back in May here with abdominal pain, nauseas and chills? and feve reminescent of last episode.? Plan for ERCP tomorrow Plan: Cholecholithiasis/cholangitis with gram negative adams bacteremia/Sepsis - Ceftriaxone 2 gram daily -ID consult -ERCP today ? Continue all other home medication DVT prophylaxis compression device Inpatient need: need for ERCP for choledocholithiasis and risk of cholangitis Quality Stroke Does the patient have a stroke diagnosis?: No VTE Prior VTE?: No VTE Risk Level:: Medical - moderate - high VTE Device Contraindication: N/A - Device Ordered VTE Drug Contraindication: Treatment Not Indicated
--- NOTE | 2021-07-17 09:18 | PC.NURSE ---
Pt is a/o. resting in hospital bed. VSS. offering no complaints. denies nausea and vomiting. c/o slight abdominal pain but not requiring any pain meds. Awaiting GI consult for ?ERCP today. Call flowers and beloingings within reach.
[2021-07-17] MEDS: Dorzolamide/Timolo 2.23%/0.68% 10 ML DRBTL 1 DROP EYE-BOTH ×2 (10:34→20:07)
[2021-07-17] MEDS: Pyridoxine HCl (Vitamin B6) 50 MG TABLET 100 MG PO (10:35)
[2021-07-17] MEDS: Latanoprost 0.005 % Ophth Sol 2.5 ML DROPS 1 DROP EYE-BOTH ×2 (10:35→20:14)
[2021-07-17] MEDS: Omeprazole 20 MG CAPSULE.DR PO (10:35)
--- NOTE | 2021-07-17 11:49 | P.CONAN_ITS ---
HPI - Anesthesia Eval Consult details Narrative: 81 yo male patient for ERCP PMFSH Active Problems Active Problems: All Active Problems (Updated 07/16/21 @ 15:07 by Sofia Nicholson DO) Impaired glucose tolerance (Acute) Right hip pain (Acute) Elevated LFTs (Acute) Biliary obstruction (Acute) Generalized anxiety disorder (Acute) Choledocholithiasis (Acute) Atrial fibrillation with rapid ventricular response (Acute) NSTEMI (non-ST elevated myocardial infarction) (Acute) after ERCP 06/07/21. Thought to be demand-related from Afib with RVR. No prior h/o CAD Abdominal pain following cholangiogram (Acute) Cholangitis due to bile duct calculus with obstruction (Acute) Fever (Acute) Leukocytosis (Acute) Hyperbilirubinemia (Acute) Abdominal pain (Acute) PAF (paroxysmal atrial fibrillation)- Pre-op EKG on monitor 07/17/21 Sinus Rhythm Screening for diabetes mellitus (Acute) Left renal stone (Acute) BPH (benign prostatic hyperplasia) (Acute) Hypercholesterolemia (Acute) GERD (gastroesophageal reflux disease) (Acute) Asthma (Acute) Past Medical History Medical History Afib Asthma BPH (benign prostatic hyperplasia) Cataract, left eye Esophageal stricture GERD (gastroesophageal reflux disease) Glaucoma Hypercholesterolemia Left renal stone PAF (paroxysmal atrial fibrillation) Sciatic nerve pain Screening for diabetes mellitus Vitamin D deficiency Family History Family History Father Stroke Mother No problems noted. Family history of problems with anesthesia: No Surgical History Surgical History History of blepharoplasty History of cataract surgery History of cholecystectomy History of inguinal hernia repair History of lithotripsy History of tonsillectomy History of Problems with Anesthesia: No Social History Social History Household Members: Spouse Housing: House Do you presently have visiting nurse or other home services: No Alcohol intake: current Alcohol intake frequency: holidays/special occasions only Alcohol type: wine Patient Tobacco Use Status: Never used Tobacco e-Cigarette/Vaping Use: Never Used Second Hand Smoke Exposure: No Use of substances other than those prescribed or required for medical reasons: No Are you DNR?: No Advance Directives: Yes Advance Directives on File: Yes Advance Directives Date on File: 11/16/20 service: No Current occupational status: retired Current occupational exposures/hazards: No Cognitive needs: No Hearing needs: No Vision needs: Yes Meds Allergies Allergy/AdvReac Type Severity Reaction Status Date / Time Penicillins [PENICILLINS] Allergy Intermediate RASH Verified 07/16/21 11:25 Active Medications: Current Medications Dorzolamide/Timolol (Dorzolamide/Timolo 2.23%/0.68% 10 Ml Drbtl) 1 drop EYE- BOTH BID [facility] Last Admin: 07/17/21 10:34 Dose: 1 drop Documented by: Fluticasone/Vilanterol (Fluticasone/Vilanterol 100/25 Blst.W.Dev) 1 puff INHALE RDAILY [facility] Last Admin: 07/17/21 10:45 Dose: Not Given Documented by: Sodium Chloride (Ns) 1,000 mls @ 100 mls/hr IVCONT .Q10H [facility] Last Admin: 07/17/21 10:49 Dose: Not Given Documented by: Lactated Ringer's (Lr) 1,000 mls @ 80 mls/hr IVCONT .[id number] [facility] Stop: 07/17/21 15:44 Last Admin: 07/17/21 10:43 Dose: Not Given Documented by: Ceftriaxone Sodium 2 gm/ (Sodium Chloride) 50 mls @ 100 mls/hr IV Q24H [facility] Latanoprost (Latanoprost 0.005 % Ophth Anum 2.5 Ml Drops) 1 drop EYE-BOTH BEDTIME [facility] Last Admin: 07/17/21 10:35 Dose: 1 drop Documented by: Morphine Sulfate (Morphine Sulfate 4 Mg/Ml Cartridge) 2 mg IVPUSH Q4H PRN; Protocol PRN Reason: Pain, Severe (Pain Scale 7-10) Last Admin: 07/16/21 23:13 Dose: 2 mg Documented by: Omeprazole (Omeprazole 20 Mg Capsule.Dr) 20 mg PO DAILY [facility] Last Admin: 07/17/21 10:35 Dose: 20 mg Documented by: Pharmacy Consult (Consult Rx Perform Med Rec) 1 each MISCELLANE ONCE PRN PRN Reason: Consult order Pyridoxine HCl (Pyridoxine Hcl (Vitamin B6) 50 Mg Tablet) 100 mg PO DAILY [facility] Last Admin: 07/17/21 10:35 Dose: 100 mg Documented by: Sodium Chloride (0.9 % Sodium Chloride Flush 3 Ml Syringe) 3 ml IVFLUSH QSHIFT [facility] Last Admin: 07/17/21 08:12 Dose: Not Given Documented by: Home Medications Medication Instructions Recorded Confirmed Last Taken Type dorzolamide 22.3 mg-timolol 6.8 1 drp OPHTHALMIC (EYE) BID 04/23/20 07/16/21 07/16/21 History mg/mL eye drops fluticasone furoate 100 1 puff PO DAILY 11/16/20 07/16/21 07/16/21 History mcg-vilanterol 25 mcg/dose inhalation powder (Breo Ellipta) latanoprost 0.005 % eye drops 1 drp OPHTHALMIC (EYE) BEDTIME 06/05/21 07/16/21 07/15/21 History omeprazole 20 mg capsule,delayed 1 cap PO DAILY 06/05/21 07/16/21 07/16/21 History release pyridoxine (vitamin B6) 100 mg 1 tab PO DAILY 06/05/21 07/16/21 07/16/21 History tablet simvastatin 40 mg tablet 40 mg PO BEDTIME 06/30/21 07/16/21 07/15/21 History Exam Exam Date and Time: July 17, 2021 1149 Height,Weight and Vital Signs: Height 5 ft 9 in Weight 73.936 kg Last Vital Signs Temp 98.8 F 07/17/21 11:37 Pulse 78 07/17/21 11:37 Resp 18 07/17/21 11:37 BP 116/61 07/17/21 11:37 Pulse Ox 96 07/17/21 11:37 Oxygen Flow Rate 1 07/16/21 11:25 Pertinent Lab Results Pertinent Lab Results: Laboratory Tests 07/16/21 07/16/21 07/16/21 12:09 12:09 12:09 WBC 13.3 H RBC 4.27 L Hgb 12.8 L Hct 39.4 L MCV 92.3 MCH 30.0 MCHC 32.5 RDW 13.0 Plt Count 204 D MPV 9.1 L Immature Gran % (Auto) 0.4 Neut % (Auto) 85.8 H Lymph % (Auto) 5.2 L [place] % (Auto) 7.9 Eos % (Auto) 0.5 Baso % (Auto) 0.2 Lymph # (Auto) 0.7 L [place] # (Auto) 1.1 Eos # (Auto) 0.1 Baso # (Auto) 0.0 Abs Immat Gran (auto) 0.05 H Absolute Neuts (auto) 11.4 H Absolute Nucleated RBC 0.000 Nucleated RBC % (auto) 0.0 PT INR Sodium 141 Potassium 3.7 Chloride 108 Carbon Dioxide 26 Anion Gap 11 L BUN 19 H D Creatinine 1.06 Estim Creat Clear Calc 54.6 Estimated GFR > 60 Random Glucose 120 H Fasting Glucose Lactic Acid Calcium 9.4 D Magnesium 1.7 Total Bilirubin 2.8 H Direct Bilirubin 1.7 H AST 276 H ALT 296 H Alkaline Phosphatase 293 H D Total Protein 6.9 Albumin 3.7 Lipase 41 Urine Color Urine Appearance Urine pH Ur Specific [place] Urine Protein Urine Glucose (UA) Urine Ketones Urine Blood Urine Nitrite Ur Leukocyte Esterase COVID-19 ([facility]) COVID-19 Clin Com Influenza Type A (TERRY) Negative Influenza Type B (TERRY) Negative Influenza A & B Note See Note 07/16/21 07/16/21 07/16/21 12:09 12:09 12:29 WBC RBC Hgb Hct MCV MCH MCHC RDW Plt Count MPV Immature Gran % (Auto) Neut % (Auto) Lymph % (Auto) [place] % (Auto) Eos % (Auto) Baso % (Auto) Lymph # (Auto) [place] # (Auto) Eos # (Auto) Baso # (Auto) Abs Immat Gran (auto) Absolute Neuts (auto) Absolute Nucleated RBC Nucleated RBC % (auto) PT 12.9 INR 1.1 Sodium Potassium Chloride Carbon Dioxide Anion Gap BUN Creatinine Estim Creat Clear Calc Estimated GFR Random Glucose Fasting Glucose Lactic Acid 1.4 Calcium Magnesium Total Bilirubin Direct Bilirubin AST ALT Alkaline Phosphatase Total Protein Albumin Lipase Urine Color Urine Appearance Urine pH Ur Specific [place] Urine Protein Urine Glucose (UA) Urine Ketones Urine Blood Urine Nitrite Ur Leukocyte Esterase COVID-19 (SHERI) Negative COVID-19 Clin Com See Note Influenza Type A (TERRY) Influenza Type B (TERRY) Influenza A & B Note 07/16/21 07/17/21 07/17/21 18:46 06:14 06:14 WBC 9.0 RBC 3.63 L Hgb 11.2 L Hct 34.6 L MCV 95.3 MCH 30.9 MCHC 32.4 RDW 13.3 Plt Count 190 MPV 9.6 Immature Gran % (Auto) 0.4 Neut % (Auto) 62.0 Lymph % (Auto) 22.2 [place] % (Auto) 13.2 H Eos % (Auto) 1.8 Baso % (Auto) 0.4 Lymph # (Auto) 2.0 [place] # (Auto) 1.2 Eos # (Auto) 0.2 Baso # (Auto) 0.0 Abs Immat Gran (auto) 0.04 H Absolute Neuts (auto) 5.6 Absolute Nucleated RBC 0.000 Nucleated RBC % (auto) 0.0 PT INR Sodium 141 Potassium 3.8 Chloride 112 H Carbon Dioxide 24 Anion Gap 9 L BUN 15 Creatinine 0.85 Estim Creat Clear Calc 68.1 Estimated GFR > 60 Random Glucose Fasting Glucose 86 Lactic Acid Calcium 8.6 D Magnesium Total Bilirubin 3.3 H Direct Bilirubin 2.2 H AST 154 H ALT 208 H Alkaline Phosphatase 225 H D Total Protein 5.4 L D Albumin 2.9 L D Lipase Urine Color YELLOW Urine Appearance CLEAR Urine pH 6.0 Ur Specific [place] 1.015 Urine Protein NEG Urine Glucose (UA) NEG Urine Ketones NEG Urine Blood NEG Urine Nitrite NEG Ur Leukocyte Esterase NEG COVID-19 (SHERI) COVID-19 Clin Com Influenza Type A (TERRY) Influenza Type B (TERRY) Influenza A & B Note Narrative Narrative: Date of Service: 06/24/21 Procedure(s): NM cardiolite stress test Impression: ? 1.? Myocardial perfusion imaging study shows no evidence of ischemia. Fixed inferior wall defect suspected to be from diaphragmatic attenuation artifact. 2.? Gated LVEF is 68% during stress and 74% during rest. 3. Transient ischemic dilatation not present. ? No reversible defects Procedure Date:? 06/08/2021 Procedure Type:? Transthoracic Echocardiogram ? Conclusions: - Normal left ventricular size, thickness, systolic function, and wall motion. The visually estimated ejection fraction is between 60-65%.? - E/E prime ratio is >15, consistent with elevated filling ? ? ? pressures. ? - Mildly increased right ventricular cavity size.? There is? ? ? normal right ventricular systolic function.? Airway Mallampati Class: II TM Dist: >3cm Neck ROM: Full Loose/Missing/Broken Teeth: No Heart: RRR Lungs: CTAB Assessment and Plan Assessment Anesthesia Assessment: Anesthesia Plan Discussed and Chart Reviewed Final Anesthetic Review Family History of Problems with Anesthesia: No History of Problems with Anesthesia: No NPO: Yes ASA Class: III Final Preanesthetic Review: No Changes in Pt Med Stat, Meds/Allgs Chart Reviewed, Consent Obtained/Reviewed and Anes Risks/Benef Reviewed Patient Risk: Intermediate Procedure Risk: Low Assessment/Block/Sedation in SS: Assess/Block/Sedation-SS Anesthetic Plan Anesthetic Plan: GA Disposition: Standard PACU and Inp. Admit - [facility]
--- NOTE | 2021-07-17 14:18 | PM.EVENT ---
Event Note Date of Service: 07/17/21 Event Note: ERCP dictated abnormal major papilla with ulceration/friability and oozing dilated cbd, mild shelf/narrowing at level of papilla 12 mm balloon used to sweep cbd, no stones seen biopsies and brushings taken of distal cbd/papilla 10F 5 cm biliary stent placed. Rec: advance diet monitor lfts, d/c 07/18 if stable.
[2021-07-17] MEDS: ondansetron HCL 4 MG/2 ML VIAL IVPUSH (14:50)
--- NOTE | 2021-07-17 15:17 | MHC.CM.PN ---
CM MET WITH PTS SON AT BEDSIDE HE REPORTS THE PT LIVES AT HOME WITH HIS AND IS INDEPENDENT WITH CARE HE REPORTS THEY ARE LOOKING AT HOME CARE SERVICES BUT MORE FOR HIS MOTHER DUE TO DEMENTIA HE REPORTS THE PT HAS NO SERVICES FOR HIMSELF AT HOME AND USES NO DME HE REPORTS PT HAS A HCP, COPY REQUESTED PCP: [facility] PT IS COVID-19 VACCINATED X 4 IMM DELIVERED, COPY SENT TO [facility] DC PLAN IS HOME WITH NO SERVICES FAMILY TO TRANSPORT
--- NOTE | 2021-07-17 15:42 | W.PM.IDCN ---
History of Present Illness Data of Consult Service Date: 07/17/21 Requesting physician: Salvador Gibbs Primary Care Provider: Blanca Franklin MD HPI Reason for consult: chills and abdominal pain He presents with chills and abdominal pain 7/10 similar to prior discomfort in May with E coli bacteremia. He has discomfort RUQ and then midepigastrium Blood culture shows gram negative rods He had biopsy taken today ,friable CBD Review of Systems Review of Systems: Yes all other systems are reviewed and are negative PMFSH Past Medical History Medical History Afib Asthma BPH (benign prostatic hyperplasia) Cataract, left eye Esophageal stricture GERD (gastroesophageal reflux disease) Glaucoma Hypercholesterolemia Left renal stone PAF (paroxysmal atrial fibrillation) Sciatic nerve pain Screening for diabetes mellitus Vitamin D deficiency Family History Family History Father Stroke Mother No problems noted. Family history: reviewed and not pertinent Surgical History Surgical History History of blepharoplasty History of cataract surgery History of cholecystectomy History of inguinal hernia repair History of lithotripsy History of tonsillectomy Social History Social History Household Members: Spouse Housing: House Do you presently have visiting nurse or other home services: No Alcohol intake: current Alcohol intake frequency: holidays/special occasions only Alcohol type: wine Patient Tobacco Use Status: Never used Tobacco e-Cigarette/Vaping Use: Never Used Second Hand Smoke Exposure: No Use of substances other than those prescribed or required for medical reasons: No Are you DNR?: No Advance Directives: Yes Advance Directives on File: Yes Advance Directives Date on File: 11/16/20 service: No Current occupational status: retired Current occupational exposures/hazards: No Cognitive needs: No Hearing needs: No Vision needs: Yes Meds Allergies Allergy/AdvReac Type Severity Reaction Status Date / Time Penicillins [PENICILLINS] Allergy Intermediate RASH Verified 07/16/21 11:25 Active Medications: Current Medications Albuterol Sulfate (Albuterol Sulfate (0.083%) 2.5 Mg/3 Ml Vial.Neb) 2.5 mg INHALE ONCE PRN PRN Reason: Wheezing Dorzolamide/Timolol (Dorzolamide/Timolo 2.23%/0.68% 10 Ml Drbtl) 1 drop EYE-BOTH BID [facility] Last Admin: 07/17/21 10:34 Dose: 1 drop Documented by: Fentanyl (Fentanyl Citrate/Pf 100 Mcg/2 Ml Vial) 25 mcg IVPUSH Q5M PRN; Protocol PRN Reason: Pain, Moderate (Pain Scale 4-6 Fluticasone/Vilanterol (Fluticasone/Vilanterol 100/25 Blst.W.Dev) 1 puff INHALE RDAILY [facility] Last Admin: 07/17/21 10:45 Dose: Not Given Documented by: Sodium Chloride (Ns) 1,000 mls @ 100 mls/hr IVCONT .Q10H [facility] Last Admin: 07/17/21 10:49 Dose: Not Given Documented by: Lactated Ringer's (Lr) 1,000 mls @ 80 mls/hr IVCONT .[id number] [facility] Stop: 07/17/21 15:44 Last Admin: 07/17/21 10:43 Dose: Not Given Documented by: Ceftriaxone Sodium 2 gm/ (Sodium Chloride) 50 mls @ 100 mls/hr IV Q24H [facility] Lactated Ringer's (Lr) 1,000 mls @ 100 mls/hr IVCONT .Q10H [facility] Promethazine HCl 12.5 mg/ (Sodium Chloride) 50.5 mls @ 202 mls/hr IV ONCE PRN PRN Reason: Nausea and Vomiting Latanoprost (Latanoprost 0.005 % Ophth Anum 2.5 Ml Drops) 1 drop EYE-BOTH BEDTIME [facility] Last Admin: 07/17/21 10:35 Dose: 1 drop Documented by: Morphine Sulfate (Morphine Sulfate 4 Mg/Ml Cartridge) 2 mg IVPUSH Q4H PRN; Protocol PRN Reason: Pain, Severe (Pain Scale 7-10) Last Admin: 07/16/21 23:13 Dose: 2 mg Documented by: Omeprazole (Omeprazole 20 Mg Capsule.Dr) 20 mg PO DAILY [facility] Last Admin: 07/17/21 10:35 Dose: 20 mg Documented by: Pharmacy Consult (Consult Rx Perform Med Rec) 1 each MISCELLANE ONCE PRN PRN Reason: Consult order Pyridoxine HCl (Pyridoxine Hcl (Vitamin B6) 50 Mg Tablet) 100 mg PO DAILY [facility] Last Admin: 07/17/21 10:35 Dose: 100 mg Documented by: Sodium Chloride (0.9 % Sodium Chloride Flush 3 Ml Syringe) 3 ml IVFLUSH QSHIFT [facility] Last Admin: 07/17/21 08:12 Dose: Not Given Documented by: Home Medications Medication Instructions Recorded Confirmed Last Taken Type dorzolamide 22.3 mg-timolol 6.8 1 drp OPHTHALMIC (EYE) BID 04/23/20 07/16/21 07/16/21 History mg/mL eye drops fluticasone furoate 100 1 puff PO DAILY 11/16/20 07/16/21 07/16/21 History mcg-vilanterol 25 mcg/dose inhalation powder (Breo Ellipta) latanoprost 0.005 % eye drops 1 drp OPHTHALMIC (EYE) BEDTIME 06/05/21 07/16/21 07/15/21 History omeprazole 20 mg capsule,delayed 1 cap PO DAILY 06/05/21 07/16/21 07/16/21 History release pyridoxine (vitamin B6) 100 mg 1 tab PO DAILY 06/05/21 07/16/21 07/16/21 History tablet simvastatin 40 mg tablet 40 mg PO BEDTIME 06/30/21 07/16/21 07/15/21 History Physical Exam Vital Signs: Vital Signs: Last Vital Signs Temp 97.9 F 07/17/21 14:50 Pulse 71 07/17/21 15:23 Resp 16 07/17/21 15:23 BP 114/64 07/17/21 15:23 Pulse Ox 94 07/17/21 15:23 Oxygen Flow Rate 1 07/16/21 11:25 BMI result Body Mass Index 24.0 Const: General: cooperative HEENT: Head: Yes normal to inspection Resp: Effort & Inspection: normal respiratory effort Cardio: Rate: regular rate Rhythm: regular rhythm GI: Palpation (GI): Soft to palpation and nontender Extrem: General: Yes normal to inspection Results Labs CBC & Chem 7: 07/17/21 06:14 07/17/21 06:14 Labs: Short CBC 07/17/21 Range/Units 06:14 WBC 9.0 (4.8-10.8) X10*3/uL Hgb 11.2 L (14.0-18.0) g/dl Hct 34.6 L (42.0-52.0) % Plt Count 190 (160-400) X10*3/uL BMP 07/17/21 06:14 Sodium 141 Potassium 3.8 Chloride 112 H Carbon Dioxide 24 BUN 15 Creatinine 0.85 Calcium 8.6 D Liver Function 07/17/21 Range/Units 06:14 Total Bilirubin 3.3 H (0.0-1.0) mg/dL Direct Bilirubin 2.2 H (0.0-0.5) mg/dL AST 154 H (5-37) U/L ALT 208 H (0-40) U/L Alkaline Phosphatase 225 H D (39-117) U/L Albumin 2.9 L D (3.5-5.0) g/dL Urine 07/16/21 Range/Units 18:46 Urine Color YELLOW Urine Appearance CLEAR Urine pH 6.0 (5.0-8.0) Ur Specific [place] 1.015 (1.005-1.025) Urine Protein NEG (NEG-TRACE) MG/DL Urine Glucose (UA) NEG (NEG) MG/DL Microbiology Microbiology Results: Microbiology 07/16/21 12:09 Blood - Venous Blood Culture - Preliminary No growth after 24 hours. 07/16/21 12:09 Blood - Venous Blood Culture - Preliminary Prelim: GNR Gram Stain only Assessment and Plan (1) Biliary obstruction: Status: Acute This is likely cause of gram negative adams sepsis He has no other source seen Plan await final cultures Continue Ceftriaxone for now Probable finish with Ceftin for 14 days
[2021-07-17] MEDS: Morphine Sulfate 4 MG/ML CARTRIDGE 2 MG IVPUSH ×2 (17:21→21:03)
[2021-07-17] MEDS: cefTRIAXone sodium 2 GM in 0.9 % Sodium Chloride 50 ML IV (18:53)
[2021-07-17] MEDS: Lactated Ringers 1,000 ML 100 ML IVCONT (20:03)
[2021-07-17] MEDS: 0.9 % Sodium Chloride Flush 3 ML SYRINGE IVFLUSH (20:06)
[2021-07-18] VITALS (8 sets, daily range): BP systolic 114–148; BP diastolic 60–81; PULSE 67–91; RESP 16–20; TEMP 36.1–37.2; O2SAT 94–98
--- NOTE | 2021-07-18 02:18 | OP_ITS ---
SURGEON: Agusto Ford MD INDICATIONS: Biliary obstruction. PREOPERATIVE DIAGNOSIS: POSTOPERATIVE DIAGNOSIS: PROCEDURE PERFORMED: ESTIMATED BLOOD LOSS: COMPLICATIONS: ANESTHESIA: ASSISTANTS: SPECIMENS: PROCEDURES: Endoscopic retrograde cholangiopancreatography with biopsies, brushings, and stent placement. MEDICATIONS: General anesthesia. DESCRIPTION OF PROCEDURE: A history and physical were performed. The risks and benefits of the procedure were explained to the patient. Informed consent was obtained. The patient was placed in the prone position with a wedge under the right shoulder. The Olympus therapeutic duodenoscope was introduced into the esophagus, stomach, and duodenum. Examination was performed. The scope was removed. He tolerated the procedure well and was taken to recovery room in stable condition. FINDINGS: Endoscopy: Limited examination of the esophagus, stomach, and duodenum was within normal limits. The site of the major papilla was abnormal with ulceration and oozing of blood prior to any instrumentation. A previous sphincterotomy was identified. There was not an ampullary mass or obvious adenoma. The common bile duct was cannulated with a sphincterotome and contrast injection was done without demonstration of a definite filling defect. There appeared to be a very mild shelf seen on fluoroscopy in the distal common bile duct at the level of the major papilla. A 12 to 15 mm balloon was used to sweep the duct multiple times without removal of any stone material. The 12 mm balloon was able to pass the narrowed area described above with moderate traction, but no stone was seen on endo/fluoro imaging. Brushings were obtained from the distal common bile duct. The distal CBD and ulcerated mucosa of the major papilla were biopsied. A 10-[place] 5 cm straight biliary stent was placed in good position to provide continued drainage of the bile duct as it appeared that this shelf-like area at the level of the major papilla was a mild biliary stricture. No pancreatogram was attempted or obtained. IMPRESSION: Biliary stricture. RECOMMENDATIONS: Follow up the biopsy results. MD LIZETTE Lua/ALVIN / [id number] MTDD
[2021-07-18 06:33] LABS: Hematocrit 37.7 % (42.0-52.0); Hemoglobin 11.8 g/dl (14.0-18.0); Mean Corpuscular HGB Conc 31.3 g/dl (31.0-36.0); Mean Corpuscular Hemoglobin 29.8 pg (27.0-33.0); Mean Corpuscular Volume 95.2 fL (80.0-98.0); Mean Platelet Volume 9.8 fL (9.4-12.4); Platelet Count 219 X10*3/uL (160-400); Red Blood Count 3.96 X10*6/uL (4.60-5.80); Red Cell Distribution Width 13.2 % (11.0-16.0); White Blood Count 13.5 X10*3/uL (4.8-10.8)
[2021-07-18 06:53] LABS: Alanine Aminotransferase 163 U/L (0-40); Albumin Level 2.9 g/dL (3.5-5.0); Alkaline Phosphatase 211 U/L (39-117); Aspartate Amino Transferase 81 U/L (5-37); Bilirubin Direct 0.5 mg/dL (0.0-0.5); Total Protein 5.6 g/dL (6.5-8.0)
[2021-07-18] MEDS: Fluticasone/Vilanterol 100/25 BLST.W.DEV 1 PUFF INHALE (07:12)
[2021-07-18] MEDS: Omeprazole 20 MG CAPSULE.DR PO (08:31)
[2021-07-18] MEDS: Pyridoxine HCl (Vitamin B6) 50 MG TABLET 100 MG PO (08:31)
[2021-07-18] MEDS: 0.9 % Sodium Chloride Flush 3 ML SYRINGE IVFLUSH ×3 (08:33→20:04)
--- NOTE | 2021-07-18 13:17 | PM.GIPN ---
Subjective Subjective Date of Service: 07/18/21 Interval History: feels great no abd pain eating well Critical Care Time (minutes): 0 Physical Exam Vital Signs: Vital Signs: Last Vital Signs Temp 98.9 F 07/18/21 11:43 Pulse 79 07/18/21 11:43 Resp 20 07/18/21 07:50 BP 148/80 H 07/18/21 11:43 Pulse Ox 96 07/18/21 12:24 Oxygen Flow Rate 1 07/16/21 11:25 BMI result Body Mass Index 24.0 GI: Other: abdomen is soft and nontender Objective Data Labs CBC & Chem 7: 07/18/21 06:17 07/17/21 06:14 Labs: Laboratory Results - last 24 hr 07/18/21 07/18/21 06:17 06:17 WBC 13.5 H RBC 3.96 L Hgb 11.8 L Hct 37.7 L MCV 95.2 MCH 29.8 MCHC 31.3 RDW 13.2 Plt Count 219 MPV 9.8 Absolute Nucleated RBC 0.000 Nucleated RBC % (auto) 0.0 Total Bilirubin 1.0 Direct Bilirubin 0.5 AST 81 H ALT 163 H Alkaline Phosphatase 211 H Total Protein 5.6 L Albumin 2.9 L Microbiology Microbiology Results: Microbiology 07/16/21 12:09 Blood - Venous Blood Culture - Preliminary Gram negative adams 07/16/21 12:09 Blood - Venous Blood Culture - Preliminary No growth after 24 hours. Procedures Date of Service Date of Service: 07/18/21 Progress Note: A&P Assessment and plan (1) Elevated LFTs: Status: Acute Assessment and Plan: doing well ok for discharge f/u bxs as outpt. Time Spent With Patient Time: Total time spent is greater than 50% in coordination of care (as documented) at patient's floor/unit and/or counseling patient: Quality Stroke Does the patient have a stroke diagnosis?: No VTE Prior VTE?: No VTE Risk Level:: Medical - moderate - high VTE Device Contraindication: N/A - Device Ordered VTE Drug Contraindication: Treatment Not Indicated
--- NOTE | 2021-07-18 13:35 | P.PNIM_ITS ---
Subjective Subjective Date of Service: 07/18/21 Interval History: F/u on cholechodolithiasis interval history: feels better, no abdominal pain no fever, s/p ERCP yesterday Review of Systems no fever, no abd pain Physical Exam Vital Signs: Vital Signs: Last Vital Signs Temp 98.9 F 07/18/21 11:43 Pulse 79 07/18/21 11:43 Resp 20 07/18/21 07:50 BP 148/80 H 07/18/21 11:43 Pulse Ox 96 07/18/21 12:24 Oxygen Flow Rate 1 07/16/21 11:25 BMI result Body Mass Index 24.0 Const: Other: General: AO X 3, no acute distress Resp: CTA bilateral CVS: S1,S2,RRR GI: +BS, NT, no distention Skin: No rash Neuro: motor grossly intact Psych: appropriate affect Objective Data Active Medications Albuterol Sulfate (Albuterol Sulfate (0.083%) 2.5 Mg/3 Ml Vial.Neb) 2.5 mg INHALE ONCE PRN PRN Reason: Wheezing Dorzolamide/Timolol (Dorzolamide/Timolo 2.23%/0.68% 10 Ml Drbtl) 1 drop EYE- BOTH BID [facility] Last Admin: 07/18/21 08:32 Dose: Not Given Documented by: SPENCER Non-Admin Reason: Previously Administered Fentanyl (Fentanyl Citrate/Pf 100 Mcg/2 Ml Vial) 25 mcg IVPUSH Q5M PRN; Protocol PRN Reason: Pain, Moderate (Pain Scale 4-6 Fluticasone/Vilanterol (Fluticasone/Vilanterol 100/25 Blst.W.Dev) 1 puff INHALE RDAILY [facility] Last Admin: 07/18/21 07:12 Dose: 1 puff Documented by: PERRY Lactated Ringer's (Lr) 1,000 mls @ 100 mls/hr IVCONT .Q10H [facility] Last Admin: 07/18/21 08:23 Dose: Not Given Documented by: SPENCER Non-Admin Reason: Medication Discontinued Ceftriaxone Sodium 2 gm/ (Sodium Chloride) 50 mls @ 100 mls/hr IV Q24H [facility] Last Infusion: 07/17/21 21:11 Dose: 0 mls/hr Documented by: ARBEN Latanoprost (Latanoprost 0.005 % Ophth Anum 2.5 Ml Drops) 1 drop EYE-BOTH BEDTIME [facility] Last Admin: 07/17/21 10:35 Dose: 1 drop Documented by: TIFFANI Morphine Sulfate (Morphine Sulfate 4 Mg/Ml Cartridge) 2 mg IVPUSH Q4H PRN; Protocol PRN Reason: Pain, Severe (Pain Scale 7-10) Last Admin: 07/17/21 21:03 Dose: 2 mg Documented by: ARBEN Omeprazole (Omeprazole 20 Mg Capsule.) 20 mg PO DAILY [facility] Last Admin: 07/18/21 08:31 Dose: 20 mg Documented by: SPENCER Pharmacy Consult (Consult Rx Perform Med Rec) 1 each MISCELLANE ONCE PRN PRN Reason: Consult order Pyridoxine HCl (Pyridoxine Hcl (Vitamin B6) 50 Mg Tablet) 100 mg PO DAILY [facility] Last Admin: 07/18/21 08:31 Dose: 100 mg Documented by: SPENCER Sodium Chloride (0.9 % Sodium Chloride Flush 3 Ml Syringe) 3 ml IVFLUSH QSHIFT [facility] Last Admin: 07/18/21 08:33 Dose: 3 ml Documented by: SPENCER Labs CBC & Chem 7: 07/18/21 06:17 07/17/21 06:14 Labs: Laboratory Results - last 24 hr 07/18/21 07/18/21 06:17 06:17 MCV 95.2 MCH 29.8 MCHC 31.3 RDW 13.2 Plt Count 219 MPV 9.8 Absolute Nucleated RBC 0.000 Nucleated RBC % (auto) 0.0 Total Bilirubin 1.0 Direct Bilirubin 0.5 AST 81 H ALT 163 H Alkaline Phosphatase 211 H Total Protein 5.6 L Albumin 2.9 L Microbiology Microbiology Results: Microbiology 07/16/21 12:09 Blood Culture - Preliminary Blood - Venous Gram negative adams 07/16/21 12:09 Blood Culture - Preliminary Blood - Venous No growth after 24 hours. Assessment and Plan (1) Choledocholithiasis: Status: Acute Plan 81 yo male with hx of anxiety, NSTEMI, PAF not on anticoagulation, GERD, HLD,choledocholithiasis with acute cholangitis and e. coli bacteremia h back in May here with abdominal pain, nauseas and chills? and feve reminescent of last episode.? Plan for ERCP tomorrow Plan: Cholecholithiasis/cholangitis with gram negative adams bacteremia/Sepsis - Ceftriaxone 2 gram daily -ID recommend Ceftin x 14 days once sensitivity available -ERCP done yesterday with stent placement and bx taken -LFTs are trending down ? Continue all other home medication DVT prophylaxis compression device Inpatient need: need for ERCP for choledocholithiasis and risk of cholangitis Quality Stroke Does the patient have a stroke diagnosis?: No VTE Prior VTE?: No VTE Risk Level:: Medical - moderate - high VTE Device Contraindication: N/A - Device Ordered VTE Drug Contraindication: Treatment Not Indicated
--- NOTE | 2021-07-18 17:00 | HO.POSTANES ---
Post Anesthesia Evaluation Post Anesthesia Evaluation Vital Signs: Vital Signs Temp Pulse Resp BP Pulse Ox 07/18/21 15:13 97.0 F 82 16 130/81 95 07/18/21 12:24 96 07/18/21 11:43 98.9 F 79 148/80 H 95 07/18/21 07:50 97.9 F 91 20 139/74 95 07/18/21 07:14 67 16 Anesthesia: General Endotracheal-GETA Mental Status: Awake Pain Control: Satisfactory Nausea/Vomiting: None Hydration: Adequate Anesthesia-Related Issues: No Anes. Related Issues
[2021-07-18] MEDS: cefTRIAXone sodium 2 GM in 0.9 % Sodium Chloride 50 ML IV (19:15)
[2021-07-18] MEDS: Latanoprost 0.005 % Ophth Sol 2.5 ML DROPS 1 DROP EYE-BOTH (20:04)
[2021-07-18] MEDS: Dorzolamide/Timolo 2.23%/0.68% 10 ML DRBTL 1 DROP EYE-BOTH (20:04)
[2021-07-19 03:00] VITALS: BP 129/62; PULSE 84; RESP 20; TEMP 36.9; O2SAT 95
[2021-07-19 08:00] VITALS: BP 134/78; PULSE 82; RESP 18; TEMP 36.9; O2SAT 95
[2021-07-19] MEDS: Fluticasone/Vilanterol 100/25 BLST.W.DEV 1 PUFF INHALE (08:07)
[2021-07-19 08:08] VITALS: PULSE 85; RESP 16; O2SAT 96
[2021-07-19] MEDS: Omeprazole 20 MG CAPSULE.DR PO (08:34)
[2021-07-19] MEDS: Dorzolamide/Timolo 2.23%/0.68% 10 ML DRBTL 1 DROP EYE-BOTH (08:34)
[2021-07-19] MEDS: 0.9 % Sodium Chloride Flush 3 ML SYRINGE IVFLUSH (08:34)
[2021-07-19] MEDS: Pyridoxine HCl (Vitamin B6) 50 MG TABLET 100 MG PO (08:35)
--- NOTE | 2021-07-19 10:44 | PM.DS ---
DS: Providers Provider Date of Service: 07/19/21 Date of admission: 07/16/21 16:32 Primary care physician: Blanca Franklin MD Consults: 07/16/21 15:08 Consult to Gastroenterology Routine Consulting Provider: Enoch Duran Reason for consultation: abdominal pain elevated LFTs Has provider been notified: Yes 07/17/21 09:19 Consult to Infectious Diseases Routine Consulting Provider: Stacey Momin Reason for consultation: Bacteremia, cholangitis Has provider been notified: No DS: Diagnosis Discharge Diagnosis (1) Choledocholithiasis: Status: Acute DS: Summary Hospital Course Hospital Course: Chief Complaint: Abdominal quinn 81 yo male with hx of anxiety, NSTEMI, PAF not on anticoagulation, GERD, HLD,choledocholithiasis with acute cholangitis and e. coli bacteremia h back in May here with abdominal pain, nauseas and chills? and feve reminescent of last episode. WBC is 13 , MRC is done result not available for me to review.? Dr.? Duran has evaluated him and is planning ERCP tomorrow. He is clinically not septic.. Hospital course:Patient was admitted for recurrent choledocholethiasis and ERCP was arranged by Dr. Ford, Blood culture came back 03/22 gram negative adams (E. coli which is similar to previous admission). He had ECRP on 07/17 with the following finding: abnormal major papilla with ulceration/friability and oozing dilated cbd, mild shelf/narrowing at level of papilla 12 mm balloon used to sweep cbd, no stones seen biopsies and brushings taken of distal cbd/papilla 10F 5 cm biliary stent placed. LFTs have been elevated but trending down. He was seen by ID and recommend to continue to be treated with Ceftin for 14 days. He has Received Ceftriaxone for 2 days now. Over he is feeling well, tolerating regular diet and will follow up with Dr. Ford and PCP Time Spent with Patient Time attestation: Total time spent providing and/or coordinating discharge services: Discharge coordination time: Greater than 30 minutes Quality: Safe Use of Opioids Does Pt have an Active Cancer Diagnosis on the Problem List?: No Quality: Stroke Does the patient have a stroke diagnosis?: No Physical Exam Vital Signs: Vital Signs: Last Vital Signs Temp 98.4 F 07/19/21 08:00 Pulse 85 07/19/21 08:08 Resp 16 07/19/21 08:08 BP 134/78 07/19/21 08:00 Pulse Ox 95 07/19/21 08:00 Oxygen Flow Rate 1 07/16/21 11:25 BMI result Body Mass Index 24.0 DS: Data Data Completed and Pending Completed studies during hospitalization [Text1]: Procedures Dilation of Common Bile Duct with Intraluminal Device, Via Natural or Artificial Opening Endoscopic (11/16/20) Extirpation of Matter from Common Bile Duct, Via Natural or Artificial Opening Endoscopic (06/05/21) Pending studies at discharge: Pending at discharge 07/17/21 13:50 Cytology [PTH] Routine 07/17/21 14:05 Surgical [PTH] Routine Labs on day of discharge: Preliminary micro results at discharge 07/16/21 12:09 Blood Culture - Preliminary Blood - Venous No growth after 48 hours. Discharge Plan Discharge Anticipated Discharge Date/Time: 07/19/21 10:37 Patient Disposition: Home, Self-Care Discharge Diagnosis: Sepsis bacteremia, cholechodocholithiasis Referrals: Po,Blanca Melgar MD [Primary Care Provider] - Discharge Medications: New cefuroxime axetil 500 mg tablet 500 mg PO BID 12 Days Qty: 24 0RF Continued Breo Ellipta 100-25 mcg/dose blister with device 1 puff PO DAILY 0RF latanoprost 0.005 % drops 1 drp ophthalmic (eye) BEDTIME 0RF Rx Instructions: both eyes omeprazole 20 mg capsule,delayed release(DR/EC) 1 cap PO DAILY 0RF pyridoxine (vitamin B6) 100 mg tablet 1 tab PO DAILY 0RF simvastatin 40 mg tablet 40 mg PO BEDTIME 0RF dorzolamide-timolol 22.3-6.8 mg/mL drops 1 drp ophthalmic (eye) BID 0RF Diet: advance to usual diet Activity on Discharge: As tolerated Stand Alone Forms: Patient Portal Discharge page Care Plan Goals: Full recovery from bactermia, gallstones Health Concerns: Gallstones, bacteremia, sepsis Plan of Treatment: Take Cefuroxime (Ceftin) 500 mg twice daily as recommended and follow up with your Doctor and Dr. Ford in 2 weeks Return to the hospital if you are having fever and chills and or abdominal pain Assessment: As above
[2021-07-19 11:28] LABS: Alanine Aminotransferase 121 U/L (0-40); Albumin Level 3.2 g/dL (3.5-5.0); Alkaline Phosphatase 193 U/L (39-117); Aspartate Amino Transferase 39 U/L (5-37); Bilirubin Direct 0.4 mg/dL (0.0-0.5); Bilirubin Total 0.8 mg/dL (0.0-1.0); Total Protein 6.2 g/dL (6.5-8.0)
--- NOTE | 2021-07-19 11:35 | MHC.CM.PN ---
Patient has been medically cleared for dc to home today, self care. Last IMM addressed on 07/17/21.
== END 2021-07-19 13:06 | disposition home or self-care (01) | DRG 445 ==
LOC: HO.ED 13:07 → HO.EDOVER 16:43 → HO.IMC 07-17 14:32
PROVIDERS: Internal Medicine; Internal Medicine Gastroenterology; Admitting Provider Internal Medicine; Emergency Provider Emergency Medicine; PCP Internal Medicine; Visit Provider Internal Medicine
PROC: (CPT 43260; principal; 2021-07-17 13:00)
DX: K80.30 Calculus of bile duct with cholangitis, unspecified, without obstruction (principal); R78.81 Bacteremia; N40.0 Benign prostatic hyperplasia without lower urinary tract symptoms; K21.9 Gastro-esophageal reflux disease without esophagitis; I25.2 Old myocardial infarction; B96.20 Unspecified Escherichia coli [E. coli] as the cause of diseases classified elsewhere; Z20.822 Contact with and (suspected) exposure to COVID-19; Z87.442 Personal history of urinary calculi; Z88.0 Allergy status to penicillin; Z79.899 Other long term (current) drug therapy
CPT/HCPCS: 36415; 71045; 74181; 80048; 80076; 81003; 83605; 83690; 83735; 85025; 85027; 85610; 87040; 87077; 87186; 87205; 87502; 87635; 88112; 88305; 93005; 94640; 96361; 96365; 99285; 99291; C1769; C2617; J0696; J1100; J1610; J2270; J2370; J2405; J2550; J3010; Q9967

== ENCOUNTER 2021-07-24 10:58 | Outpatient (REF) | payer MEDICARE, OTHER, SELFPAY ==
[2021-07-24 16:02] LABS: MANUAL DIFF FLAG NO
[2021-07-24 16:11] LABS: Basophils Absolute Auto 0.1 X10*3/uL (0.0-0.2); Basophils Percent Auto 0.5 % (0-2); Eosinophils Absolute Auto 0.5 X10*3/uL (0.0-0.4); Eosinophils Percent Auto 3.9 % (0-4); Hematocrit 40.3 % (42.0-52.0); Hemoglobin 12.8 g/dl (14.0-18.0); Imm Gran Abs Auto 0.06 X10*3/uL (0.00-0.03); Imm Gran Pct Auto 0.4 % (0.0-0.4); Lymphocytes Absolute Auto 2.4 X10*3/uL (1.2-4.9); Lymphocytes Percent Auto 17.4 % (20-40); Mean Corpuscular HGB Conc 31.8 g/dl (31.0-36.0); Mean Corpuscular Hemoglobin 30.1 pg (27.0-33.0); Mean Corpuscular Volume 94.8 fL (80.0-98.0); Mean Platelet Volume 9.2 fL (9.4-12.4); Monocytes Absolute Auto 1.4 X10*3/uL (0.1-1.2); Monocytes Percent Auto 10.4 % (2-11); Neutrophils Absolute Auto 9.3 x10*3/uL (2.0-8.3); Neutrophils Percent Auto 67.4 % (45-73); Platelet Count 334 X10*3/uL (160-400); Red Blood Count 4.25 X10*6/uL (4.60-5.80); Red Cell Distribution Width 12.8 % (11.0-16.0); White Blood Count 13.8 X10*3/uL (4.8-10.8)
[2021-07-24 16:30] LABS: Alanine Aminotransferase 39 U/L (0-40); Albumin Level 3.6 g/dL (3.5-5.0); Alkaline Phosphatase 146 U/L (39-117); Aspartate Amino Transferase 21 U/L (5-37); Bilirubin Direct 0.3 mg/dL (0.0-0.5); Bilirubin Total 0.5 mg/dL (0.0-1.0)
[2021-07-27 12:21] LABS: Carbohydrate Antigen 19-9 22 U/mL (<34)
== END 2021-07-24 10:59 | disposition home or self-care (01) ==
LOC: HO.LAB 10:58
PROVIDERS: Absent Provider Internal Medicine; PCP Internal Medicine; Visit Provider Urology
DX: C24.1 Malignant neoplasm of ampulla of Vater (principal); N40.1 Benign prostatic hyperplasia with lower urinary tract symptoms; R35.0 Frequency of micturition; N20.0 Calculus of kidney
CPT/HCPCS: 36415; 80076; 85025; 86301; Q3014

== ENCOUNTER → 2021-08-12 14:51 | Outpatient (BNVA) | payer MEDICARE, OTHER, SELFPAY | PROVIDERS: PCP Internal Medicine; Referring Provider Internal Medicine; Visit Provider Internal Medicine | DX: Z01.810 Encounter for preprocedural cardiovascular examination (principal); I48.0 Paroxysmal atrial fibrillation; Z79.899 Other long term (current) drug therapy | CPT/HCPCS: 99212 ==

== ENCOUNTER 2021-09-22 10:51 | Emergency (ER) | payer MEDICARE, OTHER, SELFPAY ==
--- NOTE | ~2021-09-22 | CT_ITS ---
EXAMINATION: CT ABDOMEN AND PELVIS WITH CONTRAST CLINICAL INFORMATION: Patient complaining of right midabdomen and right lower quadrant abd pain with n/v/d COMPARISON: ERCP 11/16/2021, Multiple prior imaging the most recent of which is MRCP dated 07/16/[address] abdomen pelvis 06/05/2021 TECHNIQUE: Multidetector volumetric images were obtained from the superior aspect of the liver through the pubic symphysis following administration 85 mL of Omnipaque 350 intravenous contrast. Sagittal and coronal reformatted images were obtained on the technologist's workstation. Oral contrast: No This CT examination was performed using dose optimization techniques as appropriate, variously including the following: *Automated exposure control *Adjustment of mA and/or kV according to patient size (this includes techniques or standardized protocols for targeted exams where dose is matched to indication/reason for exam; i.e. extremities or head) *Use of iterative reconstruction technique DLP: 318 mGy-cm FINDINGS: LUNG BASES: The visualized lung bases are unremarkable aside from some mild tree-in-bud abnormality seen in the right middle lobe which may be secondary to airway disease/inflammation. No worrisome lung masses are seen to suggest metastatic disease. LIVER, GALLBLADDER, AND BILIARY TREE: The liver is normal in size, shape, and attenuation. Since the prior study, the biliary ductal dilatation both intrahepatically and extrahepatically has resolved. Some air is present within the intrahepatic bile ducts. The plastic stent that had been placed during ERCP is no longer present.. No focal hepatic lesion or biliary ductal dilatation is present. Status post cholecystectomy with clips in the gallbladder fossa. PANCREAS: Unremarkable. SPLEEN: Unremarkable. ADRENAL GLANDS: Unremarkable. KIDNEYS AND URETERS: The kidneys are normal in size, shape, and attenuation. Bilateral Bosniak class I renal cysts are again noted which need no further imaging or follow-up. Left lower pole renal cortical calcification unchanged. No hydronephrosis, hydroureter, or collecting system calculi seen. No perinephric stranding. BLADDER: Unremarkable. GASTROINTESTINAL TRACT: Moderate-sized hiatal hernia is present. The small and large bowel are unremarkable. The appendix is normal. No abscess is seen. No free air is seen. ABDOMINAL WALL: No significant hernia is appreciated. LYMPH NODES: No retroperitoneal lymphadenopathy. VASCULAR: Calcific and noncalcific atherosclerotic plaque present in the aorta and iliac vessels. There is mild fusiform dilatation of the infrarenal aorta and common iliac arteries. The infrarenal abdominal aorta measures a maximum of 2.1 cm. PELVIC VISCERA: Moderate BPH with prostate measuring between 104 130 mL. Seminal vesicles appear normal. OSSEOUS STRUCTURES: Degenerative changes are present in the spine most marked at L2-L3. There is grade 1 anterolisthesis of L4 upon L5. CT/CT abdomen pelvis w con IMPRESSION: An etiology for the patient's right lower quadrant pain and related symptoms has not been found. The appendix is normal. Previously placed biliary stent is no longer present but no biliary dilatation is seen. Other incidental findings as described above. Fleischner guidelines were followed.
[2021-09-22 11:09] VITALS: BP 116/76; BP 124/76; PULSE 70; RESP 20; TEMP 36.9; O2SAT 100; O2SAT 95; BMI 20.8
[2021-09-22 11:32] LABS: MANUAL DIFF FLAG NO
[2021-09-22 11:34] LABS: Basophils Absolute Auto 0.1 X10*3/uL (0.0-0.2); Basophils Percent Auto 0.6 % (0-2); Eosinophils Absolute Auto 0.5 X10*3/uL (0.0-0.4); Hemoglobin 11.6 g/dl (14.0-18.0); Imm Gran Abs Auto 0.03 X10*3/uL (0.00-0.03); Imm Gran Pct Auto 0.3 % (0.0-0.4); Lymphocytes Absolute Auto 2.4 X10*3/uL (1.2-4.9); Lymphocytes Percent Auto 21.1 % (20-40); Mean Corpuscular HGB Conc 31.4 g/dl (31.0-36.0); Mean Corpuscular Hemoglobin 28.4 pg (27.0-33.0); Mean Corpuscular Volume 90.7 fL (80.0-98.0); Mean Platelet Volume 9.2 fL (9.4-12.4); Monocytes Percent Auto 8.6 % (2-11); Neutrophils Absolute Auto 7.6 x10*3/uL (2.0-8.3); Neutrophils Percent Auto 65.4 % (45-73); Platelet Count 307 X10*3/uL (160-400); Red Blood Count 4.08 X10*6/uL (4.60-5.80); White Blood Count 11.5 X10*3/uL (4.8-10.8)
[2021-09-22 11:45] LABS: INTERNATIONAL NORM RATIO 1.1 (0.9-1.1); Prothrombin Time 12.7 SEC (10.0-13.1)
[2021-09-22 11:49] LABS: Alanine Aminotransferase 26 U/L (0-40); Albumin Level 3.5 g/dL (3.5-5.0); Alkaline Phosphatase 78 U/L (39-117); Anion Gap 11 (12-20); Aspartate Amino Transferase 28 U/L (5-37); Bilirubin Total 0.5 mg/dL (0.0-1.0); Blood Urea Nitrogen 10 mg/dL (9-16); Calcium 8.5 mg/dL (8.4-10.2); Carbon Dioxide 25 mmol/L (22-29); Chloride 110 mmol/L (96-108); Creatinine Clr Calc Pharmacy 56.5; Estimated Glomerular Filt Rate > 60; Glucose Random 106 mg/dL (60-115); Lipase 50 U/L (8-78); Magnesium 1.8 mg/dL (1.6-2.6); Potassium 3.6 mmol/L (3.3-5.1); Sodium 142 mmol/L (135-145); Total Protein 6.6 g/dL (6.5-8.0)
[2021-09-22 11:57] LABS: COVID-19 Test Negative (Negative)
[2021-09-22] MEDS: 0.9 % Sodium Chloride 1,000 ML 999 ML IVCONT (12:00)
[2021-09-22] MEDS: ondansetron HCL 4 MG/2 ML VIAL IVPUSH (12:00)
[2021-09-22] MEDS: iohexoL 350 MG/ML 100 ML INFUS..BTL IV (12:45)
--- NOTE | 2021-09-22 13:36 | ED.ABDPAIN ---
HPI - Abdominal Pain General Chief Complaint: Abdominal Pain Stated Complaint: lower abdominal pain, nausea/vomiting Time Seen by Provider: 09/22/21 10:55 Source: patient Mode of arrival: ambulatory Limitations: no limitations History of Present Illness HPI narrative: 81-year-old male with a past medical history of hyperlipidemia, GERD, atrial fibrillation not on anticoagulation and cholangiocarcinoma now POD27 s/p Whipple (08/19/21, Dr. Flores) who is going to follow-up with [facility] oncologist tomorrow presenting to the ED via EMS with complaints of nausea/vomiting with associated right lower quadrant abdominal pain that has been intermittent since the surgery on 08/19/2021. Reports that they told him that this could be a side effect after he had the procedure. He denies any fevers, chills, dizziness, headaches, neck pain/stiffness, trouble swallowing or breathing, chest pain or shortness of breath, dyspnea on exertion, orthopnea, palpitations, paresthesias, radiation of the abdominal pain, flank pain, back pain, dysuria, hematuria, trauma/recent falls, hematuria, abnormal penile discharge, black or bloody stools, recent travel or sick contacts or any other symptoms complaints or concerns at this time. MD elicited complaint: abdominal pain Pertinent past history: other (See above) Onset (ago): week(s) (4-1/2 weeks ) Pain Consistency: intermittent Location: RLQ (right mid ) Severity: mild Quality: cramping Radiation: none Migration to: no migration Exacerbating factors: nothing Relieving factors: nothing Associated symptoms: nausea and vomiting Related Data Home Medications Medication Instructions Recorded Confirmed dorzolamide 22.3 mg-timolol 6.8 1 drp ophthalmic (eye) BID 04/23/20 08/12/21 mg/mL eye drops fluticasone furoate 100 1 puff PO DAILY 11/16/20 08/12/21 mcg-vilanterol 25 mcg/dose inhalation powder (Breo Ellipta) latanoprost 0.005 % eye drops 1 drp ophthalmic (eye) BEDTIME 06/05/21 08/12/21 omeprazole 20 mg capsule,delayed 1 cap PO DAILY 06/05/21 08/12/21 release simvastatin 40 mg tablet 40 mg PO BEDTIME 06/30/21 08/12/21 tadalafil 10 mg tablet mg PO 07/24/21 08/12/21 Previous Rx's Medication Instructions Recorded pyridoxine (vitamin B6) 100 mg 100 mg PO DAILY 90 days #90 tabs 07/24/21 tablet metoprolol succinate 25 mg 25 mg PO DAILY #90 tabs 08/12/21 tablet,extended release 24 hr (Toprol XL) ondansetron 4 mg disintegrating 4 mg PO Q6H PRN nausea and 09/22/21 tablet vomiting #14 tabs simethicone 80 mg chewable tablet 80 mg PO BEDTIME #14 tabs 09/22/21 (Gas Relief (simethicone)) Allergies Allergy/AdvReac Type Severity Reaction Status Date / Time Penicillins [PENICILLINS] Allergy Intermediate RASH Verified 08/12/21 14:59 Review of Systems Review of Systems Constitutional : No Weight loss, No Fever, No Chills, No Night Sweats, No Fatigue, No Malaise ENT/Mouth : No Hearing loss, No Ear Pain, No Nasal Congestion, No Sinus Pain, No Hoarseness, No sore throat, No Rhinorrhea, No Swallowing Difficulty Eyes: No Eye Pain, No Swelling, No Redness, No Foreign Body, No Discharge, No Vision Changes Cardiovascular : No Chest Pain, No SOB, No Dyspnea on Exertion, No Orthopnea, No Edema, No Palpitations Respiratory : No Cough, No Sputum, No Wheezing, No Smoke Exposure, No Dyspnea Gastrointestinal : + Nausea, + Vomiting, + abdominal pain, No Diarrhea, No Constipation, No Hematochezia, No Melena Genitourinary : no irregular bleeding, No Dysuria, No Urinary Frequency, No Hematuria, No Urinary Incontinence, No Urgency, No Flank Pain, No Urinary Flow Changes, No Hesitancy Musculoskeletal : No joint pain, No Myalgias, No Joint Swelling Skin : No Skin Lesions, No rash Neuro : No Weakness, No Numbness, No Paresthesias, No Loss of Consciousness, No Dizziness, No Headache Psych : No Anxiety/Panic, No Depression, No SI/HI/AH/VH, No Social Issues, Heme/Lymph: No Bruising, No Bleeding,No Lymphadenopathy Endocrine : No Polyuria, No Polydipsia, No Temperature Intolerance Yes all other systems are reviewed and are negative [facility] Past Medical History Attestation statement: The following information was validated with the patient. Source: unable to obtain, old records reviewed and nursing notes reviewed Medical History Afib Asthma BPH (benign prostatic hyperplasia) Cataract, left eye Esophageal stricture GERD (gastroesophageal reflux disease) Glaucoma Hypercholesterolemia Left renal stone PAF (paroxysmal atrial fibrillation) Sciatic nerve pain Screening for diabetes mellitus Vitamin D deficiency Surgical History History of blepharoplasty History of cataract surgery History of cholecystectomy History of inguinal hernia repair History of lithotripsy History of tonsillectomy Family History Family History Father Stroke Mother No problems noted. Social History Social History Household Members: Spouse Housing: House Do you presently have visiting nurse or other home services: No Alcohol intake: current Alcohol intake frequency: holidays/special occasions only Alcohol type: wine Patient Tobacco Use Status: Never used Tobacco e-Cigarette/Vaping Use: Never Used Second Hand Smoke Exposure: No Use of substances other than those prescribed or required for medical reasons: No Advance Directives: No Advance Directives Date on File: 11/16/20 service: No Current occupational status: retired Current occupational exposures/hazards: No Cognitive needs: No Hearing needs: No Vision needs: Yes Physical Exam ED Vital Signs: Vital Signs - 24 hr 09/22/21 11:09 09/22/21 13:42 Temperature 98.4 F 98.0 F Pulse Rate 86 Respiratory Rate 20 18 Blood Pressure 116/76 130/82 Pulse Oximetry 95 97 Oxygen Delivery Method Room Air Room Air BMI result Body Mass Index 20.8 Vital signs have been reviewed and all within normal limits Appearance: Alert. Oriented X3. No acute distress. Head: Normal external exam. Normocephalic. Eyes: PERRLA. EOMI. Conjunctiva and sclera normal. Eyelids normal. ENT: Pharynx normal. Uvula midline. Moist mucous membranes. No trismus noted. No drooling noted. No muffled voice noted. Neck: Normal inspection. Neck supple. FROM. No adenopathy. No meningeal signs. CVS: Normal heart rate and rhythm. Heart sound normal. No murmurs noted. Pulses normal throughout. Respiratory: No respiratory distress. Painless inspiration. Breath sounds normal. No wheezes/rales/rhonchi noted. Chest nontender. No accessory muscle usage noted or decreased air movement noted. Abdomen: Soft and mild ttp to right mid/rlq. Nondistended. No guarding. No rigidity. Bowel sounds normal in all 4 quadrants. No distention noted. No organomegaly noted. No visible injury noted. No rebound tenderness. Negative Rovsing sign. Negative obturator's sign. Negative psoas sign. Negative Garcia sign. Back: No CVA tenderness. Full range of motion noted. Skin: Skin warm and dry. Normal skin color. Normal skin turgor. No rashes/lesions/lacerations noted. Extremities: Extremities exhibit normal range of motion. Extremities nontender. Neuro: Oriented X 3. No motor deficit. No sensory deficit. Reflexes normal. Normal steady gait. CN's II-XII intact bilaterally? Course Course Course Narrative: 11am 81-year-old male with a past medical history of hyperlipidemia, GERD, atrial fibrillation not on anticoagulation and cholangiocarcinoma now POD27 s/p Whipple (08/19/21, Dr. Flores) who is going to follow-up with [facility] oncologist tomorrow presenting to the ED via EMS with complaints of nausea/vomiting with associated right lower quadrant abdominal pain that has been intermittent since the surgery on 08/19/2021. Reports that they told him that this could be a side effect after he had the procedure. Concern for kidney stone versus acute appendicitis. Plan: Labs, CT scan abdomen pelvis provide a L of IV fluids and re-evaluate. Reevaluation(s) Reevaluation #1: - labs reviewed patient with mild baseline anemia drop 1 point when compared to prior and I did requested do a stool occult Patient is refusing reports he is not having any black or bloody stools. - Pt negative for covid-19 - CT abd/pelvis negative for any acute processes noted. - patient is tolerating p.o. fluids/solids and requesting to go home. Will DC home with Zofran and Gas-X as patient reports it might be gas with instructions return if any new or worsening symptoms follow up with PCP/oncologist as scheduled tomorrow at [facility]. Patient understands agrees with this plan. Time: 15:00 [facility] - Abdominal Pain Medical Records Attestation: I reviewed the patient's medical records. Lab Data Attestation: I reviewed the patient's lab results. Result diagrams: 09/22/21 11:22 09/22/21 11:22 Labs: Lab Results 09/22/21 09/22/21 09/22/21 Range/Units 11:22 11:22 11:22 WBC 11.5 H (4.8-10.8) X10*3/uL RBC 4.08 L (4.60-5.80) X10*6/uL Hgb 11.6 L (14.0-18.0) g/dl Hct 37.0 L (42.0-52.0) % MCV 90.7 (80.0-98.0) fL MCH 28.4 (27.0-33.0) pg MCHC 31.4 (31.0-36.0) g/dl RDW 13.0 (11.0-16.0) % Plt Count 307 (160-400) X10*3/uL MPV 9.2 L (9.4-12.4) fL Immature Gran % (Auto) 0.3 (0.0-0.4) % Neut % (Auto) 65.4 (45-73) % Lymph % (Auto) 21.1 (20-40) % [place] % (Auto) 8.6 (2-11) % Eos % (Auto) 4.0 (0-4) % Baso % (Auto) 0.6 (0-2) % Lymph # (Auto) 2.4 (1.2-4.9) X10*3/uL [place] # (Auto) 1.0 (0.1-1.2) X10*3/uL Eos # (Auto) 0.5 H (0.0-0.4) X10*3/uL Baso # (Auto) 0.1 (0.0-0.2) X10*3/uL Abs Immat Gran (auto) 0.03 (0.00-0.03) X10*3/uL Absolute Neuts (auto) 7.6 (2.0-8.3) x10*3/uL Absolute Nucleated RBC 0.000 (0.0-0.012) X10*3/uL Nucleated RBC % (auto) 0.0 (0.0-0.2) /100WBC PT 12.7 (10.0-13.1) SEC INR 1.1 (0.9-1.1) Sodium 142 (135-145) mmol/L Potassium 3.6 (3.3-5.1) mmol/L Chloride 110 H (96-108) mmol/L Carbon Dioxide 25 (22-29) mmol/L Anion Gap 11 L (12-20) BUN 10 (9-16) mg/dL Creatinine 0.90 (0.5-1.4) mg/dL Estim Creat Clear Calc 56.5 Estimated GFR > 60 Random Glucose 106 (60-115) mg/dL Calcium 8.5 (8.4-10.2) mg/dL Magnesium 1.8 (1.6-2.6) mg/dL Total Bilirubin 0.5 (0.0-1.0) mg/dL AST 28 (5-37) U/L ALT 26 (0-40) U/L Alkaline Phosphatase 78 D (39-117) U/L Total Protein 6.6 (6.5-8.0) g/dL Albumin 3.5 (3.5-5.0) g/dL Lipase 50 (8-78) U/L COVID-19 (SHERI) (Negative) COVID-19 Clin Com 09/22/21 Range/Units 11:28 WBC (4.8-10.8) X10*3/uL RBC (4.60-5.80) X10*6/uL Hgb (14.0-18.0) g/dl Hct (42.0-52.0) % MCV (80.0-98.0) fL MCH (27.0-33.0) pg MCHC (31.0-36.0) g/dl RDW (11.0-16.0) % Plt Count (160-400) X10*3/uL MPV (9.4-12.4) fL Immature Gran % (Auto) (0.0-0.4) % Neut % (Auto) (45-73) % Lymph % (Auto) (20-40) % [place] % (Auto) (2-11) % Eos % (Auto) (0-4) % Baso % (Auto) (0-2) % Lymph # (Auto) (1.2-4.9) X10*3/uL [place] # (Auto) (0.1-1.2) X10*3/uL Eos # (Auto) (0.0-0.4) X10*3/uL Baso # (Auto) (0.0-0.2) X10*3/uL Abs Immat Gran (auto) (0.00-0.03) X10*3/uL Absolute Neuts (auto) (2.0-8.3) x10*3/uL Absolute Nucleated RBC (0.0-0.012) X10*3/uL Nucleated RBC % (auto) (0.0-0.2) /100WBC PT (10.0-13.1) SEC INR (0.9-1.1) Sodium (135-145) mmol/L Potassium (3.3-5.1) mmol/L Chloride (96-108) mmol/L Carbon Dioxide (22-29) mmol/L Anion Gap (12-20) BUN (9-16) mg/dL Creatinine (0.5-1.4) mg/dL Estim Creat Clear Calc Estimated GFR Random Glucose (60-115) mg/dL Calcium (8.4-10.2) mg/dL Magnesium (1.6-2.6) mg/dL Total Bilirubin (0.0-1.0) mg/dL AST (5-37) U/L ALT (0-40) U/L Alkaline Phosphatase (39-117) U/L Total Protein (6.5-8.0) g/dL Albumin (3.5-5.0) g/dL Lipase (8-78) U/L COVID-19 (SHERI) Negative (Negative) COVID-19 Clin Com See Note Imaging Data CT scan abdomen pelvis with IV contrast: Attestation: I personally reviewed and interpreted this imaging study as follows: Radiologist's impression: FINDINGS: LUNG BASES: The visualized lung bases are unremarkable aside from some mild tree-in-bud abnormality seen in the right middle lobe which may be secondary to airway disease/inflammation. No worrisome lung masses are seen to suggest metastatic disease.? LIVER, GALLBLADDER, AND BILIARY TREE: The liver is normal in size, shape, and attenuation. Since the prior study, the biliary ductal dilatation both intrahepatically and extrahepatically has resolved. Some air is present within the intrahepatic bile ducts. The plastic stent that had been placed during ERCP is no longer present.. No focal hepatic lesion or biliary ductal dilatation is present. Status post cholecystectomy with clips in the gallbladder fossa.? PANCREAS: Unremarkable.? SPLEEN: Unremarkable.? ADRENAL GLANDS: Unremarkable.? KIDNEYS AND URETERS: The kidneys are normal in size, shape, and attenuation. Bilateral Bosniak class I renal cysts are again noted which need no further imaging or follow-up. Left lower pole renal cortical calcification unchanged. No hydronephrosis, hydroureter, or collecting system calculi seen. No perinephric stranding. ? BLADDER: Unremarkable.? GASTROINTESTINAL TRACT: Moderate-sized hiatal hernia is present. The small and large bowel are unremarkable. The appendix is normal. No abscess is seen. No free air is seen.? ABDOMINAL WALL: No significant hernia is appreciated.? LYMPH NODES: No retroperitoneal lymphadenopathy. VASCULAR: Calcific and noncalcific atherosclerotic plaque present in the aorta and iliac vessels. There is mild fusiform dilatation of the infrarenal aorta and common iliac arteries. The infrarenal abdominal aorta measures a maximum of 2.1 cm. PELVIC VISCERA: Moderate BPH with prostate measuring between 104 130 mL. Seminal vesicles appear normal.? OSSEOUS STRUCTURES: Degenerative changes are present in the spine most marked at L2-L3. There is grade 1 anterolisthesis of L4 upon L5.? CT/CT abdomen pelvis w con IMPRESSION: An etiology for the patient's right lower quadrant pain and related symptoms has not been found. The appendix is normal. Previously placed biliary stent is no longer present but no biliary dilatation is seen. Other incidental findings as described above. ? Fleischner guidelines were followed. Discharge Plan Discharge Clinical Impression: Abdominal cramping, Nausea Patient Disposition: Home, Self-Care Instructions: Acute Nausea and Vomiting (ED), Abdominal Pain (ED) Prescriptions: New ondansetron 4 mg tablet,disintegrating 4 mg PO Q6H PRN (Reason: nausea and vomiting) Qty: 14 0RF simethicone [Gas Relief (simethicone)] 80 mg tablet,chewable 80 mg PO BEDTIME Qty: 14 0RF No Action Breo Ellipta 100-25 mcg/dose blister with device 1 puff PO DAILY latanoprost 0.005 % drops 1 drp ophthalmic (eye) BEDTIME Rx Instructions: both eyes omeprazole 20 mg capsule,delayed release(DR/EC) 1 cap PO DAILY simvastatin 40 mg tablet 40 mg PO BEDTIME dorzolamide-timolol 22.3-6.8 mg/mL drops 1 drp ophthalmic (eye) BID tadalafil 10 mg tablet PO pyridoxine (vitamin B6) 100 mg tablet 100 mg PO DAILY 90 Days Qty: 90 3RF metoprolol succinate [Toprol XL] 25 mg tablet extended release 24 hr 25 mg PO DAILY Qty: 90 3RF Referrals: Po,Blanca Melgar MD [Primary Care Provider] - 2 days
[2021-09-22 13:42] VITALS: BP 130/82; PULSE 86; RESP 18; TEMP 36.7; O2SAT 97
== END 2021-09-22 15:20 | disposition home or self-care (01) ==
PROVIDERS: Physician Assistant Medical; Emergency Provider Emergency Medicine; PCP Internal Medicine
DX: R10.31 Right lower quadrant pain (principal); R11.2 Nausea with vomiting, unspecified; Z79.899 Other long term (current) drug therapy; Z20.822 Contact with and (suspected) exposure to COVID-19
CPT/HCPCS: 36415; 74177; 80053; 83690; 83735; 85025; 85610; 87635; 96374; 99284; J2405; Q9967

== ENCOUNTER → 2022-02-04 13:12 | Outpatient (BNVA) | payer MEDICARE, OTHER, SELFPAY | PROVIDERS: PCP Internal Medicine; Referring Provider Internal Medicine; Visit Provider Internal Medicine | DX: I48.0 Paroxysmal atrial fibrillation (principal); I25.2 Old myocardial infarction | CPT/HCPCS: 99212 ==

== ENCOUNTER 2022-10-19 12:43 | Outpatient (AMB) | payer MEDICARE, OTHER, SELFPAY ==
[2022-10-19 12:46] VITALS: BP 116/62; PULSE 76; O2SAT 97; BMI 17.9
--- NOTE | 2022-10-19 12:46 | A.OFFPC_ITS ---
Vital Signs 10/19/22 12:46 Height 5 ft 8 in Weight 118 lb BMI 17.9 BP 116/62 Blood Pressure Location Lt brachial Position Sitting Pulse 76 Pulse Source Pulse Oximeter Pulse Oximetry (%) 97 Oxygen Delivery Method Room Air Intake Visit Reasons: GB cancer, A fib Allergies Penicillins [PENICILLINS] Allergy (Intermediate, Verified 10/19/22 12:46) RASH Medication List - Last Reconciled 10/19/22 by Blanca Franklin MD dorzolamide-timolol 22.3-6.8 mg/mL 1 drp ophthalmic (eye) BID latanoprost 0.005% 1 drp ophthalmic (eye) BEDTIME [id number]-[id number]-[id number] 24,000-76,000 -120,000 unit (Creon) 1 cap PO TID PRN metoprolol succinate ER (Toprol XL) 25 mg PO DAILY omeprazole 1 cap PO DAILY pyridoxine (vitamin B6) 100 mg PO DAILY 90 days simethicone (Gas Relief 80 (simethicone)) 80 mg PO BID PRN simvastatin 40 mg PO BEDTIME tadalafil mg PO Tobacco use date assessed: 04/27/22 Fall risk assessment: No Falls in past year Last assessed Fall Risk: 10/19/22 Dental Screening Dental Screen Date: 10/19/22 Did you have a dental visit in the last 12 months?: Yes Did you have a dental problem in the last 6 months where you did not have access to dental care?: No Was dental information given to patient?: Patient has dentist HPI GB cancer, A fib HPI Details 82-year-old male with a 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 Patient has been followed up in [facility] by Dr. Vikram maldonado for the management of resected ampullary cancer concern about recent CT scan showing hypoechoic lesions and new aorta capsule adenopathy April 2022 patient presently treated with single modality radiation therapy. CT scan done last week - awaiting ff up feels abd pain bloating and states creon does not seem to work [facility] Medical History (Updated 10/19/22 @ 13:03 by Blanca Franklin MD) Abdominal pain following cholangiogram Afib Asthma Atrial fibrillation with rapid ventricular response BPH (benign prostatic hyperplasia) Cataract, left eye Cholangitis due to bile duct calculus with obstruction Elevated liver enzymes Esophageal stricture GERD (gastroesophageal reflux disease) Glaucoma Hyperbilirubinemia Hypercholesterolemia Left renal stone NSTEMI (non-ST elevated myocardial infarction) NSTEMI (non-ST elevated myocardial infarction) PAF (paroxysmal atrial fibrillation) Preoperative cardiovascular examination Sciatic nerve pain Screening for diabetes mellitus Vitamin D deficiency Surgical History History of blepharoplasty History of cataract surgery History of cholecystectomy History of inguinal hernia repair History of lithotripsy History of tonsillectomy History of Whipple procedure Family History (Updated 10/19/22 @ 12:47 by Tish Munoz CMA) Father Stroke Mother No problems noted. Social History Household Members: Spouse Housing: House Do you presently have visiting nurse or other home services: No Alcohol intake: current Alcohol intake frequency: holidays/special occasions only Alcohol type: wine Patient Tobacco Use Status: Never used Tobacco e-Cigarette/Vaping Use: Never Used Second Hand Smoke Exposure: No Advance Directives Date on File: 11/16/20 service: No Current occupational status: retired Current occupational exposures/hazards: No Cognitive needs: No Hearing needs: No Vision needs: Yes Questionnaire PHQ-9 Over the last 2 weeks, how often have you been bothered by any of the following problems? 1. Little interest or pleasure in doing things: not at all 2. Feeling down, depressed, or hopeless: not at all 3. Trouble falling or staying asleep, or sleeping too much: not at all 4. Feeling tired or having little energy: not at all 5. Poor appetite or overeating: several days 6. Feeling bad about yourself - or that you are a failure or have let yourself or your family down: not at all 7. Trouble concentrating on things, such as reading the newspaper or watching television: not at all 8. Moving or speaking so slowly that other people could have noticed. Or the opposite - being so fidgety or restless that you have been moving around a lot more than usual: not at all 9. Thoughts that you would be better off or of hurting yourself in some way: not at all Total score: 1 Depression Screening Interpretation: Negative Source: Developed by Drs. Enoch Bowers, Virgie Shelton, Naveed Lawrence and colleagues, with an educational yaz from [employer]. Thrive Questionnaire Date Thrive assessed: 04/27/22 AUDIT C Alcohol Use Questionnaire (AUDIT-C) 1. How often do you have a drink containing alcohol?: Never 3. How often do you have six or more drinks on one occasion?: Never Total Score: 0 Score Reviewed/Action Taken: Yes AMEE-7 AMB Questionnaire AMEE-7 Date AMEE - 7 assessed: 04/27/22 Source: Developed by Drs. Enoch Bowers, Virgie Shelton, Naveed Lawrence and colleagues, with an educational yaz from [employer]. Physical exam (Primary Care) Vital Signs: Last Vital Signs Pulse 76 10/19/22 12:46 BP 116/62 10/19/22 12:46 Pulse Ox 97 10/19/22 12:46 Oxygen Delivery Method Room Air 10/19/22 12:46 BMI result Body Mass Index 17.9 Tobacco/Smoking Status: Tobacco use Status Tobacco use date assessed 04/27/22 10/19/22 12:47 Patient Tobacco Use Status Never used Tobacco 10/19/22 12:47 e-Cigarette/Vaping Use Never Used 10/19/22 12:47 PHQ-9: PHQ-9 Score PHQ-9: Total score 1 10/19/22 12:47 Depression Screening Interpretation: Negative Thrive Assessment: Date of Thrive Assessment Date Thrive assessed 04/27/22 10/19/22 12:47 Const General: alert; No acute distress Eyes Conjunctivae: conjunctivae normal Resp Auscultation: clear to auscultation bilaterally Cardio Rate: regular rate Rhythm: regular rhythm GI Inspection: Yes normal to inspection Extrem General: Yes normal to inspection and No edema Assessment and Plan Assessment & Plan (1) 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 Ford July 2021, Whipple's procedure August 2021. Adjuvant chemotherapy a requested but could not tolerate Code(s): C24.9 - Malignant neoplasm of biliary tract, unspecified Plan: Patient is being followed up by a hematology oncology both in [facility] and [facility] (2) Coronary artery disease: Code(s): I25.10 - Atherosclerotic heart disease of [place] coronary artery without angina pectoris Plan: Control the cholesterol, weight, blood pressure, diabetes (3) Impaired glucose tolerance: Code(s): R73.02 - Impaired glucose tolerance (oral) Plan: Decrease the amount of carbohydrate intake, pasta, bread, rice and potatoes are all sugar and that is aside from all the sweet stuff, remember that fruits are good but they are Sweet also. (4) Generalized anxiety disorder: Code(s): F41.1 - Generalized anxiety disorder (5) PAF (paroxysmal atrial fibrillation): Code(s): I48.0 - Paroxysmal atrial fibrillation Plan: Stable (6) BPH (benign prostatic hyperplasia): Code(s): N40.0 - Benign prostatic hyperplasia without lower urinary tract symptoms Qualifiers: Lower urinary tract symptom presence: symptoms present Lower urinary tract symptom detail: urinary frequency Qualified Code(s): N40.1 - Benign prostatic hyperplasia with lower urinary tract symptoms; R35.0 - Frequency of micturition Plan: Presently stable (7) Hypercholesterolemia: Code(s): E78.00 - Pure hypercholesterolemia, unspecified Plan: Avoid fried foods, chicken skin, eggs, butter margarine, pastries and meat. Be it pork or beef they have a lot of cholesterol presently on simvastatin 40 mg once a day (8) GERD (gastroesophageal reflux disease): Code(s): K21.9 - Gastro-esophageal reflux disease without esophagitis Qualifiers: Esophagitis presence: without esophagitis Qualified Code(s): K21.9 - Gastro-esophageal reflux disease without esophagitis Plan: Avoid the foods that causes that usually spicy foods, tomato products, juices, coffee, soda and foods that your sensitive to. After eating do not lie down, allow 3-4 hours before in lie down. And keep the head of bed above 30 degrees to avoid the acid from going up. 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 C24.9 Coronary artery disease I25.10 Impaired glucose tolerance R73.02 Generalized anxiety disorder F41.1 PAF (paroxysmal atrial fibrillation) I48.0 BPH (benign prostatic hyperplasia) N40.1; R35.0 Lower urinary tract symptom presence: symptoms present Lower urinary tract symptom detail: urinary frequency Hypercholesterolemia E78.00 GERD (gastroesophageal reflux disease) K21.9 Esophagitis presence: without esophagitis Asthma J45.20 Asthma severity: mild Asthma persistence: intermittent Asthma complication type: uncomplicated Bloating R14.0 Additional Codes PHQ-9 - 34560 - PHQ-9 Billing: Y ([id number])
== END 2022-10-19 13:16 | disposition home or self-care (01) ==
PROVIDERS: PCP Internal Medicine; Visit Provider Internal Medicine
DX: I48.0 Paroxysmal atrial fibrillation (principal); C24.9 Malignant neoplasm of biliary tract, unspecified; K21.9 Gastro-esophageal reflux disease without esophagitis; J45.20 Mild intermittent asthma, uncomplicated; R35.0 Frequency of micturition; I25.10 Atherosclerotic heart disease of native coronary artery without angina pectoris; R73.02 Impaired glucose tolerance (oral); F41.1 Generalized anxiety disorder; N40.1 Benign prostatic hyperplasia with lower urinary tract symptoms; E78.00 Pure hypercholesterolemia, unspecified; R14.0 Abdominal distension (gaseous)
CPT/HCPCS: 99214

== ENCOUNTER → 2023-01-25 13:13 | Outpatient (REF) | payer MEDICARE, OTHER, SELFPAY ==
--- NOTE | 2023-01-25 13:17 | HM_ITS ---
Conclusion: 1. Patient was monitored for total period of 2 days 2. Baseline was normal sinus with average heart of 84 beats per minute 3. Rare ectopy noted 4. No significant pauses noted 5. No patient reported events MTDD
== END ==
LOC: HO.CARD 13:13
PROVIDERS: PCP Internal Medicine; Visit Provider Internal Medicine
DX: I48.91 Unspecified atrial fibrillation (principal)
CPT/HCPCS: 93242

== ENCOUNTER → 2023-01-25 13:17 | Outpatient (BNV) | payer MEDICARE, OTHER, SELFPAY | PROVIDERS: PCP Internal Medicine; Visit Provider Internal Medicine Cardiovascular Disease | DX: I48.91 Unspecified atrial fibrillation (principal) | CPT/HCPCS: 93244 ==

== ENCOUNTER 2023-01-27 11:35 | Outpatient (AMB) | payer MEDICARE, OTHER, SELFPAY ==
[2023-01-27 12:09] VITALS: BP 138/88; PULSE 71; O2SAT 98; BMI 17.3
--- NOTE | 2023-01-27 12:09 | MHC.PC.OV ---
Vital Signs 01/27/23 12:09 Height 5 ft 8 in Weight 114 lb BMI 17.3 BP 138/88 Blood Pressure Location Lt brachial Position Sitting Pulse 71 Pulse Source Pulse Oximeter Pulse Oximetry (%) 98 Oxygen Delivery Method Room Air Intake Visit Reasons: 3 month follow up/bile duct Adenocarcinoma Allergies Penicillins [PENICILLINS] Allergy (Intermediate, Verified 01/27/23 12:09) RASH Medication List - Last Reconciled 01/27/23 by Blanca Franklin, dorzolamide-timolol 22.3-6.8 mg/mL 1 drp ophthalmic (eye) BID latanoprost 0.005% 1 drp ophthalmic (eye) BEDTIME sggtbp-edlhvqof-mgtkyuj 24,000-76,000 -120,000 unit (Creon) 1 cap PO TID PRN metoprolol succinate ER (Toprol XL) 25 mg PO DAILY omeprazole 1 cap PO DAILY pyridoxine (vitamin B6) 100 mg PO DAILY 90 days simethicone (Gas Relief 80 (simethicone)) 80 mg PO BID PRN simvastatin 40 mg PO BEDTIME tadalafil mg PO Tobacco use date assessed: 04/27/22 Fall risk assessment: No Falls in past year Last assessed Fall Risk: 01/27/23 Dental Screening Dental Screen Date: 01/27/23 Did you have a dental visit in the last 12 months?: Yes Did you have a dental problem in the last 6 months where you did not have access to dental care?: No Was dental information given to patient?: Patient has dentist HPI 3 month follow up/bile duct Adenocarcinoma HPI Details 82-year-old male with a history of bile duct cancer coronary artery disease impaired glucose tolerance generalized anxiety disorder atrial fibrillation BPH hypercholesterolemia GERD and asthma last seen in October 2022 review of the notes has been receiving blood work from [facility] for blood count showing elevated blood sugar low protein patient had Whipple's April 2022 had local recurrence and sent for radiation patient is here for follow-up. presenlty on chemothery Q 10 days and 02/2023- checmotherapy on creon.. on holter 2 days presenly since during the procedure had an atrial fibrillation episode. This is the 2nd Holter he is having. Otherwise no nausea no vomiting no chest pains complains of numbness of the hands keeps it warm declined any new medication for now. Patient does have anemia which makes him feel tired short of breath. [facility] Medical History (Updated 01/27/23 @ 12:40 by Blanca Franklin MD) Preoperative cardiovascular examination Hyperbilirubinemia Elevated liver enzymes Afib PAF (paroxysmal atrial fibrillation) NSTEMI (non-ST elevated myocardial infarction) Cholangitis due to bile duct calculus with obstruction Abdominal pain following cholangiogram NSTEMI (non-ST elevated myocardial infarction) Atrial fibrillation with rapid ventricular response Screening for diabetes mellitus Glaucoma Sciatic nerve pain Cataract, left eye Esophageal stricture Vitamin D deficiency Left renal stone BPH (benign prostatic hyperplasia) Hypercholesterolemia GERD (gastroesophageal reflux disease) Asthma Surgical History History of Whipple procedure History of cataract surgery History of inguinal hernia repair History of blepharoplasty History of lithotripsy History of tonsillectomy History of cholecystectomy Family History (Updated 10/19/22 @ 12:47 by Tish Munoz CMA) Father Stroke Mother No problems noted. Social History Household Members: Spouse Housing: House Do you presently have visiting nurse or other home services: No Alcohol intake: current Alcohol intake frequency: holidays/special occasions only Alcohol type: wine Patient Tobacco Use Status: Never used Tobacco e-Cigarette/Vaping Use: Never Used Second Hand Smoke Exposure: No Advance Directives Date on File: 11/16/20 service: No Current occupational status: retired Current occupational exposures/hazards: No Cognitive needs: No Hearing needs: No Vision needs: Yes Questionnaire PHQ-9 Over the last 2 weeks, how often have you been bothered by any of the following problems? 1. Little interest or pleasure in doing things: not at all 2. Feeling down, depressed, or hopeless: not at all 3. Trouble falling or staying asleep, or sleeping too much: not at all 4. Feeling tired or having little energy: not at all 5. Poor appetite or overeating: several days 6. Feeling bad about yourself - or that you are a failure or have let yourself or your family down: not at all 7. Trouble concentrating on things, such as reading the newspaper or watching television: not at all 8. Moving or speaking so slowly that other people could have noticed. Or the opposite - being so fidgety or restless that you have been moving around a lot more than usual: not at all 9. Thoughts that you would be better off or of hurting yourself in some way: not at all Total score: 1 Depression Screening Interpretation: Negative Depression Screening Done: Yes Source: Developed by Drs. Enoch Bowers, Virgie Shelton, Naveed Lawrence and colleagues, with an educational yaz from [employer]. Thrive Questionnaire Date Thrive assessed: 04/27/22 AUDIT C Alcohol Use Questionnaire (AUDIT-C) 1. How often do you have a drink containing alcohol?: Never 3. How often do you have six or more drinks on one occasion?: Never Total Score: 0 Score Reviewed/Action Taken: Yes AMEE-7 AMB Questionnaire AMEE-7 Date AMEE - 7 assessed: 04/27/22 Source: Developed by Drs. Enoch Bowers, Virgie Shelton, Naveed Lawrence and colleagues, with an educational yaz from [employer]. Physical exam (Primary Care) Vital Signs: Last Vital Signs Pulse 71 01/27/23 12:09 BP 138/88 01/27/23 12:09 Pulse Ox 98 01/27/23 12:09 Oxygen Delivery Method Room Air 01/27/23 12:09 BMI result Body Mass Index 17.3 Tobacco/Smoking Status: Tobacco use Status Tobacco use date assessed 04/27/22 01/27/23 12:10 Patient Tobacco Use Status Never used Tobacco 01/27/23 12:10 e-Cigarette/Vaping Use Never Used 01/27/23 12:10 PHQ-9: PHQ-9 Score PHQ-9: Total score 1 01/27/23 12:10 Depression Screening Interpretation: Negative Thrive Assessment: Date of Thrive Assessment Date Thrive assessed 04/27/22 01/27/23 12:10 Const General: alert; No acute distress Eyes Conjunctivae: conjunctivae normal Resp Auscultation: clear to auscultation bilaterally Cardio Rate: regular rate Rhythm: regular rhythm GI Inspection: Yes normal to inspection Extrem General: Yes normal to inspection and No edema Assessment and Plan Assessment & Plan (1) 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 Ford July 2021, Whipple's procedure August 2021. Adjuvant chemotherapy a requested but could not tolerate Code(s): C24.9 - Malignant neoplasm of biliary tract, unspecified Plan: Patient continue to follow-up with Hematology-Oncology presently on chemotherapy (2) GERD (gastroesophageal reflux disease): Code(s): K21.9 - Gastro-esophageal reflux disease without esophagitis Qualifiers: Esophagitis presence: without esophagitis Qualified Code(s): K21.9 - Gastro-esophageal reflux disease without esophagitis Plan: Avoid the foods that causes that usually spicy foods, tomato products, juices, coffee, soda and foods that your sensitive to. After eating do not lie down, allow 3-4 hours before in lie down. And keep the head of bed above 30 degrees to avoid the acid from going up. (3) BPH (benign prostatic hyperplasia): Code(s): N40.0 - Benign prostatic hyperplasia without lower urinary tract symptoms Qualifiers: Lower urinary tract symptom presence: symptoms present Lower urinary tract symptom detail: urinary frequency Qualified Code(s): N40.1 - Benign prostatic hyperplasia with lower urinary tract symptoms; R35.0 - Frequency of micturition Plan: Continue with tadalafil (4) Coronary artery disease: Code(s): I25.10 - Atherosclerotic heart disease of [place] coronary artery without angina pectoris Plan: Control the cholesterol, weight, blood pressure (5) PAF (paroxysmal atrial fibrillation): Code(s): I48.0 - Paroxysmal atrial fibrillation Plan: Presently workup is being done with Holter. (6) Hypercholesterolemia: Code(s): E78.00 - Pure hypercholesterolemia, unspecified Plan: Avoid fried foods, chicken skin, eggs, butter margarine, pastries and meat. Be it pork or beef they have a lot of cholesterol LDL goal of less than 70 and triglyceride of less than 150 patient on simvastatin 40 mg once a day (7) Frequency of micturition: Code(s): R35.0 - Frequency of micturition Plan: Urinalysis request (8) Peripheral neuropathy: Comment: January 2023 Code(s): G62.9 - Polyneuropathy, unspecified Plan: Patient is presently on chemotherapy. 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
== END 2023-01-27 12:45 | disposition home or self-care (01) ==
PROVIDERS: PCP Internal Medicine; Visit Provider Internal Medicine
DX: C24.9 Malignant neoplasm of biliary tract, unspecified (principal); I48.0 Paroxysmal atrial fibrillation; K21.9 Gastro-esophageal reflux disease without esophagitis; N40.1 Benign prostatic hyperplasia with lower urinary tract symptoms; R35.0 Frequency of micturition; I25.10 Atherosclerotic heart disease of native coronary artery without angina pectoris; E78.00 Pure hypercholesterolemia, unspecified; G62.9 Polyneuropathy, unspecified
CPT/HCPCS: 81003; 99214

== ENCOUNTER 2023-02-02 13:41 | Outpatient (AMB) | payer MEDICARE, OTHER, SELFPAY ==
--- NOTE | 2023-02-02 13:45 | A.OFFVIS_ITS ---
Intake Vital Signs 02/02/23 13:46 Height 5 ft 8 in Weight 121 lb 4.068 oz BMI 18.4 BP 110/62 Blood Pressure Location Lt brachial Position Sitting Pulse 93 Intake Visit Reasons: 1 yr f/up holter Accompanied by: Allergies Penicillins [PENICILLINS] Allergy (Intermediate, Verified 02/02/23 13:46) RASH Medication List - Last Reconciled 02/02/23 by Oneyda Silver NP dorzolamide-timolol 22.3-6.8 mg/mL 1 drp ophthalmic (eye) BID latanoprost 0.005% 1 drp ophthalmic (eye) BEDTIME [id number]-[id number]-[id number] 24,000-76,000 -120,000 unit (Creon) 1 cap PO TID PRN metoprolol succinate ER (Toprol XL) 25 mg PO DAILY omeprazole 1 cap PO DAILY pyridoxine (vitamin B6) 100 mg PO DAILY 90 days simvastatin 40 mg PO BEDTIME tadalafil mg PO HPI HPI Comments History of Present Illness Details 82-year-old male presents for his one ye ar follow-up. He has a history of paroxysmal atrial fibrillation, hypercholesterolemia, CAD, and adenocarionma of the bile duct. He reports being fatigued due to chemotherapy but otherwise doing well with no complaints. Reviewed holter monitor which showed rare ectopy. Tolerating medications well. [facility] Medical History Preoperative cardiovascular examination Hyperbilirubinemia Elevated liver enzymes Afib PAF (paroxysmal atrial fibrillation) NSTEMI (non-ST elevated myocardial infarction) Cholangitis due to bile duct calculus with obstruction Abdominal pain following cholangiogram NSTEMI (non-ST elevated myocardial infarction) Atrial fibrillation with rapid ventricular response Screening for diabetes mellitus Glaucoma Sciatic nerve pain Cataract, left eye Esophageal stricture Vitamin D deficiency Left renal stone BPH (benign prostatic hyperplasia) Hypercholesterolemia GERD (gastroesophageal reflux disease) Asthma Surgical History History of Whipple procedure History of cataract surgery History of inguinal hernia repair History of blepharoplasty History of lithotripsy History of tonsillectomy History of cholecystectomy Family History Father Stroke Mother No problems noted. Social History Household Members: Spouse Housing: House Do you presently have visiting nurse or other home services: No Alcohol intake: current Alcohol intake frequency: holidays/special occasions only Alcohol type: wine Patient Tobacco Use Status: Never used Tobacco e-Cigarette/Vaping Use: Never Used Second Hand Smoke Exposure: No Advance Directives Date on File: 11/16/20 service: No Current occupational status: retired Current occupational exposures/hazards: No Cognitive needs: No Hearing needs: No Vision needs: Yes Review of Systems Const Denies chills, Denies fatigue, Denies fever(s), Denies frequent falls, Denies weakness, Denies weight gain and Denies weight loss ENT Denies dizziness Card Denies chest pain, Denies chest pain with activity, Denies syncope, Denies rapid heart rate, Denies pedal edema, Denies irregular heart rhythm, Denies leg edema, Denies lightheadedness, Denies palpitations, Denies dyspnea, Denies dyspnea on exertion, Denies orthopnea and Denies other (LOC) Resp Denies cough, Denies dyspnea and Denies dyspnea on exertion GI Denies hematochezia and Denies change in bowel habits Musc Denies abnormal gait, Denies arthralgias, Denies muscle weakness, Denies numbness, Denies radiating pain into limb and Denies tingling Neuro Denies abnormal gait, Denies dizziness, Denies syncope, Denies frequent falls, Denies numbness, Denies tingling and Denies weakness Endo Denies fatigue and Denies palpitations Physical Exam Const General: healthy appearing and no acute distress Orientation/consciousness: patient oriented x3 HEENT Head: Yes normal to inspection Eyes General: appearance normal, both eyes and all related structures Neck Neck: Yes normal visual inspection Chest Chest palpation & inspection: normal inspection of the chest Resp Effort & Inspection: normal respiratory effort Auscultation: clear to auscultation bilaterally Cardio Jugular venous distension: no JVD Palpation: normal PMI Rate: regular rate Rhythm: regular rhythm Heart sounds: S1 normal heart sound present, S2 normal heart sound present, no click, no gallops, no murmurs and no rubs GI Inspection: Yes normal to inspection Palpation (GI): Soft to palpation Skin General skin exam: no rashes or lesions noted Neuro General: patient oriented x3 Extrem General: Yes normal to inspection Psych Appearance: grossly normal Results Reviewed Results Reviewed: Holter: Conclusion: 1. Patient was monitored for total period of 2 days 2. Baseline was normal sinus with average heart of 84 beats per minute 3. Rare ectopy noted 4. No significant pauses noted 5. No patient reported events Assessment & Plan Assessment & Plan (1) Coronary artery disease: Code(s): I25.10 - Atherosclerotic heart disease of mechoopda coronary artery without angina pectoris (2) PAF (paroxysmal atrial fibrillation): Code(s): I48.0 - Paroxysmal atrial fibrillation (3) Hypercholesterolemia: Code(s): E78.00 - Pure hypercholesterolemia, unspecified Plan Patient reports doing well with no concerns Only atrial fibrillation episode was recorded during hospitalization for gallstones. Had no recent evidence of atrial fibrillation. Report any new or worsening symptoms. Continue medications as currently prescribed, Will have him return in one year or sooner if needed. Coding Level of Care Code Est Pt Level 3 (19601) Diagnoses Coronary artery disease I25.10 PAF (paroxysmal atrial fibrillation) I48.0 Hypercholesterolemia E78.00
[2023-02-02 13:46] VITALS: BP 110/62; PULSE 93; BMI 18.4
== END 2023-02-02 14:09 | disposition home or self-care (01) ==
PROVIDERS: Visit Provider Nurse Practitioner
DX: I25.10 Atherosclerotic heart disease of native coronary artery without angina pectoris (principal); I48.0 Paroxysmal atrial fibrillation; E78.00 Pure hypercholesterolemia, unspecified
CPT/HCPCS: 93010; 99213

== ENCOUNTER → 2023-02-02 13:41 | Outpatient (BNVA) | payer MEDICARE, OTHER, SELFPAY | PROVIDERS: Visit Provider Nurse Practitioner | DX: I25.10 Atherosclerotic heart disease of native coronary artery without angina pectoris (principal); I48.0 Paroxysmal atrial fibrillation; E78.00 Pure hypercholesterolemia, unspecified | CPT/HCPCS: 93005; 99212 ==

== ENCOUNTER 2023-04-03 22:46 | Emergency (ER) | payer MEDICARE, OTHER, SELFPAY ==
--- NOTE | ~2023-04-03 | CT_ITS ---
EXAMINATION: CT ABDOMEN AND PELVIS WITH CONTRAST CLINICAL INFORMATION: CBD adenocarcinoma, pain vomiting COMPARISON: 09/22/2021 TECHNIQUE: Multidetector volumetric images were obtained from the superior aspect of the liver through the pubic symphysis following administration 85 mL of Omnipaque 350 intravenous contrast. Sagittal and coronal reformatted images were obtained on the technologist's workstation. Oral contrast: No This CT examination was performed using dose optimization techniques as appropriate, variously including the following: *Automated exposure control *Adjustment of mA and/or kV according to patient size (this includes techniques or standardized protocols for targeted exams where dose is matched to indication/reason for exam; i.e. extremities or head) *Use of iterative reconstruction technique DLP: 331 mGy-cm FINDINGS: LUNG BASES: Mild bibasilar atelectasis. Probable small bilateral pleural effusions. LIVER, GALLBLADDER, AND BILIARY TREE: Liver is shrunken. There is [id number] intrahepatic biliary ductal dilatation with ill-defined, heterogeneous soft tissue in the region of the common bile duct anastomosis to the bowel, but has a corresponding to postsurgical change or collapsed loops of bowel. Local recurrence cannot be excluded. Postsurgical changes of a prior Whipple procedure are apparent. PANCREAS: The pancreatic head is not well seen, possibly surgically absent as part of a prior Whipple procedure. SPLEEN: Unremarkable. ADRENAL GLANDS: Unremarkable. KIDNEYS AND URETERS: The kidneys are normal in size, shape, and attenuation. Multiple bilateral simple appearing renal cysts are identified. The largest of these measures 3 at the left lower renal pole. Additionally, there are multiple bilateral nonobstructing renal calculi with a larger burden on the left than the right. The largest of these measures within the region of a left calyceal diverticulum. This has an attenuation value of 1590 Hounsfield units and is situated 6.5 cm from the skin surface of the left posterior mid axillary line. No hydronephrosis. BLADDER: Mild bladder wall thickening and trabeculation, most consistent with chronic bladder obstruction. GASTROINTESTINAL TRACT: Moderate-sized hiatal hernia. Postsurgical changes of prior Whipple procedure are again suspected. Stomach, small bowel, and colon are normal in caliber. There is marked colonic diverticulosis without evidence of acute diverticulitis. ABDOMINAL WALL: Small there is diffuse anasarca. The extent of the anasarca results in most of the cerebral and retroperitoneal fat being the same attenuation as fluid, limiting sensitivity for fluid collections. Intrapelvic ascites is possible. LYMPH NODES: No adenopathy. VASCULAR: Calcific atherosclerosis is present in the abdominal aorta and iliac arteries. No aneurysmal dilatation. There is marked irregular narrowing of the portal vein in the region of the prior Whipple procedure. Portosystemic collaterals are identified including ascending paraesophageal varices. PELVIC VISCERA: Prostate gland is enlarged, measuring 5.2 cm transverse. OSSEOUS STRUCTURES: Marked arthropathy in the lower lumbar spine. Mild to moderate multilevel degenerative disc disease. Mild osteoarthritis in the hips. No acute osseous findings. CT/CT abdomen pelvis w IV con IMPRESSION: 1. [id number] intrahepatic biliary ductal dilatation. Ill-defined soft tissue in the region of the common bile duct anastomosis is favored to correspond to collapsed loops of bowel at the site of pancreaticobiliary anastomosis as part of a Whipple procedure, though local recurrence cannot be excluded. 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 Consider correlation with MRI of the abdomen with and without for further assessment. 2. Diffuse anasarca. The severity of the anasarca has resulted in the visceral and peritoneal fat-containing approximately the same attenuation as fluid, limiting sensitivity for ascites and other pockets of fluid. 3. Moderate-sized hiatal hernia. 4. Marked colonic diverticulosis without evidence of acute diverticulitis. 5. Bilateral nonobstructing renal calculi. 6. Prostatomegaly with evidence of chronic bladder outlet obstruction.
[2023-04-03 22:55] VITALS: BP 128/78; BP 131/80; PULSE 80; PULSE 89; RESP 18; TEMP 36.4; O2SAT 100; BMI 20.7
--- NOTE | 2023-04-03 23:13 | ED_ITS ---
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 fluids for last few days patient also feel abdominal slightly distended had normal bowel movement 2 days ago Related Data Home Medications Medication Instructions Recorded Confirmed latanoprost 0.005 % eye drops 1 drp ophthalmic (eye) BEDTIME 06/05/21 01/27/23 omeprazole 20 mg capsule,delayed 1 cap PO DAILY 06/05/21 01/27/23 release tadalafil 10 mg tablet mg PO 07/24/21 01/27/23 [id number]-vkaatyhk-[id number] 1 cap PO TID PRN 11/17/21 01/27/23 24,000-76,000-120,000 unit capsule,delayed rel (Creon) Previous Rx's Medication Instructions Recorded pyridoxine (vitamin B6) 100 mg 100 mg PO DAILY 90 days #90 tabs 07/24/21 tablet metoprolol succinate 25 mg 25 mg PO DAILY #90 tabs 02/04/22 tablet,extended release 24 hr (Toprol XL) dorzolamide 22.3 mg-timolol 6.8 1 drp ophthalmic (eye) BID #3 ea 04/27/22 mg/mL eye drops simvastatin 40 mg tablet 40 mg PO BEDTIME #90 tabs 03/16/23 Allergies Allergy/AdvReac Type Severity Reaction Status Date / Time Penicillins [PENICILLINS] Allergy Intermediate RASH Verified 02/02/23 13:46 [facility] Past Medical History Onset Date is defined in the Problem List Problems that require an onset date and time if occurred within 24 hrs of arrival to the ED Aortic Dissection and Rupture; Neurologic impairment; Cardiopulmonary Arrest; Endotracheal Intubation; Insertion or Replacement of Mechanical Circulatory Assist Device Medical History Preoperative cardiovascular examination Hyperbilirubinemia Elevated liver enzymes Afib PAF (paroxysmal atrial fibrillation) NSTEMI (non-ST elevated myocardial infarction) Cholangitis due to bile duct calculus with obstruction Abdominal pain following cholangiogram NSTEMI (non-ST elevated myocardial infarction) Atrial fibrillation with rapid ventricular response Screening for diabetes mellitus Glaucoma Sciatic nerve pain Cataract, left eye Esophageal stricture Vitamin D deficiency Left renal stone BPH (benign prostatic hyperplasia) Hypercholesterolemia GERD (gastroesophageal reflux disease) Asthma Surgical History History of Whipple procedure History of cataract surgery History of inguinal hernia repair History of blepharoplasty History of lithotripsy History of tonsillectomy History of cholecystectomy Family History Family History Father Stroke Mother No problems noted. Social History Social History Household Members: Spouse Housing: House Do you presently have visiting nurse or other home services: No Alcohol intake: current Alcohol intake frequency: holidays/special occasions only Alcohol type: wine Patient Tobacco Use Status: Never used Tobacco e-Cigarette/Vaping Use: Never Used Second Hand Smoke Exposure: No Advance Directives: No Advance Directives Information Provided: No Advance Directives Date on File: 11/16/20 service: No Current occupational status: retired Current occupational exposures/hazards: No Cognitive needs: No Hearing needs: No Vision needs: Yes Physical Exam ED Vital Signs: Vital Signs - 24 hr 04/03/23 22:55 Temperature 97.6 F Pulse Rate 89 Respiratory Rate 18 Blood Pressure 128/78 BMI result Body Mass Index 20.7 Appearance: Alert. Oriented X3. Mild disc distress. Eyes: Pallor+ ENT: Pharynx normal. Oral Mucosa moist Neck: Normal inspection. Neck supple. CVS: Normal heart rate and rhythm. Pulses normal. Respiratory: No respiratory distress. Equal air entry bilateral, no wheezing/rales/rhonchi Abdomen: Soft , epigastric tenderness Ff+ Bowel sounds are present, no mass palpable, no CVA tenderness Skin: Skin warm and dry. Normal skin color. Normal skin turgor. Extremities: No lower extremity edema. No calf tenderness Neuro: Oriented X 3. No motor deficit. Medications Administered Discontinued Medications Generic Name Dose Route Start Last Admin Trade Name Freq PRN Reason Stop Dose Admin Sodium Chloride 1,000 mls @ 999 mls/hr 04/03/23 23:24 04/04/23 00:36 Ns IV 04/04/23 00:24 999 mls/hr .Q1H1M ONE Administration Iohexol 100 ml 04/04/23 01:59 04/04/23 02:00 Iohexol 350 Mg/Ml 100 Ml Infus..Btl IV 04/04/23 02:00 85 ml ONCE ONE Administration Lidocaine HCl 1 appl 04/04/23 00:24 04/04/23 00:36 Lidocaine 4 % Cream Kit TOPICAL 04/04/23 00:25 1 appl ONCE ONE Administration Protocol Morphine Sulfate 4 mg 04/03/23 23:24 04/04/23 00:36 Morphine Sulfate 4 Mg/Ml Cartridge IVPUSH 04/03/23 23:25 4 mg ONCE ONE Administration Protocol Ondansetron HCl 4 mg 04/03/23 23:24 04/04/23 00:37 Ondansetron Hcl 4 Mg/2 Ml Vial IVPUSH 04/03/23 23:25 4 mg ONCE ONE Administration Medical Decision Making Differential Diagnosis Patient with biliary adenocarcinoma with ascites with increased vomiting with poor oral intake CT scan showed increased ascites. Labs are stable will re- evaluate the patient after final CT scan report patient signed out to Dr. Masters for disposition Admission/Observation Consideration of admission/observation: Escalation of care including admission/observation considered Lab Data MDM Lab Attestation statement: I reviewed the patient's lab results. 04/04/23 00:34 04/04/23 00:34 Labs: Lab Results 04/04/23 Range/Units 00:34 WBC 6.0 (4.8-10.8) X10*3/uL RBC 2.78 L D (4.60-5.80) X10*6/uL Hgb 8.7 L D (14.0-18.0) g/dl Hct 26.6 L D (42.0-52.0) % MCV 95.7 (80.0-98.0) fL MCH 31.3 (27.0-33.0) pg MCHC 32.7 (31.0-36.0) g/dl RDW 15.5 (11.0-16.0) % Plt Count 193 D (160-400) X10*3/uL MPV 9.9 (9.4-12.4) fL Immature Gran % (Auto) 0.3 (0.0-0.4) % Neut % (Auto) 73.4 H (45-73) % Lymph % (Auto) 13.4 L (20-40) % [place] % (Auto) 12.4 H (2-11) % Eos % (Auto) 0.2 (0-4) % Baso % (Auto) 0.3 (0-2) % Lymph # (Auto) 0.8 L (1.2-4.9) X10*3/uL [place] # (Auto) 0.8 (0.1-1.2) X10*3/uL Eos # (Auto) 0.0 (0.0-0.4) X10*3/uL Baso # (Auto) 0.0 (0.0-0.2) X10*3/uL Abs Immat Gran (auto) 0.02 (0.00-0.03) X10*3/uL Absolute Neuts (auto) 4.4 (2.0-8.3) x10*3/uL Absolute Nucleated RBC 0.000 (0.0-0.012) X10*3/uL Nucleated RBC % (auto) 0.0 (0.0-0.2) /100WBC Sodium 142 (135-145) mmol/L Potassium 3.5 (3.3-5.1) mmol/L Chloride 111 H (96-108) mmol/L Carbon Dioxide 23 (22-29) mmol/L Anion Gap 12 (12-20) BUN 21 H (9-16) mg/dL Creatinine 0.87 (0.5-1.4) mg/dL Estim Creat Clear Calc 57.7 Estimated GFR > 60 Random Glucose 138 H (60-115) mg/dL Lactic Acid 1.5 (0.5-2.0) mmol/L Calcium 8.6 (8.4-10.2) mg/dL Magnesium 2.0 (1.6-2.6) mg/dL Total Bilirubin 0.5 (0.0-1.0) mg/dL AST 40 H (5-37) U/L ALT 26 (0-40) U/L Alkaline Phosphatase 112 (39-117) U/L Total Protein 6.3 L (6.5-8.0) g/dL Albumin 2.7 L (3.5-5.0) g/dL Lipase < 4 L (8-78) U/L Discharge Plan Discharge Clinical Impression: Biliary tract cancer Patient Disposition: Still a Patient Prescriptions: No Action simvastatin 40 mg tablet 40 mg PO BEDTIME Qty: 90 3RF latanoprost 0.005 % drops 1 drp ophthalmic (eye) BEDTIME Rx Instructions: both eyes omeprazole 20 mg capsule,delayed release(DR/EC) 1 cap PO DAILY Creon 24,000-76,000 -120,000 unit capsule,delayed release(DR/EC) 1 cap PO TID PRN dorzolamide-timolol 22.3-6.8 mg/mL drops 1 drp ophthalmic (eye) BID Qty: 3 3RF Rx Instructions: both eyes tadalafil 10 mg tablet PO pyridoxine (vitamin B6) 100 mg tablet 100 mg PO DAILY 90 Days Qty: 90 3RF metoprolol succinate [Toprol XL] 25 mg tablet extended release 24 hr 25 mg PO DAILY Qty: 90 3RF
[2023-04-04] MEDS: Morphine Sulfate 4 MG/ML CARTRIDGE IVPUSH ×2 (00:36→03:58)
[2023-04-04] MEDS: 0.9 % Sodium Chloride 1,000 ML 999 ML IV (00:36)
[2023-04-04] MEDS: Lidocaine 4 % Cream KIT 1 APPL TOPICAL (00:36)
[2023-04-04] MEDS: ondansetron HCL 4 MG/2 ML VIAL IVPUSH ×2 (00:37→03:58)
[2023-04-04 00:42] LABS: MANUAL DIFF FLAG NO
[2023-04-04 00:44] LABS: Basophils Percent Auto 0.3 % (0-2); Eosinophils Percent Auto 0.2 % (0-4); Hematocrit 26.6 % (42.0-52.0); Hemoglobin 8.7 g/dl (14.0-18.0); Imm Gran Abs Auto 0.02 X10*3/uL (0.00-0.03); Imm Gran Pct Auto 0.3 % (0.0-0.4); Lymphocytes Absolute Auto 0.8 X10*3/uL (1.2-4.9); Lymphocytes Percent Auto 13.4 % (20-40); Mean Corpuscular HGB Conc 32.7 g/dl (31.0-36.0); Mean Corpuscular Hemoglobin 31.3 pg (27.0-33.0); Mean Corpuscular Volume 95.7 fL (80.0-98.0); Mean Platelet Volume 9.9 fL (9.4-12.4); Monocytes Absolute Auto 0.8 X10*3/uL (0.1-1.2); Monocytes Percent Auto 12.4 % (2-11); Neutrophils Absolute Auto 4.4 x10*3/uL (2.0-8.3); Neutrophils Percent Auto 73.4 % (45-73); Platelet Count 193 X10*3/uL (160-400); Red Blood Count 2.78 X10*6/uL (4.60-5.80); Red Cell Distribution Width 15.5 % (11.0-16.0)
[2023-04-04 00:55] LABS: Lactic Acid 1.5 mmol/L (0.5-2.0)
[2023-04-04 01:00] LABS: Alanine Aminotransferase 26 U/L (0-40); Albumin Level 2.7 g/dL (3.5-5.0); Alkaline Phosphatase 112 U/L (39-117); Anion Gap 12 (12-20); Aspartate Amino Transferase 40 U/L (5-37); Bilirubin Total 0.5 mg/dL (0.0-1.0); Blood Urea Nitrogen 21 mg/dL (9-16); Calcium 8.6 mg/dL (8.4-10.2); Carbon Dioxide 23 mmol/L (22-29); Chloride 111 mmol/L (96-108); Creatinine Clr Calc Pharmacy 57.7; Estimated Glomerular Filt Rate > 60; Glucose Random 138 mg/dL (60-115); Lipase < 4 U/L (8-78); Potassium 3.5 mmol/L (3.3-5.1); Sodium 142 mmol/L (135-145); Total Protein 6.3 g/dL (6.5-8.0)
[2023-04-04] MEDS: iohexoL 350 MG/ML 100 ML INFUS..BTL IV (02:00)
[2023-04-04 02:17] VITALS: BP 111/67; PULSE 68; RESP 18; TEMP 36.4; O2SAT 98
[2023-04-04] MEDS: Prochlorperazine Edisylate 10 MG/2 ML VIAL IVPUSH (02:25)
[2023-04-04 04:10] VITALS: BP 133/79; PULSE 98; RESP 20; TEMP 36.4; O2SAT 97
== END 2023-04-04 04:20 | disposition home or self-care (01) ==
PROVIDERS: Internal Medicine; Emergency Provider Emergency Medicine Emergency Medical Services; PCP Internal Medicine
DX: C22.1 Intrahepatic bile duct carcinoma (principal); R10.2 Pelvic and perineal pain; R11.2 Nausea with vomiting, unspecified; R53.1 Weakness; Z79.899 Other long term (current) drug therapy
CPT/HCPCS: 36415; 74177; 80053; 83605; 83690; 83735; 85025; 96361; 96374; 96375; 96376; 99284; J0737; J2270; J2405; Q9967